=== PATIENT | female | born 1985 | race Caucasian/White ===

== ENCOUNTER 2017-02-27 15:34 | Emergency (ER) | payer BC, SELFPAY | END 2017-02-27 16:30 | disposition left against medical advice (07) | PROVIDERS: Emergency Provider Nurse Practitioner; Family Provider Family Medicine | DX: Z53.29 Procedure and treatment not carried out because of patient's decision for other reasons (principal) | CPT/HCPCS: 99211 ==

== ENCOUNTER 2017-03-16 10:40 | Emergency (ER) | payer BC, SELFPAY ==
[2017-03-16 10:51] VITALS: BP 137/87; PULSE 101; RESP 20; TEMP 36.6; O2SAT 98; BMI 33.0
--- NOTE | 2017-03-16 11:06 | HMH.EDUTC ---
[facility] [place] Clinical Impression: Sinusitis Qualifiers: Sinusitis location: maxillary Chronicity: acute Recurrence: non-recurrent Qualified Code(s): J01.00 - Acute maxillary sinusitis, unspecified Disposition: Home, Self-Care Condition on Discharge: Good Instructions: DI for Sinusitis Additional Instructions: Rest, fluids. Time of Disposition: 11:21 Medical Decision Making - Medical Records Medical records reviewed: Yes: I reviewed the patient's medical records. Vital Signs: 03/16/17 10:51 Temperature 97.9 F Temperature Source Temporal Artery Scan Pulse Rate [Brachial] 101 H Respiratory Rate 20 Blood Pressure [Right Arm] 137/87 Blood Pressure Mean [Right Arm] 103 Blood Pressure Source [Right Arm] Automatic Cuff Blood Pressure Position [Right Arm] Sitting 02 Sat by Pulse Oximetry 98 Oxygen Delivery Method Room Air - Dmitriy Inquiry Pt receiving controlled substance: No [facility] [place] - General Stated complaint: sinus pressure fever congestion Time Seen by Provider: 03/16/17 11:02 Mode of Arrival: Ambulatory Source of Information: Patient Limitations: No Limitations Description of Symptoms (Recalled from Triage Doc. by RN): SINUS PRESSURE, LOW GRADE FEVER (36 WEEKS ). HEENT Symptoms (Recalled from RN notes): Yes Resp Symptoms (Recalled from RN notes): No Skin Symptoms (Recalled from RN notes): No MS Symptoms (Recalled from RN notes): No Functional Status (Recalled from RN notes): NA - History of Present Illness Provider Complaint: Sinus pressure, low grade fever, ear pain and dizziness for a few days. She is 36 weeks . Denies cough, body aches,chills. Denies sore throat. Normal . Still having plenty of movement. Onset (ago): day(s) (3) Location: head Associated symptoms: fever/chills, headaches Treatments prior to arrival: none - Related Data Home Medications Medication Instructions Recorded Confirmed Itl132/FA/Omega3/Dha/Fish Oil 1 each PO DAILY 03/16/17 03/16/17 [ Gummies] Previous Rx's Medication Instructions Recorded Amoxicillin/Potassium Clav 1 tab PO Q12H 10 Days #20 tab 03/16/17 [Augmentin 875-125 Tablet] Fluticasone Propionate [Flonase 1 spray NS BID 10 Days #1 bot 03/16/17 Allergy Relief NS] Pseudoephedrine HCl [Sudafed] 30 mg PO TID 10 Days #30 tab 03/16/17 Allergies Allergy/AdvReac Type Severity Reaction Status Date / Time erythromycin base Allergy Intermediate I-HIVES, Verified 03/13/17 14:34 STOMACH UPSET methylergonovine Allergy Unknown EDEMA Verified 03/13/17 14:34 [From Methergine] oxycodone Allergy Unknown HEART RACES Verified 03/13/17 14:34 - Worker's Comp Is this a Worker's Comp case?: No H History Other Surgeries: Yes: , Diagnostic Lap Amputation: No Fractures: No - *Social History Smoking Status: Never smoker Alcohol Intake: never Substance Use Type: denies use Occupational Status: unemployed Housing: house Household Members: spouse, children - Psychiatric History Expresses thoughts of harming self/others: None Suicide Plan Description: No Plan *Family Hx:: Hypertension, Cancer 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 ROS Obtained: Yes All systems reviewed & no additional complaints - ENT Ears, Nose, Mouth, and Throat: Reports otalgia, Reports headache(s), Reports nasal congestion Physical Exam - General General appearance: alert, in no apparent distress - Head Head exam: atraumatic, normocephalic, normal inspection - Eye Eye exam: Present: normal appearance, PERRL, EOMI - ENT ENT exam: Present: normal exam, normal oropharynx, mucous membranes moist, normal external ear exam - Expanded ENT Exam TM/Canal exam: Bilateral TM: effusion Nose exam: Present: sinus tenderness - Neck Neck exam: Present: normal inspection, full ROM, trachea midline. Absent: meningismus, lymphadenopathy - Chest Chest inspection: Present: normal inspection, symme
--- NOTE | 2017-03-16 11:16 | ED_ITS ---
[facility] [place] Disposition Clinical Impression: Sinusitis Qualifiers: Sinusitis location: maxillary Chronicity: acute Recurrence: non-recurrent Qualified Code(s): J01.00 - Acute maxillary sinusitis, unspecified Disposition: Home, Self-Care Condition on Discharge: Good Instructions: DI for Sinusitis Additional Instructions: Rest, fluids. Time of Disposition: 11:21 Medical Decision Making - Medical Records Medical records reviewed: Yes: I reviewed the patient's medical records. Vital Signs: 03/16/17 10:51 Temperature 97.9 F Temperature Source Temporal Artery Scan Pulse Rate [Brachial] 101 H Respiratory Rate 20 Blood Pressure [Right Arm] 137/87 Blood Pressure Mean [Right Arm] 103 Blood Pressure Source [Right Arm] Automatic Cuff Blood Pressure Position [Right Arm] Sitting 02 Sat by Pulse Oximetry 98 Oxygen Delivery Method Room Air - Dmitriy Inquiry Pt receiving controlled substance: No [facility] [place] HPI - General Stated complaint: sinus pressure fever congestion Time Seen by Provider: 03/16/17 11:02 Mode of Arrival: Ambulatory Source of Information: Patient Limitations: No Limitations Description of Symptoms (Recalled from Triage Doc. by RN): SINUS PRESSURE, LOW GRADE FEVER (36 WEEKS ). HEENT Symptoms (Recalled from RN notes): Yes Resp Symptoms (Recalled from RN notes): No Skin Symptoms (Recalled from RN notes): No MS Symptoms (Recalled from RN notes): No Functional Status (Recalled from RN notes): NA - History of Present Illness Provider Complaint: Sinus pressure, low grade fever, ear pain and dizziness for a few days. She is 36 weeks . Denies cough, body aches,chills. Denies sore throat. Normal . Still having plenty of movement. Onset (ago): day(s) (3) Location: head Associated symptoms: fever/chills, headaches Treatments prior to arrival: none - Related Data Home Medications Medication Instructions Recorded Confirmed Oxq980/FA/Omega3/Dha/Fish Oil 1 each PO DAILY 03/16/17 03/16/17 [ Gummies] Previous Rx's Medication Instructions Recorded Amoxicillin/Potassium Clav 1 tab PO Q12H 10 Days #20 tab 03/16/17 [Augmentin 875-125 Tablet] Fluticasone Propionate [Flonase 1 spray NS BID 10 Days #1 bot 03/16/17 Allergy Relief NS] Pseudoephedrine HCl [Sudafed] 30 mg PO TID 10 Days #30 tab 03/16/17 Allergies Allergy/AdvReac Type Severity Reaction Status Date / Time erythromycin base Allergy Intermediate I-HIVES, Verified 03/13/17 14:34 STOMACH UPSET methylergonovine Allergy Unknown EDEMA Verified 03/13/17 14:34 [From Methergine] oxycodone Allergy Unknown HEART RACES Verified 03/13/17 14:34 - Worker's Comp Is this a Worker's Comp case?: No [facility] History Other Surgeries: Yes: , Diagnostic Lap Amputation: No Fractures: No - *Social History Smoking Status: Never smoker Alcohol Intake: never Substance Use Type: denies use Occupational Status: unemployed Housing: house Household Members: spouse, children - Psychiatric History Expresses thoughts of harming self/others: None Suicide Plan Description: No Plan *Family Hx:: Hypertension, Cancer 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
== END 2017-03-16 12:07 | disposition home or self-care (01) ==
PROVIDERS: Emergency Provider Physician Assistant; Family Provider Family Medicine
DX: J01.00 Acute maxillary sinusitis, unspecified (principal); Z3A.36 36 weeks gestation of pregnancy
CPT/HCPCS: 99202

== ENCOUNTER → 2017-04-03 14:24 | Outpatient (CLI) | payer BC, SELFPAY ==
[2017-04-03 14:29] LABS: Microscopic, Urine URINE MICROSCOPIC (MICROSCOPIC)
[2017-04-03 14:50] LABS: Appearance,Urine CLEAR (Clear); Bilirubin,Urine Negative (Negative); Blood, Urine Negative (Negative); Color,Urine YELLOW (Yellow); Glucose,Urine (UA) Negative (Negative); Ketones,Urine Negative (Negative); Leukocyte Esterase,Urine Negative (Negative); Nitrate,Urine Negative (Negative); Protein,Urine Negative (Negative); Urobilinogen,Urine 0.2 EU/dl (0.2)
[2017-04-03 14:51] LABS: Basophils % 0.1 % (0.1-2.0); Eosinophils # 0.1 K/mm3 (0.0-0.4); Eosinophils % 1.2 % (0.1-12.0); Hematocrit 36.4 % (37.0-47.0); Hemoglobin 12.1 g/dL (12.2-16.2); Lymphocytes # 1.6 K/mm3 (0.7-4.5); Mean Corpuscular HGB Conc 33.4 g/dL (31.8-35.4); Mean Corpuscular Hemoglobin 29.3 pg (27.0-31.2); Mean Corpuscular Volume 87.8 fl (81-99); Mean Platelet Volume 8.2 fl (7.4-10.4); Monocytes # 0.6 K/mm3 (0.1-1.0); Neutrophils # 8.4 K/mm3 (1.8-7.8); Neutrophils % 77.7 % (37.0-80.0); Platelet Count 192 K/mm3 (142-424); Red Blood Count 4.15 M/mm3 (4.20-5.40); Red Cell Distribution Width 14.4 % (11.5-17.5); White Blood Count 10.8 K/mm3 (4.8-10.8)
[2017-04-03 15:49] LABS: Alanine Aminotransferase 21 U/L (12-78); Albumin Level 2.7 gm/dL (3.4-5.0); Albumin/Globulin Ratio 0.8 (1.1-1.8); Alkaline Phosphatase 144 U/L (46-116); Anion Gap 13.9 mEq/L (5-15); Aspartate Amino Transferase 15 U/L (15-37); Bilirubin,Total 0.3 mg/dL (0.2-1.0); Blood Urea Nitrogen 6 mg/dL (7-18); Carbon Dioxide 24 mmol/L (21.0-32.0); Chloride 105 mmol/L (98-107); Creatinine,Serum 0.53 mg/dL (0.55-1.02); Estimated Glomerular Filt Rate 136 ml/min (>60); GFR (African American) 165 ML/MIN (>60); Globulin 3.4 gm/dl (1.3-3.2); Glucose 95 mg/dL (74-106); Potassium 3.9 mmoL/L (3.5-5.1); Sodium 139 mmol/L (136-145); Total Protein,Serum 6.1 gm/dL (6.4-8.2)
[2017-04-03 16:47] LABS: Bacteria,Urine 2+ /lpf; Transitional Epi Cells,Urine OCC #/lpf (0-3); WBC,Urine Occasional #/hpf (0-3)
== END ==
PROVIDERS: PCP Family Medicine; Visit Provider Obstetrics & Gynecology
DX: Z01.812 Encounter for preprocedural laboratory examination (principal)
CPT/HCPCS: 36415; 80053; 81001; 85025; 87086

== ENCOUNTER 2017-04-06 05:01 | Inpatient (IN) | payer BC, SELFPAY ==
[2017-04-06 05:16] VITALS: BMI 32.7
[2017-04-06 05:57] VITALS: BP 119/72; PULSE 76; RESP 18; TEMP 37.4; O2SAT 98; BMI 32.7
--- NOTE | 2017-04-06 07:17 | HMH.ANESCL ---
[facility] Anesthesia Checklist - Patient Identification Patient Identification: Arm Band - Structural Data Admitted From: Home Planned Operative Procedure/s: repeat c/s Consent for Planned Operative Procedure(s) Verified: Yes Verified Documents: Surgical Consent, History and Physical - NPO Status Verified Time NPO: 00:00 - Airway Assessment C-Spine Mobility Assessed: Yes TMJ Mobility Assessed: Yes Dentition: Good Dentition - Neurological Assessment Level of Consciousness: Awake, Alert - Anesthesia Plan Anesthesia Risk discussed: Yes Anesthesia Plan: Verified ASA Class: II Anesthesia Type: Spinal [facility] Anesthesia HX I have reviewed the patient's past medical history: Yes Other Medical History: Reports: Other Other Surgeries: Yes: , Diagnostic Lap, Other Amputation: No Fractures: No *Family Hx:: Hypertension, Cancer
[2017-04-06 08:44] LABS: Cord Blood PH 7.41 (7.35-7.45)
--- NOTE | 2017-04-06 09:02 | HMH.OBCSECT ---
Pre-Op/Post-Op Diagnoses Operation Date: 04/06/17 08:45 <No data on this case meets the specified criteria> Preop diagnoses 1. Term intrauterine . 2. Previous sections ?2. Procedure: Procedures Operation Date: 04/06/17 08:45 <No data on this case meets the specified criteria> Repeat low transverse cervical section.
[2017-04-06 09:05] VITALS: BP 133/78; PULSE 105; RESP 16; TEMP 36.1; O2SAT 97
--- NOTE | 2017-04-06 09:05 | HMH.OPNOTE ---
Date of procedure: 04/06/17 Pre-op Diagnosis:: 1. Term intrauterine . 2. Previous sections ?2. Post-op diagnosis:: same ( 10/10, 7 lbs. 3 oz., 19.25 inch female , born at 0832.) Procedure performed:: Repeat low transverse cervical section Surgeon:: Toro Nath MD Revenue Settlements Administrator(s):: PORTER Tejeda DIRECTOR DATA MANAGEMENT:: Sergio Eduardo Anesthesia: spinal Estimated blood loss (mL): 400 Operative findings:: Term intrauterine , with previous sections ?2. Evidence of repair of umbilical hernia. Operative note:: After the patient was prepped and draped in usual fashion and spinal anesthesia was administered, a low Pfannenstiel incision was made through the previous incision, and the fat and fascia was in usual fashion, bleeders being clamped and coagulated along the way. The peritoneum was entered with Metzenbaum scissors, and extended above and below. The bladder peritoneum was sharply and bluntly dissected from the area of incision, and the bladder was protected with a bladder blade. The uterus was entered in a low transverse fashion with a knife, and the incision was extended bluntly, bilaterally. The amniotic sac was ruptured for clear fluid. The baby was found to be in the OA position of the vertex and, with appropriate fundal pressure, the head was easily delivered. There was no nuchal cord, nor was there any meconium. The baby's nasal and oropharynx were bulb suctioned, and the baby cried spontaneously on the abdomen, as it was delivered. The cord was clamped and cut, 3 vessels were noted to be within the cord, and cord blood was obtained. The cord pH was 7.41. The baby was handed into the arms of the attending textile knitter, Dr. Chan, who assigned Apgars of 10 at 1 minute and 10 at 5 minutes to this 7 lbs. 3 oz., 19.25 inch female , born at 0832. The baby was taken to the nursery in excellent condition, along with the father, who is present in the operating room. The placenta was delivered manually, intact. A ring forceps was used to assure adequate drainage to the cervix; this was then passed off the field, as a nonsterile instrument. The uterus was closed in 2 layers, the first a running locked suture of #1 Vicryl as an endometrial layer, followed by a running unlocked suture of #1 Vicryl as a myometrial layer, imbricating over the first. The bladder peritoneum was closed with a running unlocked suture of 2-0 Vicryl. Blood and clots were then swept from the gutters and the tubes and ovaries were inspected and found to be normal. The patient had previously decided not to undergo tubal sterilization. The upper abdomen was explored and the umbilical hernia repair/mesh were felt to be intact. The peritoneum was grasped with 3 Ximena clamps, and closed with a running semi-locked suture of 0 Vicryl. The muscle was approximated with a running unlocked suture of 0 Vicryl. The fascia was closed with a running locked suture of #1 Vicryl. The subcutaneous fat and Sherwin's fascia were closed with a running unlocked suture of 2-0 Vicryl. The skin was closed with a subcuticular suture of 3-0 Vicryl, and appropriately dressed. The sponge and needle counts correct. The estimated blood loss was 400 cc. The urine is clear in the Mariscal catheter. A pelvic examination at the close of the procedure expressed blood and clots from the involuting uterus, with IV Pitocin running. The patient tolerated the procedure well, and was taken to PACU in excellent condition. Her blood type is A+. Her rubella titer is immune. She plans to breast-feed. It should be noted that she is group B strep positive, and was given antibiotics prior to surgery. Pathology: none sent Condition: stable Disposition: PACU Specimens:: None Complications:: None
--- NOTE | 2017-04-06 09:06 | HMH.ANESI ---
[facility] Anesthesia Record Part I Intake, IV Amount: 2,000 Estimated blood loss (mL): 400 Urine output (mL): 100 Blood Pressure: 133/78 SaO2: 97 Pulse Rate: 105 Respiratory Rate: 16 Temperature: 97 F Patient is:: Awake, Stable Stable to PACU at:: 09:05
[2017-04-06 09:07] VITALS: BP 133/78; PULSE 105; RESP 16; TEMP 36.1; O2SAT 97
--- NOTE | 2017-04-06 09:08 | HMH.ANESII ---
[facility] Anesthesia Record Part II Discharge Time: 09:35 Destination: Obstetric PACU nurse assessment reviewed?: Yes Patient Condition:: Good Anesthesia Complications:: None
--- NOTE | 2017-04-06 09:12 | P.OP_ITS ---
Date of procedure: 04/06/17 Pre-op Diagnosis:: 1. Term intrauterine . 2. Previous sections ?2. Post-op diagnosis:: same ( 10/10, 7 lbs. 3 oz., 19.25 inch female , born at 0832.) Procedure performed:: Repeat low transverse cervical section Surgeon:: Toro Nath MD Accounting System Expert(s):: PORTER Tejeda PRECISION INSPECTOR:: Sergio Eduardo Anesthesia: spinal Estimated blood loss (mL): 400 Operative findings:: Term intrauterine , with previous sections ?2. Evidence of repair of umbilical hernia. Operative note:: After the patient was prepped and draped in usual fashion and spinal anesthesia was administered, a low Pfannenstiel incision was made through the previous incision, and the fat and fascia was in usual fashion, bleeders being clamped and coagulated along the way. The peritoneum was entered with Metzenbaum scissors, and extended above and below. The bladder peritoneum was sharply and bluntly dissected from the area of incision, and the bladder was protected with a bladder blade. The uterus was entered in a low transverse fashion with a knife, and the incision was extended bluntly, bilaterally. The amniotic sac was ruptured for clear fluid. The baby was found to be in the OA position of the vertex and, with appropriate fundal pressure, the head was easily delivered. There was no nuchal cord, nor was there any meconium. The baby's nasal and oropharynx were bulb suctioned, and the baby cried spontaneously on the abdomen, as it was delivered. The cord was clamped and cut , 3 vessels were noted to be within the cord, and cord blood was obtained. The cord pH was 7.41. The baby was handed into the arms of the attending manager business operations, Dr. Chan, who assigned Apgars of 10 at 1 minute and 10 at 5 minutes to this 7 lbs. 3 oz., 19.25 inch female , born at 0832. The baby was taken to the nursery in excellent condition, along with the father, who is present in the operating room. The placenta was delivered manually, intact. A ring forceps was used to assure adequate drainage to the cervix; this was then passed off the field, as a nonsterile instrument. The uterus was closed in 2 layers, the first a running locked suture of #1 Vicryl as an endometrial layer, followed by a running unlocked suture of #1 Vicryl as a myometrial layer, imbricating over the first. The bladder peritoneum was closed with a running unlocked suture of 2-0 Vicryl. Blood and clots were then swept from the gutters and the tubes and ovaries were inspected and found to be normal. The patient had previously decided not to undergo tubal sterilization. The upper abdomen was explored and the umbilical hernia repair/mesh were felt to be intact. The peritoneum was grasped with 3 Ximena clamps, and closed with a running semi-locked suture of 0 Vicryl. The muscle was approximated with a running unlocked suture of 0 Vicryl. The fascia was closed with a running locked suture of #1 Vicryl. The subcutaneous fat and Sherwin's fascia were closed with a running unlocked suture of 2-0 Vicryl. The skin was closed with a subcuticular suture of 3-0 Vicryl, and appropriately dressed. The sponge and needle counts correct. The estimated blood loss was 400 cc. The urine is clear in the Mariscal catheter. A pelvic examination at the close of the procedure expressed blood and clots from the involuting uterus, with IV Pitocin running. The patient tolerated the procedure well, and was taken to PACU in excellent condition. Her blood type is A+. Her rubella titer is immune. She plans to breast-feed. It should be noted that she is group B strep positive, and was given antibiotics prior to surgery. Pathology: none sent
[2017-04-06 09:15] VITALS: BP 136/79; PULSE 91; RESP 16; O2SAT 98
[2017-04-06 09:25] VITALS: BP 122/79; PULSE 79; RESP 16; O2SAT 99
[2017-04-06 09:35] VITALS: BP 128/67; PULSE 84; RESP 16; TEMP 36.2; O2SAT 99
--- NOTE | 2017-04-06 10:48 | PC.NURSE ---
0905-Report received from ABHISHEK Smith and RICHARD Palafox.
--- NOTE | 2017-04-06 12:43 | HMH.ACPN2 ---
Internal Medicine - PN: Subj *Date: 04/06/17 *Time: 12:43 (This is day of surgery. Surgeries been explained to the patient. She is doing well. She is afebrile. Vital signs stable. Wound clean. Abdomen soft. Uterine fundus involuting well. Impression: Stable. Dr. Sobeida Painter will be covering from tonight through the weekend and the patient has been made aware of that.) Exam Vital signs and Labs for Last 24 Hours: Temp Pulse Resp BP Pulse Ox 97 F L 105 H 16 133/78 97 04/06/17 09:07 04/06/17 09:07 04/06/17 09:07 04/06/17 09:07 04/06/17 09:05 Laboratory Results - last 24 hr 04/06/17 05:45: Blood Type A Positive, Antibody Screen Negative 04/06/17 08:41: Cord ABG pH 7.41 I & O for Last 24 hours: Intake & Output 04/04/17 04/05/17 04/06/17 04/07/17 11:59 11:59 11:59 11:59 Intake Total 2300 / 2300 Balance 2300 / 2300 Weight 179 lb
[2017-04-06 13:19] LABS: Microscopic, Urine URINE MICROSCOPIC (MICROSCOPIC)
[2017-04-06 13:21] LABS: Appearance,Urine CLEAR (Clear); Bilirubin,Urine Negative (Negative); Blood, Urine TRACE-I (Negative); Color,Urine YELLOW (Yellow); Glucose,Urine (UA) Negative (Negative); Ketones,Urine Negative (Negative); Leukocyte Esterase,Urine Negative (Negative); Nitrate,Urine Negative (Negative); PH,Urine 7.5 (5.0-8.5); Protein,Urine 2+ (Negative); Specific Gravity, Urine 1.015 (1.005-1.030); Urobilinogen,Urine 0.2 EU/dl (0.2)
--- NOTE | 2017-04-06 13:29 | PC.NURSE ---
0915-pt eating ice chips w/out difficulty
[2017-04-06 13:33] LABS: Bacteria,Urine 1+ /lpf; Squamous Epithelial Cell,Urine Occasional #/hpf (0-5); WBC,Urine Occasional #/hpf (0-3)
--- NOTE | 2017-04-06 13:41 | PC.NURSE ---
0933-Detailed report called to ABHISHEK Andre. Pt continues to eat ice chips w/out difficulty. Pt stable. 0935-Pt transported to OB dept room 277 via hospital bed w/rails up and left in care of ABHISHEK Andre and ABHISHEK Nunez with bed locked in lowest position. Family at bedside. VSS. Pt stable.
--- NOTE | 2017-04-06 13:55 | P.CONPHA_ITS ---
[facility] Pharmacy VTE Monitoring - Patient Demographics Admission date: 04/06/17 Report Date: 04/06/17 Time: 13:55 Allergies/Adverse Reactions: Patient Allergies erythromycin base Allergy (Intermediate, Verified 04/03/17 13:43) I-HIVES, STOMACH UPSET methylergonovine [From Methergine] Allergy (Unknown, Verified 04/03/17 13:43) EDEMA oxycodone Adverse Reaction (Unknown, Verified 04/06/17 11:42) HEART RACES Height: 1.57 m Weight: 81.193 kg - Prophylaxis VTE Prophylaxis Ordered?: Yes Types of VTE Prophylaxis: IPCS Knee High Location of Applied Device: Bilateral Lower Extremeties - VTE Diagnosis Confirmed Treatment or plan recommended: Continue Current Treatment
--- NOTE | 2017-04-06 23:25 | PC.NURSE ---
Report received from ABHISHEK Daniel.
[2017-04-07 06:26] LABS: Hematocrit 32.9 % (37.0-47.0); Hemoglobin 11.1 g/dL (12.2-16.2)
--- NOTE | 2017-04-07 07:08 | PC.NURSE ---
Report given to MayraRN
--- NOTE | 2017-04-07 11:24 | HMH.ACPN ---
Internal Medicine - PN: Subj *Date: 04/07/17 *Time: 13:24 Interval history: POD 1 repeat CS No complaints Ambulating, voiding and tolerating regular diet Lochia less than menses Pain control sufficient Exam Vital signs and Labs for Last 24 Hours: Temp Pulse Resp BP Pulse Ox 97.2 F L 84 16 128/67 99 04/06/17 09:35 04/06/17 09:35 04/06/17 09:35 04/06/17 09:35 04/06/17 09:35 Laboratory Results - last 24 hr 04/06/17 08:20: Urine Color Yellow, Urine Appearance Clear, Urine pH 7.5, Ur Specific [place] 1.015, Urine Protein 2+, Urine Glucose (UA) Negative, Urine Ketones Negative, Urine Blood Trace-i, Urine Nitrate Negative, Urine Bilirubin Negative, Urine Urobilinogen 0.2, Ur Leukocyte Esterase Negative, Urine RBC 3-5, Urine WBC Occasional, Ur Squamous Epith Cells Occasional, Urine Bacteria 1+ 04/07/17 05:50: Hgb 11.1 L, Hct 32.9 L I & O for Last 24 hours: Intake & Output 04/05/17 04/06/17 04/07/17 04/08/17 11:59 11:59 11:59 11:59 Intake Total 2325 / 2325 Output Total 75 / 75 Balance 2250 / 2250 Weight 179 lb 179 lb - *Routine Respiratory Exam Comments: breathing unlabored - *Routine Abdominal Exam Present: soft, normoactive bowel sounds Comments: appropriate po tenderness dressing D/I - *Routine Extremities Exam Present: edema Comments: 1+ LE - *Routine Skin Exam Present: dry, warm Assessment and Plan (1) Delivered by section Current visit: Yes Status: Acute Category: Medical Code(s): O82 - Encounter for delivery without indication Routine care Advance care as tolerated Anticipate discharge POD 2 or 3 (2) Postoperative anemia Current visit: Yes Status: Acute Category: Medical Code(s): D64.9 - Anemia, unspecified Continue supplementation with PNV/ferrous sulfate
--- NOTE | 2017-04-07 13:28 | P.PN_ITS ---
Internal Medicine - PN: Subj *Date: 04/07/17 *Time: 13:24 Interval history: POD 1 repeat CS No complaints Ambulating, voiding and tolerating regular diet Lochia less than menses Pain control sufficient Exam Vital signs and Labs for Last 24 Hours: Temp Pulse Resp BP Pulse Ox 97.2 F L 84 16 128/67 99 04/06/17 09:35 04/06/17 09:35 04/06/17 09:35 04/06/17 09:35 04/06/17 09:35 Laboratory Results - last 24 hr 04/06/17 08:20: Urine Color Yellow, Urine Appearance Clear, Urine pH 7.5, Ur Specific [place] 1.015, Urine Protein 2+, Urine Glucose (UA) Negative, Urine Ketones Negative, Urine Blood Trace-i, Urine Nitrate Negative, Urine Bilirubin Negative, Urine Urobilinogen 0.2, Ur Leukocyte Esterase Negative, Urine RBC 3-5 , Urine WBC Occasional, Ur Squamous Epith Cells Occasional, Urine Bacteria 1+ 04/07/17 05:50: Hgb 11.1 L, Hct 32.9 L I & O for Last 24 hours: Intake & Output 04/05/17 04/06/17 04/07/17 04/08/17 11:59 11:59 11:59 11:59 Intake Total 2325 / 2325 Output Total 75 / 75 Balance 2250 / 2250 Weight 179 lb 179 lb - *Routine Respiratory Exam Comments: breathing unlabored - *Routine Abdominal Exam Present: soft, normoactive bowel sounds Comments: appropriate po tenderness dressing D/I - *Routine Extremities Exam Present: edema Comments: 1+ LE - *Routine Skin Exam Present: dry, warm Assessment and Plan (1) Delivered by section Current visit: Yes Status: Acute Category: Medical Code(s): O82 - Encounter for delivery without indication Routine care Advance care as tolerated Anticipate discharge POD 2 or 3 (2) Postoperative anemia Current visit: Yes Status: Acute Category: Medical Code(s): D64.9 - Anemia , unspecified Continue supplementation with PNV/ferrous sulfate
--- NOTE | 2017-04-08 07:11 | PC.NURSE ---
Report to ABHISHEK Boudreaux
[2017-04-08 07:41] VITALS: RESP 18
--- NOTE | 2017-04-08 12:26 | HMH.ACPN ---
Internal Medicine - PN: Subj *Date: 04/08/17 *Time: 12:26 Interval history: POD #2 no new complaints. ambulating/voiding/tolerating reg diet without problems. lochia small. desires discharge tomorrow. Exam Vital signs and Labs for Last 24 Hours: Temp Pulse Resp BP Pulse Ox 97.2 F L 84 18 128/67 99 04/06/17 09:35 04/06/17 09:35 04/08/17 07:41 04/06/17 09:35 04/06/17 09:35 I & O for Last 24 hours: Intake & Output 04/06/17 04/07/17 04/08/17 04/09/17 11:59 11:59 11:59 11:59 Intake Total 2325 / 2325 Output Total 75 / 75 Balance 2250 / 2250 Weight 179 lb 179 lb - Constitutional no acute distress - *Routine Respiratory Exam Present: CTA bilaterally - *Routine Abdominal Exam Present: soft Comments: NT/ND - Routine Psychiatric Exam Present: normal affect Assessment and Plan (1) Delivered by section Current visit: Yes Status: Acute Category: Medical Code(s): O82 - Encounter for delivery without indication (2) Postoperative anemia Current visit: Yes Status: Acute Category: Medical Code(s): D64.9 - Anemia, unspecified - Assessment and plan all Dx Assessment and Plan for all problems:: Continue routine care. Anticipate discharge home tomorrow. Continue PNV with ferrous sulfate.
--- NOTE | 2017-04-08 15:29 | P.PN_ITS ---
Internal Medicine - PN: Subj *Date: 04/08/17 *Time: 12:26 Interval history: POD #2 no new complaints. ambulating/voiding/tolerating reg diet without problems. lochia small. desires discharge tomorrow. Exam Vital signs and Labs for Last 24 Hours: Temp Pulse Resp BP Pulse Ox 97.2 F L 84 18 128/67 99 04/06/17 09:35 04/06/17 09:35 04/08/17 07:41 04/06/17 09:35 04/06/17 09:35 I & O for Last 24 hours: Intake & Output 04/06/17 04/07/17 04/08/17 04/09/17 11:59 11:59 11:59 11:59 Intake Total 2325 / 2325 Output Total 75 / 75 Balance 2250 / 2250 Weight 179 lb 179 lb - Constitutional no acute distress - *Routine Respiratory Exam Present: CTA bilaterally - *Routine Abdominal Exam Present: soft Comments: NT/ND - Routine Psychiatric Exam Present: normal affect Assessment and Plan (1) Delivered by section Current visit: Yes Status: Acute Category: Medical Code(s): O82 - Encounter for delivery without indication (2) Postoperative anemia Current visit: Yes Status: Acute Category: Medical Code(s): D64.9 - Anemia , unspecified - Assessment and plan all Dx Assessment and Plan for all problems:: Continue routine care. Anticipate discharge home tomorrow. Continue PNV with ferrous sulfate.
--- NOTE | 2017-04-09 06:01 | P.PN_ITS ---
Internal Medicine - PN: Subj *Date: 04/09/17 *Time: 06:00 Interval history: This is /postop day #3. The patient is afebrile. Vital signs stable. Wound clean. Abdomen soft. Lochia normal. Uterine fundus involuting well. Hemoglobin 11.1 g, but clinically stable. Home today. Exam Vital signs and Labs for Last 24 Hours: Temp Pulse Resp BP Pulse Ox 97.2 F L 84 18 128/67 99 04/06/17 09:35 04/06/17 09:35 04/08/17 07:41 04/06/17 09:35 04/06/17 09:35 I & O for Last 24 hours: Intake & Output 04/06/17 04/07/17 04/08/17 04/09/17 11:59 11:59 11:59 11:59 Intake Total 2325 / 2325 Output Total 75 / 75 Balance 2250 / 2250 Weight 179 lb 179 lb Assessment and Plan (1) Delivered by section Current visit: Yes Status: Acute Category: Medical Code(s): O82 - Encounter for delivery without indication (2) Postoperative anemia Current visit: Yes Status: Acute Category: Medical Code(s): D64.9 - Anemia , unspecified
--- NOTE | 2017-04-09 06:02 | HMH.DCSUM ---
General - General Admission date: 04/06/17 Discharge date: 04/09/17 (This 31-year-old 4, now para 3, Ab1 white female was admitted at 39-1/7 weeks for repeat section. On the date of admission, she was taken to the operating room, where she underwent that procedure without complications, under spinal anesthesia. Baby was an 10/10, 7 lbs. 3 oz., 19.5 inch female , born at 0832 on [birth year]. The baby is breast-feeding and doing well. and postoperatively, the patient is done well. She is in ambulating, and has had a bowel movement. Her wound is clean. Her abdomen is soft. Her uterine fundus is involuting well. Her lochia is normal. Her hemoglobin is 11.1 g, but she is clinically stable. She is not a smoker. It should be noted that she was group B strep positive, and was given antibiotics perioperatively. She is discharged home on the third /postoperative day on iron and vitamins, and on Percocet 5/325 (number 20), 1 p.o. every 6 hours as needed pain. She is given appropriate instructions as to diet, exercise, and wound care, and she is to return the office in 2 weeks. Her blood type is A+. Her rubella titer is immune.) Objective Vital signs: Temp Pulse Resp BP Pulse Ox 97.2 F L 84 18 128/67 99 04/06/17 09:35 04/06/17 09:35 04/08/17 07:41 04/06/17 09:35 04/06/17 09:35 DS: Diagnosis - Discharge Diagnosis (1) Delivered by section Status: Acute (2) Postoperative anemia Status: Acute Meds Home Medications Medication Instructions Recorded Confirmed Type Luc737/FA/Omega3/Dha/Fish Oil 1 each PO DAILY 03/16/17 04/06/17 History [ Gummies] Allergies Allergy/AdvReac Type Severity Reaction Status Date / Time erythromycin base Allergy Intermediate I-HIVES, Verified 04/03/17 13:43 STOMACH UPSET methylergonovine Allergy Unknown EDEMA Verified 04/03/17 13:43 [From Methergine] oxycodone AdvReac Unknown HEART RACES Verified 04/06/17 11:42 Discharge Plan - Patient Discharge Instructions - Follow up Plan Home Medications: Home Medications Medication Instructions Recorded Confirmed Type Ell374/FA/Omega3/Dha/Fish Oil 1 each PO DAILY 03/16/17 04/06/17 History [ Gummies] Prescriptions/Medication Reconciliation: No Action [id number]/FA/Omega3/Dha/Fish Oil [ Gummies] 1 each PO DAILY
--- NOTE | 2017-04-09 06:05 | P.DS_ITS ---
General - General Admission date: 04/06/17 Discharge date: 04/09/17 (This 31-year-old 4, now para 3, Ab1 white female was admitted at 39-1/7 weeks for repeat section. On the date of admission, she was taken to the operating room, where she underwent that procedure without complications, under spinal anesthesia. Baby was an 10/ 10, 7 lbs. 3 oz., 19.5 inch female , born at 0832 on [birth year]. The baby is breast-feeding and doing well. and postoperatively, the patient is done well. She is in ambulating, and has had a bowel movement. Her wound is clean. Her abdomen is soft. Her uterine fundus is involuting well. Her lochia is normal. Her hemoglobin is 11.1 g, but she is clinically stable. She is not a smoker. It should be noted that she was group B strep positive, and was given antibiotics perioperatively. She is discharged home on the third /postoperative day on iron and vitamins, and on Percocet 5/325 ( number 20), 1 p.o. every 6 hours as needed pain. She is given appropriate instructions as to diet, exercise, and wound care, and she is to return the office in 2 weeks. Her blood type is A+. Her rubella titer is immune.) Objective Vital signs: Temp Pulse Resp BP Pulse Ox 97.2 F L 84 18 128/67 99 04/06/17 09:35 04/06/17 09:35 04/08/17 07:41 04/06/17 09:35 04/06/17 09:35 DS: Diagnosis - Discharge Diagnosis (1) Delivered by section Status: Acute (2) Postoperative anemia Status: Acute Meds Home Medications Medication Instructions Recorded Confirmed Type Gpx425/FA/Omega3/Dha/Fish Oil 1 each PO DAILY 03/16/17 04/06/17 History [ Gummies] Allergies Allergy/AdvReac Type Severity Reaction Status Date / Time erythromycin base Allergy Intermediate I-HIVES, Verified 04/03/17 13:43 STOMACH UPSET methylergonovine Allergy Unknown EDEMA Verified 04/03/17 13:43 [From Methergine] oxycodone AdvReac Unknown HEART RACES Verified 04/06/17 11:42 Discharge Plan - Patient Discharge Instructions - Follow up Plan Home Medications: Home Medications Medication Instructions Recorded Confirmed Type [id number]/FA/Omega3/Dha/Fish Oil 1 each PO DAILY 03/16/17 04/06/17 History [ Gummies] Prescriptions/Medication Reconciliation: No Action [id number]/FA/Omega3/Dha/Fish Oil [ Gummies] 1 each PO DAILY
== END 2017-04-09 10:40 | disposition home or self-care (01) | DRG 766 ==
PROVIDERS: Admitting Provider Obstetrics & Gynecology; Family Provider Family Medicine; PCP Family Medicine; Visit Provider Obstetrics & Gynecology
PROC: (CPT 59514; principal; 2017-04-06 08:45)
DX: O34.211 Maternal care for low transverse scar from previous cesarean delivery (principal); N85.8 Other specified noninflammatory disorders of uterus; Z3A.39 39 weeks gestation of pregnancy; Z37.0 Single live birth
CPT/HCPCS: 59514; 36415; 59025; 81001; 82800; 85014; 85018; 86850; J2405

== ENCOUNTER → 2017-07-16 13:09 | Outpatient (CLI) | payer BC, SELFPAY ==
--- NOTE | 2017-07-16 13:12 | CT_ITS ---
CT abdomen wo con CLINICAL INDICATION: ITS.REASON: ADRENAL MASS LT ORDERING PHYSICIAN: Zack Hudson MD PATIENT AGE: 31 years COMPARISON: 12/12/2014 and 07/15/2009 TECHNIQUE: Axial images obtained with sagittal and coronal reformats. All CT scans at the facility use one or more dose reduction, viz: automated exposure control; ma/kV adjustment per patient size (including targeted exams where dose is matched to indication; i.e. head); or iterative reconstruction technique. PROCEDURE: Oral Contrast: None IV Contrast: None . FINDINGS: The lung bases are clear. The liver, spleen, gallbladder, and pancreas have an unremarkable unenhanced CT appearance. Isodensity once again noted posterior to the fundus of the stomach measuring 2.3 cm and is probably related to gastric diverticulum. This however is contiguous with the left adrenal gland. Previous CT scan of 07/15/2009 show this to contain a small amount of contrast from the stomach. The right adrenal gland is unremarkable. No hydronephrosis, renal mass, or obstructing renal or ureteral calculus. The bowel gas pattern is unremarkable. No evidence of appendicitis or diverticulitis, no intestinal obstruction or free air. Soft tissue density is once again noted deep to the umbilicus as previously described measuring approximately 2 cm and may represent postsurgical change. There is a small amount fluid in the cul-de-sac nonspecific. No pelvic mass, focal inflammatory change, or other significant anomalies evident. Previously noted dilated loop of small bowel no longer apparent. No acute bony anomalies. IMPRESSION: 1. Overall stable CT appearance of the abdomen and pelvis. 2. 2 cm fluid density left supra renal area is felt to represent a gastric diverticulum. 3. No definite renal or adrenal mass evident
== END ==
PROVIDERS: Family Provider Family Medicine; PCP Family Medicine; Visit Provider Urology
DX: D44.10 Neoplasm of uncertain behavior of unspecified adrenal gland (principal)
CPT/HCPCS: 74150

== ENCOUNTER → 2018-02-22 10:59 | Outpatient (CLI) | payer BC, SELFPAY ==
--- NOTE | 2018-02-22 11:01 | US_ITS ---
US transvaginal Ordering Physician: Toro Nath MD Patient Age: 32 years: Female HISTORY: ITS.REASON: OVARIAN CYSTpelvic pain TECHNIQUE: Transvaginal pelvic ultrasound. Recent CT showed ovarian cyst COMPARISON :02/08/2018. CT & prior pelvic ultrasound FINDINGS Uterus within normal limits. It measures 6.7 seem in length x 5 cm AP x 5.4 cm wide.. Uterus is retroverted but within normal limits. Generous endometrial stripe measures up to 1.1 cm AP . Ovaries. Left ovary is enlarged with cyst. Left ovary overall size 4.5 x 1.9 x 1.9 cm. Dominant Left ovarian cyst measuring up to 2.3 cm x 2.6 cm.. This actually appears somewhat smaller than the over 4 cm cyst seen on recent CT abdomen pelvis. . Right ovary normal size with with numerous follicles about its periphery. Largest follicles measuring up to 7 mm Right ovary 3.5 x 1.6 x 2.8 cm. Normal color Doppler flow to the right ovary. . Minimal amount of fluid cul-de-sac as. IMPRESSION: 1. Uterus normal size. Retroverted. With 1.1 cm endometrial stripe 2. Left ovary enlarged; & contains to 2.6 x 2.3 cm cyst 3. Right ovary normal size with numerous follicles or cysts 4. Minimal fluid the cul-de-sac
== END ==
PROVIDERS: PCP Family Medicine; Visit Provider Obstetrics & Gynecology
DX: R10.2 Pelvic and perineal pain (principal)
CPT/HCPCS: 76830

== ENCOUNTER → 2018-03-18 13:30 | Outpatient (CLI) | payer BC, SELFPAY ==
--- NOTE | 2018-03-18 13:33 | US_ITS ---
US transvaginal Ordering Physician: Toro Nath MD Patient Age: 32 years: Female HISTORY: ITS.REASON: pelvic pain TECHNIQUE: Transvaginal pelvic ultrasound. COMPARISON :02/22/2018.. Pelvic ultrasound. FINDINGS Uterus. Anteverted anteflexed. scar noted. Normal size measures 8.8 cm length x 4.2 cm x 6.2 cm. Generous Endometrial stripe slightly thickened measuring up to 1.65 cm AP. Good flow to both ovaries. Right ovary upper normal in size. Right ovary: measures to nearly 4 cm x 2.9 x 3.6 cm. Right ovary with 1.9 x 1.7 cyst dominant follicle. A few other very tiny tiny follicles noted Left ovary: 3.5 x 2 cm x 2 cm. Follicular cyst. The largest measuring up to 1.55 cm. Other tiny follicular cyst at left ovary. . Free fluid in cul-de-sac. Focal cul-de-sac Fluid collection measures up to 3 cm x length 2.4 cm AP X 5 cm transverse. IMPRESSION: Retroverted retroflexed uterus.. scar. Prominent endometrial stripe measuring up to 1.65 cm AP. Right ovary: is upper normal in size measuring just less than 4 cm. & contains a 1.9 cm follicular cyst. Left ovary.: Smaller follicle measures 1.5 cm. Moderate free fluid in cul-de-sac
== END ==
PROVIDERS: PCP Family Medicine; Visit Provider Obstetrics & Gynecology
DX: R10.2 Pelvic and perineal pain (principal)
CPT/HCPCS: 76830

== ENCOUNTER → 2018-04-08 10:21 | Outpatient (CLI) | payer BC, SELFPAY ==
[2018-04-08 10:24] LABS: Microscopic, Urine URINE MICROSCOPIC (MICROSCOPIC)
[2018-04-08 10:46] LABS: Appearance,Urine CLEAR (Clear); Bilirubin,Urine Negative (Negative); Blood, Urine Negative (Negative); Color,Urine YELLOW (Yellow); Glucose,Urine (UA) Negative (Negative); Ketones,Urine Negative (Negative); Leukocyte Esterase,Urine Negative (Negative); Nitrate,Urine Negative (Negative); Protein,Urine Negative (Negative); Specific Gravity, Urine <= 1.005 (1.005-1.030); Urobilinogen,Urine 0.2 EU/dl (0.2)
[2018-04-08 10:47] LABS: Urine Pregnancy, HCG Qual. Negative (Negative)
[2018-04-08 10:50] LABS: Basophils % 0.4 % (0.1-2.0); Eosinophils # 0.2 K/mm3 (0.0-0.4); Hematocrit 42.4 % (37.0-47.0); Hemoglobin 14.1 g/dL (12.2-16.2); Lymphocytes # 2.1 K/mm3 (0.7-4.5); Lymphocytes % 28.1 % (10-50); Mean Corpuscular HGB Conc 33.4 g/dL (31.8-35.4); Mean Corpuscular Hemoglobin 29.7 pg (27.0-31.2); Mean Corpuscular Volume 88.8 fl (81-99); Monocytes # 0.4 K/mm3 (0.1-1.0); Monocytes % 4.9 % (1.7-9.3); Neutrophils # 4.8 K/mm3 (1.8-7.8); Neutrophils % 64.6 % (37.0-80.0); Platelet Count 250 K/mm3 (142-424); Red Blood Count 4.77 M/mm3 (4.20-5.40); Red Cell Distribution Width 12.6 % (11.5-17.5); White Blood Count 7.4 K/mm3 (4.8-10.8)
[2018-04-08 11:04] LABS: Bacteria,Urine Trace /lpf; Squamous Epithelial Cell,Urine Occasional #/hpf (0-5); WBC,Urine Occasional #/hpf (0-3)
[2018-04-08 11:39] LABS: Alanine Aminotransferase 25 U/L (12-78); Albumin Level 3.8 gm/dL (3.4-5.0); Albumin/Globulin Ratio 1.2 (1.1-1.8); Alkaline Phosphatase 79 U/L (46-116); Anion Gap 14.9 mEq/L (5-15); Aspartate Amino Transferase 7 U/L (15-37); Bilirubin,Total 0.4 mg/dL (0.2-1.0); Blood Urea Nitrogen 7 mg/dL (7-18); Calcium 9.4 mg/dL (8.5-10.1); Carbon Dioxide 26 mmol/L (21.0-32.0); Chloride 104 mmol/L (98-107); Creatinine,Serum 0.63 mg/dL (0.55-1.02); Estimated Glomerular Filt Rate 111 ml/min (>60); GFR (African American) 134 ML/MIN (>60); Globulin 3.3 gm/dl (1.3-3.2); Glucose 100 mg/dL (74-106); Potassium 3.9 mmoL/L (3.5-5.1); Sodium 141 mmol/L (136-145); Total Protein,Serum 7.1 gm/dL (6.4-8.2)
== END ==
PROVIDERS: Visit Provider Obstetrics & Gynecology
DX: Z01.818 Encounter for other preprocedural examination (principal); Z30.2 Encounter for sterilization
CPT/HCPCS: 36415; 80053; 81001; 81025; 85025

== ENCOUNTER → 2019-08-07 10:19 | Outpatient (CLI) | payer BC, SELFPAY ==
--- NOTE | 2019-08-07 10:43 | XR_ITS ---
PROCEDURE: XR CHEST PORTABLE CLINICAL HISTORY: COVID TESTING, chest pain, cough COMPARISON: CXR CHEST(2 VIEWS-NOT PORTABLE) from 12/16/2013 FINDINGS: The cardiomediastinal silhouette and pulmonary vascularity are within normal limits. The lungs are clear without infiltrates, suspicious nodules, or pleural effusions. No acute bony abnormalities. IMPRESSION: No acute findings. Dictated by: Que Palomino MD 08/07/2019 13:39 Electronically signed by Que Palomino MD in [facility] 08/07/2019 13:39
[2019-08-07 11:31] LABS: Basophils # 0.1 K/mm3 (0-0.2); Basophils % 1.4 % (0.1-2.0); Eosinophils # 0.2 K/mm3 (0.0-0.4); Eosinophils % 2.9 % (0.1-12.0); Hematocrit 45.8 % (37.0-47.0); Hemoglobin 15.7 g/dL (12.2-16.2); Lymphocytes # 2.6 K/mm3 (0.7-4.5); Lymphocytes % 32.7 % (10-50); Mean Corpuscular HGB Conc 34.2 g/dL (31.8-35.4); Mean Corpuscular Hemoglobin 30.5 pg (27.0-31.2); Mean Corpuscular Volume 89.4 fl (81-99); Mean Platelet Volume 7.4 fl (7.4-10.4); Monocytes # 0.4 K/mm3 (0.1-1.0); Monocytes % 4.6 % (1.7-9.3); Neutrophils # 4.6 K/mm3 (1.8-7.8); Neutrophils % 58.4 % (37.0-80.0); Platelet Count 239 K/mm3 (142-424); Red Blood Count 5.13 M/mm3 (4.20-5.40); Red Cell Distribution Width 12.3 % (11.5-17.5); White Blood Count 7.9 K/mm3 (4.8-10.8)
[2019-08-09 06:09] LABS: Covid-19 Nasal PCR Sendout Lex Not Detected
== END ==
PROVIDERS: Physician Assistant; PCP Family Medicine; Visit Provider Family Medicine
DX: Z03.818 Encounter for observation for suspected exposure to other biological agents ruled out (principal)
CPT/HCPCS: 71045; 85025; U0004

== ENCOUNTER 2019-08-07 10:48 | Emergency (ER) | payer BC, SELFPAY ==
[2019-08-07 10:48] VITALS: BP 140/90; PULSE 72; RESP 15; TEMP 36.8; O2SAT 100; BMI 28.5
--- NOTE | 2019-08-07 10:58 | PC.NURSE ---
After obtaining labs pt states that she is here only for an outpatient COVID test and that she does not wish to be seen as an ER patient, pt educated on risk of LWBS and pt continues to refuse.
[2019-08-07 11:01] VITALS: BP 133/87; PULSE 85; RESP 20; TEMP 36.8; O2SAT 98
== END 2019-08-07 11:02 | disposition left against medical advice (07) ==
LOC: ER 10:50
PROVIDERS: Emergency Provider Emergency Medicine
DX: Z53.21 Procedure and treatment not carried out due to patient leaving prior to being seen by health care provider (principal)
CPT/HCPCS: 99211

== ENCOUNTER → 2019-08-19 10:55 | Outpatient (CLI) | payer BC, SELFPAY ==
[2019-08-19 11:24] LABS: Basophils % 0.4 % (0.1-2.0); Eosinophils # 0.2 K/mm3 (0.0-0.4); Eosinophils % 3.3 % (0.1-12.0); Hematocrit 42.3 % (37.0-47.0); Hemoglobin 14.4 g/dL (12.2-16.2); Lymphocytes % 32.2 % (10-50); Mean Corpuscular HGB Conc 34.1 g/dL (31.8-35.4); Mean Corpuscular Hemoglobin 30.7 pg (27.0-31.2); Mean Platelet Volume 7.3 fl (7.4-10.4); Monocytes # 0.3 K/mm3 (0.1-1.0); Monocytes % 4.5 % (1.7-9.3); Neutrophils # 3.7 K/mm3 (1.8-7.8); Neutrophils % 59.6 % (37.0-80.0); Platelet Count 261 K/mm3 (142-424); Red Cell Distribution Width 12.6 % (11.5-17.5); White Blood Count 6.3 K/mm3 (4.8-10.8)
[2019-08-19 11:50] LABS: HCG Qualitative, Serum Negative (Negative)
[2019-08-19 11:51] LABS: Alanine Aminotransferase 18 U/L (12-78); Albumin Level 4.3 g/dl (3.5-5.0); Albumin/Globulin Ratio 1.5 (1.1-1.8); Alkaline Phosphatase 66 U/L (38-126); Anion Gap 7.1 mEq/L (5-15); Aspartate Amino Transferase 19 U/L (14-36); Bilirubin,Total 0.5 mg/dl (0.2-1.3); Blood Urea Nitrogen 12 mg/dl (7-17); Calcium 9.7 mg/dl (8.4-10.2); Carbon Dioxide 26 mmol/L (22.0-30.0); Chloride 108 mmol/L (98-107); Estimated Glomerular Filt Rate 98 ml/min (>60); GFR (African American) 118 ML/MIN (>60); Globulin 2.8 g/dL (1.3-3.2); Glucose 95 mg/dl (74-100); Potassium 4.1 mmoL/L (3.5-5.1); Sodium 137 mmol/L (136-145); Total Protein,Serum 7.1 g/dl (6.3-8.2)
[2019-08-19 13:00] LABS: Coronavirus 19 IgG Antibody Negative (Negative); Coronavirus 19 IgM Antibody Negative (Negative)
[2019-08-20 11:00] LABS: Estradiol 54.8 pg/mL (.); FSH 4.7 mIU/mL (.); LH 7.1 mIU/mL (.); Progesterone 0.2 ng/mL (.)
== END ==
PROVIDERS: Visit Provider Obstetrics & Gynecology
DX: Z01.812 Encounter for preprocedural laboratory examination (principal); Z01.84 Encounter for antibody response examination; N93.8 Other specified abnormal uterine and vaginal bleeding
CPT/HCPCS: 36415; 80053; 82670; 83001; 83002; 84144; 84703; 85025; 86328

== ENCOUNTER 2019-08-22 07:59 | Day surgery (SDC) | payer BC, SELFPAY ==
[2019-08-20 11:13] VITALS: BMI 28.5
[2019-08-22] VITALS (15 sets, daily range): BP systolic 96–124; BP diastolic 58–86; PULSE 66–96; RESP 14–21; TEMP 36.4–43; O2SAT 97–100
--- NOTE | 2019-08-22 09:36 | P.PN_ITS ---
[facility] Anesthesia Checklist - Patient Identification Patient Identification: Arm Band, Verbal (Name & ) - Structural Data Admitted From: Home Planned Operative Procedure/s: Hysteroscopy, D&C, Novasure, Myosure ablation Consent for Planned Operative Procedure(s) Verified: Yes Verified Documents: Surgical Consent, History and Physical - NPO Status Verified Time NPO: 23:55 - Chart Verification Results Verified: CBC, BMP - Additional verifications Patient : No Anesthesia Reactions: No Hx Blood Transfusions: No Blood Transfusion Reaction: No - Airway Assessment C-Spine Mobility Assessed: Yes (MP II, TMD 3) TMJ Mobility Assessed: Yes Dentition: Good Dentition - Neurological Assessment Level of Consciousness: Awake, Alert, Appropriate, Follows Commands Hx Seizures: No Numbness or tingling in extremities: No - Anesthesia Plan Anesthesia Risk discussed: Yes Anesthesia Plan: Verified ASA Class: II Anesthesia Type: General [facility] History I have reviewed the patient's past medical history: Yes Medical History: Reports:: Anxiety, Asthma (allergy induced) Denies:: Cancer, Diabetes Mellitus Type 1, Diabetes Mellitus Type 2, Internal Pacemaker, MRSA, Seizures *Have you ever received a pneumonia vaccine?: No *Have you received a flu vaccine this season?: No Other Medical History: Reports: Other. Denies: Blood Transfusion Reaction Comment:: HX shingles, MRSA Anesthesia experience/problems:: No prior complications Other Surgeries: Yes: , Dilation and Curettage, Diagnostic Lap, Tubal Ligation, Other. 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
--- NOTE | 2019-08-22 11:28 | P.PN_ITS ---
[facility] Anesthesia Record Part I Intake, IV Amount: 300 Estimated blood loss (mL): 5 Urine output (mL): 200 Blood Products used (#): none Blood Pressure: 96/58 SaO2: 97 Pulse Rate: 70 Respiratory Rate: 18 Temperature: 97.6 F Patient is:: Drowsy, Stable Stable to PACU at:: 11:25
--- NOTE | 2019-08-22 13:09 | P.OP_ITS ---
Date of procedure: 08/22/19 Pre-op Diagnosis:: 1. Heavy menstrual bleeding 2. Dysfunctional uterine bleeding 3. Severe dysmenorrhea Post-op Diagnosis:: 1. Heavy menstrual bleeding 2. Dysfunctional uterine bleeding 3. Severe dysmenorrhea Procedure performed:: D&C Hysteroscopy Novasure endometrial ablation Surgeon:: Sobeida Painter MD ACUTE DIALYSIS REGISTERED NURSE:: Dale Lisa Anesthesia: GETA Estimated blood loss (mL): 5 Operative findings:: grossly normal uterine cavity Operative note:: The patient was taken to the OR and general anesthesia administered without difficulty. She was prepped/draped in lithotomy position. The cervix was dilated and hysteroscopic evaluation performed. Diffuse, shaggy endometrium was prominent throughout the cavity, with no fibroids or polyps visualized. Sharp curettage was performed and the endometrial specimen sent for pathology. Once this was completed, the Novasure device was introduced into the uterus and measurements were obtained. A cavity length of 5.5cm and width of 4.5 cm were noted. Cavity assessment was successful, and the ablation was performed successfully, in 82 seconds, without complication. The Novasure was removed from the uterus and hysteroscope introduced. A diffuse ablation was noted throughout the cavity, with no areas of endometrium missed, but without ablating any endocervical tissue. All instruments were removed from her uterus and vagina. She was taken out of lithotomy position, awakened from anesthesia and taken to the PACU in stable condition. All counts correct. EBL 5cc. Condition: stable Disposition: PACU Specimens:: endometrial Complications:: none
--- NOTE | 2019-08-22 13:43 | HMH.ANESII ---
[facility] Anesthesia Record Part II Discharge Time: 11:55 Destination: Surgical Day Care (OP Surgery) PACU nurse assessment reviewed?: Yes Patient Condition:: Good Anesthesia Complications:: None Swallowing reflex intact?: Yes Cyanosis?: No Blood Pressure: 106/60 Pulse Rate: 77 Temperature: 97.6 F Mental Status: Alert & Oriented Pain level:: 2 Nausea and/or vomitting:: None Intake, IV Amount: 30
== END 2019-08-22 13:29 | disposition home or self-care (01) ==
PROVIDERS: PCP Family Medicine; Visit Provider Obstetrics & Gynecology
PROC: 0U5B8ZZ Destruction of Endometrium, Via Natural or Artificial Opening Endoscopic (ICD-10-PCS; CPT 58563; principal; 2019-08-22 10:00)
DX: N92.0 Excessive and frequent menstruation with regular cycle (principal); Z98.51 Tubal ligation status; N93.8 Other specified abnormal uterine and vaginal bleeding; R93.89 Abnormal findings on diagnostic imaging of other specified body structures; Z88.1 Allergy status to other antibiotic agents; Z88.8 Allergy status to other drugs, medicaments and biological substances; F41.9 Anxiety disorder, unspecified; Z86.14 Personal history of Methicillin resistant Staphylococcus aureus infection
CPT/HCPCS: 58563; 96374

== ENCOUNTER 2020-01-08 11:32 | Emergency (ER) | payer BC, SELFPAY ==
[2020-01-08 12:00] VITALS: BP 122/84; PULSE 77; RESP 20; TEMP 36.9; O2SAT 99; BMI 28.1
--- NOTE | 2020-01-08 12:27 | HMH.EDUTC ---
[facility] Clinical Impression: Bronchitis Disposition: Home, Self-Care Condition on Discharge: Good Instructions: Acute Bronchitis, DI for Acute Bronchitis, Preventing the Spread of Coronavirus Discharge Instructions Additional Instructions: Drink plenty of fluids. Take tylenol for pain or fever. Take the medications as directed. Follow up with your regular doctor. GO TO THE ER FOR ANY WORSENING SYMPTOMS Prescriptions: Brompheniramine/Pseudoephed/Dm [Bromfed Dm Cough Syrup] 5 ml PO Q6HP PRN #240 syrup PRN Reason: Cough Transmission Status: Received by [facility] # Cefdinir [Omnicef 300mg Capsule] 300 mg PO BID #20 cap Transmission Status: Received by [facility] # Referrals: Des Chan MD [Primary Care Provider] - Forms: Work/School Release Time of Disposition: 12:44 Medical Decision Making - Medical Records Medical records reviewed: No: I reviewed the patient's medical records. - Dmitriy Inquiry Pt receiving controlled substance: No Vital Signs: 01/08/20 12:00 01/08/20 12:52 Temperature 98.4 F 98.4 F Temperature Source Oral Pulse Rate 77 Pulse Rate [Left Brachial] 77 Respiratory Rate 20 20 Blood Pressure 122/84 Blood Pressure [Left Arm] 122/84 Blood Pressure Mean [Left Arm] 96 Blood Pressure Source [Left Arm] Automatic Cuff Blood Pressure Position [Left Arm] Sitting 02 Sat by Pulse Oximetry 99 Oxygen Delivery Method Room Air - Lab Data Lab Results 01/08/20 12:31: Influenza Type A Ag Negative, Influenza Type B Ag Negative Orders (Tests/Meds): ORDERS Category Date Time Status Covid-19 Nasal PCR Sendout S[facility] Stat Lab 01/08/20 12:10 Received [facility] [place] HPI - General Stated complaint: Cough Time Seen by Provider: 01/08/20 12:27 Mode of Arrival: Ambulatory Source of Information: Patient Limitations: No Limitations Description of Symptoms (Recalled from Triage Doc. by RN): PATIENT C/O VERTIGO X 1 WEEK AND STATES HER HEAD AND EARS FEEL FULL . ALSO C/O DRY COUGH WITH CHEST DISCOMFORT. HEENT Symptoms (Recalled from RN notes): No Resp Symptoms (Recalled from RN notes): No Skin Symptoms (Recalled from RN notes): No MS Symptoms (Recalled from RN notes): No Functional Status (Recalled from RN notes): WNL - History of Present Illness Provider Complaint: She c/o feeling bad for the past 2 weeks. She has had sinus congestion and a cough, she states that over the past couple of days her cough has worsened and she is having pleuritic type right sided chest pain at times. She denies any shortness of breath. - Related Data Home Medications Medication Instructions Recorded Confirmed cyanocobalamin (vitamin B-12) 1,000 mcg PO DAILY 07/22/19 08/22/19 1,000 mcg capsule levocetirizine 5 mg tablet 5 mg PO DAILY tab 07/22/19 08/22/19 potassium chloride 10 mEq 10 meq PO DAILY cap 07/22/19 08/22/19 capsule,extended release Fluticasone Propionate [Flovent 2 puff IH BID 08/20/19 08/22/19 Hfa 110mcg Inhaler] Loratadine [Claritin] 10 mg PO DAILY 08/20/19 08/22/19 Previous Rx's Medication Instructions Recorded Brompheniramine/Pseudoephed/Dm 5 ml PO Q6HP PRN #240 syrup 01/08/20 [Bromfed Dm Cough Syrup] Cefdinir [Omnicef 300mg Capsule] 300 mg PO BID #20 cap 01/08/20 Allergies Allergy/AdvReac Type Severity Reaction Status Date / Time erythromycin base Allergy Intermediate I-HIVES, Verified 08/20/19 11:10 STOMACH UPSET methylergonovine Allergy Unknown EDEMA Verified 07/22/19 11:19 [From Methergine] oxycodone AdvReac Unknown HEART RACES Verified 07/22/19 11:19 - Worker's Comp Is this a Worker's Comp case?: No [facility] History - Hepatitis A Screen Drug use history?: No High risk sexual behaviors?: No History of sexually transmitted infection?: No Currently employed?: No Childcare worker?: No Do you have indoor plumbing?: Yes Do you have electricity?: Yes [facility]
[2020-01-08 12:52] VITALS: BP 122/84; PULSE 77; RESP 20; TEMP 36.9; O2SAT 99
[2020-01-08 19:11] LABS: UTC Influenza A Antigen Negative (Negative); UTC Influenza B Antigen Negative (Negative)
[2020-01-09 15:48] LABS: Covid-19 Nasal PCR Sendout Lex Not Detected
== END 2020-01-08 13:08 | disposition home or self-care (01) ==
PROVIDERS: Emergency Provider Nurse Practitioner Family; PCP Family Medicine
DX: Z20.828 Contact with and (suspected) exposure to other viral communicable diseases (principal); J20.9 Acute bronchitis, unspecified; J45.909 Unspecified asthma, uncomplicated; F41.9 Anxiety disorder, unspecified; Z79.899 Other long term (current) drug therapy; Z88.1 Allergy status to other antibiotic agents; Z88.5 Allergy status to narcotic agent
CPT/HCPCS: 87804; 99201; U0004

== ENCOUNTER 2020-03-02 15:43 | Emergency (ER) | payer BC, SELFPAY ==
--- NOTE | 2020-03-02 15:50 | XR_ITS ---
PROCEDURE: XR FOOT LT MIN 3V CLINICAL INDICATION: INJURED FOOT WHILE JUMPING Posttraumatic pain COMPARISON: No exams were available for comparison FINDINGS: There is a nondisplaced transverse fracture involving the proximal shaft of the 5th metatarsal. No other significant anomalies are evident. IMPRESSION: Nondisplaced fracture proximal shaft 5th metatarsal Dictated by: Que Palomino MD 03/02/2020 16:52 Que Palomino MD in [facility] 03/02/2020 16:52
[2020-03-02 16:46] VITALS: BP 123/72; PULSE 64; RESP 18; TEMP 36.6; O2SAT 98; BMI 28.1
--- NOTE | 2020-03-02 16:51 | HMH.EDUTC ---
[facility] [place] Disposition Clinical Impression: Fractured metatarsal bone Qualifiers: Encounter type: initial encounter Metatarsal bone: fifth Fracture type: closed Fracture alignment: nondisplaced Laterality: left Qualified Code(s): S92.355A - Nondisplaced fracture of fifth metatarsal bone, left foot, initial encounter for closed fracture Disposition: Home, Self-Care Condition on Discharge: Good Instructions: How to Use Crutches, Foot Fracture, How To Perform RICE (Rest, Ice, Compress, Elevate), How to Use a Walking Boot Additional Instructions: *non-weight bearing *RICE, Rest the extremity, Ice 15-20 minutes 3-4 times daily, Compress- wear the jaleel wrap as discussed as much as possible to help reduce swelling and pain, Elevate the extremity when at rest *Jaleel wrap is for support and help control swelling, use it except in the shower. Be sure that is not to tight but not to loose either *Elevate when resting *Ibuprofen every 6-8 hours as needed for pain an inflammation. If need something more can take Tylenol in between doses of Ibuprofen to help Immediately follow up with your family doctor for new or worsening of symptoms, or no noticeable improvement over the next 3-5 days Referrals: Des Chan MD [Primary Care Provider] - As needed Savannah Vargas DPM [Staff Physician] - As needed (Call office for appointment) Time of Disposition: 17:41 Medical Decision Making - Dmitriy Inquiry Pt receiving controlled substance: No Dmitriy was queried for this patient: No Vital Signs: 03/02/20 16:46 Temperature 97.8 F Temperature Source Oral Pulse Rate [Right Brachial] 64 Respiratory Rate 18 Blood Pressure [Right Arm] 123/72 Blood Pressure Mean [Right Arm] 89 Blood Pressure Source [Right Arm] Automatic Cuff Blood Pressure Position [Right Arm] Sitting 02 Sat by Pulse Oximetry 98 Oxygen Delivery Method Room Air - Radiology Data #1 Image(s): Foot/Toes Image Reviewed: Yes I reviewed the patient's radiology image non displaced Fracture of 5th metatarsal - Physician Consults Physician Consulted: Sohail Time: 16:56 Reason -: Orthopedic Eval/Care Comment/Response: Dr Sauceda paged awaiting call back. Dr Sauceda called back RICE, crutches, walking boot and follow up with Podiatry [facility] [place] HPI - General Stated complaint: AO 03/02@1400 left amanda injury Time Seen by Provider: 03/02/20 16:51 Mode of Arrival: Ambulatory Source of Information: Patient Limitations: No Limitations Description of Symptoms (Recalled from Triage Doc. by RN): PATIENT STATES SHE WAS JUMPING ON A TRAMPOLINE WHEN SHE FELT HER LEFT FOOT POP HEENT Symptoms (Recalled from RN notes): No Resp Symptoms (Recalled from RN notes): No Skin Symptoms (Recalled from RN notes): No MS Symptoms (Recalled from RN notes): Yes Functional Status (Recalled from RN notes): WNL - History of Present Illness Provider Complaint: Patient states that she was jumping on a trampoline earlier when she felt a pop in her foot State that ever since she is having pain on the side of her foot. State that it hurt when she would try to walk or put weight on it so she come in to get it checked - Related Data Home Medications Medication Instructions Recorded Confirmed cyanocobalamin (vitamin B-12) 1,000 mcg PO DAILY 07/22/19 08/22/19 1,000 mcg capsule levocetirizine 5 mg tablet 5 mg PO DAILY tab 07/22/19 08/22/19 potassium chloride 10 mEq 10 meq PO DAILY cap 07/22/19 08/22/19 capsule,extended release Fluticasone Propionate [Flovent 2 puff IH BID 08/20/19 08/22/19 Hfa 110mcg Inhaler] Loratadine [Claritin] 10 mg PO DAILY 08/20/19 08/22/19 Previous Rx's Medication Instructions Recorded Brompheniramine/Pseudoephed/Dm 5 ml PO Q6HP PRN #240 syrup 01/08/20 [Bromfed Dm Cough Syrup] Cefdinir [Omnicef 300mg Capsule] 300 mg PO BID #20 cap 01/08/20 Allergies Allergy/AdvReac Type Severity Reaction Status Date / Time erythromycin base Allergy Intermediate I-Mekhi CORTEZ
[2020-03-02 17:59] VITALS: BP 123/72; PULSE 64; RESP 18; TEMP 36.6; O2SAT 98
== END 2020-03-02 18:00 | disposition home or self-care (01) ==
PROVIDERS: Emergency Provider Nurse Practitioner; PCP Family Medicine
DX: S92.355A Nondisplaced fracture of fifth metatarsal bone, left foot, initial encounter for closed fracture (principal); W17.89XA Other fall from one level to another, initial encounter; Y93.44 Activity, trampolining; Y92.017 Garden or yard in single-family (private) house as the place of occurrence of the external cause
CPT/HCPCS: 29515; 73630; 99202; G0463

== ENCOUNTER → 2020-03-04 11:20 | Outpatient (CLI) | payer BC, SELFPAY ==
--- NOTE | 2020-03-04 11:41 | ECG_ITS ---
APPROVED REPORT Exam: Resting ECG HR:66 bpm ECG Measurements Heart Rate 66 AXES NH 142 P 65 QRSd 84 QRS 83 QT 396 T 65 QTc 415 Conclusion Normal sinus rhythm Nonspecific T wave abnormality Abnormal ECG Electronically signed by : Dale Segura, 03/04/2020 19:41:42
[2020-03-04 12:01] LABS: Basophils % 0.7 % (0.1-2.0); Eosinophils # 0.2 K/mm3 (0.0-0.4); Eosinophils % 3.1 % (0.1-12.0); Hematocrit 44.9 % (37.0-47.0); Hemoglobin 14.2 g/dL (12.2-16.2); Lymphocytes # 1.5 K/mm3 (0.7-4.5); Mean Corpuscular HGB Conc 31.6 g/dL (31.8-35.4); Mean Corpuscular Hemoglobin 29.3 pg (27.0-31.2); Mean Corpuscular Volume 92.7 fl (81-99); Mean Platelet Volume 7.3 fl (7.4-10.4); Monocytes # 0.3 K/mm3 (0.1-1.0); Monocytes % 4.5 % (1.7-9.3); Neutrophils # 3.9 K/mm3 (1.8-7.8); Neutrophils % 65.7 % (37.0-80.0); Platelet Count 265 K/mm3 (142-424); Red Blood Count 4.85 M/mm3 (4.20-5.40); Red Cell Distribution Width 12.5 % (11.5-17.5); White Blood Count 5.9 K/mm3 (4.8-10.8)
[2020-03-04 12:31] LABS: Alanine Aminotransferase 15 U/L (12-78); Albumin Level 4.5 g/dl (3.5-5.0); Albumin/Globulin Ratio 1.6 (1.1-1.8); Alkaline Phosphatase 57 U/L (38-126); Anion Gap 15.3 mEq/L (5-15); Aspartate Amino Transferase 20 U/L (14-36); Bilirubin,Total 0.7 mg/dl (0.2-1.3); Blood Urea Nitrogen 10 mg/dl (7-17); Calcium 9.8 mg/dl (8.4-10.2); Carbon Dioxide 24 mmol/L (22.0-30.0); Chloride 106 mmol/L (98-107); Estimated Glomerular Filt Rate 97 ml/min (>60); GFR (African American) 117 ML/MIN (>60); Globulin 2.9 g/dL (1.3-3.2); Glucose 99 mg/dl (74-100); Potassium 4.3 mmoL/L (3.5-5.1); Sodium 141 mmol/L (136-145); Total Protein,Serum 7.4 g/dl (6.3-8.2)
[2020-03-04 12:35] LABS: Coronavirus 19 IgG Antibody Negative (Negative); Coronavirus 19 IgM Antibody Negative (Negative)
[2020-03-05 14:15] LABS: HCG Qualitative, Serum Negative (Negative)
== END ==
PROVIDERS: PCP Family Medicine; Visit Provider Podiatrist
DX: Z01.818 Encounter for other preprocedural examination (principal); Z03.818 Encounter for observation for suspected exposure to other biological agents ruled out; S99.192A Other physeal fracture of left metatarsal, initial encounter for closed fracture; M79.672 Pain in left foot
CPT/HCPCS: 36415; 80053; 84702; 84703; 85025; 86328; 93005

== ENCOUNTER 2020-03-05 06:25 | Day surgery (SDC) | payer BC, SELFPAY ==
[2020-03-04 16:42] VITALS: BMI 28.1
[2020-03-05 06:56] VITALS: BP 128/77; PULSE 71; RESP 18; TEMP 36.3; O2SAT 98
--- NOTE | 2020-03-05 08:10 | P.PN_ITS ---
[facility] Anesthesia Checklist - Patient Identification Patient Identification: Arm Band - Structural Data Admitted From: Home Planned Operative Procedure/s: ORIF Left 5th Metatarsal Consent for Planned Operative Procedure(s) Verified: Yes Verified Documents: Surgical Consent, History and Physical - NPO Status Verified Time NPO: 00:00 - Additional verifications Anesthesia Reactions: No Hx Blood Transfusions: No Blood Transfusion Reaction: No - Airway Assessment C-Spine Mobility Assessed: Yes (mp2) TMJ Mobility Assessed: Yes Dentition: Good Dentition - Neurological Assessment Level of Consciousness: Awake, Alert - Anesthesia Plan Anesthesia Risk discussed: Yes Anesthesia Plan: Verified ASA Class: II Anesthesia Type: MAC w/Block (risks/benefits of popliteal/saphenous block discussed. Pt verbalizes understanding) [facility] History I have reviewed the patient's past medical history: Yes Medical History: Reports:: Anxiety, Asthma Denies:: Cancer, Diabetes Mellitus Type 1, Diabetes Mellitus Type 2, Internal Pacemaker, MRSA, Seizures *Have you ever received a pneumonia vaccine?: No *Have you received a flu vaccine this season?: No Other Medical History: Reports: Other. Denies: Blood Transfusion Reaction Anesthesia experience/problems:: nac Other Surgeries: Yes: , Dilation and Curettage, Diagnostic Lap, Hernia Repair, Tubal Ligation, Other. No: Pacemaker Amputation: No Fractures: No - *Social History Last grade of school completed: High school graduate Smoking Status: Never smoker Tobacco Type: cigarettes # Packs/Day (cigarettes): 0 #Yrs smoked (if former smoker): 0 Alcohol Intake: current Alcohol Intake Frequency:: a few times a month Substance Use Type: denies use *Occupational Status:: unemployed Housing: house Household Members: spouse *Travel in the last 8 weeks: None - Psychiatric History Pschychiatric History:: Reports:: Anxiety Family Hx:: Cancer, Hyperlipidemia, Hypertension, Thyroid Disorder, Diabetes [employer] history: Polycystic Ovary Syndrome
[2020-03-05 08:24] VITALS: TEMP 43
--- NOTE | 2020-03-05 08:30 | XR_ITS ---
PROCEDURE: XR FOOT LT MIN 3V CLINICAL INDICATION: Left ORIF Follow-up COMPARISON: CR XR FOOT LT MIN 3V from 03/02/2020 CR XR FOOT LT 2V from 03/05/2020 FINDINGS: Longitudinal screw is present through the proximal aspect of the 5th metatarsal with good alignment of the fracture fragments. Posterior splint is in place. Other findings:None. IMPRESSION: Good alignment status post ORIF 5th metatarsal fracture Dictated by: Que Palomino MD 03/05/2020 17:08 Que Palomino MD in [place] 03/05/2020 17:08
--- NOTE | 2020-03-05 08:33 | XR_ITS ---
PROCEDURE: XR FOOT LT 2V CLINICAL INDICATION: ORIF 5TH MT COMPARISON: CR XR FOOT LT MIN 3V from 03/02/2020 FINDINGS: Fluoroscopy time: 1 minutes and 24 seconds A single image demonstrates a longitudinal screw in place at the base of the 5th metatarsal with good alignment. IMPRESSION: Good alignment status post ORIF Dictated by: Que Palomino MD 03/05/2020 17:09 Que Palomino MD in [place] 03/05/2020 17:09
--- NOTE | 2020-03-05 08:37 | HMH.OPNOTE ---
Date of procedure: 03/05/20 Pre-op Diagnosis:: Left 5th metatarsal Sandhu fracture Post-op Diagnosis:: Same Procedure performed:: Left 5th metatarsal Sandhu ORIF Surgeon:: Savannah Vargas DPM SUPERVISOR PIGMENT MAKING:: Sergio Eduardo Anesthesia: MAC, regional (left popliteal block) Estimated blood loss (mL): 5 Clinical Note:: Patient is a healthy 34-year-old female who injured the left foot while trampolining. She is active and would like the quickest return of activity. Left fifth metatarsal Sandhu fracture: DOI: 03/02/20 X-rays 3 views left foot taken 03/02/2020 evaluated by myself. Report noted. FINDINGS: There is a nondisplaced transverse fracture involving the proximal shaft of the 5th metatarsal. No other significant anomalies are evident. IMPRESSION: Nondisplaced fracture proximal shaft 5th metatarsal. X-rays reviewed and discussed with the patient. Conservative treatment discussed but not recommended. We discussed surgery. All risks and benefits were discussed including but not limited to: damage to blood vessels and nerves, bleeding, infection, wound complications, delayed, mal or non-union of bone, post-traumatic arthritis, re-fracture, tendon injury, need for further surgery, need for removal of implant, prolonged swelling of the extremity, prolonged pain, CRPS/RSD, DVT, and anesthetic complications. No guarantees were given. All questions fully answered. The patient verbalized understanding and agreed to proceed with surgery. Consent was obtained. Necessary labs and pre-op testing ordered: hcg, CBC, BMP, EKG, covid. Patient does not smoke, low risk for DVT/PE. Pt was given a e-Rx for Tylenol 3 with codeine #30, Zofran, Motrin. Patient has a fracture boot. Patient has crutches, recommended rolling knee scooter. Operative findings:: Fracture to the fifth metatarsal diaphyseal junction, Sandhu fracture. No other obvious fractures or injuries noted. Operative note:: On this date and time patient was deemed an appropriate surgical candidate. With informed consent signed, the patient was taken to the operating theater after a regional popliteal nerve block. The patient was positioned supine. MAC anesthesia was induced. Tourniquet was applied to the left mid-calf @225mmHg. The left lower extremity was prepped and draped in normal sterile fashion. Left 5th Metatarsal/Sandhu Fracture ORIF: Attention was directed to the lateral foot, where intra-op fluoroscopy was used to map out the 5th metatarsal base on both the AP, MO and lateral views. Next, a 15' blade was used to make a small incision proximal to the 5th met base. Blunt dissection was utilitzed to dissect thru skin and subcutaneous tissue with care taken to maintain surgical hemostasis and safely retract neurovascular structures. Dissection was then carried bluntly with a hemostat to the bone. A guide wire for a 4.5mm [employer] screw was inserted under fluoro. Position was checked in all 3 planes. The K-wire was in good position, extending down the medullary canal. At this point, a cannulated drill and tap were used. The guide wire was then removed and a 35mm solid core 4.5mm [employer] screw was inserted in standard technique, while compressing the fracture. Good screw purchase and compression was noted. The wound was flushed with copious amounts of saline. At the point final position was checked under intra-op fluoro and deemed to be appropriate with stable fixation. The wounds were cleansed. The tourniquet was deflated after 29 minutes and immediate hyperemic response was noted to the digits. Xeroform, dry sterile dressing was then applied followed by a below knee posterior splint. The patient was awoken from anesthesia and transferred to recovery with vital signs stable and neurovascular status intact. Materials: [employer] 4.5mm solid core partially threaded screw, 35mm x1 Discharge/Plan: Patient is to maintain posterior splint clean dry and intact. Ice behind the knee and elevate on two pillows. Non weigh
[2020-03-05 08:38] VITALS: BP 122/68; PULSE 97; RESP 16; TEMP 36.6; O2SAT 98
[2020-03-05 08:53] VITALS: BP 108/64; PULSE 72; RESP 16; O2SAT 100
[2020-03-05 09:08] VITALS: BP 108/61; PULSE 82; RESP 16; O2SAT 100
[2020-03-05 09:36] VITALS: BP 113/64; PULSE 73; RESP 18; O2SAT 100
== END 2020-03-05 09:36 | disposition home or self-care (01) ==
PROVIDERS: PCP Family Medicine; Visit Provider Podiatrist
PROC: (CPT 28485; principal; 2020-03-05 07:30)
DX: S99.192A Other physeal fracture of left metatarsal, initial encounter for closed fracture (principal); J45.909 Unspecified asthma, uncomplicated; X50.3XXA Overexertion from repetitive movements, initial encounter; Y99.8 Other external cause status; Y93.44 Activity, trampolining; Z82.49 Family history of ischemic heart disease and other diseases of the circulatory system; Z83.438 Family history of other disorder of lipoprotein metabolism and other lipidemia; Z83.49 Family history of other endocrine, nutritional and metabolic diseases; Z83.3 Family history of diabetes mellitus; Z88.1 Allergy status to other antibiotic agents; Z88.5 Allergy status to narcotic agent; Z88.8 Allergy status to other drugs, medicaments and biological substances; Z79.899 Other long term (current) drug therapy
CPT/HCPCS: 28485; 73620; 73630; 76000; 96374; C1713

== ENCOUNTER → 2020-03-12 13:38 | Outpatient (CLI) | payer BC, SELFPAY ==
--- NOTE | 2020-03-12 13:48 | XR_ITS ---
PROCEDURE: XR FOOT WT BEARING LT 3V CLINICAL INDICATION: post-op pain, r/t to fall Follow-up surgery COMPARISON: CR XR FOOT LT MIN 3V from 03/02/2020 CR XR FOOT LT 2V from 03/05/2020 CR XR FOOT LT MIN 3V from 03/05/2020 FINDINGS: There is a overlying splint place. Longitudinal screw remains in place stabilizing the fracture at the base of the metatarsal. Fracture line is still visible. No new abnormalities. The joint spaces are well-preserved. No significant degenerative/arthritic changes. No erosive changes evident. Other findings:None. IMPRESSION: Good alignment status post ORIF 5th metatarsal fracture Dictated by: Que Palomino MD 03/12/2020 14:20 Que Palomino MD in [place] 03/12/2020 14:20
== END ==
PROVIDERS: PCP Family Medicine; Visit Provider Podiatrist
DX: S99.192D Other physeal fracture of left metatarsal, subsequent encounter for fracture with routine healing (principal); Z98.890 Other specified postprocedural states
CPT/HCPCS: 73630

== ENCOUNTER → 2020-04-15 10:21 | Outpatient (CLI) | payer BC, SELFPAY ==
--- NOTE | 2020-04-15 10:24 | XR_ITS ---
PROCEDURE: XR FOOT WT BEARING LT 3V CLINICAL INDICATION: post-op Seven week postop from ORIF of left 5th metatarsal. COMPARISON: CR XR FOOT LT MIN 3V from 03/02/2020 CR XR FOOT LT 2V from 03/05/2020 CR XR FOOT LT MIN 3V from 03/05/2020 CR XR FOOT WT BEARING LT 3V from 03/12/2020 FINDINGS: Prior right fixation screw across the base of the 5th metatarsal is unchanged in position compared with the immediate postsurgical image. There is only faint residual fracture line visible consistent with good progression of healing. No hardware complication. The joint spaces are well-preserved. No significant degenerative/arthritic changes. No erosive changes evident. Other findings:None. IMPRESSION: No acute findings. Good progression of healing status post ORIF. Dictated by: Dana Walker MD 04/15/2020 10:58 Dana Walker MD in [facility] 04/15/2020 10:58
== END ==
PROVIDERS: PCP Family Medicine; Visit Provider Podiatrist
DX: S99.192D Other physeal fracture of left metatarsal, subsequent encounter for fracture with routine healing (principal); Z98.890 Other specified postprocedural states
CPT/HCPCS: 73630

== ENCOUNTER → 2020-05-27 10:08 | Outpatient (CLI) | payer BC, SELFPAY ==
--- NOTE | 2020-05-27 10:13 | XR_ITS ---
PROCEDURE: XR FOOT WT BEARING LT 3V CLINICAL INDICATION: post-op COMPARISON: CR XR FOOT LT 2V from 03/05/2020 CR XR FOOT LT MIN 3V from 03/05/2020 CR XR FOOT WT BEARING LT 3V from 03/12/2020 CR XR FOOT WT BEARING LT 3V from 04/15/2020 FINDINGS: Internal fixation of the base of the 5th metatarsal is noted. No acute fractures or dislocations. Bone density is normal. The rest of the tarsals, metatarsals and phalanges are within normal limits. No significant soft tissue abnormality. IMPRESSION: Postsurgical changes of the 5th metatarsal. No acute abnormality. Dictated by: Melissa Sauceda 05/27/2020 16:53 Melissa Sauceda in [place] 05/27/2020 16:53
== END ==
PROVIDERS: PCP Family Medicine; Visit Provider Podiatrist
DX: Z98.890 Other specified postprocedural states (principal)
CPT/HCPCS: 73630

== ENCOUNTER 2020-06-29 15:00 | Outpatient (RCR) | payer BC, SELFPAY ==
--- NOTE | 2020-04-20 11:56 | HMH.PTOPEV ---
PT Outpatient Evaluation Rehab PT Outpatient Evaluation Start: 04/20/20 11:11 Freq: Status: Active Protocol: Document 04/20/20 11:11 CHRISTINA (Rec: 04/20/20 11:55 CHRISTINA [id number]) Electronically Signed By Pascual Rojas, PT 04/20/20 11:11 Outpatient Therapy Subjective History Subjective History Pt presents s/p L 5th metatarsal fx on 03/02/20, caused by fall at [employer]. Pt underwent ORIF on 03/05, splinted until ~ 2weeks ago, transitioned to cam walker on LLE. Pt reports some lingering L ankle/foot swelling, soreness, weakness, and '25%' PWB'ing. Chief Complaint Pain,Stiff,Swelling,Weakness Symptom Type Ache,Dull Symptoms Relieved By Rest/Positioning,Heat,Ice Symptoms Aggravated By Standing,Walking Prior Functional Limitations None Current Functional Limitations Housework,Standing,Walking, Stairs Symptom Description Constant but Variable Level of pain today (0-10) 1 Pain scale - at its best (0-10) 1 Pain scale - at its worst (0-10) 3 Ankle/Foot Eval Gait Observation General Gait Pattern Observation Antalgic Gait,Decrease Weight Bear (L) Assistive Device Ambulation Assistive Device Axillary Crutches Palpation Tenderness left Ankle/Foot Palpation Findings Tenderness Ankle/Foot Palpation Overall Comment 2-3/4-5th MT ROM Ankle/Foot Dorsiflexion w/Knee Extended 0-5 Active Range Motion (degrees) Ankle/Foot Plantar Flexion Active Range 0-55 of Motion (degrees) Ankle/Foot Eversion Active Range of 0-10 Motion (degrees) Ankle/Foot Inversion Active Range of 0-55 Motion (degrees) MMT Ankle Dorsiflexion Strength Grade 4- Good- Ankle Plantarflexion Strength Grade 3+ Fair+ Foot Eversion Strength Grade 4- Good- Foot Inversion Strength Grade 4- Good- Outpatient Therapy Assessment Impairments Problems/Impairmments Palpation Tenderness,Impaired Range of Motion,Impaired Strength,Impaired Gait Pattern ,Impaired Walking,Impaired Standing,Impaired Household Care,Impaired Stair Climbing, Subjective C/O Pain,Impaired Self Care/Self Management Prognosis Rehab Potential Good Clinical Impression Consistent with Diagnosis Yes Short Term Goals Number of Weeks 4 Decreased Palpa
--- NOTE | 2020-05-25 14:20 | HMH.RHREAS ---
Rehab Reassessment Rehab OP Re-assessment Start: 05/25/20 13:50 Freq: Status: Active Protocol: Document 05/25/20 13:51 CHRISTINA (Rec: 05/25/20 14:20 CHRISTINA [id number]) Electronically Signed By Pascual Rojas, PT 05/25/20 13:51 Rehab Re-assessment Subjective Subjective Pt reports intermittent episodes of 'shooting pain, and zinging pain sensations on top of my left foot when I walk barefoot'. Pt also reports feeling 80-90% better overall related to function. Objective Objective Notes AROM:L DF 0-10, PF 0-50, INV 0 -50, EVR 0-15 MMT: L DF 5/5, PF 4-4+/5, INV 4-4+/5, EVR 4--4/5 TTP: DORSUM SURFACE 1ST METATARSAL N&T W/PERCUSSION, 0 -1/4 ON 5TH METATARSAL FX/SX SITE GAIT: WFL ON LEVEL TERRAIN NO A/D Assessment Progress Assessment Progressing as Expected Assessment Notes PT W/IMPROVED AROM, STRENGTH, AND GAIT Patient goals met STG'S 09/03 LTG'S 07/06 Goals Not Met STG'S 04/06, LTG'S 08/06 Plan Plan PT TO CONT. W/SKILLED P.T. TO MAKE FURTHER IMPROVEMENTS IN TTP, AROM, AND STRENGTH TO ALLOW FOR OPTIMAL FUNCTION AND GAIT Frequency of Therapy 2-3X/WK Duration of therapy 3-4WKS Time and Billing Re-Eval Time 15 Re-Eval Billing Units 1 PHYSICIAN CERTIFICATION: I certify the specified therapy services for Olive Lugo are required, authorized, and reviewed every 30 days.
--- NOTE | 2020-06-29 15:39 | HMH.RHREAS ---
Rehab Reassessment Rehab OP Re-assessment Start: 05/25/20 13:50 Freq: Status: Active Protocol: Document 06/29/20 15:22 CHRISTINA (Rec: 06/29/20 15:39 CHRISTINA [id number]) Electronically Signed By Pascual Rojas, PT 06/29/20 15:22 Rehab Re-assessment Subjective Subjective PT REPORTS NO FUNCTIONAL LIMITATIONS W/ACTIVITIES AT HOME OR IN COMMUNITY, 'I THINK WE'VE GOT IT FIXED!' Objective Objective Notes AROM:L DF 0-12, PF 0-50, INV 0 -50, EVR 0-18 MMT: L DF 5/5, PF 4+-5/5, INV 4+/5, EVR 4+-5/5 TTP: NONE NOTED IN L FOOT/ ANKLE GAIT: WFL ON LEVEL AND UNLEVEL TERRAIN NO A/D Assessment Progress Assessment Progressing as Expected Assessment Notes WFL ON ROM, STRENGTH, TTP AND GAIT Patient goals met STG'S 11/04 LTG'S 01/06 Plan Plan PT TO D/C W/CONT. OF HEP TO MAINTAIN FUNCTIONAL IMPROVEMENTS Frequency of Therapy NA Duration of therapy NA Time and Billing Re-Eval Time 15 Re-Eval Billing Units 1 PHYSICIAN CERTIFICATION: I certify the specified therapy services for Olive Lugo are required, authorized, and reviewed every 30 days.
== END 2020-06-29 15:05 | disposition home or self-care (01) ==
LOC: PT 15:00
PROVIDERS: PCP Family Medicine; Visit Provider Podiatrist
DX: S99.192A Other physeal fracture of left metatarsal, initial encounter for closed fracture (principal); Z98.890 Other specified postprocedural states
CPT/HCPCS: 97010; 97014; 97016; 97110; 97112; 97140; 97163; 97164; 97760; G0283

== ENCOUNTER 2020-08-09 18:09 | Emergency (ER) | payer BC, SELFPAY ==
[2020-08-09 18:16] VITALS: BP 121/87; PULSE 76; RESP 17; TEMP 36.7; O2SAT 99; BMI 28.5
[2020-08-09 18:35] VITALS: BP 121/87; PULSE 76; RESP 17; TEMP 36.7; O2SAT 99
--- NOTE | 2020-08-09 18:43 | HMH.EDUTC ---
[facility] [place] Disposition Clinical Impression: Left otitis media Qualifiers: Otitis media type: suppurative Chronicity: acute Recurrence: non-recurrent Spontaneous tympanic membrane rupture: without spontaneous rupture Qualified Code(s): H66.002 - Acute suppurative otitis media without spontaneous rupture of ear drum, left ear Disposition: Home, Self-Care Condition on Discharge: Good Instructions: Middle Ear Infection Additional Instructions: Drink plenty of fluids. Take tylenol or ibuprofen for pain or fever. Take the medications as directed. Follow up with your regular doctor. GO TO THE ER FOR ANY WORSENING SYMPTOMS Prescriptions: Brompheniramine/Pseudoephed/Dm [Bromfed Dm Cough Syrup] 5 ml PO Q6HP PRN #240 syrup PRN Reason: Cough Transmission Status: Received by [facility] #[id number] Amoxicillin [Amoxicillin 500mg Tab] 500 mg PO TID 10 Days #30 tab Transmission Status: Received by [facility] #[id number] predniSONE [Prednisone 20mg Tab] 20 mg PO BID 4 Days #8 tab Transmission Status: Received by [facility] #[id number] Referrals: Des Chan MD [Primary Care Provider] - Time of Disposition: 18:44 Medical Decision Making - Medical Records Medical records reviewed: No: I reviewed the patient's medical records. - Dmitriy Inquiry Pt receiving controlled substance: No Vital Signs: 08/09/20 18:16 08/09/20 18:35 Temperature 98.1 F 98.1 F Temperature Source Oral Pulse Rate 76 Pulse Rate [Left] 76 Respiratory Rate 17 17 Blood Pressure 121/87 Blood Pressure [Right Arm] 121/87 Blood Pressure Mean [Right Arm] 98 02 Sat by Pulse Oximetry 99 [facility] [place] HPI - General Stated complaint: possible L ear infection Time Seen by Provider: 08/09/20 18:43 Mode of Arrival: Ambulatory Source of Information: Patient Limitations: No Limitations Description of Symptoms (Recalled from Triage Doc. by RN): Pt states that she has had sinus pressure that is causing her left ear pain. Hx of asthma, sinuses and allergies. HEENT Symptoms (Recalled from RN notes): No Resp Symptoms (Recalled from RN notes): Yes Skin Symptoms (Recalled from RN notes): No MS Symptoms (Recalled from RN notes): No Functional Status (Recalled from RN notes): wnl - History of Present Illness Provider Complaint: She c/o left ear pain for the past 2 days. - Related Data Home Medications Medication Instructions Recorded Confirmed levocetirizine 5 mg tablet 5 mg PO DAILY tab 07/22/19 05/27/20 potassium chloride 10 mEq 10 meq PO DAILY cap 07/22/19 05/27/20 capsule,extended release Fluticasone Propionate [Flovent 2 puff IH BID 08/20/19 05/27/20 Hfa 110mcg Inhaler] albuterol sulfate 90 mcg/actuation 2 puff INHALATION Q6H PRN 03/04/20 05/27/20 aerosol inhaler montelukast 10 mg tablet 10 mg PO DAILY tab 03/04/20 05/27/20 vits 75-iron 28 mg-folic pkg PO 06/08/20 acid 800 mcg-omega-3 oral combo pack Previous Rx's Medication Instructions Recorded hydrocortisone 1 % topical cream 1 applic TOPICAL TID PRN #28.4 g 06/08/20 metronidazole 500 mg tablet 500 mg PO BID 5 Days #10 tab 06/08/20 Amoxicillin [Amoxicillin 500mg Tab] 500 mg PO TID 10 Days #30 tab 08/09/20 Brompheniramine/Pseudoephed/Dm 5 ml PO Q6HP PRN #240 syrup 08/09/20 [Bromfed Dm Cough Syrup] predniSONE [Prednisone 20mg 20 mg PO BID 4 Days #8 tab 08/09/20 Tab] Allergies Allergy/AdvReac Type Severity Reaction Status Date / Time erythromycin base Allergy Intermediate I-HIVES, Verified 08/09/20 18:26 STOMACH UPSET methylergonovine Allergy Unknown EDEMA Verified 08/09/20 18:26 [From Methergine] oxycodone AdvReac Unknown HEART RACES Verified 08/09/20 18:26 - Worker's Comp Is this a Worker's Comp case?: No [facility] History - Hepatitis A Screen Drug use history?: No High risk sexual behaviors?: No History of sexually transmitted infection?: No Currently employed?: No Childcare worker?: N
== END 2020-08-09 18:49 | disposition home or self-care (01) ==
PROVIDERS: Emergency Provider Nurse Practitioner Family; PCP Family Medicine
DX: H66.92 Otitis media, unspecified, left ear (principal)
CPT/HCPCS: 99202; G0463

== ENCOUNTER → 2020-09-09 14:53 | Outpatient (CLI) | payer BC, SELFPAY ==
--- NOTE | 2020-09-09 14:53 | US_ITS ---
PROCEDURE: US TRANSVAGINAL CLINICAL INDICATION: Pelvic pain Prior uterine ablation COMPARISON: US TRANVAG US transvaginal from 03/18/2018 FINDINGS: UTERUS: 7cm x 6cmx 4cm with a combined endometrial thickness of 3.4mm LEFT OVARY: [id number] with a volume of 14.4ml. RIGHT OVARY: [id number] with a volume of 12ml. There is some heterogeneous slight increased echogenicity of the endometrial region with a small amount of fluid in the endometrium the in suggestion of some minimal calcification. These findings may be seen with post ablation. Previously the patient has thickened endometrium which is no longer the case. There are multiple bilateral ovarian follicles the largest on the left at 2 cm. No cul-de-sac fluid. IMPRESSION: Heterogeneous echogenicity with small amount of fluid and some minimal calcification in the endometrial region which could be due to prior ablation. Previously noted endometrial thickening no longer apparent. Multiple small bilateral ovarian follicles measuring up to 2 cm on the left Dictated by: Que Palomino MD 09/09/2020 16:22 Que Palomino MD in [facility] 09/09/2020 16:22
== END ==
PROVIDERS: PCP Family Medicine; Visit Provider Obstetrics & Gynecology
DX: R10.2 Pelvic and perineal pain (principal)
CPT/HCPCS: 76830

== ENCOUNTER 2020-10-03 13:25 | Emergency (ER) | payer BC, SELFPAY ==
[2020-10-03 14:00] VITALS: BP 111/81; PULSE 83; RESP 19; TEMP 37.3; O2SAT 100; BMI 28.5
--- NOTE | 2020-10-03 14:44 | HMH.EDUTC ---
[facility] Clinical Impression: COVID-19 virus test result unknown Acute bronchitis Qualifiers: Bronchitis organism: unspecified organism Qualified Code(s): J20.9 - Acute bronchitis, unspecified Disposition: Home, Self-Care Condition on Discharge: Good Instructions: COVID-19: Protecting Yourself When You're at High Risk, Preventing the Spread of Coronavirus Discharge Instructions, DI for Acute Bronchitis Additional Instructions: Tylenol and ibuprofen as needed for pain or fever Humidifier/vaporizer/hot steamy shower Follow-up with primary care tomorrow. Follow-up immediately in the ER of the [facility] for new or worsening symptoms or no noticeable improvement over the next 48-72 hours. Stop smoking Channing Glover will not cause drowsiness to use at bedtime to help stop cough so that she can get some sleep Start steroids today. Helps with inflammation therefore coughing and wheezing. Follow directions on package. covid swab was sent to lab, call later today for results. self isolate until test results are known to be negative Prescriptions: predniSONE [Prednisone 20mg Tab] 20 mg PO BID #10 tab Transmission Status: Pending to [facility] #[id number] Referrals: Des Chan MD [Primary Care Provider] - Time of Disposition: 14:58 Medical Decision Making - Dmitriy Inquiry Pt receiving controlled substance: No Vital Signs: 10/03/20 14:00 Temperature 99.2 F Temperature Source Oral Pulse Rate [Right Brachial] 83 Respiratory Rate 19 Blood Pressure [Right Arm] 111/81 Blood Pressure Mean [Right Arm] 91 Blood Pressure Source [Right Arm] Automatic Cuff Blood Pressure Position [Right Arm] Sitting 02 Sat by Pulse Oximetry 100 Oxygen Delivery Method Room Air - Lab Data Lab Results 10/03/20 14:21: Influenza Type A Ag Negative, Influenza Type B Ag Negative Orders (Tests/Meds): ORDERS Category Date Time Status Covid-19 Nasal PCR ([facility]) Routine Lab 10/03/20 14:14 Received [facility] [place]PI - General Chief complaint: [facility] Stated complaint: sore throat, cough, nausea Time Seen by Provider: 10/03/20 14:45 Mode of Arrival: Ambulatory Source of Information: Patient Limitations: No Limitations Description of Symptoms (Recalled from Triage Doc. by RN): PATIENT C/O FEVER, CONGESTION, DRY COUGH, AND BODY ACHES SINCE SUNDAY HEENT Symptoms (Recalled from RN notes): No Resp Symptoms (Recalled from RN notes): Yes Skin Symptoms (Recalled from RN notes): No MS Symptoms (Recalled from RN notes): No Functional Status (Recalled from RN notes): WNL - History of Present Illness Provider Complaint: 35 yr old female presents for body aches,dry cough,wheezing,low grade fever and sore throat. other family members have the same symptoms - Related Data Home Medications Medication Instructions Recorded Confirmed levocetirizine 5 mg tablet 5 mg PO DAILY tab 07/22/19 05/27/20 potassium chloride 10 mEq 10 meq PO DAILY cap 07/22/19 05/27/20 capsule,extended release Fluticasone Propionate [Flovent 2 puff IH BID 08/20/19 05/27/20 Hfa 110mcg Inhaler] albuterol sulfate 90 mcg/actuation 2 puff INHALATION Q6H PRN 03/04/20 05/27/20 aerosol inhaler montelukast 10 mg tablet 10 mg PO DAILY tab 03/04/20 05/27/20 Previous Rx's Medication Instructions Recorded hydrocortisone 1 % topical cream 1 applic TOPICAL TID PRN #28.4 g 06/08/20 nystatin 100,000 unit/gram topical 1 applic TOPICAL DAILY #30 g 09/02/20 cream predniSONE [Prednisone 20mg 20 mg PO BID #10 tab 10/03/20 Tab] Allergies Allergy/AdvReac Type Severity Reaction Status Date / Time erythromycin base Allergy Intermediate I-HIVES, Verified 09/02/20 10:03 STOMACH UPSET methylergonovine Allergy Unknown EDEMA Verified 09/02/20 10:03 [From Methergine] oxycodone AdvReac Unknown HEART RACES Verified 09/02/20 10:03 - Worker's Comp Is this a Worker's Comp case?: No [facility] History - Hepatitis A
[2020-10-03 14:47] LABS: UTC Influenza A Antigen Negative (Negative); UTC Influenza B Antigen Negative (Negative)
[2020-10-03 14:59] VITALS: BP 111/81; PULSE 83; RESP 19; TEMP 37.3; O2SAT 100
--- NOTE | 2020-10-03 21:31 | PC.NURSE ---
ATTEMPTED TO CALL PT ABOUT COVID TEST RESULT, NO ANSWER. LEFT VOICEMAIL WITH CALL BACK NUMBER
--- NOTE | 2020-10-04 09:31 | PC.NURSE ---
spoke with pt relaying positive covid results.
== END 2020-10-03 15:10 | disposition home or self-care (01) ==
PROVIDERS: Emergency Provider Nurse Practitioner Family; PCP Family Medicine
DX: U07.1 COVID-19 (principal); J20.9 Acute bronchitis, unspecified; J45.909 Unspecified asthma, uncomplicated; F41.9 Anxiety disorder, unspecified
CPT/HCPCS: 87804; 99202; G0463; U0003

== ENCOUNTER → 2020-10-07 13:43 | Outpatient (CLI) | payer BC, SELFPAY ==
--- NOTE | 2020-10-07 13:49 | XR_ITS ---
PROCEDURE: XR CHEST PORTABLE CLINICAL HISTORY: COVID SCREENING COMPARISON: CR CXR CHEST(2 VIEWS-NOT PORTABLE) from 12/16/2013 CR XR CHEST PORTABLE from 08/07/2019 FINDINGS: The cardiomediastinal silhouette and pulmonary vascularity are within normal limits. The lungs are clear without infiltrates, suspicious nodules, or pleural effusions. No acute bony abnormalities. IMPRESSION: No acute findings. Dictated by: Que Palomino MD 10/07/2020 15:10 Que Palomino MD in [facility] 10/07/2020 15:10
== END ==
PROVIDERS: PCP Family Medicine; Visit Provider Physician Assistant
DX: Z20.822 Contact with and (suspected) exposure to COVID-19 (principal)
CPT/HCPCS: 71045

== ENCOUNTER 2020-10-10 13:58 | Emergency (ER) | payer BC, SELFPAY ==
[2020-10-10 14:00] VITALS: BP 102/78; PULSE 92; RESP 19; TEMP 37.7; O2SAT 98; BMI 27.8
--- NOTE | 2020-10-10 14:23 | XR_ITS ---
PROCEDURE INFORMATION: Exam: XR Chest Exam date and time: 10/10/2020 2:23 PM Age: 35 years old Clinical indication: Sternal or substernal pain; Patient HX: Chest pain, possibly covid positive. TECHNIQUE: Imaging protocol: XR of the chest. Views: 1 view. COMPARISON: CR XR CHEST PORTABLE 10/07/2020 1:57 PM FINDINGS: Lungs: Patchy bibasilar opacities may represent multifocal pneumonia including COVID-19. Pleural spaces: Unremarkable. No pleural effusion. No pneumothorax. Heart/Mediastinum: Unremarkable. No cardiomegaly. Bones/joints: Unremarkable. IMPRESSION: Patchy bibasilar opacities may represent multifocal pneumonia including COVID-19.
[2020-10-10 14:28] LABS: Eosinophils % 0.7 % (0.1-12.0); Hematocrit 40.4 % (37.0-47.0); Hemoglobin 14.2 g/dL (12.2-16.2); Lymphocytes # 0.7 K/mm3 (0.7-4.5); Lymphocytes % 20.9 % (10-50); Mean Corpuscular HGB Conc 35.3 g/dL (31.8-35.4); Mean Corpuscular Hemoglobin 30.2 pg (27.0-31.2); Mean Corpuscular Volume 85.5 fl (81-99); Monocytes # 0.1 K/mm3 (0.1-1.0); Monocytes % 2.9 % (1.7-9.3); Neutrophils # 2.4 K/mm3 (1.8-7.8); Neutrophils % 74.5 % (37.0-80.0); Platelet Count 156 K/mm3 (142-424); Red Blood Count 4.72 M/mm3 (4.20-5.40); Red Cell Distribution Width 12.7 % (11.5-17.5); White Blood Count 3.2 K/mm3 (4.8-10.8)
[2020-10-10 14:36] LABS: Lactic Acid 0.8 mmol/L (0.7-2.1)
[2020-10-10 14:41] LABS: Chloride 105 mmol/L (98-107); Sodium 137 mmol/L (136-145)
[2020-10-10 14:44] LABS: Alanine Aminotransferase 41 U/L (12-78); Albumin Level 4.2 g/dl (3.5-5.0); Albumin/Globulin Ratio 1.4 (1.1-1.8); Alkaline Phosphatase 63 U/L (38-126); Aspartate Amino Transferase 64 U/L (14-36); Bilirubin,Total 0.6 mg/dl (0.2-1.3); Blood Urea Nitrogen 6 mg/dl (7-17); Carbon Dioxide 20 mmol/L (22.0-30.0); Creatinine Clearance Estimated 124 mL/min (50-200); Estimated Glomerular Filt Rate 96 ml/min (>60); GFR (African American) 117 ML/MIN (>60); Total Protein,Serum 7.2 g/dl (6.3-8.2)
[2020-10-10 14:45] LABS: Calcium 8.7 mg/dl (8.4-10.2); Glucose 98 mg/dl (74-100)
--- NOTE | 2020-10-10 15:43 | HMH.EDSOB ---
ED Disposition Clinical Impression: Pneumonia due to COVID-19 virus Disposition: Home, Self-Care Condition on Discharge: Good Instructions: Pneumonia-Adult Referrals: Des Chan MD [Primary Care Provider] - - Critical Care Critical Care Time: No Attestation: On 10/10/20, the high probability of a clinically significant, sudden or life threatening deterioration of the following system(s) required my full and direct attention, intervention and personal management. The time I documented below is in addition to time spent performing reported procedures but includes the following listed in this critical care notation. Medical Decision Making - Medical Records Medical records reviewed: Yes: I reviewed the patient's medical records. - Dmitriy Inquiry Pt receiving controlled substance: No Vital Signs: 10/10/20 14:00 Temperature 99.9 F H Temperature Source Oral Pulse Rate [Left] 92 H Respiratory Rate 19 Blood Pressure [Right Arm] 102/78 L Blood Pressure Mean [Right Arm] 86 02 Sat by Pulse Oximetry 98 Oxygen Delivery Method Room Air - Lab Data Lab Results 10/10/20 14:15: WBC 3.2 L, RBC 4.72, Hgb 14.2, Hct 40.4, MCV 85.5, MCH 30.2, MCHC 35.3, RDW 12.7, Plt Count 156, MPV 8.0, Neut % (Auto) 74.5, Lymph % (Auto) 20.9, [place] % (Auto) 2.9, Eos % (Auto) 0.7, Baso % (Auto) 1.0, Neut # (Auto) 2.4, Lymph # (Auto) 0.7, [place]ell # (Auto) 0.1, Eos # (Auto) 0.0, Baso # (Auto) 0.0 10/10/20 14:15: Sodium 137, Potassium 3.0 L, Chloride 105, Carbon Dioxide 20 L, Anion Gap 15.0, BUN 6 L, Creatinine 0.70, Estimated Creat Clear 124, Estimated GFR 96, Est GFR ( Amer) 117, Glucose 98, Calcium 8.7, Total Bilirubin 0.6, AST 64 H, ALT 41, Alkaline Phosphatase 63, Total Protein 7.2, Albumin 4.2, Globulin 3.0, Albumin/Globulin Ratio 1.4 10/10/20 14:15: Lactate 0.8 Result diagrams: 10/10/20 14:15 10/10/20 14:15 Orders (Tests/Meds): ED MEDICATIONS Discontinued Medications Generic Name Dose Route Start Last Admin Trade Name Rob PRN Reason Stop Dose Admin Dexamethasone Sodium Phosphate 10 mg 10/10/20 14:37 10/10/20 14:56 Dexamethasone 4mg/Ml 5ml Mdv IV 10/10/20 14:38 10 mg ONCE ONE Administration Potassium Chloride 40 meq 10/10/20 15:25 10/10/20 15:39 Potassium Chloride 20meq Tab PO 10/10/20 15:26 40 meq ONCE ONE Administration - Radiology Data #1 Image(s): Chest Image Reviewed: Yes I reviewed the patient's radiology results, Yes I reviewed the patient's radiology image, Yes I have reviewed radiologist's interpretation IMPRESSION: Patchy bibasilar opacities may represent multifocal pneumonia including COVID-19. - Reevaluation(s) Time: 15:47 Reevaluation #1: On reevaluation, the patient continues to maintain her oxygen saturations on room air. We did ambulate the patient and there was no evidence of respiratory distress or desaturation. Symptoms consistent with coronavirus pneumonia. Patient already has bronchodilators and cough syrup at home. At this time she does not currently qualify for monoclonal antibody treatment. PERC negative. Patient does need follow-up with her PCP in 48 hours. Given strict return precautions. Verbalized understanding. Medical Decision Narrative: 35-year-old female presented to the emergency department with some difficulty breathing. Patient recently diagnosed with coronavirus. I do believe her symptoms are consistent with Covid pneumonia. At this time, however the patient has absolutely no respiratory distress. She is saturating well on room oxygen. Patient will be provided steroid therapy. Work-up initiated. Resp/SOB HPI - General Chief Complaint: Shortness of Breath/Dyspnea Stated Complaint: Covid posive,SOB Time Seen by Provider: 10/10/20 14:10 Mode of Arrival: Ambulatory Limitations: No Limitations Description of Symptoms (Recalled from ER Triage Doc. by RN): patient tested postitive for COVID 09/28/2020. patient st
[2020-10-10 16:09] VITALS: BP 113/75; PULSE 105; RESP 18; TEMP 37.6; O2SAT 96
== END 2020-10-10 16:12 | disposition home or self-care (01) ==
PROVIDERS: Emergency Provider Emergency Medicine; PCP Family Medicine
DX: J12.82 Pneumonia due to coronavirus disease 2019 (principal); F41.9 Anxiety disorder, unspecified; J45.909 Unspecified asthma, uncomplicated
CPT/HCPCS: 71045; 80053; 83605; 85025; 96374; 99282

== ENCOUNTER → 2020-10-29 08:16 | Outpatient (CLI) | payer BC, SELFPAY ==
--- NOTE | 2020-10-29 08:16 | CT_ITS ---
PROCEDURE: CT HEAD/BRAIN WO CON CLINICAL INDICATION: syncope Covid19 positive COMPARISON: No exams were available for comparison TECHNIQUE: Axial images obtained. All CT scans at the facility use one or more dose reduction, viz: automated exposure control, ma/kV adjustment per patient size (including targeted exams where dose is matched to indication, i.e. head), or iterative reconstruction technique. FINDINGS: No midline shift, mass effect, intracranial hemorrhage, hydrocephalus, or extra-axial fluid collection is evident. The calvarium has an unremarkable appearance. No mastoid effusion. No sinus air-fluid level. IMPRESSION: No acute intracranial finding Dictated by: Dr. Deuce Mehta MD 10/29/2020 08:31 Dr. Deuce Mehta MD in [facility] 10/29/2020 08:31
== END ==
PROVIDERS: PCP Nurse Practitioner Family; Visit Provider Nurse Practitioner Family
DX: R55 Syncope and collapse (principal); R41.82 Altered mental status, unspecified
CPT/HCPCS: 70450

== ENCOUNTER → 2020-12-24 19:29 | Outpatient (CLI) | payer BC, SELFPAY ==
[2020-12-24 19:42] LABS: Chloride 106 mmol/L (98-107); Sodium 140 mmol/L (136-145)
[2020-12-24 19:45] LABS: Alanine Aminotransferase 21 U/L (12-78); Alkaline Phosphatase 61 U/L (38-126); Aspartate Amino Transferase 24 U/L (14-36); Bilirubin,Total 0.3 mg/dl (0.2-1.3); Blood Urea Nitrogen 10 mg/dl (7-17); Carbon Dioxide 23 mmol/L (22.0-30.0); Estimated Glomerular Filt Rate 115 ml/min (>60); GFR (African American) 139 ML/MIN (>60)
[2020-12-24 19:46] LABS: Albumin Level 4.2 g/dl (3.5-5.0); Albumin/Globulin Ratio 1.7 (1.1-1.8); Calcium 9.4 mg/dl (8.4-10.2); Globulin 2.5 g/dL (1.3-3.2); Glucose 96 mg/dl (74-100); Iron 100 ug/dL (37-170); Total Protein,Serum 6.7 g/dl (6.3-8.2)
[2020-12-24 20:04] LABS: T4 (Thyroxine) 7.7 ug/dl (5.53-11.0)
[2020-12-24 20:22] LABS: Ferritin 54.8 ng/ml (6.24-137)
[2020-12-24 20:56] LABS: Total Iron Binding Capacity 338 ug/dL (265-497)
[2020-12-24 21:24] LABS: 25-OH Vitamin D, Total 37.6 ng/mL (30-100)
== END ==
PROVIDERS: Visit Provider Nurse Practitioner Family
DX: L67.9 Hair color and hair shaft abnormality, unspecified (principal); U09.9 Post COVID-19 condition, unspecified; E04.9 Nontoxic goiter, unspecified
CPT/HCPCS: 80053; 82306; 82728; 83540; 83550; 84436; 84443

== ENCOUNTER → 2021-01-07 13:31 | Outpatient (CLI) | payer BC, SELFPAY ==
--- NOTE | 2021-01-07 13:32 | US_ITS ---
PROCEDURE: US THYROID CLINICAL INDICATION: enlarged thyroid COMPARISON: No exams were available for comparison FINDINGS: The right lobe is a 4.3 x 1.2 x 1.3 cm. 3 mm hypoechoic nodule lower pole well-circumscribed. The left lobe is 4 x 1.3 x 1.7 cm. Mostly cystic nodule in the mid polar region at 1 x 0.6 cm. Hypoechoic nodule mid to lower pole at 3 x 4 mm. The isthmus is unremarkable. IMPRESSION: Bilateral benign-appearing nodules. Suggest annual follow-up to confirm stability. Dictated by: Que Palomino MD 01/08/2021 08:02 Que Palomino MD in [facility] 01/08/2021 08:02
== END ==
PROVIDERS: PCP Nurse Practitioner Family; Visit Provider Nurse Practitioner Family
DX: E04.9 Nontoxic goiter, unspecified (principal)
CPT/HCPCS: 76536

== ENCOUNTER → 2021-01-25 08:38 | Outpatient (CLI) | payer BC, SELFPAY ==
--- NOTE | 2021-01-25 08:39 | FL_ITS ---
PROCEDURE: FL BARIUM SWALLOW CLINICAL INDICATION: diff swallowing COMPARISON: US US THYROID from 01/07/2021 TECHNIQUE: In the upright position the patient was observed to swallow barium in both the AP and lateral view. The cervical esophagus was examined under fluoroscopy with images obtained. The patient was then placed prone in the right anterior oblique position and was observed to swallow barium with Valsalva technique . FLUOROSCOPY TIME: 42 seconds FINDINGS: There was no evidence of aspiration. There was normal peristalsis. No filling defects or mucosal abnormalities. No masses or strictures. No evidence of hiatal hernia or reflux. The esophagus does not appear deviated IMPRESSION: Negative barium swallow. Dictated by: Que Palomino MD 01/25/2021 10:40 Que Palomino MD in [facility] 01/25/2021 10:40
== END ==
PROVIDERS: PCP Nurse Practitioner Family; Visit Provider Otolaryngology
DX: R13.10 Dysphagia, unspecified (principal)
CPT/HCPCS: 74220

== ENCOUNTER → 2021-04-22 15:27 | Outpatient (CLI) | payer BC, SELFPAY ==
--- NOTE | 2021-04-22 15:27 | US_ITS ---
FINAL REPORT CLINICAL HISTORY: pelvic pain FINDINGS: Transvaginal sonographic images of the pelvis were obtained. The uterus measures 7.4 x 3.8 x 4.5 cm. The endometrium measures 8 mm, which is within normal limits. No uterine mass is identified. The right ovary measures 3.8 cm cm in length and left ovary measures 3.5 cm cm in length. Normal blood flow seen to the ovaries. Small cysts or follicles are present in both ovaries with the largest on the right measuring 1.8 cm. There is a small amount of fluid in the endometrial cavity. IMPRESSION: Small amount of fluid in the endometrial cavity. Small cysts or follicles in both ovaries. Reviewed, Interpreted and Dictated by Jorge Mcknight MD Transcribed by Yaritza Sandhu Authenticated by Jorge Mcknight MD on 04/22/2021 04:36:37 PM [facility]
== END ==
LOC: RAD 15:27
PROVIDERS: PCP Family Medicine; Visit Provider Obstetrics & Gynecology
DX: R10.2 Pelvic and perineal pain (principal)
CPT/HCPCS: 76830

== ENCOUNTER 2021-08-02 14:57 | Emergency (ER) | payer BC, SELFPAY ==
[2021-08-02 15:15] VITALS: BP 139/85; PULSE 74; RESP 21; TEMP 37; O2SAT 98; BMI 27.3
[2021-08-02 15:59] VITALS: BP 139/85; PULSE 74; RESP 21; TEMP 37; O2SAT 98
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
[2021-08-02 17:01] LABS: Strep Scrn Group A (Rapid) Negative (Negative)
== END 2021-08-02 17:30 | disposition home or self-care (01) ==
PROVIDERS: Emergency Provider Nurse Practitioner; PCP Physician Assistant
DX: J40 Bronchitis, not specified as acute or chronic (principal); J32.9 Chronic sinusitis, unspecified; Z88.1 Allergy status to other antibiotic agents; Z88.6 Allergy status to analgesic agent; Z88.8 Allergy status to other drugs, medicaments and biological substances
CPT/HCPCS: 87430; 99212; G0463

== ENCOUNTER → 2021-10-20 09:23 | Outpatient (CLI) | payer BC, SELFPAY ==
--- NOTE | 2021-10-20 09:43 | US_ITS ---
PROCEDURE INFORMATION: Exam: US Left Breast, Complete Exam date and time: 10/20/2021 9:44 AM Age: 36 years old Clinical indication: Concern for left breast lump at 6 o'clock. TECHNIQUE: Imaging protocol: Complete ultrasound of all four quadrants of the Left breast and the retroareolar regions, including ultrasound of the axilla when performed. COMPARISON: No relevant prior studies available. FINDINGS: Breast: Left sonography, all 4 quadrants, retroareolar and axilla. At the palpable area of concern at 6 o'clock 3 cm from the nipple, oval hypoechoic area measuring approximately 1.1 x 0.5 cm, may be a mass or island of breast tissue. No other findings demonstrated. Sonographically unremarkable left axilla. IMPRESSION: Patient will be recalled for left diagnostic mammogram with triangular skin marker placed over the palpable abnormality and spot compression views in the CC and MLO projections as well as additional targeted sonography at 6 o'clock, for further evaluation of palpable lump. ASSESSMENT: BI-RADS Category 0: Incomplete- Need Additional Imaging Evaluation and/or Prior Mammograms for Comparison
== END ==
PROVIDERS: PCP Physician Assistant; Visit Provider Obstetrics & Gynecology
DX: N63.25 Unspecified lump in the left breast, overlapping quadrants (principal)
CPT/HCPCS: 76641

== ENCOUNTER → 2021-11-04 14:26 | Outpatient (CLI) | payer BC, SELFPAY ==
--- NOTE | 2021-11-04 14:26 | MM_ITS ---
PROCEDURE INFORMATION: Exam: MG Bilateral Diagnostic Breast Tomosynthesis Exam date and time: 11/04/2021 2:29 PM Age: 36 years old Clinical indication: Left breast palpable lump TECHNIQUE: Imaging protocol: Bilateral Diagnostic tomosynthesis and 2D mammography including computer-aided detection (CAD) when performed. Unilateral or bilateral exam. COMPARISON: 1. MG DMSB DIG MAMM-SCREEN CULLEN 08/31/2014 3:19 PM 2. US BREAST LT COMPLETE 10/20/2021 9:44 AM FINDINGS: MAMMOGRAPHY: The breasts are heterogeneously dense, which may obscure small masses. There is no stellate mass, architectural distortion or suspicious microcalcifications in either breast to suggest malignancy. No skin thickening or axillary adenopathy. Review of the most recent sonogram demonstrates what appears to be an island normal fibrofatty tissue structures in the 6 o'clock axis. IMPRESSION: No mammographic evidence of malignancy. Further evaluation of a palpable abnormality should be based on clinical grounds regardless of radiographic findings or lack thereof. A six-month follow-up targeted left 6 o'clock axis ultrasound is recommended to ensure stability of the pattern identified unless otherwise clinically indicated. ASSESSMENT: BI-RADS Category 3: Probably benign
== END ==
PROVIDERS: PCP Physician Assistant; Visit Provider Obstetrics & Gynecology
DX: R92.8 Other abnormal and inconclusive findings on diagnostic imaging of breast (principal)
CPT/HCPCS: 77062; 77066; G0279

== ENCOUNTER → 2022-01-11 12:58 | Outpatient (CLI) | payer BC, SELFPAY ==
--- NOTE | 2022-01-11 13:05 | US_ITS ---
FINAL REPORT CLINICAL HISTORY: hx nodule FINDINGS: Limited sonographic images of the thyroid were obtained. The right lobe of the thyroid measures 4.5 x 0.89 x 1.7 cm. The left lobe of the thyroid measures 4.3 x 1.1 x 1.6 cm. The isthmus measures 0.14 cm. There are multiple bilateral hypoechoic subcentimeter nodules. Dominant nodule in the lower pole of the left lobe of the thyroid measures 1.1 cm consistent with TI-RADS category 4. IMPRESSION: Dominant left thyroid lobe nodule as above. Recommend follow-up in 1 year. Reviewed, Interpreted and Dictated by Jorge Mcknight MD Transcribed by Caterina Draper Authenticated and [facility]
== END ==
PROVIDERS: PCP Physician Assistant; Visit Provider Otolaryngology
DX: E04.1 Nontoxic single thyroid nodule (principal)
CPT/HCPCS: 76536

== ENCOUNTER 2022-01-20 12:01 | Emergency (ER) | payer BC, SELFPAY ==
--- NOTE | 2022-01-20 12:45 | US_ITS ---
FINAL REPORT CLINICAL HISTORY: pain FINDINGS: Transvaginal sonographic images of the pelvis were obtained. The uterus measures 7.6 x 3.4 x 5.1. The endometrium measures 4 mm, which is within normal limits. There is a 1.6 cm fibroid in the uterus. The right ovary measures 4.6 cm in length and left ovary measures 4.0 cm in length. Normal blood flow seen to the ovaries. There is a 1.9 cm cyst in the right ovary. There are multiple small follicles in the left ovary consistent with PCOS. There is a small amount of free fluid. IMPRESSION: Fibroid uterus. Right ovarian cyst. Multiple small follicles in the left ovary consistent with PCOS. Small amount of free fluid. Reviewed, Interpreted and Dictated by Mauricio Estrella III, MD Transcribed by Sharon Del Angel Authenticated and [facility]
--- NOTE | 2022-01-20 12:46 | HMH.EDGENADL ---
Discharge Plan Prescriptions Prescriptions: No Action levofloxacin 250 mg tablet 250 mg PO DAILY Qty: 5 0RF levocetirizine 5 mg tablet 5 mg PO DAILY Label Comments: TAKE 1 TABLET BY MOUTH EVERY EVENING paroxetine HCl 20 mg tablet 20 mg PO DAILY Qty: 30 6RF Referrals Follow up/Referrals: Daily Eubanks PA [Primary Care Provider] - See instructions Discharge ED Provider: Marquez Del Real General Adult HPI General Stated complaint: low pelvic pain to lower back pain Time Seen by Provider: 01/20/22 12:40 History of Present Illness HPI narrative: Patient presents complaining of left lower quadrant abdominal and pelvic pain that began earlier today while carrying a vacuum service cleaner down some stairs. She describes the pain initially as severe and worse with movement she says the pain now is moderate. She denies . She denies vaginal discharge or bleeding. She does have a prior history of ovarian cysts and voices concern that she may have torsed ovary Related Data Home Medications Medication Instructions Recorded Confirmed levocetirizine 5 mg tablet 5 mg PO DAILY allergies 07/22/19 01/09/22 Previous Rx's Medication Instructions Recorded paroxetine HCl 20 mg tablet 20 mg PO DAILY #30 tabs 09/26/21 levofloxacin 250 mg tablet 250 mg PO DAILY #5 tabs 01/17/22 Allergies Allergy/AdvReac Type Severity Reaction Status Date / Time erythromycin base Allergy Intermediate I-HIVES, Verified 01/09/22 13:06 STOMACH UPSET methylergonovine Allergy Unknown EDEMA Verified 01/09/22 13:06 [From Methergine] acetaminophen AdvReac Severe Verified 01/09/22 13:06 [From [employer] with Codeine] codeine AdvReac Severe Verified 01/09/22 13:06 [From [employer] with Codeine] oxycodone AdvReac Unknown HEART RACES Verified 01/09/22 13:06 [facility] Medical History Fractured metatarsal bone Thyroid Nodule Surgical History History of endometrial ablation History of tubal ligation Social History Smoking Status: Never smoker second hand exposure: No alcohol intake: never substance use type: denies use current occupational status: other Travel in the last 8 weeks: None household members: spouse and family housing: house 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 current occupational exposures/hazards: No caffeine: Yes ROS Obtained: Yes All systems reviewed & no additional complaints except as documented Physical Exam General General appearance: alert and in no apparent distress Head Head exam: atraumatic, normocephalic and normal inspection Eye Eye exam: Present normal appearance, PERRL and EOMI ENT ENT exam: Present normal exam, normal oropharynx, mucous membranes moist, TM's normal bilaterally and normal external ear exam Neck Neck exam: Present normal inspection, full ROM and trachea midline; Absent meningismus or lymphadenopathy Chest Chest inspection: Present normal inspection and symmetric chest wall rise; Absent tenderness Respiratory Respiratory exam: Present normal lung sounds bilaterally; Absent respiratory distress Cardiovascular Cardiovascular exam: Present regular rate and normal rhythm; Absent JVD Abdominal Exam Abdominal exam: Present tenderness (There is mild to moderate left lower quadrant tenderness. There is no rebound or guarding.) Extremities Exam Extremities exam: Present normal inspection, full ROM and normal capillary refill; Absent calf tenderness Back Exam Back exam: Present normal inspection; Absent tenderness Neurological Exam Neurological exam: Present alert and oriented X3 Psychiatric Psychiatric exam: Present normal affect and normal mood Skin Skin exam: Present warm, dry, intact and normal color Lymphatic Lymphatic Findings: no adenopathy Medical Decision Making Medical Records Med
[2022-01-20 12:53] LABS: Microscopic, Urine URINE MICROSCOPIC (MICROSCOPIC)
[2022-01-20 12:57] LABS: Appearance,Urine CLEAR (Clear); Bilirubin,Urine Negative (Negative); Blood, Urine Negative (Negative); Color,Urine YELLOW (Yellow); Glucose,Urine (UA) Negative (Negative); Ketones,Urine Negative (Negative); Leukocyte Esterase,Urine 2+ (Negative); Nitrate,Urine Negative (Negative); PH,Urine 6.5 (5.0-8.5); Protein,Urine Negative (Negative); Specific Gravity, Urine <= 1.005 (1.005-1.030); Urobilinogen,Urine 0.2 EU/dl (0.2)
[2022-01-20 13:12] LABS: Bacteria,Urine Trace /lpf; RBC,Urine Occasional #/hpf (0-3)
[2022-01-20 13:18] VITALS: BP 118/90; PULSE 83; RESP 18; TEMP 36.8; O2SAT 98; BMI 31.4
[2022-01-20 13:54] LABS: Basophils # 0.1 K/mm3 (0-0.2); Basophils % 0.8 % (0.1-2.0); Eosinophils # 0.2 K/mm3 (0.0-0.4); Eosinophils % 2.2 % (0.1-12.0); Hematocrit 44.7 % (37.0-47.0); Hemoglobin 14.8 g/dL (12.2-16.2); Lymphocytes # 1.9 K/mm3 (0.7-4.5); Lymphocytes % 26.7 % (10-50); Mean Corpuscular HGB Conc 33.1 g/dL (31.8-35.4); Mean Corpuscular Volume 90.4 fl (81-99); Monocytes # 0.3 K/mm3 (0.1-1.0); Monocytes % 4.7 % (1.7-9.3); Neutrophils # 4.6 K/mm3 (1.8-7.8); Neutrophils % 65.6 % (37.0-80.0); Platelet Count 254 K/mm3 (142-424); Red Blood Count 4.94 M/mm3 (4.20-5.40); Red Cell Distribution Width 12.5 % (11.5-17.5)
[2022-01-20 13:58] LABS: Chloride 106 mmol/L (98-107); Potassium 4.4 mmoL/L (3.5-5.1); Sodium 139 mmol/L (136-145)
[2022-01-20 14:00] LABS: Alanine Aminotransferase 27 U/L (12-78); Aspartate Amino Transferase 42 U/L (14-36); Blood Urea Nitrogen 9 mg/dl (7-17); Creatinine Clearance Estimated 139 mL/min (50-200); Estimated Glomerular Filt Rate 96 ml/min (>60); GFR (African American) 116 ML/MIN (>60)
[2022-01-20 14:01] LABS: Albumin Level 4.7 g/dl (3.5-5.0); Albumin/Globulin Ratio 1.3 (1.1-1.8); Alkaline Phosphatase 75 U/L (38-126); Anion Gap 13.4 mEq/L (5-15); Bilirubin,Total 0.8 mg/dl (0.2-1.3); Calcium 9.9 mg/dl (8.4-10.2); Carbon Dioxide 24 mmol/L (22.0-30.0); Globulin 3.6 g/dL (1.3-3.2); Glucose 87 mg/dl (74-100); Total Protein,Serum 8.3 g/dl (6.3-8.2)
--- NOTE | 2022-01-20 14:15 | PC.NURSE ---
Rounded on pt at this and updated on POC. Pt provided with drink. No other needs at this time
[2022-01-20 14:19] LABS: HCG Qualitative, Serum Negative (Negative)
[2022-01-20 14:35] VITALS: BP 132/97; PULSE 78; RESP 16; TEMP 36.8; O2SAT 97
== END 2022-01-20 14:40 | disposition home or self-care (01) ==
PROVIDERS: Emergency Provider Emergency Medicine; PCP Physician Assistant
DX: N83.201 Unspecified ovarian cyst, right side (principal); Z79.899 Other long term (current) drug therapy; Z88.1 Allergy status to other antibiotic agents; Z88.6 Allergy status to analgesic agent; Z88.8 Allergy status to other drugs, medicaments and biological substances
CPT/HCPCS: 76830; 80053; 81001; 84703; 85025; 87086; 99284

== ENCOUNTER → 2022-01-25 07:42 | Outpatient (CLI) | payer BC, SELFPAY ==
--- NOTE | 2022-01-25 07:43 | US_ITS ---
FINAL REPORT CLINICAL HISTORY: thyroid nodule FINDINGS: Ultrasound-guided needle sampling of the thyroid was attempted. Single 25-gauge needle made contact with the adjacent carotid artery. A small perivascular hematoma was noted. Hematoma measure less than 1 cm in size. Procedure was terminated. Patient was observed. Repeat ultrasound exams demonstrated hematoma to be stable. IMPRESSION: 1. Small perivascular hematoma post attempted thyroid biopsy. Small hematoma remained stable. Patient was discharged in good condition. Authenticated and ERN
== END ==
LOC: RAD 07:43
PROVIDERS: PCP Physician Assistant; Visit Provider Otolaryngology
DX: E04.1 Nontoxic single thyroid nodule (principal)
CPT/HCPCS: 76536

== ENCOUNTER → 2022-03-13 13:37 | Outpatient (CLI) | payer BC, SELFPAY ==
[2022-03-13 14:53] LABS: Basophils # 0.1 K/mm3 (0-0.2); Basophils % 0.8 % (0.1-2.0); Eosinophils # 0.1 K/mm3 (0.0-0.4); Eosinophils % 2.1 % (0.1-12.0); Hematocrit 42.3 % (37.0-47.0); Hemoglobin 14.1 g/dL (12.2-16.2); Lymphocytes # 1.9 K/mm3 (0.7-4.5); Lymphocytes % 28.7 % (10-50); Mean Corpuscular HGB Conc 33.3 g/dL (31.8-35.4); Mean Corpuscular Hemoglobin 29.6 pg (27.0-31.2); Mean Corpuscular Volume 88.8 fl (81-99); Mean Platelet Volume 7.5 fl (7.4-10.4); Monocytes # 0.4 K/mm3 (0.1-1.0); Monocytes % 5.7 % (1.7-9.3); Neutrophils # 4.2 K/mm3 (1.8-7.8); Neutrophils % 62.6 % (37.0-80.0); Platelet Count 310 K/mm3 (142-424); Red Blood Count 4.76 M/mm3 (4.20-5.40); Red Cell Distribution Width 12.6 % (11.5-17.5); White Blood Count 6.7 K/mm3 (4.8-10.8)
[2022-03-13 15:23] LABS: Alanine Aminotransferase 19 U/L (12-78); Albumin Level 4.6 g/dl (3.5-5.0); Albumin/Globulin Ratio 1.6 (1.1-1.8); Alkaline Phosphatase 66 U/L (38-126); Anion Gap 11.2 mEq/L (5-15); Aspartate Amino Transferase 23 U/L (14-36); Bilirubin,Total 0.4 mg/dl (0.2-1.3); Blood Urea Nitrogen 8 mg/dl (7-17); Calcium 9.4 mg/dl (8.4-10.2); Carbon Dioxide 27 mmol/L (22.0-30.0); Chloride 106 mmol/L (98-107); Estimated Glomerular Filt Rate 96 ml/min (>60); GFR (African American) 116 ML/MIN (>60); Globulin 2.8 g/dL (1.3-3.2); Glucose 75 mg/dl (74-100); Potassium 4.2 mmoL/L (3.5-5.1); Sodium 140 mmol/L (136-145); Total Protein,Serum 7.4 g/dl (6.3-8.2)
[2022-03-13 15:45] LABS: HCG,Quantitative < 2 mIU/ml (0-5.42)
== END ==
PROVIDERS: PCP Family Medicine; Visit Provider Obstetrics & Gynecology
DX: Z01.812 Encounter for preprocedural laboratory examination (principal); N94.6 Dysmenorrhea, unspecified
CPT/HCPCS: 36415; 80053; 84702; 85025

== ENCOUNTER 2022-03-16 07:03 | Day surgery (SDC) | payer BC, SELFPAY ==
[2022-03-10 12:56] VITALS: BMI 31.4
[2022-03-16] VITALS (11 sets, daily range): BP systolic 101–118; BP diastolic 56–73; PULSE 69–88; RESP 15–18; TEMP 36.4–43; O2SAT 95–99
--- NOTE | 2022-03-16 09:06 | EXP.OP.NOTE ---
Date of procedure: 03/16/22 Pre-op Diagnosis:: 1. Pelvic pain 2. Amenorrhea 3. History of endometrial ablation 4. Previous umbilical hernia repair Post-op Diagnosis:: 1. Pelvic pain 2. Amenorrhea 3. History of endometrial ablation 4. Previous umbilical hernia repair 5. Cervical stenosis 6. Collapsing umbilical hernia repair 7. 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 Diagnostic laparoscopy 2. Cervical dilation Surgeon:: Sobeida Painter MD COACH PROFESSIONAL [employer]THLETES:: Sergio Eduardo Anesthesia: GETA Estimated blood loss (mL): 5 Operative findings:: Cervical stenosis Collapsing umbilical hernia repair with sagging mesh Pelvic vasular engorgement/varicosities Right paratubal cyst (1cm) Operative note:: The patient was taken to the operating room and general anesthesia was administered. She was prepped/draped in lithotomy position. Hodgson retractors were placed in the vagina and a single tooth tenaculum placed on anterior lip of cervix. The cervix was scarred and stenotic, and the uterine manipulator would not pass through cervix. Regular size dilators would not pass through the cervix and pediatric dilators were opened in order to dilate the cervix. Once the cervix was dilated, a Humi uterine manipulator was placed. Gloves were changed and attention was turned to the abdomen. A 5mm skin incision was made in the LUQ at the location of previous incision and the verees needle was inserted through the peritoneum and into the abdominal cavity in standard fashion. The abdomen was insufflated with CO2 gas. A 5mm non-bladed trocar was inserted directly into the abdominal cavity and appropriate placement was confirmed with the laparoscope. No intra-abdominal injuries occurred during entry into the abdominal cavity, as confirmed visually with the laparoscope. The site of the previous umbilical hernia repair was anterior/medial to the laparoscope and the mesh was visualized sagging 3-4 cm below the abdominal wall. The patient was placed in trendelenburg and a 5mm skin incision was made 2cm above the pubic symphysis. A 5mm non-bladed trocar was inserted under direct visualization, without complication. The uterus was elevated out of the pelvis in order to better visualize the anatomy. She had a previous tubal ligation and the tubal remnents appeared normal. A small paratubal cyst was visualized on the distal end of the right fallopian tube (1cm). Both ovaries appeared normal and there were no ovarian cysts. There were prominent pelvic varicosities noted on the left. 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 No peristalsis or pulsation was observed within this structure but it did have the appearance and feel of a ureter. The laparoscope was removed from the LUQ trocar and placed in the suprapubic trocar in order to better visualize the collapsing umbilical hernia mesh. Photographs were taken of the hernia repair and filed in her chart. The abdomen was then evacuated of gas and the trocars were removed. The skin incisions were closed with 4-0 monocryl. The uterine manipulator was removed. All sponge/lap/needle/instrument counts correct. Total EBL: 5 cc. The patient was taken out of lithotomy position, extubated and taken to the PACU in stable condition. Condition: stable Disposition: PACU Specimens:: None Complications:: None
--- NOTE | 2022-03-16 09:07 | P.PN_ITS ---
[facility] Disclaimer: The information contained in this section may have been updated after the patient was seen, as this information can be updated by other users. Medical History Dysphagia Fractured metatarsal bone Thyroid Nodule Umbilical hernia Umbilical hernia Surgical History History of section History of endometrial ablation History of tubal ligation History of wisdom tooth extraction, class IV edentulism Hx of umbilical hernia repair Family History Other Family history of hyperlipidemia Family history of thyroid nodule Family hx-breast malignancy Social History Smoking Status: Never smoker second hand exposure: No alcohol intake: current substance use type: denies use current occupational status: other Travel in the last 8 weeks: None household members: spouse and family housing: house lives independently: Yes marital status: number of children: 3 education level: high school 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 current occupational exposures/hazards: No caffeine: Yes special john needs: No agree to transfusion: No do you feel safe at home: Yes victim of physical abuse: No victim of emotional abuse: No victim of sexual abuse: No would you like helpful sources: No [facility] Anesthesia Checklist Patient Identification Patient Identification: Arm Band Structural Data Admitted From: Home Planned Operative Procedure/s: Diagnostic Laparoscopy Consent for Planned Operative Procedure(s) Verified: Yes Verified Documents: Surgical Consent and History and Physical NPO Status Verified Time NPO: 00:00 Additional verifications Anesthesia Reactions: No Hx Blood Transfusions: No Blood Transfusion Reaction: No Airway Assessment C-Spine Mobility Assessed: Yes TMJ Mobility Assessed: Yes Dentition: Good Dentition Neurological Assessment Level of Consciousness: Awake and Alert Anesthesia Plan Anesthesia Risk discussed: Yes Anesthesia Plan: Verified ASA Class: II Anesthesia Type: General
--- NOTE | 2022-03-16 10:18 | P.PNANES_ITS ---
[facility] Anesthesia Record Part I Anesthesia Record I Intake, IV Amount: 1,400 Estimated blood loss (mL): 10 Urine output (mL): 100 Blood Pressure: 118/67 SaO2: 95 Pulse Rate: 80 Respiratory Rate: 16 Temperature: 98.4 F Patient is:: Drowsy and Stable Stable to PACU at:: 10:15
--- NOTE | 2022-03-16 11:05 | EXP.ANES.II ---
[facility] Anesthesia Record Part II Anesthesia Record Part II Discharge Time: 10:45 Destination: Surgical Day Care (OP Surgery) PACU nurse assessment reviewed?: Yes Patient Condition:: Good Anesthesia Complications:: None Swallowing reflex intact?: Yes Cyanosis?: No Blood Pressure: 112/64 Pulse Rate: 71 Temperature: 97.5 F Mental Status: Alert & Oriented Pain level:: 0 Nausea and/or vomitting:: None Intake, IV Amount: 0
== END 2022-03-16 11:16 | disposition home or self-care (01) ==
PROVIDERS: PCP Family Medicine; Visit Provider Obstetrics & Gynecology
PROC: (CPT 49320; principal; 2022-03-16 08:45)
DX: N91.2 Amenorrhea, unspecified (principal); N88.2 Stricture and stenosis of cervix uteri; R10.2 Pelvic and perineal pain; N83.8 Other noninflammatory disorders of ovary, fallopian tube and broad ligament; Z79.899 Other long term (current) drug therapy
CPT/HCPCS: 49320; 96374; J2405; J2710

== ENCOUNTER → 2022-05-29 13:00 | Outpatient (CLI) | payer BC, SELFPAY ==
--- NOTE | 2022-05-29 13:00 | US_ITS ---
PROCEDURE INFORMATION: Exam: US Left Breast, Complete Exam date and time: 05/29/2022 1:10 PM Age: 36 years old Clinical indication: Short-term sonographic follow-up of the left 6 o'clock axis for probable benign breast tissue seen on prior sonogram TECHNIQUE: Imaging protocol: Complete ultrasound of all four quadrants of the left breast and the retroareolar regions, including ultrasound of the axilla when performed. COMPARISON: US BREAST LT COMPLETE 10/20/2021 9:44 AM FINDINGS: Breast: Sonographic images of the left breast including the retroareolar region, all 4 quadrants and the axilla do not demonstrate any solid or cystic masses. Specifically, no focal findings in the 6 o'clock axis. No architectural distortion or acoustical shadowing. No skin thickening or axillary adenopathy. IMPRESSION: No mammographic evidence of malignancy. Further evaluation of a palpable abnormality should be based on clinical grounds regardless of radiographic findings or lack thereof.Annual bilateral mammographic screening is recommended to commence at the age of 40 unless otherwise clinically indicated. ASSESSMENT: BI-RADS Category 1: Negative
== END ==
PROVIDERS: PCP Family Medicine; Visit Provider Obstetrics & Gynecology
DX: R92.8 Other abnormal and inconclusive findings on diagnostic imaging of breast (principal)
CPT/HCPCS: 76641

== ENCOUNTER → 2022-07-28 15:09 | Outpatient (CLI) | payer BC, SELFPAY ==
--- NOTE | 2022-07-28 15:14 | US_ITS ---
FINAL REPORT TECHNIQUE: Ultrasound examination of the thyroid gland CLINICAL HISTORY: thyroid nodule COMPARISON: 01/11/2022 FINDINGS: Ultrasound examination of the thyroid gland is compared to a prior exam of December 2021. The right thyroid measures 5.2 x 1.2 x 1.5 cm in size, with 2 discrete nodules identified. The 1st nodule is 0.7 x 0.3 x 0.4 cm in size and is solid in appearance. The 2nd nodule is 0.3 cm in greatest diameter and is hypoechoic. The right thyroid gland is overall stable compared to the prior exam. The left thyroid gland measures 4.9 x 1.1 x 1.5 cm in size. There are 3 nodules that are discrete, identified in the left thyroid gland. The 1st nodule measures 0.6 x 0.4 x 0.5 cm and is hypoechoic. The 2nd nodule measures 1.1 x 0.7 x 0.7 cm, also hypoechoic. The 3rd nodule is a less than 2 mm in greatest diameter nodule, also hypoechoic. The appearance of the left thyroid gland is stable as well compared to the prior exam. The isthmus measures 0.2 cm in thickness. IMPRESSION: Ultrasound examination of the thyroid gland reveals multiple nodules as described above. These nodules are stable when compared to the prior exam of December 2021. The nodules remain in the TI-RADS 4 category, and follow-up in a year is once again recommended. Reviewed, Interpreted and Dictated by Jorge Mcknight MD Transcribed by Leyla Nash Authenticated and [facility]
[2022-07-28 18:44] LABS: Free T4 (Free Thyroxine) 0.94 ng/dl (0.78-2.19)
[2022-07-28 18:58] LABS: Thyroid Stimulating Hormone 1.01 uIU/mL (0.465-4.68)
== END ==
PROVIDERS: Nurse Practitioner; PCP Family Medicine; Visit Provider Otolaryngology
DX: E04.1 Nontoxic single thyroid nodule (principal)
CPT/HCPCS: 36415; 76536; 84439; 84443

== ENCOUNTER 2022-11-06 13:34 | Emergency (ER) | payer BC, SELFPAY ==
[2022-11-06 13:47] VITALS: BP 139/84; PULSE 67; RESP 16; TEMP 36.7; O2SAT 98; BMI 31.8
--- NOTE | 2022-11-06 13:50 | ECG_ITS ---
APPROVED REPORT Exam: Resting ECG HR:68 bpm ECG Measurements Heart Rate 68 AXES CA 165 P 53 QRSd 91 QRS 59 QT 409 T 47 QTc 427 Conclusion SINUS RHYTHM NONSPECIFIC T-WAVE ABNORMALITY BORDERLINE ECG UNCONFIRMED REPORT Electronically signed by : Dale Segura MD 11/07/2022 17:15:03
[2022-11-06 14:31] VITALS: BP 108/73; PULSE 76; O2SAT 99
--- NOTE | 2022-11-06 14:40 | HMH.EDGENADL ---
Discharge Plan Disposition Patient Disposition: Home, Self-Care Chief Complaint: Headache Prescriptions Prescriptions: No Action hydroxyzine pamoate [Vistaril] 25 mg capsule 25 mg PO HS PRN (Reason: itching) Qty: 30 5RF montelukast 10 mg tablet 10 mg PO DAILY fluticasone propionate 50 mcg/actuation spray,suspension 1 spray intranasal DAILY fluticasone propionate [Flovent HFA] 110 mcg/actuation HFA aerosol inhaler 1 inh inhalation ONCE albuterol sulfate 1.25 mg/3 mL solution for nebulization 1.25 mg inhalation PRN hydrocortisone 2.5 % cream 1 applic topical TID PRN (Reason: itching) Qty: 30 2RF amoxicillin-pot clavulanate 500-125 mg tablet 1 tab PO BID 7 Days Qty: 14 0RF fluconazole 150 mg tablet 150 mg PO Q3D Qty: 2 0RF Rx Instructions: may repeat second dose 72 hrs after first dose if symptoms persist levocetirizine 5 mg tablet 5 mg PO DAILY Patient Comments: TAKE 1 TABLET BY MOUTH EVERY EVENING Referrals Follow up/Referrals: Des Chan MD [Primary Care Provider] - See instructions Activity Restrictions/Add. Instructions Additional Instructions/Restrictions: At this time it was felt you are safe to be discharged home. If new or worsening symptoms please do not hesitate to return the emergency department. Please follow-up with your family doctor within 1 week for possible headache control medication or abortive medication. Clinical Impressions Clinical Impression: Headache, Migraine Discharge ED Provider: Marquez Davey General Adult HPI <iMl Benítez MD - Last Filed: 11/06/22 16:14> General Chief complaint: Headache Stated complaint: MONET, nausea Time Seen by Provider: 11/06/22 13:50 Mode of Arrival: Ambulatory Source of Information: Patient Limitations: No Limitations Description of Symptoms (Recalled from ER Triage Doc. by RN): 37 yo F presents to ED with c/o headache, nausea. pt states that last night she was cooking dinner and felt a pop in her neck. with respective pain in the right side of head and neck. pt reports that she has had headache and nausea today. pt also reports SOA. History of Present Illness HPI narrative: Patient is a 37-year-old female with past medical history of headaches who presents emergency department for evaluation of headache. Patient states that last night she was in bed when she had spontaneous pain shooting up to right side of her head that was transient in nature. She also since has developed right-sided facial paresthesias and tongue paresthesias. Severe right Qamar calvarial pain that radiates back to her occiput. Overnight she had a transient episode of shortness of breath associated with this painful episode. She has had migraine headaches of similar quality before that landon with sleep. Due to persistent symptoms she presents here for continued evaluation. Related Data Home Medications Medication Instructions Recorded Confirmed levocetirizine 5 mg tablet 5 mg PO DAILY allergies 07/22/19 08/17/22 albuterol sulfate 1.25 mg/3 mL 1.25 mg inhalation PRN 08/09/22 08/17/22 solution for nebulization fluticasone propionate 110 1 inh inhalation ONCE 08/09/22 08/17/22 mcg/actuation HFA aerosol inhaler (Flovent HFA) fluticasone propionate 50 1 spray intranasal DAILY 08/09/22 08/17/22 mcg/actuation nasal spray,suspension montelukast 10 mg tablet 10 mg PO DAILY 08/09/22 08/17/22 Previous Rx's Medication Instructions Recorded hydroxyzine pamoate 25 mg capsule 25 mg PO HS PRN itching #30 caps 02/02/22 (Vistaril) hydrocortisone 2.5 % topical cream 1 applic topical TID PRN itching 08/17/22 #30 grams amoxicillin 500 mg-potassium 1 tab PO BID 7 days #14 tabs 08/21/22 clavulanate 125 mg tablet fluconazole 150 mg tablet 150 mg PO Q3D 2 doses #2 tabs 08/21/22 Allergies Allergy/AdvReac Type Severity Reaction Status Date / Time erythromycin base Allergy Intermediate I-HIVES, Ve
--- NOTE | 2022-11-06 14:57 | CT_ITS ---
FINAL REPORT CLINICAL HISTORY: rt sided headache and facial tingle ct venogram head FINDINGS: Thin section axial CT images of the head were obtained with IV contrast. Sagittal and coronal reformatted images were also obtained. There is no evidence of intracranial mass or abnormal contrast-enhancement. The major dural venous sinuses are patent. There is no evidence of dural venous thrombosis. IMPRESSION: Unremarkable CT venogram of the head without evidence of dural venous sinus thrombosis. Authenticated and ERN
--- NOTE | 2022-11-06 15:00 | CT_ITS ---
FINAL REPORT CLINICAL HISTORY: R apical headache and facial tingle FINDINGS: Axial images of the head were obtained without contrast. Coronal reformatted images were also obtained. This study was performed with techniques to keep radiation doses as low as reasonably achievable (ALARA). Individualized dose reduction techniques using automated exposure control or adjustment of mA and/or kV according to the patient''s size were employed. There is generalized age appropriate atrophy. There is no evidence of intracranial hemorrhage or mass. The ventricular size is within normal limits. There is no evidence of shift of the midline structures. No skull abnormality is seen on the bone window images. IMPRESSION: No acute intracranial abnormality. Authenticated and ERN
[2022-11-06 15:15] VITALS: BP 108/73; PULSE 62; O2SAT 100
[2022-11-06 15:20] LABS: Chloride 106 mmol/L (98-107); Potassium 3.7 mmoL/L (3.5-5.1); Sodium 140 mmol/L (136-145)
[2022-11-06 15:22] LABS: Blood Urea Nitrogen 8 mg/dl (7-17); Creatinine Clearance Estimated 122 mL/min (50-200); Estimated Glomerular Filt Rate 82 ml/min (>60); GFR (African American) 99 ML/MIN (>60)
[2022-11-06 15:23] LABS: Anion Gap 13.7 mEq/L (5-15); Calcium 9.7 mg/dl (8.4-10.2); Carbon Dioxide 24 mmol/L (22.0-30.0); Glucose 92 mg/dl (74-100)
[2022-11-06 15:27] LABS: HCG Qualitative, Serum Negative (Negative)
--- NOTE | 2022-11-06 15:30 | PC.NURSE ---
Rounded on pt. Advised she has to use restroom. Pt ambulatory to restroom and back to bed. No other needs voiced.
[2022-11-06 15:34] LABS: Basophils % 0.6 % (0.1-2.0); Eosinophils # 0.1 K/mm3 (0.0-0.4); Eosinophils % 1.4 % (0.1-12.0); Hematocrit 43.1 % (37.0-47.0); Hemoglobin 14.2 g/dL (12.2-16.2); Lymphocytes # 1.4 K/mm3 (0.7-4.5); Lymphocytes % 18.5 % (10-50); Mean Corpuscular Hemoglobin 29.3 pg (27.0-31.2); Mean Corpuscular Volume 88.8 fl (81-99); Mean Platelet Volume 8.5 fl (7.4-10.4); Monocytes # 0.4 K/mm3 (0.1-1.0); Monocytes % 4.6 % (1.7-9.3); Neutrophils # 5.7 K/mm3 (1.8-7.8); Neutrophils % 74.9 % (37.0-80.0); Platelet Count 244 K/mm3 (142-424); Red Blood Count 4.85 M/mm3 (4.20-5.40); Red Cell Distribution Width 12.8 % (11.5-17.5); White Blood Count 7.6 K/mm3 (4.8-10.8)
[2022-11-06 15:37] LABS: Troponin I < 0.01 ng/ml (0.00-0.034)
--- NOTE | 2022-11-06 15:49 | PC.NURSE ---
pt in radiology
[2022-11-06 17:19] VITALS: BP 114/62; PULSE 58; RESP 16; TEMP 36.6
== END 2022-11-06 17:19 | disposition home or self-care (01) ==
PROVIDERS: Emergency Medicine; Emergency Provider Emergency Medicine; PCP Family Medicine
DX: G43.909 Migraine, unspecified, not intractable, without status migrainosus (principal); R06.02 Shortness of breath; R20.2 Paresthesia of skin; E04.1 Nontoxic single thyroid nodule
CPT/HCPCS: 70450; 70496; 80048; 84484; 84703; 85025; 93005; 96361; 96374; 96375; 99285; Q9967

== ENCOUNTER → 2023-01-08 12:56 | Outpatient (CLI) | payer BC, SELFPAY ==
--- NOTE | 2023-01-08 12:56 | US_ITS ---
PROCEDURE: US TRANSVAGINAL CLINICAL INDICATION: pelvic pain COMPARISON: No exams were available for comparison FINDINGS: Transvaginal sonographic images of the pelvis were obtained. UTERUS: 7.7 cm x 4.9 cmx 4.0 cm. scar is seen. Fluid collection below the scar measuring 1.3 cm. Post ablation changes. Small fluid collection within the endometrium. Nabothian cyst measuring 6 mm. LEFT OVARY: 2.5 cmx1.9 cmx2.2cm with a volume of 5.7ml. Several small follicles present. RIGHT OVARY: 4.0 cmx 2.6 cmx3.2 cm with a volume of 17.4ml. Corpus luteum present. Both ovaries are seen and appear normal. Doppler flow to both ovaries are seen. There is no fluid in the cul-de-sac. IMPRESSION: 1. Anteverted uterus normal in shape and size. Post ablation changes are seen. 2. There is a small collection of fluid underneath the scar that may connect with a fluid collection within the endometrial cavity. 3. Both ovaries are seen and appear normal. There are number of follicles in each ovary. 4. No fluid in the cul-de-sac. Dictated by: Miguel A Nuno MD 01/08/2023 16:56 Miguel A Nuno MD in OV 01/08/2023 16:56
== END ==
PROVIDERS: PCP Family Medicine; Visit Provider Obstetrics & Gynecology
DX: R10.2 Pelvic and perineal pain (principal)
CPT/HCPCS: 76830

== ENCOUNTER 2023-03-15 14:25 | Outpatient (CLI) | payer BC, SELFPAY ==
[2023-03-15 14:49] LABS: Basophils # 0.1 K/mm3 (0-0.2); Basophils % 0.6 % (0.1-2.0); Eosinophils # 0.2 K/mm3 (0.0-0.4); Eosinophils % 2.6 % (0.1-12.0); Hematocrit 41.3 % (37.0-47.0); Hemoglobin 14.4 g/dL (12.2-16.2); Lymphocytes # 1.9 K/mm3 (0.7-4.5); Lymphocytes % 26.7 % (10-50); Mean Corpuscular HGB Conc 34.9 g/dL (31.8-35.4); Mean Corpuscular Hemoglobin 31.4 pg (27.0-31.2); Mean Corpuscular Volume 89.9 fl (81-99); Mean Platelet Volume 7.9 fl (7.4-10.4); Monocytes # 0.4 K/mm3 (0.1-1.0); Monocytes % 5.3 % (1.7-9.3); Neutrophils # 4.7 K/mm3 (1.8-7.8); Neutrophils % 64.7 % (37.0-80.0); Platelet Count 226 K/mm3 (142-424); Red Blood Count 4.59 M/mm3 (4.20-5.40); Red Cell Distribution Width 12.9 % (11.5-17.5); White Blood Count 7.2 K/mm3 (4.8-10.8)
[2023-03-15 15:12] LABS: Chloride 106 mmol/L (98-107); Sodium 139 mmol/L (136-145)
[2023-03-15 15:13] LABS: Potassium 4.3 mmoL/L (3.5-5.1)
[2023-03-15 15:15] LABS: Alanine Aminotransferase 21 U/L (12-78); Albumin Level 4.2 g/dl (3.5-5.0); Albumin/Globulin Ratio 1.6 (1.1-1.8); Alkaline Phosphatase 55 U/L (38-126); Anion Gap 11.3 mEq/L (5-15); Aspartate Amino Transferase 21 U/L (14-36); Bilirubin,Total 0.4 mg/dl (0.2-1.3); Blood Urea Nitrogen 12 mg/dl (7-17); Carbon Dioxide 26 mmol/L (22.0-30.0); Estimated Glomerular Filt Rate 95 ml/min (>60); GFR (African American) 115 ML/MIN (>60); Globulin 2.7 g/dL (1.3-3.2); Total Protein,Serum 6.9 g/dl (6.3-8.2)
[2023-03-15 15:16] LABS: Calcium 9.1 mg/dl (8.4-10.2); Glucose 97 mg/dl (74-100)
[2023-03-15 15:39] LABS: HCG,Quantitative < 2 mIU/ml (0-5.42)
== END 2023-03-15 23:59 ==
LOC: LAB 14:25
PROVIDERS: PCP Family Medicine; Visit Provider Obstetrics & Gynecology
DX: R10.2 Pelvic and perineal pain (principal); N94.10 Unspecified dyspareunia
CPT/HCPCS: 36415; 80053; 84702; 85025

== ENCOUNTER 2023-03-22 10:27 | Inpatient (IN) | payer BC, SELFPAY ==
[2023-03-21 12:31] VITALS: BMI 30.2
[2023-03-22] VITALS (22 sets, daily range): BP systolic 86–118; BP diastolic 52–68; PULSE 67–105; RESP 14–22; TEMP 36.6–43; O2SAT 93–100; BMI 29.2
[2023-03-22] MEDS: LACTATED RINGERS 1000ML 1,000 ML 25 ML IV (06:56)
--- NOTE | 2023-03-22 06:57 | EXP.ANES.CKL ---
[facility] Disclaimer: The information contained in this section may have been updated after the patient was seen, as this information can be updated by other users. Medical History Chronic pelvic pain in female Dyspareunia in female Dysphagia Fractured metatarsal bone History of ovarian cyst Thyroid Nodule Umbilical hernia Surgical History H/O laparoscopy History of section History of colonoscopy History of endometrial ablation History of foot surgery History of tubal ligation History of wisdom tooth extraction, class IV edentulism Hx of umbilical hernia repair Family History Other Family history of hyperlipidemia Family history of thyroid nodule Family hx-breast malignancy Social History (Updated 03/22/23 @ 06:42 by Sneha Arce RN) Smoking Status: Never smoker second hand exposure: No alcohol intake: never substance use type: denies use current occupational status: unemployed Travel in the last 8 weeks: None household members: spouse and family housing: house lives independently: Yes marital status: number of children: 3 education level: high school 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 current occupational exposures/hazards: No caffeine: Yes special john needs: No agree to transfusion: No do you feel safe at home: Yes victim of physical abuse: No victim of emotional abuse: No victim of sexual abuse: No would you like helpful sources: No [facility] Anesthesia Checklist Patient Identification Patient Identification: Arm Band and Family Structural Data Admitted From: Home Planned Operative Procedure/s: MADALYN Consent for Planned Operative Procedure(s) Verified: Yes Verified Documents: Surgical Consent NPO Status Verified Time NPO: 00:00 Additional verifications Patient : Yes Anesthesia Reactions: Yes (pt reports hard to wake up after anesthesia) Hx Blood Transfusions: No Blood Transfusion Reaction: No Cephalosporin Allergy: No Previous Colonoscopy: No Airway Assessment Mallampati Score:: Class I C-Spine Mobility Assessed: Yes TMJ Mobility Assessed: Yes Dentition: Good Dentition Neurological Assessment Level of Consciousness: Awake, Alert, Appropriate and Follows Commands Hx Seizures: No Numbness or tingling in extremities: No Anesthesia Plan Anesthesia Risk discussed: Yes ASA Class: I Anesthesia Type: General Preoperative Comments Pre-Operative Comments: Celiac disease. Difficult to awaken.
[2023-03-22] MEDS: ACETAMINOPHEN 500MG TAB 1000 MG PO ×3 (07:02→18:57)
[2023-03-22] MEDS: GABAPENTIN 300MG CAPSULE 600 MG (07:07)
[2023-03-22] MEDS: CELECOXIB 100MG CAPSULE 400 MG PO (07:07)
--- NOTE | 2023-03-22 07:20 | EXP.HP ---
History of Present Illness *Admission Date: 03/22/23 *Reason for visit:: Chronic pelvic pain, dyspareunia *History of present illness: Olive Lugo is a 37 yo P3013 who to [facility] for scheduled surgery. She complains of pain with intercourse and intermittent pain throughout the month. She has history of tubal ligation and endometrial ablation. She also reports history of ovarian cysts and pain with ruptured cysts. She admits she has always had heavy, painful periods and pelvic pain since menarche. She reports history of PCOS and pelvic congestion syndrome. She has tried multiple different hormones in the past and they always affected her mental health. She admits she does not tolerate hormones. Pelvic ultrasound demonstrated anteverted uterus normal in shape and size. Post ablation changes are seen. There is a small collection of fluid underneath the scar that may connect with a fluid collection within the endometrial cavity. Both ovaries are seen and appear normal. There are number of follicles in each ovary. No fluid in the cul-de-sac. Surgical history significant for x 3 and previous umbilical hernia repair with mesh. [facility] Disclaimer: The information contained in this section may have been updated after the patient was seen, as this information can be updated by other users. Medical History Chronic pelvic pain in female Dyspareunia in female Dysphagia Fractured metatarsal bone History of ovarian cyst Thyroid Nodule Umbilical hernia Surgical History H/O laparoscopy History of section History of colonoscopy History of endometrial ablation History of foot surgery History of tubal ligation History of wisdom tooth extraction, class IV edentulism Hx of umbilical hernia repair Family History Other Family history of hyperlipidemia Family history of thyroid nodule Family hx-breast malignancy Social History (Updated 03/22/23 @ 06:42 by Sneha Arce RN) Smoking Status: Never smoker second hand exposure: No alcohol intake: never substance use type: denies use current occupational status: unemployed Travel in the last 8 weeks: None household members: spouse and family housing: house lives independently: Yes marital status: number of children: 3 education level: high school 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 current occupational exposures/hazards: No caffeine: Yes special john needs: No agree to transfusion: No do you feel safe at home: Yes victim of physical abuse: No victim of emotional abuse: No victim of sexual abuse: No would you like helpful sources: No Review of Systems Review of Systems Review of systems:: pertinent systems reviewed and negative unless documented below *Genitourinary Genitourinary: Reports dyspareunia and Reports pelvic pain Meds Home Medications and Allergies Home Medications Medication Instructions Recorded Confirmed Type levocetirizine 5 mg tablet 5 mg PO DAILY allergies 07/22/19 03/22/23 History albuterol sulfate 1.25 mg/3 mL 1.25 mg inhalation NEEDED PRN 08/09/22 03/22/23 History solution for nebulization soa fluticasone propionate 50 1 spray intranasal DAILY 08/09/22 03/22/23 History mcg/actuation nasal spray,suspension albuterol sulfate 90 mcg/actuation 1 inh inhalation DAILY 12/28/22 03/22/23 History aerosol inhaler zinc oxide 40 % topical ointment 1 applic topical TID PRN Rash 01/22/23 03/22/23 History (Aquaphor Baby Diaper Rash) hydroxyzine pamoate 25 mg capsule 25 mg PO QID PRN itching #20 caps 02/13/23 03/22/23 Rx (Vistaril) New Prescriptions to Start Prescriptions: Allergies Allergy/AdvReac Type Severity Reaction Status Date / Time erythromycin base Allergy Intermediate I-HIVES, Verified 03/22/23 06:28 STOMACH UPSET methylergonovine Allergy Unknown EDEMA Verified 03/22/23 06:28 [From Methergine] acetaminophen AdvReac Severe Verified 03/22/23 06:28 [From Capital with Codeine] codeine AdvReac Severe Verified 03/22/23 06:28 [From Capital with Codeine] oxycodone AdvReac Unknown HEART RACES Verified 03/22/23 06:28 Exam Data for Last 24 hours Vital signs and Labs for Last 24 Hours: Temp Pulse Resp BP Pulse Ox O2 Del Method 98.3 F 67 18 102/67 L 93 L Room Air 03/22/23 06:30 03/22/23 06:30 03/22/23 06:30 03/22/23 06:30 03/22/23 06:30 03/22/23 06:30 I & O for Last 24 hours: Intake & Output 03/19/23 03/20/23 03/21/23 03/22/23 23:59 23:59 23:59 23:59 Weight 165 lb Constitutional Constitutional: no acute distress and cooperative *Routine HEENT Exam Head: Present normocephalic and atraumatic Eye: Absent conjunctivae pink ENT: Present mucous membranes moist *Routine Neck Exam Neck: Present full ROM *Routine Respiratory Exam Respiratory: Present CTA bilaterally and normal respiratory effort *Routine Cardiovascular Exam Cardiovascular: Present RRR *Routine Abdominal Exam Abdominal: Present soft; Absent tenderness or distended *Routine Rectal Exam Rectal:: deferred *Routine Genitalia Exam Genitalia:: deferred *Routine Extremities Exam Extremities: Present full ROM; Absent edema or calf tenderness *Routine Neurological Exam Neurological: Present alert, moving all extremities and normal speech Routine Psychiatric Exam Psychiatric: Present normal affect and cooperative Assessment and Plan *Assessment and plan (1) Chronic pelvic pain in female: Status: Acute Category: Medical Code(s): R10.2 - Pelvic and perineal pain; G89.29 - Other chronic pain (2) Dyspareunia in female: Status: Acute Category: Medical Code(s): N94.10 - Unspecified dyspareunia (3) History of ovarian cyst: Status: Acute Category: Medical Code(s): Z87.42 - Personal history of other diseases of the female genital tract (4) Pelvic congestion syndrome: Status: Acute Category: Medical Code(s): N94.89 - Other specified conditions associated with female genital organs and menstrual cycle (5) Hx of umbilical hernia repair: Problem Comment: w/ mesh Status: Acute Category: Surgical Code(s): Z98.890 - Other specified postprocedural states; Z87.19 - Personal history of other diseases of the digestive system (6) History of endometrial ablation: Status: Acute Category: Surgical Code(s): Z98.890 - Other specified postprocedural states (7) History of tubal ligation: Status: Acute Category: Surgical Code(s): Z98.51 - Tubal ligation status Plan Admit to [facility] for scheduled surgery Reviewed risks, benefits, alternatives, expectations and possible complications of surgery. All questions addressed and answered. Patient voiced understanding of risks and possible complications. Patient desires to proceed with surgery. Consent form signed. Proceed with scheduled MADALYN, possible bilateral oophorectomy. Patient requests surgeon make a decision on which ovary to remove during surgery. She would like one ovary removed secondary to history of ovarian cysts.
[2023-03-22] MEDS: CEFAZOLIN SODIUM 1 GM in 0.9 % SODIUM CHLORIDE 50 ML IV ×3 (07:26→22:54)
--- NOTE | 2023-03-22 09:50 | P.PNANES_ITS ---
[facility] Anesthesia Record Part I Anesthesia Record I Intake, IV Amount: 1,100 Hydration: Adequate Estimated blood loss (mL): 150 Urine output (mL): 300 Blood Products used (#): none Blood Pressure: 107/60 SaO2: 93 Pulse Rate: 105 Airway Patency: Patent Respiratory Rate: 16 Temperature: 98.5 F Patient is:: Drowsy and Stable Stable to PACU at:: 09:38 Comments:: Tap Block at end of surgery.
[2023-03-22] MEDS: ONDANSETRON 4MG/2ML VIAL 4 MG IV ×3 (09:54→18:12)
[2023-03-22 09:58] LABS: Microscopic,Cath URINE MICROSCOPIC (MICROSCOPIC)
[2023-03-22 09:59] LABS: Appearance,Urine/Cath CLEAR (Clear); Bilirubin,Cath Negative (Negative); Blood, Urine/Cath Negative (Negative); Color,Urine/Cath YELLOW (Yellow); Glucose,Urine/Cath (UA) Negative (Negative); Ketones,Urine/Cath Negative (Negative); Leukocyte Esterase,Cath Negative (Negative); Nitrate,Cath Negative (Negative); Protein,Urine/Cath Negative (Negative); Urobilinogen,Cath 0.2 EU/dl (0.2)
[2023-03-22] MEDS: HYDROMORPHONE 2MG/ML SYRINGE 0.5 MG IV ×2 (10:01→10:12)
--- NOTE | 2023-03-22 10:05 | EXP.OP.NOTE ---
Date of procedure: 03/22/23 Pre-op Diagnosis:: 1. Chronic pelvic pain 2. Dyspareunia 3. History of ovarian cysts 4. History of tubal ligation 5. History of endometrial ablation 6. History of pelvic congestion syndrome 7. History of umbilical hernia repair with mesh Post-op Diagnosis:: 1. Chronic pelvic pain 2. Dyspareunia 3. History of ovarian cysts 4. History of tubal ligation 5. History of endometrial ablation 6. History of pelvic congestion syndrome 7. History of umbilical hernia repair with mesh Procedure performed:: Total Abdominal Hysterectomy, bilateral salpingectomy, left oophorectomy Surgeon:: Trixie Emerson DO Senior Maintenance Mechanic(s):: Miguel A Nuno MD CLASSIFIER:: Other ([place] CLASSIFIER) Anesthesia: GETA Estimated blood loss (mL): 150 Clinical Note:: Olive Lugo is a 37 yo P3013 who to [facility] for scheduled surgery. She complains of pain with intercourse and intermittent pain throughout the month. She has history of tubal ligation and endometrial ablation. She also reports history of ovarian cysts and pain with ruptured cysts. She admits she has always had heavy, painful periods and pelvic pain since menarche. She reports history of PCOS and pelvic congestion syndrome. She has tried multiple different hormones in the past and they always affected her mental health. She admits she does not tolerate hormones. Pelvic ultrasound demonstrated anteverted uterus normal in shape and size. Post ablation changes are seen. There is a small collection of fluid underneath the scar that may connect with a fluid collection within the endometrial cavity. Both ovaries are seen and appear normal. There are number of follicles in each ovary. No fluid in the cul-de-sac. Surgical history significant for x 3 and previous umbilical hernia repair with mesh. Operative findings:: 1. Grossly normal appearing uterus, bilateral fallopian tubes s/p tubal ligation and bilateral ovaries. Small follicle cyst noted on left ovary Operative note:: Discussed risks, benefits, alternatives, expectations and possible complications of surgery. All questions addressed and answered. Patient wished to proceed with surgery. Patient was wheeled back to the operating room and placed under general anesthesia without difficulty. The patient received 2 grams of Ancef preoperatively. SCDs in place. Mariscal catheter was inserted and draining clear urine prior to the start of the procedure. A bimanual exam was performed. Then she was placed in the supine position. She was prepped and draped in normal sterile fashion. Attention was then turned to the abdomen. A Pfannenstiel skin incision was made 2 cm above pubic symphysis above prior Pfannenstiel scar. This was carried through to underlying layer of fascia. Fascia was incised in midline, extended laterally with Street scissors. Superior aspect of fascial incision was grasped with two Mariama clamps, elevated up, and rectus muscle dissected off bluntly and sharply with Street scissors. The retcus muscle was then in the midline and the peritoneum was entered bluntly with a digit. Peritoneal incision was then extended superiorly and inferiorly with good visualization of the bladder. O'Ray O'lu retractor was placed in the abdominal incision. Bowel was packed cephalad with warm moist laparotomy sponges. Uterus was deviated to the left, right round ligament was placed on stretch and incised between two clamps. The distal stump of the roung ligament was suture ligated with 0 Vicryl suture. The proximal stump was held with a Mariama clamp. The leaves of the broad ligament were opened both anteriorly and posteriorly. The uterus was retracted cephalad. The anterior leaf of the broad ligament was opened down to the vesicouterine fold. Same procedure was carried out on the contralateral side. The vesicouterine peritoneal fold was elevated, and the bladder was dissected off of the lower uterine segment with sharp and blunt dissection. The uterus was retracted toward the pubic symphysis and deviated to left side. A finger was inserted through the peritoneum of the posterior leaf of the broad ligament under the suspensory ligament of the ovary and fallopian tube. The mesosalpinx and suspensory ligament were doubly clamped, incised and tied with 0 Vicryl suture removing the fallopian tube but leaving the ovary in situ. The distal stump was doubly suture ligated. The uterus was the retracted toward the pubic symphysis and deviated to the right side. A finger was inserted through the peritoneum of the posterior leaf of the broad ligament under the suspensory ligament of the ovary and fallopian tube. The IP ligament was doubly clamped, incised and tied with 0 Vicryl suture removing the fallopian tube and left ovary. The uterus was retracted cephalad and deviated to the right side. Uterine arteries were skeletonized. Two Tanesha clamps were placed at the junction of the lower uterine segment on the uterine vessels. An incision was made between the upper clamp and lower clamp. The stump was doubly suture ligated with 0 Vicryl. The same procedure was carried out on the contralateral side. The uterus was held in traction in the cephalad position and pubovescial cervical fascia was dissected inferiorly. Two straight Mariama clamps were applied to the cardinal ligament. Cardinal ligament was incised between the two clamps and the distal stump was ligated with 0 Vicryl suture. The same procedure was carried out on the contralateral side. Bilateral uterosacral ligaments were clamped between straight Mariama clamps, incised, and suture ligated with 0 Vicryl suture. The lower uterine segment and upper vagina were palpated between the thumb and first finger of the surgeon's hand to ensure that the ligaments have been completely incised. The vagina was entered under the cervix and cut circumferentially with Street scissors. The uterus and bilateral fallopian tubes and left ovary were removed and handed off of the sterile field. Specimen will be sent to pathology for review. The edges of the vagina were grasped with straight Mariama clamps. Vaginal cuff was closed in a running locking manner with 1 Vicryl suture. Pelvis was irrigated. Small amount of oozing noted along posterior edge of vaginal cuff. Surgicel powder and gel foam was applied. Hemostasis was noted. At this point all instruments and sponges were removed from the pelvis.? The peritoneum was grasped with Ximena clamps x 3. The peritoneum was reapproximated with 0 Vicryl suture in a running stitch. The corners of the fascia were grasped with Mariama clamps, and the fascia was reapproximated with two # 1 Vicryl suture overlapped to the right of midline. The subcutaneous tissue was reapproximated with 2-0 Vicryl. The skin was reapproximated with Insorb desire. Steri strips and Telfa were placed over closed Pfannenstiel skin incision. Patient awoke from anesthesia without difficulty and was transferred to the recovery room in stable condition. Condition: stable Disposition: floor Specimens:: 1. Uterus, cervix 2. Bilateral fallopian tubes 3. Left ovary Complications:: None
[2023-03-22 10:17] LABS: Bacteria,Urine/Cath TRACE /lpf; Squamous Epithelial Ur./Cath Occasional #/hpf (0-5)
[2023-03-22] MEDS: LACTATED RINGERS 1000ML 1,000 ML 125 ML IV ×2 (10:39→18:57)
--- NOTE | 2023-03-22 12:40 | EXP.ANES.CKL ---
[facility] Disclaimer: The information contained in this section may have been updated after the patient was seen, as this information can be updated by other users. Medical History Chronic pelvic pain in female Dyspareunia in female Dysphagia Fractured metatarsal bone History of ovarian cyst Thyroid Nodule Umbilical hernia Surgical History H/O laparoscopy History of section History of colonoscopy History of endometrial ablation History of foot surgery History of tubal ligation History of wisdom tooth extraction, class IV edentulism Hx of umbilical hernia repair Family History Other Family history of hyperlipidemia Family history of thyroid nodule Family hx-breast malignancy Social History Smoking Status: Never smoker second hand exposure: No alcohol intake: never substance use type: denies use current occupational status: unemployed Travel in the last 8 weeks: None household members: spouse and family housing: house lives independently: Yes marital status: number of children: 3 education level: high school 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 current occupational exposures/hazards: No caffeine: Yes special john needs: No agree to transfusion: No do you feel safe at home: Yes victim of physical abuse: No victim of emotional abuse: No victim of sexual abuse: No would you like helpful sources: No [facility] Anesthesia Checklist Patient Identification Patient Identification: Arm Band and Family Structural Data Admitted From: Inpatient Planned Operative Procedure/s: DEANNA Consent for Planned Operative Procedure(s) Verified: Yes Verified Documents: Surgical Consent and History and Physical NPO Status Verified Time NPO: 00:00 Additional verifications Patient : No Anesthesia Reactions: Yes (pt reports hard to wake up after anesthesia) Hx Blood Transfusions: No Blood Transfusion Reaction: No Cephalosporin Allergy: No Previous Colonoscopy: Yes Cardiovascular Assessment Peripheral Edema: No Airway Assessment Mallampati Score:: Class II C-Spine Mobility Assessed: Yes TMJ Mobility Assessed: Yes Dentition: Poor Dentition Neurological Assessment Level of Consciousness: Awake, Alert, Appropriate and Follows Commands Hx Seizures: No Numbness or tingling in extremities: No Anesthesia Plan Anesthesia Risk discussed: Yes ASA Class: III Anesthesia Type: Spinal Preoperative Comments Pre-Operative Comments: e3Rule Bacteremia. Atrial Fig. Pace maker. Diabetic.. EF 50. Aortic Stenosis.
[2023-03-22] MEDS: KETOROLAC 30MG/ML VIAL 30 MG IV ×2 (12:49→18:57)
--- NOTE | 2023-03-22 15:16 | HMH.PHAINT1 ---
Pharmacy Intervention Comments: MEDICATION RECONCILIATION COMPLETED ON PATIENT USING EXTERNAL FILL HISTORY FROM PHARMACY. -ARLETH SLOAN, ELKIND
[2023-03-22] MEDS: HYDROMORPHONE 2MG/ML SYRINGE 1 MG IV (15:47)
[2023-03-22] MEDS: POLYETHYLENE GLYCOL 3350 17 GM PACKET PO (20:02)
[2023-03-22] MEDS: OXYCODONE 5MG IMMEDIATE RELEASE TABLET 5 MG PO (21:55)
[2023-03-23] MEDS: ACETAMINOPHEN 500MG TAB 1000 MG PO ×3 (00:40→13:02)
[2023-03-23] MEDS: KETOROLAC 30MG/ML VIAL 30 MG IV (00:40)
--- NOTE | 2023-03-23 03:57 | PC.NURSE ---
Pt requested to be saline locked and does not want anymore fluids at this time
[2023-03-23 04:07] VITALS: BP 108/59; PULSE 78; RESP 18; TEMP 37.2; O2SAT 99
--- NOTE | 2023-03-23 04:08 | PC.NURSE ---
Pt has remained stable throughout the night, pt was educated on Incentive and has been using that. Reported earlier that she did not wish to keep fluids going as she was urinating often and intake was good, this rn saline locked her at that point. Vitals have been stable throughout the night, lungs clear throughout and bowel sounds have been normal throughout. Incision looks clean, no redness noted and no new drainage noted. drainage from incision is outlined. iv is patent. Pain has been stable and pt has only required minmial prn relief with scheduled meds. alert and orientated and ambulates without any assistance. cb remains in place.
[2023-03-23] MEDS: IBUPROFEN 400 MG TABLET 800 MG PO ×2 (06:11→14:59)
[2023-03-23 06:15] VITALS: TEMP 36.8
[2023-03-23 07:20] LABS: Basophils % 0.4 % (0.1-2.0); Eosinophils # 0.1 K/mm3 (0.0-0.4); Eosinophils % 0.7 % (0.1-12.0); Hematocrit 33.8 % (37.0-47.0); Hemoglobin 11.9 g/dL (12.2-16.2); Lymphocytes # 1.8 K/mm3 (0.7-4.5); Lymphocytes % 23.1 % (10-50); Mean Corpuscular HGB Conc 35.3 g/dL (31.8-35.4); Mean Corpuscular Volume 87.8 fl (81-99); Mean Platelet Volume 7.7 fl (7.4-10.4); Monocytes # 0.5 K/mm3 (0.1-1.0); Monocytes % 6.2 % (1.7-9.3); Neutrophils # 5.3 K/mm3 (1.8-7.8); Neutrophils % 69.5 % (37.0-80.0); Platelet Count 199 K/mm3 (142-424); Red Blood Count 3.85 M/mm3 (4.20-5.40); Red Cell Distribution Width 12.9 % (11.5-17.5); White Blood Count 7.7 K/mm3 (4.8-10.8)
[2023-03-23 07:31] LABS: Anion Gap 9.8 mEq/L (5-15); Blood Urea Nitrogen 6 mg/dl (7-17); Calcium 8.5 mg/dl (8.4-10.2); Carbon Dioxide 22 mmol/L (22.0-30.0); Chloride 110 mmol/L (98-107); Creatinine Clearance Estimated 133 mL/min (50-200); Estimated Glomerular Filt Rate 95 ml/min (>60); GFR (African American) 115 ML/MIN (>60); Glucose 105 mg/dl (74-100); Potassium 3.8 mmoL/L (3.5-5.1); Sodium 138 mmol/L (136-145)
[2023-03-23 08:30] VITALS: BP 121/55; PULSE 78; RESP 18; TEMP 36.7; O2SAT 95
[2023-03-23 08:44] VITALS: O2SAT 95
--- NOTE | 2023-03-23 08:44 | PC.NURSE ---
Dr. Emerson at bedside.
[2023-03-23] MEDS: POLYETHYLENE GLYCOL 3350 17 GM PACKET PO (08:57)
[2023-03-23] MEDS: SENNOSIDES 8.6MG/DOCUSATE 50MG TABLET 1 TAB PO (08:57)
--- NOTE | 2023-03-23 09:18 | EXP.ACUTE.PN ---
Subjective *Date: 03/23/23 *Time: 12:57 Interval history: POD # 1 s/p MADALYN, BS, left oophorectomy Resting comfortably in bed. Pain controlled. Voiding without difficulty. Not passing flatus yet. Tolerating full liquid diet. Denies fever/chills, chest pain and shortness of breath. No lower extremity swelling. Ambulating well ad luis alberto. Medical Exam Vital signs and Labs for Last 24 Hours: Vital Signs Temp Pulse Pulse Resp BP BP Pulse Ox 03/23/23 08:30 03/23/23 07:24 03/23/23 06:15 98.2 F 03/23/23 05:00 03/23/23 04:07 99 F 78 18 108/59 L 99 03/23/23 03:00 03/23/23 01:00 03/22/23 23:02 03/22/23 21:00 03/22/23 20:58 96 03/22/23 19:00 03/22/23 18:33 03/22/23 17:00 03/22/23 17:35 98.6 F 102 H 18 118/68 98 03/22/23 16:35 88 16 103/56 L 94 L 03/22/23 15:00 03/22/23 15:35 98.7 F 96 H 18 100/56 L 97 03/22/23 14:35 85 16 96/53 L 98 03/22/23 13:35 86 16 99/54 L 98 03/22/23 13:05 97.8 F 97 H 18 100/63 L 100 03/22/23 12:35 83 18 90/53 L 95 03/22/23 12:05 90 18 90/54 L 98 03/22/23 11:35 87 16 88/53 L 95 03/22/23 11:20 84 16 90/52 L 94 L 03/22/23 11:05 86 14 86/54 L 95 03/22/23 10:50 97 H 14 95/58 L 95 03/22/23 10:35 98.1 F 96 H 16 103/62 L 99 03/22/23 11:25 03/22/23 13:00 03/22/23 10:18 92 H 22 111/61 95 03/22/23 10:08 93 H 20 112/64 95 03/22/23 09:58 103 H 22 110/65 96 03/22/23 09:48 98.5 F 99 H 20 109/62 L 93 L 03/22/23 09:38 98.5 F 105 H 16 107/60 L 93 L 03/22/23 09:55 98.5 F 105 H 16 107/60 L O2 Del Method 03/23/23 08:30 Room Air 03/23/23 07:24 Room Air 03/23/23 06:15 03/23/23 05:00 Room Air 03/23/23 04:07 Room Air 03/23/23 03:00 Room Air 03/23/23 01:00 Room Air 03/22/23 23:02 Room Air 03/22/23 21:00 Room Air 03/22/23 20:58 Room Air 03/22/23 19:00 Room Air 03/22/23 18:33 Room Air 03/22/23 17:00 Room Air 03/22/23 17:35 Room Air 03/22/23 16:35 Room Air 03/22/23 15:00 Room Air 03/22/23 15:35 Room Air 03/22/23 14:35 Room Air 03/22/23 13:35 Room Air 03/22/23 13:05 Room Air 03/22/23 12:35 Room Air 03/22/23 12:05 Room Air 03/22/23 11:35 Room Air 03/22/23 11:20 Room Air 03/22/23 11:05 Room Air 03/22/23 10:50 Room Air 03/22/23 10:35 Room Air 03/22/23 11:25 Room Air 03/22/23 13:00 Room Air 03/22/23 10:18 Room Air 03/22/23 10:08 Room Air 03/22/23 09:58 Room Air 03/22/23 09:48 Room Air 03/22/23 09:38 Room Air 03/22/23 09:55 Intake and Output 03/22/23 03/23/23 03/23/23 23:59 07:59 15:59 Intake Total 1080 / 2180 Output Total 750 / 750 Balance 330 / 1430 Intake: Intake, Total IV Amount 1080 / 1080 Lactated Ringers 1000ML 1,000 1080 / 1080 ml @ 125 mls/hr IV .Q8H [facility] Rx# :[id number] Output: Output, Urine Amount 750 / 750 Other: Number of Unmeasured Voids 1 1 Laboratory Results - last 24 hr 03/22/23 07:35: Urine Color Yellow, Urine Appearance Clear, Urine pH 7.0, Ur Specific [place] 1.010, Urine Protein Negative, Urine Glucose (UA) Negative, Urine Ketones Negative, Urine Blood Negative, Urine Nitrate Negative, Urine Bilirubin Negative, Urine Urobilinogen 0.2, Ur Leukocyte Esterase Negative, Urine RBC None, Urine WBC None, Ur Squamous Epith Cells Occasional, Urine Bacteria Trace 03/23/23 06:56: WBC 7.7, RBC 3.85 L, Hgb 11.9 L, Hct 33.8 L, MCV 87.8, MCH 31.0, MCHC 35.3, RDW 12.9, Plt Count 199, MPV 7.7, Neut % (Auto) 69.5, Lymph % (Auto) 23.1, [place] % (Auto) 6.2, Eos % (Auto) 0.7, Baso % (Auto) 0.4, Neut # (Auto) 5.3, Lymph # (Auto) 1.8, [place] # (Auto) 0.5, Eos # (Auto) 0.1, Baso # (Auto) 0.0, Sodium 138, Potassium 3.8, Chloride 110 H, Carbon Dioxide 22, Anion Gap 9.8, BUN 6 L, Creatinine 0.70, Estimated Creat Clear 133, Estimated GFR 95, Est GFR ( Amer) 115, Glucose 105 H, Calcium 8.5 I & O for Labs for Last 24 Hours: Intake & Output 03/20/23 03/21/23 03/22/23 03/23/23 23:59 23:59 23:59 23:59 Intake Total 2180 / 2180 Output Total 750 / 750 Balance 1430 / 1430 Weight 165 lb 165 lb Head: Present atraumatic and normocephalic ENT: Present mucous membranes moist Neck: Present full ROM Respiratory: Present CTA bilaterally and normal respiratory effort Cardiac: Present Reg Rate and Rhythm GI: Present soft, tenderness (mild appropriate tenderness to palpation) and normal bowel sounds; Absent distention or guarding Comments:: Pfannenstiel incision clean/dry/intact with steri strips in place. Rectal (female): Present deferred (female): Present deferred Extremities: Present full ROM; Absent edema Neuro: Present alert, awake and moves all extremities Assessment and Plan *Assessment and plan (1) S/P abdominal hysterectomy and left salpingo-oophorectomy: Problem Comment: with right salpingectomy; surgery on 03/22/23 Status: Acute Category: Surgical Code(s): Z90.710 - Acquired absence of both cervix and uterus; Z90.721 - Acquired absence of ovaries, unilateral; Z90.79 - Acquired absence of other genital organ(s) (2) Chronic pelvic pain in female: Status: Acute Category: Medical Code(s): R10.2 - Pelvic and perineal pain; G89.29 - Other chronic pain (3) History of ovarian cyst: Status: Acute Category: Medical Code(s): Z87.42 - Personal history of other diseases of the female genital tract (4) Dyspareunia in female: Status: Acute Category: Medical Code(s): N94.10 - Unspecified dyspareunia Plan Continue routine postop care Encouraged increased ambulation Plan d/c home tomorrow, POD # 2
--- NOTE | 2023-03-23 11:51 | P.PNANES_ITS ---
[facility] Anesthesia Record Part II Anesthesia Record Part II Discharge Time: 10:18 Destination: Obstetric PACU nurse assessment reviewed?: Yes Patient Condition:: Good Anesthesia Complications:: None Swallowing reflex intact?: Yes Airway Patency: Patent Cyanosis?: No Blood Pressure: 111/61 SaO2: 95 Respiratory Rate: 22 Pulse Rate: 92 Temperature: 98.5 F Mental Status: Alert & Oriented Pain level:: 5 Nausea and/or vomitting:: None Intake, IV Amount: 0 Hydration: Adequate
[2023-03-23 11:52] VITALS: BP 111/61; PULSE 92; RESP 22; TEMP 36.9; O2SAT 95
[2023-03-23] MEDS: SIMETHICONE 80MG CHEWABLE TABLET 160 MG PO (12:13)
[2023-03-23 15:00] VITALS: BP 101/69; PULSE 79; RESP 18; TEMP 36.8; O2SAT 96
--- NOTE | 2023-03-23 15:00 | PC.NURSE ---
Reassessment completed with no changes from previous assessment. Lungs remain cta and bowel sounds active x4. REports gas, but no BM. Low transverse incision with steristrips. old dried blood noted. no s/s/ of infection noted. no edema noted. iv d/c she tolerated well. pt has done well ambulating today and voiding appropriately. would like to go home. will call dr bashir no other needs.
--- NOTE | 2023-03-23 15:53 | EXP.DC.SUM ---
General Admission date:: 03/22/23 HPI HPI HPI: POD # 1 s/p MADALYN, BS, left oophorectomy Resting comfortably in bed. Pain controlled. Voiding without difficulty. Passing flatus. Tolerating regular diet. Denies fever/chills, chest pain and shortness of breath. No lower extremity swelling. Ambulating well ad luis alberto. Hospital Course Hospital Course Hospital Course: Olive Lugo is a 37 [id number] [facility] for scheduled surgery. She complains of pain with intercourse and intermittent pain throughout the month. She has history of tubal ligation and endometrial ablation. She also reports history of ovarian cysts and pain with ruptured cysts. She admits she has always had heavy, painful periods and pelvic pain since menarche. She reports history of PCOS and pelvic congestion syndrome. She has tried multiple different hormones in the past and they always affected her mental health. She admits she does not tolerate hormones. Pelvic ultrasound demonstrated anteverted uterus normal in shape and size. Post ablation changes are seen. There is a small collection of fluid underneath the scar that may connect with a fluid collection within the endometrial cavity. Both ovaries are seen and appear normal. There are number of follicles in each ovary. No fluid in the cul-de-sac. She underwent total abdominal hysterectomy, bilateral salpingectomy and left oophorectomy. She received a TAP block after surgery. She did well postoperatively. Pain controlled with PO medication. Voiding without difficulty. Passing flatus Tolerating regular diet. No fever/chills, chest pain or shortness of breath. No lower extremity swelling. Ambulating well ad luis alberto. She was discharged home on POD# 1 with instructions to follow-up in the office in 2 weeks or sooner if needed. Exam Data for Last 24 hours Vital signs and Labs for Last 24 Hours: Temp Pulse Resp BP Pulse Ox O2 Del Method 98.0 F 78 22 121/55 L 95 Room Air 03/23/23 08:30 03/23/23 08:30 03/23/23 11:52 03/23/23 08:30 03/23/23 08:44 03/23/23 13:29 Laboratory Results - last 24 hr 03/23/23 06:56: WBC 7.7, RBC 3.85 L, Hgb 11.9 L, Hct 33.8 L, MCV 87.8, MCH 31.0, MCHC 35.3, RDW 12.9, Plt Count 199, MPV 7.7, Neut % (Auto) 69.5, Lymph % (Auto) 23.1, [place] % (Auto) 6.2, Eos % (Auto) 0.7, Baso % (Auto) 0.4, Neut # (Auto) 5.3, Lymph # (Auto) 1.8, [place] # (Auto) 0.5, Eos # (Auto) 0.1, Baso # (Auto) 0.0, Sodium 138, Potassium 3.8, Chloride 110 H, Carbon Dioxide 22, Anion Gap 9.8, BUN 6 L, Creatinine 0.70, Estimated Creat Clear 133, Estimated GFR 95, Est GFR ( Amer) 115, Glucose 105 H, Calcium 8.5 I & O for Last 24 hours: Intake & Output 03/20/23 03/21/23 03/22/23 03/23/23 23:59 23:59 23:59 23:59 Intake Total 2180 / 2180 0 / 0 Output Total 750 / 750 0 / 0 Balance 1430 / 1430 0 / 0 Weight 165 lb 165 lb Constitutional Constitutional: no acute distress and cooperative *Routine HEENT Exam Head: Present normocephalic and atraumatic Eye: Absent conjunctivae pink ENT: Present mucous membranes moist *Routine Neck Exam Neck: Present full ROM *Routine Respiratory Exam Respiratory: Present CTA bilaterally and normal respiratory effort *Routine Cardiovascular Exam Cardiovascular: Present RRR *Routine Abdominal Exam Abdominal: Present soft, normoactive bowel sounds and tenderness (mild appropriate tenderness postoperatively); Absent distended Comments: Incision clean/dry/intact with steri strips present *Routine Rectal Exam Patient deferred: visual exam *Routine Exam Patient deferred: external exam *Routine Extremities Exam Extremities: Present full ROM; Absent edema or calf tenderness *Routine Neurological Exam Neurological: Present alert, moving all extremities and normal speech Routine Psychiatric Exam Psychiatric: Present normal affect and cooperative Results Data Completed and Pending Labs on day of discharge: Labs from last 24 hours 03/23/23 06:56 WBC 7.7 RBC 3.85 L Hgb 11.9 L Hct 33.8 L MCV 87.8 MCH 31.0 MCHC 35.3 RDW 12.9 Plt Count 199 MPV 7.7 Neut % (Auto) 69.5 Lymph % (Auto) 23.1 [place] % (Auto) 6.2 Eos % (Auto) 0.7 Baso % (Auto) 0.4 Neut # (Auto) 5.3 Lymph # (Auto) 1.8 [place] # (Auto) 0.5 Eos # (Auto) 0.1 Baso # (Auto) 0.0 Sodium 138 Potassium 3.8 Chloride 110 H Carbon Dioxide 22 Anion Gap 9.8 BUN 6 L Creatinine 0.70 Estimated Creat Clear 133 Estimated GFR 95 Est GFR ( Amer) 115 Glucose 105 H Calcium 8.5 DS: Diagnosis Discharge Diagnosis (1) S/P abdominal hysterectomy and left salpingo-oophorectomy: Status: Acute Code(s): Z90.710 - Acquired absence of both cervix and uterus; Z90.721 - Acquired absence of ovaries, unilateral; Z90.79 - Acquired absence of other genital organ(s) Problem details: with right salpingectomy; surgery on 03/22/23 (2) Chronic pelvic pain in female: Status: Acute Code(s): R10.2 - Pelvic and perineal pain; G89.29 - Other chronic pain (3) History of ovarian cyst: Status: Acute Code(s): Z87.42 - Personal history of other diseases of the female genital tract (4) Dyspareunia in female: Status: Acute Code(s): N94.10 - Unspecified dyspareunia Meds Home Medications and Allergies Home Medications Medication Instructions Recorded Confirmed Type levocetirizine 5 mg tablet 5 mg PO HS Allergy Symptoms 07/22/19 03/22/23 History fluticasone propionate 50 1 spray intranasal DAILY Allergy 08/09/22 03/22/23 History mcg/actuation nasal Symptoms spray,suspension albuterol sulfate 90 mcg/actuation 2 puff inhalation Q4HP PRN 12/28/22 03/22/23 History aerosol inhaler Shortness Of Breath hydroxyzine pamoate 25 mg capsule 25 mg PO QIDP PRN itching 03/22/23 03/22/23 History (Vistaril) ibuprofen 800 mg tablet 800 mg PO Q8H PRN pain #20 tabs 03/23/23 Rx oxycodone 5 mg tablet 5 mg PO Q4HP PRN Moderate Pain 03/23/23 Rx (4-6) #20 tabs New Prescriptions to Start Prescriptions: Trixie Jung oxycodone Trixie Emerson Allergies Allergy/AdvReac Type Severity Reaction Status Date / Time erythromycin base Allergy Intermediate I-HIVES, Verified 03/22/23 06:28 STOMACH UPSET methylergonovine Allergy Unknown EDEMA Verified 03/22/23 06:28 [From Methergine] orange Allergy Verified 03/22/23 12:56 acetaminophen AdvReac Severe Verified 03/22/23 06:28 [From Capital with Codeine] codeine AdvReac Severe Verified 03/22/23 06:28 [From [employer] with Codeine] oxycodone AdvReac Unknown HEART RACES Verified 03/22/23 06:28 Discharge Plan Disposition Patient Disposition: Home, Self-Care Condition: Good Discharge Order Discharge Orders: Discharge Order (Routine); Ordered 03/23/23 Ordered By: Trixie Emerson Follow up Plan Follow up with: Trixie Emerson DO [Staff Physician] - 2 weeks Prescriptions/Medication Reconciliation: New oxycodone 5 mg Tablet 5 mg PO Q4HP PRN (Reason: Moderate Pain (4-6)) Qty: 20 0RF ibuprofen 800 mg tablet 800 mg PO Q8H PRN (Reason: pain) Qty: 20 0RF Continued fluticasone propionate 50 mcg/actuation spray,suspension 1 spray intranasal DAILY albuterol sulfate 90 mcg/actuation HFA aerosol inhaler 2 puff inhalation Q4HP PRN (Reason: Shortness Of Breath) levocetirizine 5 mg tablet 5 mg PO HS Patient Comments: TAKE 1 TABLET BY MOUTH EVERY EVENING hydroxyzine pamoate [Vistaril] 25 mg capsule 25 mg PO QIDP PRN (Reason: itching) Problem Reconciliation Problems Reviewed?: Yes Patient Discharge Instructions ACTIVITY: Limited activity DIET: continue same diet and regular diet Additional Instructions: Discharge instructions following hysterectomy: 1. Take 800 mg Ibuprofen every 8 hours, Tylenol 1000 mg every 6 hours and Oxy 5 mg every 4 hours for the next two days. Then take medication as needed for pain. 2. Take Miralax twice a day for the next 3 days then take as needed to keep regular bowel movements. Avoid constipation 3. Nothing in the vagina for 6 weeks - no intercourse, douching or tampons. No tub baths/hot tubs or swimming pools 4. No lifting anything heavier than 5 pounds for 6 weeks 5. Reasons to go to the ED or call On-Call doctor - fever (greater than 100.4) - chest pain or shortness of breath - lower leg/calf swelling, redness or pain. This could be a sign of a blood clot - heavy vaginal bleeding - vaginal discharge (malodorous and/or purulent) Trixie Emerson DO [facility] [phone] Providers Primary Care Provider: Des Chan Admit Provider: Trixie Emerson Attending Provider: Trixie Emerson
== END 2023-03-23 16:55 | disposition home or self-care (01) | DRG 743 ==
LOC: OB 10:28
PROVIDERS: Admitting Provider Obstetrics & Gynecology; PCP Family Medicine; Visit Provider Obstetrics & Gynecology
PROC: 0UT90ZZ Resection of Uterus, Open Approach (ICD-10-PCS; CPT 58150; principal; 2023-03-22 07:30)
DX: N94.10 Unspecified dyspareunia (principal); R10.2 Pelvic and perineal pain; G89.29 Other chronic pain
CPT/HCPCS: 58150; 36415; 80048; 81001; 85025; 96374; C9290; J2405

== ENCOUNTER 2023-08-13 10:02 | Outpatient (CLI) | payer BC, SELFPAY ==
--- NOTE | 2023-08-13 10:09 | US_ITS ---
FINAL REPORT TECHNIQUE: Ultrasound images of the thyroid were obtained. CLINICAL HISTORY: throid nodule COMPARISON: 07/28/2022 FINDINGS: The right lobe of the thyroid measures 5.6 x 1.1 x 1.5 cm. It is normal in echogenicity. The left lobe of the thyroid measures 4.9 x 1.1 x 1.5 cm. It is normal in echogenicity. There is a hypoechoic, right thyroid lobe nodule measuring up to 4 mm, previously measured 7 mm. This likely represents an improved colloid cyst. There is a mixed cystic/solid inferior left lobe nodule with a new, solid component. Nodule itself measures up to 10 mm. Solid component measures 6 mm. Previously this nodule was cystic and measures up to 11 mm. A posterior left thyroid cyst is seen measuring 7 mm, previously measured 6 mm. IMPRESSION: Dominant left thyroid lobe nodule with new debris or solid component. Recommend 12-month follow-up. Other thyroid nodules which are stable or smaller from prior exam Reviewed, Interpreted and Dictated by Rose Mae MD Transcribed by Suzi Duke Authenticated and [facility]
== END 2023-08-13 23:59 | disposition home or self-care (01) ==
LOC: RAD 10:02
PROVIDERS: PCP Family Medicine; Visit Provider Nurse Practitioner
DX: E04.1 Nontoxic single thyroid nodule (principal)
CPT/HCPCS: 76536

== ENCOUNTER 2023-08-16 10:25 | Outpatient (CLI) | payer BC, SELFPAY ==
[2023-08-16 11:37] LABS: Free T4 (Free Thyroxine) 1.09 ng/dl (0.78-2.19)
[2023-08-16 11:51] LABS: Thyroid Stimulating Hormone 1.31 uIU/mL (0.465-4.68)
== END 2023-08-16 23:59 | disposition home or self-care (01) ==
PROVIDERS: PCP Family Medicine; Visit Provider Nurse Practitioner
DX: Z13.29 Encounter for screening for other suspected endocrine disorder (principal)
CPT/HCPCS: 36415; 84439; 84443

== ENCOUNTER 2023-09-24 10:38 | Outpatient (CLI) | payer BC, SELFPAY ==
--- NOTE | 2023-09-24 10:41 | CA_ITS ---
APPROVED REPORT EXAM: Comprehensive 2D, Doppler, and color-flow Echocardiogram Pin Puller: Pam Calderón RDCS Ht: 5 ft 3 in Wt: 166lbs BSA: 1.79 BP: 134/72 mmHg Indications: CP,FAM HISTORY 2D Dimensions Left Atrium 3.09 cm F: 2.7 - 3.8 LVOT 2.09 cm (M/F) 1.5-2.5 M-Mode Dimensions RVDd 1.48 cm (0.9-2.6) LVDd 4.79 cm (3.5-5.7) Ao Diam 3.20 cm (2.0-3.7) LVDs 3.49 cm (3.5-5.7) IVSd 0.77 cm (0.6-1.1) PWd 0.80 cm (0.6-1.1) EF (Teich) 52.80% FS 27.10% EDV (Teich) 107.00 mL TAPSE 2.65 (<1.7) ESV (Teich) 50.50 mL LV Diastology E Decel Time 189 (160-240 msec) E/A Ratio 1.3 MED E' 14.3 (>= 7 cm/sec) E'/MED E' Ratio 5.52 (<= 14) LAT E' 13.2 (>= 10 cm/sec) E/LAT E' Ratio 5.98 (<= 14) Mitral Valve MV E Max Girish. 79.0 (40-130 cm/s) MV A Velocity 59.0 (40-130 cm/s) E/A Ratio 1.34 MV Decel. Time 189 (160-240 ms) Left Ventricle The left ventricle is normal size. The left ventricular systolic function is normal. The left ventricular ejection fraction is within the normal range. There is normal left ventricular wall thickness. There is normal LV segmental wall motion. The left ventricular diastolic function is normal. LVEF is 55% Right Ventricle The right ventricle is normal size. The right ventricular systolic function is normal. Atria The left atrium size is normal. The right atrium size is normal. There is no Doppler evidence of interatrial atrial shunt. Aortic Valve The aortic valve opens well. There is no aortic valvular stenosis. Trace aortic regurgitation. Mitral Valve The mitral valve is normal in structure. No evidence of mitral valve stenosis. Mild mitral regurgitation. Tricuspid Valve The tricuspid valve leaflets are thin and pliable. Trace tricuspid regurgitation. RVSP is normal. Pulmonic Valve The pulmonary valve is normal in structure. Trace pulmonic regurgitation. Great Vessels The aortic root is normal in size. The ascending aorta is not well-visualized. IVC is normal in size and collapses >50% with inspiration. Pericardium There is no pericardial effusion. Conclusion Normal biventricular systolic function. Mild MR. Electronically signed by : Rhonda Vanessa MD 09/24/2023 12:02:10
== END 2023-09-24 23:59 | disposition home or self-care (01) ==
LOC: RT 10:38
PROVIDERS: PCP Physician Assistant; Visit Provider Physician Assistant
DX: R07.89 Other chest pain (principal)
CPT/HCPCS: 93306

== ENCOUNTER 2023-10-08 13:22 | Observation (INO) | payer BC, SELFPAY ==
[2023-10-08] VITALS (8 sets, daily range): BP systolic 117–132; BP diastolic 70–101; PULSE 64–78; RESP 17–18; TEMP 36.9–37.1; O2SAT 97–99; BMI 31.1; BMI 30.2
--- NOTE | 2023-10-08 14:05 | ED_ITS ---
<Statement entered by Shannon Mendoza DO - 10/08/23 22:58> I was consulted by the SULEMA, and we discussed the complexity of the problems being addressed. I approved the treatment and management plan for this patient's care in the emergency department, thus performing a substantive portion of the medical decision making. Shannon Mendoza DO Discharge Plan Disposition Patient Disposition: Admitted Condition: Fair Clinical Impressions Clinical Impression: Ovarian cyst Qualifiers: Laterality: right Qualified Code(s): N83.201 - Unspecified ovarian cyst, right side Discharge ED Provider: Karla Short General Adult HPI General Chief complaint: PAIN Stated complaint: pelvic pain severe Time Seen by Provider: 10/08/23 14:05 Mode of Arrival: Ambulatory Source of Information: Patient Limitations: No Limitations Description of Symptoms (Recalled from ER Triage Doc. by RN): Patient states she is having pelvic pain that started on sunday after having intercourse with her . Patient describes pain as a dull, pressure pain. Rates pain 5/10. History of Present Illness HPI narrative: Patient presents for dyspareunia. Patient was having intercourse in the early hours of Sunday morning and felt pain and discomfort during intercourse. It has persisted nonstop and she states that it is like sitting on a ball . She attempted to see her [facility] but the earliest that they could get her in would be Sunday. She reports no dysuria urinary frequency vaginal discharge incontinence. She is status post hysterectomy and left oophorectomy in February of this year. She reports normal bowel and bladder function and reports no intolerance to oral intake. No fever chills chest pain shortness of breath hemoptysis hematochezia melena had 3 hematemesis Related Data Home Medications ?Medication ?Instructions ?Recorded ?Confirmed levocetirizine 5 mg tablet 5 mg PO HS Allergy Symptoms 07/22/19 09/21/23 fluticasone propionate 50 1 spray intranasal DAILY Allergy 08/09/22 09/21/23 mcg/actuation nasal Symptoms spray,suspension albuterol sulfate 90 mcg/actuation 2 puff inhalation Q4HP PRN 12/28/22 09/21/23 aerosol inhaler Shortness Of Breath Allergies Allergy/AdvReac Type Severity Reaction Status Date / Time almond Allergy Intermediate Wheezing Verified 10/08/23 16:36 [place] And Derivatives Allergy Intermediate Wheezing Verified 10/08/23 16:14 erythromycin base Allergy Intermediate I-HIVES, Verified 09/21/23 08:48 STOMACH UPSET escitalopram Allergy Intermediate Other Verified 09/21/23 08:48 orange Allergy Intermediate Wheezing Verified 10/08/23 16:10 pecan nut Allergy Intermediate Wheezing Verified 10/08/23 16:36 walnut Allergy Intermediate Wheezing Verified 10/08/23 16:36 methylergonovine Allergy Unknown EDEMA Verified 09/21/23 08:48 [From Methergine] codeine AdvReac Severe Heart Races Verified 10/08/23 16:11 [From [employer] with Codeine] [facility] Disclaimer: The information contained in this section may have been updated after the patient was seen, as this information can be updated by other users. Medical History (Updated 10/08/23 @ 17:21 by Trixie Emerson DO) Acute pelvic pain, female Anxiety Depression Snoring Night terrors, adult Vaginitis Chronic pelvic pain in female History of ovarian cyst Dyspareunia in female Umbilical hernia Dysphagia Thyroid Nodule Fractured metatarsal bone Surgical History S/P abdominal hysterectomy and left salpingo-oophorectomy History of foot surgery History of colonoscopy H/O laparoscopy Hx of umbilical hernia repair History of wisdom tooth extraction, class IV edentulism History of section History of endometrial ablation History of tubal ligation Family History (Updated 10/08/23 @ 16:05 by Jessica Pisano RN) Other Coronary artery disease FHx: mental illness Family history of hyperlipidemia Family history of myocardial infarction Family history of thyroid nodule Family hx-breast malignancy Social History (Updated 10/08/23 @ 16:06 by Jessica Pisano RN) Smoking Status: Never smoker second hand exposure: No alcohol intake: never substance use type: denies use current occupational status: unemployed Travel in the last 8 weeks: None household members: spouse and family housing: house lives independently: Yes marital status: number of children: 3 education level: high school 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 current occupational exposures/hazards: No caffeine: Yes special john needs: No agree to transfusion: No do you feel safe at home: Yes victim of physical abuse: No victim of emotional abuse: No victim of sexual abuse: No would you like helpful sources: No ROS Obtained: Yes Systems reviewed as appropriate & no additional complaints except as documented Physical Exam General General appearance: alert and in no apparent distress Respiratory Respiratory exam: Present normal lung sounds bilaterally Cardiovascular Cardiovascular exam: Present regular rate and normal rhythm Abdominal Exam Abdominal exam: Present soft, tenderness (Suprapubic area) and normal bowel sounds; Absent guarding, rebound or rigidity Neurological Exam Neurological exam: Present alert and oriented X3 Medical Decision Making Medical Records Medical records reviewed: Yes I reviewed the patient's medical records. Dmitriy Inquiry Pt receiving controlled substance: No Vital Signs: 10/08/23 13:23 10/08/23 14:00 10/08/23 14:53 Temperature 98.7 F Temperature Source Oral Pulse Rate 78 73 Pulse Rate [Right Radial] 77 Respiratory Rate 18 Blood Pressure 117/78 123/101 H Blood Pressure [Right Arm] 132/90 Blood Pressure Mean [Right Arm] 104 Blood Pressure Source Blood Pressure Source [Right Arm] Automatic Cuff Blood Pressure Position 02 Sat by Pulse Oximetry 97 97 98 Oxygen Delivery Method Room Air Room Air Room Air 10/08/23 15:41 Temperature 98.8 F Temperature Source Oral Pulse Rate 72 Pulse Rate [Right Radial] Respiratory Rate 18 Blood Pressure 125/90 Blood Pressure [Right Arm] Blood Pressure Mean [Right Arm] Blood Pressure Source Automatic Cuff Blood Pressure Source [Right Arm] Blood Pressure Position Sitting 02 Sat by Pulse Oximetry Oxygen Delivery Method Room Air Lab Data Lab results reviewed: Yes I reviewed the patient's lab results. Lab Results 10/08/23 14:16: Urine Color Yellow, Urine Appearance Clear, Urine pH 6.0, Ur Specific Melvin <= 1.005, Urine Protein Negative, Urine Glucose (UA) Negative, Urine Ketones Negative, Urine Blood Negative, Urine Nitrate Negative, Urine Bilirubin Negative, Urine Urobilinogen 0.2, Ur Leukocyte Esterase 1+ A, Urine WBC Occasional 10/08/23 14:23: WBC 7.5, RBC 4.69, Hgb 14.1, Hct 43.9, MCV 93.5, MCH 30.1, MCHC 32.2, RDW 13.5, Plt Count 258, MPV 7.6, Neut % (Auto) 70.2, Lymph % (Auto) 22.5, [place] % (Auto) 4.7, Eos % (Auto) 1.8, Baso % (Auto) 0.8, Neut # (Auto) 5.2, Lymph # (Auto) 1.7, [place] # (Auto) 0.4, Eos # (Auto) 0.1, Baso # (Auto) 0.1, Sodium 141, Potassium 3.5, Chloride 112 H, Carbon Dioxide 26, Anion Gap 6.5, BUN 11, Creatinine 0.80, Estimated Creat Clear 118, Estimated GFR 81, Est GFR ( Amer) 98, Glucose 87, Calcium 9.0, Total Bilirubin 0.5, AST 25, ALT 21, Alkaline Phosphatase 55, Total Protein 7.4, Albumin 4.4, Globulin 3.0, Albumin/Globulin Ratio 1.5 10/08/23 14:23 10/08/23 14:23 Orders (Tests/Meds): ED MEDICATIONS Generic Name Dose Route Start Last Admin Trade Name Freq PRN Reason Stop Dose Admin Acetaminophen 1,000 mg 10/08/23 18:00 Acetaminophen 500mg Tab PO 11/07/23 17:59 Q6HP PRN MODERATE-SEVERE PAIN Lactated Ringer's 1,000 mls @ 125 mls/hr 10/08/23 16:15 10/08/23 16:06 Lactated Ringer's 1000 Ml Bag IV 11/07/23 16:14 125 mls/hr .Q8H MARICARMEN Administration Ketorolac Tromethamine 30 mg 10/08/23 16:15 Ketorolac 30mg/Ml Vial IV 10/13/23 16:14 Q8HP PRN Moderate to Severe Pain (4-10) Oxycodone HCl 5 mg 10/08/23 18:00 Oxycodone 5mg Immediate Release Tablet PO 11/07/23 17:59 Q4HP PRN MODERATE-SEVERE PAIN Discontinued Medications Generic Name Dose Route Start Last Admin Trade Name Freq PRN Reason Stop Dose Admin Iopamidol 75 ml 10/08/23 15:09 10/08/23 15:10 Iopamidol-370 (76%);100ml Bottle IV 10/08/23 15:10 75 ml ONCE ONE Administration Ketorolac Tromethamine 15 mg 10/08/23 14:15 10/08/23 14:24 Ketorolac 30mg/Ml Vial IV 10/08/23 14:16 15 mg ONCE ONE Administration Sodium Chloride 10 ml 10/08/23 15:09 10/08/23 15:11 Sodium Chloride 0.9% 10ml Syr (Rad Only) IV 11/07/23 15:08 10 ml NEEDED PRN Administration Maintain IV Site ORDERS Category Date Time Status CT abdomen pelvis w con Stat Cat Scan 10/08/23 14:52 Completed US transvaginal Stat Exams 10/08/23 14:15 Completed CBC w/Auto Diff [Complete Blood Count Auto Diff] Stat Lab 10/08/23 14:23 Completed CMP [Comprehensive Metabolic Panel] Stat Lab 10/08/23 14:23 Completed UA [Urinalysis and Microscopic] Stat Lab 10/08/23 14:16 Completed Urine Culture Stat Micro 10/08/23 14:16 Received Medical Decision Narrative: In summary patient is a 8-year-old female who presents to the emergency department for evaluation of dyspareunia and abdominal pain. Patient is hemodynamically stable upon arrival, afebrile. His exam is remarkable for suprapubic tenderness without rebound or guarding or rigidity. Bowel sounds normal active.. Differential diagnosis includes ovarian torsion versus kidney stone versus UTI versus constipation etc. Initial workup will be conducted with transvaginal ultrasound CT scan abdomen pelvis hematologic labs urinalysis.. Initial interventions include Toradol. Initial workup reviewed by me shows that her hematologic labs are nonactionable however my informal interpretation of her transvaginal ultrasound shows a cystic mass arising from the right ovary and my informal interpretation of her CT scan abdomen pelvis shows a septated mass approximately 9 cm x 5 cm arising from the right ovary urinalysis is normal hematologic labs are nonactionable. Upon repeat evaluation patient did receive good pain relief with Toradol. Given this I had interactive discussion with Dr. Cruz about patient manage and who plans to take the patient to the operating room for diagnostic laparoscopy in the a.m. and subsequently she was admitted for further evaluation and care Critical Care Critical Care Time Critical Care Time: No
--- NOTE | 2023-10-08 14:15 | US_ITS ---
PROCEDURE: US TRANSVAGINAL CLINICAL INDICATION: Left lower quadrant abdominal pain, dyspareunia COMPARISON: US US TRANSVAGINAL from 01/20/2022 FINDINGS: Transvaginal sonographic images of the pelvis were obtained. UTERUS: Surgically absent LEFT OVARY: Surgically absent RIGHT OVARY: 3.8 cmx 3.3cmx2.5cm with a volume of 15.9ml. There is a small follicle within the right ovary measuring 2.2 cm x 1.2 cm x 2.0 cm. Adjacent to the right ovary is a multi-cystic septated mass measuring 7.5 cm x 3.0 cm x 6.7 cm. There is hypoechoic fluid within the mass. No excrescences. No thick breen between the cysts. It is not clear whether this is arising from the right ovary or separate from the right ovary. Right ovary is seen and appears normal. Doppler flow to right ovary is seen. There is no fluid in the cul-de-sac. IMPRESSION: 1. The uterus and left ovary have been surgically removed. The vaginal vault is intact. 2. The right ovary is seen and has multiple small follicles. 3. There is normal blood flow to the right ovary. 4. Adjacent to the right ovary is a multi cystic, septated mass measuring up to 7.5 cm in size. 5. It is hard to tell whether this mass arises from the right ovary or whether it is just adjacent to the right ovary. 6. No fluid in the cul-de-sac Dictated by: Miguel A Nuno MD 10/08/2023 15:39 Miguel A Nuno MD in OV 10/08/2023 15:39
[2023-10-08 14:19] LABS: Microscopic, Urine URINE MICROSCOPIC (MICROSCOPIC)
[2023-10-08 14:22] LABS: Appearance,Urine CLEAR (Clear); Bilirubin,Urine Negative (Negative); Blood, Urine Negative (Negative); Color,Urine YELLOW (Yellow); Glucose,Urine (UA) Negative (Negative); Ketones,Urine Negative (Negative); Leukocyte Esterase,Urine 1+ (Negative); Nitrate,Urine Negative (Negative); Protein,Urine Negative (Negative); Specific Gravity, Urine <= 1.005 (1.005-1.030); Urobilinogen,Urine 0.2 EU/dl (0.2)
[2023-10-08] MEDS: KETOROLAC 30MG/ML VIAL 15 MG IV (14:24)
[2023-10-08 14:38] LABS: Basophils # 0.1 K/mm3 (0-0.2); Basophils % 0.8 % (0.1-2.0); Eosinophils # 0.1 K/mm3 (0.0-0.4); Eosinophils % 1.8 % (0.1-12.0); Hematocrit 43.9 % (37.0-47.0); Hemoglobin 14.1 g/dL (12.2-16.2); Lymphocytes # 1.7 K/mm3 (0.7-4.5); Lymphocytes % 22.5 % (10-50); Mean Corpuscular HGB Conc 32.2 g/dL (31.8-35.4); Mean Corpuscular Hemoglobin 30.1 pg (27.0-31.2); Mean Corpuscular Volume 93.5 fl (81-99); Mean Platelet Volume 7.6 fl (7.4-10.4); Monocytes # 0.4 K/mm3 (0.1-1.0); Monocytes % 4.7 % (1.7-9.3); Neutrophils # 5.2 K/mm3 (1.8-7.8); Neutrophils % 70.2 % (37.0-80.0); Platelet Count 258 K/mm3 (142-424); Red Blood Count 4.69 M/mm3 (4.20-5.40); Red Cell Distribution Width 13.5 % (11.5-17.5); White Blood Count 7.5 K/mm3 (4.8-10.8)
[2023-10-08 14:45] LABS: Chloride 112 mmol/L (98-107)
[2023-10-08 14:46] LABS: Albumin Level 4.4 g/dl (3.5-5.0); Potassium 3.5 mmoL/L (3.5-5.1); Sodium 141 mmol/L (136-145)
[2023-10-08 14:48] LABS: Alanine Aminotransferase 21 U/L (12-78); Alkaline Phosphatase 55 U/L (38-126); Anion Gap 6.5 mEq/L (5-15); Aspartate Amino Transferase 25 U/L (14-36); Bilirubin,Total 0.5 mg/dl (0.2-1.3); Blood Urea Nitrogen 11 mg/dl (7-17); Carbon Dioxide 26 mmol/L (22.0-30.0); Creatinine Clearance Estimated 118 mL/min (50-200); Estimated Glomerular Filt Rate 81 ml/min (>60); GFR (African American) 98 ML/MIN (>60)
[2023-10-08 14:49] LABS: Albumin/Globulin Ratio 1.5 (1.1-1.8); Glucose 87 mg/dl (74-100); Total Protein,Serum 7.4 g/dl (6.3-8.2)
--- NOTE | 2023-10-08 14:52 | CT_ITS ---
FINAL REPORT TECHNIQUE: After the administration of intravenous contrast, axial images were obtained through the abdomen and pelvis by computed tomography. This study was performed with technique to keep radiation doses as low as reasonably achievable, (ALARA). Individualized dose reduction techniques using automated exposure control or adjustment of the MA and/or KV according to the patient's size were employed. CLINICAL HISTORY: Dyspareunia, cystic mass COMPARISON: 02/08/2018 FINDINGS: Abdomen: The lung bases are clear. The liver is normal in size and attenuation. Gallbladder is partially collapsed with wall thickening, a nonspecific finding. The spleen is unremarkable. The adrenals are normal. The pancreas is unremarkable. The kidneys enhance appropriately. The aorta is normal in caliber. There is no free fluid or adenopathy. There is a stable gastric diverticulum. There is a focus of abnormal attenuation deep to the umbilicus measuring 23 mm which is stable. This may represent a urachal cyst. Pelvis: The appendix is normal. Note is made of a right ovary corpus luteum cyst. Patient is status post hysterectomy. The urinary bladder is unremarkable. There is a small to mod amount of free fluid in the lower pelvis measuring 6.5 cm which appears to have a wall which demonstrates peripheral enhancement. This is of uncertain etiology but may represent loculated free fluid versus other fluid collection. Abscess not excluded. Follow-up CT may be helpful. IMPRESSION: Abnormal attenuation deep to the umbilicus measuring 23 mm which represent urachal cyst. 6.5 cm area of fluid in the lower pelvis with peripherally enhancing wall of uncertain etiology which may represent loculated fluid collection or other fluid collection. Abscess not excluded. Follow-up CT may be helpful. Reviewed, Interpreted and Dictated by Mauricio Estrella III, MD Transcribed by Suzi Duke Authenticated and [facility]
--- NOTE | 2023-10-08 14:55 | PC.NURSE ---
JOSE RAFAEL PRATT at BS for pt eval
[2023-10-08] MEDS: IOPAMIDOL-370 (76%);100ML BOTTLE 75 ML IV (15:10)
[2023-10-08] MEDS: SODIUM CHLORIDE 0.9% 10ML SYR (RAD ONLY) 10 ML IV (15:11)
[2023-10-08 15:42] LABS: WBC,Urine Occasional #/hpf (0-3)
--- NOTE | 2023-10-08 15:49 | PC.NURSE ---
report was given to ABHISHEK Betancourt in OB.
[2023-10-08] MEDS: LACTATED RINGERS 1000ML 1,000 ML 125 ML IV ×2 (16:06→23:13)
--- NOTE | 2023-10-08 16:56 | PC.NURSE ---
Dr. Emerson at bedside.
--- NOTE | 2023-10-08 17:10 | P.HP_ITS ---
History of Present Illness *Admission Date: 10/08/23 *Reason for visit:: Acute pelvic pain *History of present illness: Mrs Olive Lugo is a very pleasant 38 yo P3013 who presented to [facility] ED with complaint of severe acute pelvic pain. She states pain started yesterday morning after intercourse. Pain is made worse during a BM but improves after BM. She feels like she is sitting on a balloon. She denies bladder complaints. She has had similar pain in the past with Celiac disease but this was more severe. She denies nausea and vomiting. Denies fever/chills, chest pain and shortness of breath. History of Total Abdominal Hysterectomy, bilateral salpingectomy, left oophorectomy 03/22/23. She has felt really well until yesterday after intercourse. She states a few weeks ago she had some light bleeding after intercourse but nothing since and nothing prior. She denies vaginal discharge. Pelvic ultrasound demonstrated The uterus and left ovary have been surgically removed. The vaginal vault is intact. 2. The right ovary is seen and has multiple small follicles. 3. There is normal blood flow to the right ovary. 4. Adjacent to the right ovary is a multi cystic, septated mass measuring up to 7.5 cm in size. 5. It is hard to tell whether this mass arises from the right ovary or whether it is just adjacent to the right ovary. 6. No fluid in the cul-de-sac CT scan abd/pelvis demonstrated Abnormal attenuation deep to the umbilicus measuring 23 mm which represent urachal cyst. 6.5 cm area of fluid in the lower pelvis with peripherally enhancing wall of uncertain etiology which may represent loculated fluid collection or other fluid collection. Absc ess not excluded. Follow-up CT may be helpful. She has surgical history significant for MADALYN, BS, left oophorectomy, x 3 and previous umbilical hernia repair with mesh. [facility] Disclaimer: The information contained in this section may have been updated after the patient was seen, as this information can be updated by other users. Medical History (Updated 10/08/23 @ 17:21 by Trixie Emerson DO) Acute pelvic pain, female Anxiety Depression Snoring Night terrors, adult Vaginitis Chronic pelvic pain in female History of ovarian cyst Dyspareunia in female Umbilical hernia Dysphagia Thyroid Nodule Fractured metatarsal bone Surgical History S/P abdominal hysterectomy and left salpingo-oophorectomy History of foot surgery History of colonoscopy H/O laparoscopy Hx of umbilical hernia repair History of wisdom tooth extraction, class IV edentulism History of section History of endometrial ablation History of tubal ligation Family History (Updated 10/08/23 @ 16:05 by Jessica Pisano RN) Other Coronary artery disease FHx: mental illness Family history of hyperlipidemia Family history of myocardial infarction Family history of thyroid nodule Family hx-breast malignancy Social History (Updated 10/08/23 @ 16:06 by Jessica Pisano RN) Smoking Status: Never smoker second hand exposure: No alcohol intake: never substance use type: denies use current occupational status: unemployed Travel in the last 8 weeks: None household members: spouse and family housing: house lives independently: Yes marital status: number of children: 3 education level: high school 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 current occupational exposures/hazards: No caffeine: Yes special john needs: No agree to transfusion: No do you feel safe at home: Yes victim of physical abuse: No victim of emotional abuse: No victim of sexual abuse: No would you like helpful sources: No Review of Systems Review of Systems Review of systems:: pertinent systems reviewed and negative unless documented below *Gastrointestinal Gastrointestinal: Reports abdominal pain *Genitourinary Genitourinary: Reports pelvic pain Meds Home Medications and Allergies Home Medications ?Medication ?Instructions ?Recorded ?Confirmed ?Type levocetirizine 5 mg tablet 5 mg PO HS Allergy Symptoms 07/22/19 09/21/23 History fluticasone propionate 50 1 spray intranasal DAILY Allergy 08/09/22 09/21/23 History mcg/actuation nasal Symptoms spray,suspension albuterol sulfate 90 mcg/actuation 2 puff inhalation Q4HP PRN 12/28/22 09/21/23 History aerosol inhaler Shortness Of Breath New Prescriptions to Start Prescriptions: Allergies Allergy/AdvReac Type Severity Reaction Status Date / Time almond Allergy Intermediate Wheezing Verified 10/08/23 16:36 [place] And Derivatives Allergy Intermediate Wheezing Verified 10/08/23 16:14 erythromycin base Allergy Intermediate I-HIVES, Verified 09/21/23 08:48 STOMACH UPSET escitalopram Allergy Intermediate Other Verified 09/21/23 08:48 orange Allergy Intermediate Wheezing Verified 10/08/23 16:10 pecan nut Allergy Intermediate Wheezing Verified 10/08/23 16:36 walnut Allergy Intermediate Wheezing Verified 10/08/23 16:36 methylergonovine Allergy Unknown EDEMA Verified 09/21/23 08:48 [From Methergine] codeine AdvReac Severe Heart Races Verified 10/08/23 16:11 [From [employer] with Codeine] Exam Data for Last 24 hours Vital signs and Labs for Last 24 Hours: Temp Pulse Resp BP Pulse Ox O2 Del Method 98.4 F 64 17 126/99 H 99 Room Air 10/08/23 16:29 10/08/23 16:29 10/08/23 16:29 10/08/23 16:29 10/08/23 16:29 10/08/23 16:49 Laboratory Results - last 24 hr 10/08/23 14:16: Urine Color Yellow, Urine Appearance Clear, Urine pH 6.0, Ur Specific [place] <= 1.005, Urine Protein Negative, Urine Glucose (UA) Negative, Urine Ketones Negative, Urine Blood Negative, Urine Nitrate Negative, Urine Bilirubin Negative, Urine Urobilinogen 0.2, Ur Leukocyte Esterase 1+ A, Urine WBC Occasional 10/08/23 14:23: WBC 7.5, RBC 4.69, Hgb 14.1, Hct 43.9, MCV 93.5, MCH 30.1, MCHC 32.2, RDW 13.5, Plt Count 258, MPV 7.6, Neut % (Auto) 70.2, Lymph % (Auto) 22.5, [place] % (Auto) 4.7, Eos % (Auto) 1.8, Baso % (Auto) 0.8, Neut # (Auto) 5.2, Lymph # (Auto) 1.7, [place] # (Auto) 0.4, Eos # (Auto) 0.1, Baso # (Auto) 0.1, Sodium 141, Potassium 3.5, Chloride 112 H, Carbon Dioxide 26, Anion Gap 6.5, BUN 11, Creatinine 0.80, Estimated Creat Clear 118, Estimated GFR 81, Est GFR ( Amer) 98, Glucose 87, Calcium 9.0, Total Bilirubin 0.5, AST 25, ALT 21, Alkaline Phosphatase 55, Total Protein 7.4, Albumin 4.4, Globulin 3.0, Albumin/Globulin Ratio 1.5 I & O for Last 24 hours: Intake & Output 10/05/23 10/06/23 10/07/23 10/08/23 23:59 23:59 23:59 23:59 Weight 164 lb 9.6 oz Constitutional Constitutional: no acute distress and cooperative *Routine HEENT Exam Head: Present normocephalic and atraumatic Eye: Absent conjunctivae pink ENT: Present mucous membranes moist *Routine Neck Exam Neck: Present full ROM *Routine Respiratory Exam Respiratory: Present CTA bilaterally and normal respiratory effort *Routine Cardiovascular Exam Cardiovascular: Present RRR *Routine Abdominal Exam Abdominal: Present soft, normoactive bowel sounds and tenderness (+ suprapubic tenderness to palpation); Absent distended or guarding *Routine Rectal Exam Rectal:: deferred *Routine Genitalia Exam Genitalia:: deferred *Routine Extremities Exam Extremities: Present full ROM; Absent edema or calf tenderness *Routine Neurological Exam Neurological: Present alert, moving all extremities and normal speech Routine Psychiatric Exam Psychiatric: Present normal affect and cooperative Assessment and Plan *Assessment and plan (1) Acute pelvic pain, female: Status: Acute Category: Medical Code(s): R10.2 - Pelvic and perineal pain (2) Ovarian cyst: Status: Acute Qualifiers: Laterality: right Qualified Code(s): N83.201 - Unspecified ovarian cyst, right side Category: Medical Code(s): N83.209 - Unspecified ovarian cyst, unspecified side (3) S/P abdominal hysterectomy and left salpingo-oophorectomy: Problem Comment: with bilateral salpingectomy; surgery on 03/22/23 Status: Acute Category: Surgical Code(s): Z90.710 - Acquired absence of both cervix and uterus; Z90.721 - Acquired absence of ovaries, unilateral; Z90.79 - Acquired absence of other genital organ(s) (4) Hx of umbilical hernia repair: Problem Comment: w/ mesh Status: Acute Category: Surgical Code(s): Z98.890 - Other specified postprocedural states; Z87.19 - Personal history of other diseases of the digestive system (5) Anxiety: Status: Chronic Category: Medical Code(s): F41.9 - Anxiety disorder, unspecified Plan Admit to [facility] Labs and imaging reviewed. Labs all within normal limits Plan to OR tomorrow morning for diagnostic laparoscopy, drainage of right ovarian cyst, possible right oophorectomy, possible laparotomy No food after midnight. Clear liquids okay from midnight to 0300. NPO at 0300 Toradol and Tylenol PRN mild to moderate pain Oxycodone for severe pain IV Fluids Ambulate as tolerated SCDs Discussed surgery in detail. Discussed risks, benefits, alternatives, expectations and possible complications of surgery. Risks include but are not limited to bleeding; infection; damage to adjacent structures (bowel, bladder, nerves, blood vessels, etc) (possibly requiring further intervention and/or longer hospital stay); VTE; risks with anesthesia; and risk of . All questions addressed and answered. Patient voiced understanding of risks and possible complications. Patient desires to proceed with surgery. Consent form signed.
[2023-10-08] MEDS: ACETAMINOPHEN 500MG TAB 1000 MG PO (23:13)
[2023-10-08] MEDS: KETOROLAC 30MG/ML VIAL 30 MG IV (23:13)
[2023-10-09] VITALS (15 sets, daily range): BP systolic 96–164; BP diastolic 44–80; PULSE 62–106; RESP 16–19; TEMP 36.4–37.1; O2SAT 95–100
--- NOTE | 2023-10-09 04:02 | PC.NURSE ---
Patient has rested throughout the night, pt denies pain at this time, lung sounds clear throughout, bowel sounds active in all quadrants, vitals have been stable, pt has ambulated to bathroom multiple times this shift, pt denies needs at this time.
--- NOTE | 2023-10-09 07:17 | HMH.PHAINT1 ---
Pharmacy Intervention Comments: MEDICATION RECONCILIATION COMPLETED ON PATIENT USING EXTERNAL FILL HISTORY FROM PHARMACY AND LIST FROM NEUROLOGY OFFICE. -ARLETH SLOAN, ELKIND
--- NOTE | 2023-10-09 11:15 | PC.NURSE ---
Patient transported down to pre at this time. Report given to Sobeida Ward RN.
--- NOTE | 2023-10-09 11:38 | EXP.ANES.CKL ---
[facility] Disclaimer: The information contained in this section may have been updated after the patient was seen, as this information can be updated by other users. Medical History (Updated 10/08/23 @ 17:21 by Trixie Emerson DO) Acute pelvic pain, female Anxiety Depression Snoring Night terrors, adult Vaginitis Chronic pelvic pain in female History of ovarian cyst Dyspareunia in female Umbilical hernia Dysphagia Thyroid Nodule Fractured metatarsal bone Surgical History S/P abdominal hysterectomy and left salpingo-oophorectomy History of foot surgery History of colonoscopy H/O laparoscopy Hx of umbilical hernia repair History of wisdom tooth extraction, class IV edentulism History of section History of endometrial ablation History of tubal ligation Family History (Updated 10/08/23 @ 16:05 by Jessica Pisano RN) Other Coronary artery disease FHx: mental illness Family history of hyperlipidemia Family history of myocardial infarction Family history of thyroid nodule Family hx-breast malignancy Social History (Updated 10/08/23 @ 16:06 by Jessica Pisano RN) Smoking Status: Never smoker second hand exposure: No alcohol intake: never substance use type: denies use current occupational status: unemployed Travel in the last 8 weeks: None household members: spouse and family housing: house lives independently: Yes marital status: number of children: 3 education level: high school 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 current occupational exposures/hazards: No caffeine: Yes special john needs: No agree to transfusion: No do you feel safe at home: Yes victim of physical abuse: No victim of emotional abuse: No victim of sexual abuse: No would you like helpful sources: No [facility] Anesthesia Checklist Patient Identification Patient Identification: Arm Band and Verbal (Name & ) Structural Data Admitted From: Inpatient Planned Operative Procedure/s: Rm [id number] Consent for Planned Operative Procedure(s) Verified: Yes Verified Documents: Surgical Consent and History and Physical NPO Status Verified Time NPO: 00:00 Chart Verification Results Verified: CBC, BMP, ECG and Chest Xray Additional verifications Patient : No Anesthesia Reactions: Yes (pt reports hard to wake up after anesthesia) Hx Blood Transfusions: No Blood Transfusion Reaction: No Cardiovascular Assessment Heart Sounds: S1 & S2 Pulse Rhythm: Irregular Peripheral Edema: No Airway Assessment Mallampati Score:: Class II C-Spine Mobility Assessed: Yes (FROM) TMJ Mobility Assessed: Yes Dentition: Good Dentition (Nothing loose per pt.) Neurological Assessment Level of Consciousness: Awake, Alert, Appropriate and Follows Commands Hx Seizures: No Numbness or tingling in extremities: No Anesthesia Plan Anesthesia Risk discussed: Yes Anesthesia Plan: Verified ASA Class: II Anesthesia Type: General
[2023-10-09] MEDS: SILVER NITRATE APPLICATOR 1 EACH TP (12:24)
[2023-10-09] MEDS: SODIUM CHLORIDE IRRIG SOLUTION 3,000 ML 999 ML IR (12:55)
[2023-10-09] MEDS: LIDOCAINE 1% W/EPI 1:100,000 20ML VIAL 20 ML IJ (12:56)
--- NOTE | 2023-10-09 13:15 | EXP.ANES.I ---
[facility] Anesthesia Record Part I Anesthesia Record I Intake, IV Amount: 850 Hydration: Adequate Estimated blood loss (mL): 25 Urine output (mL): 25 Blood Products used (#): none Blood Pressure: 125/67 SaO2: 99 Pulse Rate: 106 Airway Patency: Patent Respiratory Rate: 16 Temperature: 98.0 F Patient is:: Awake (Talking) and Stable Stable to PACU at:: 13:15
[2023-10-09] MEDS: ONDANSETRON 4MG/2ML VIAL 4 MG IV (13:22)
--- NOTE | 2023-10-09 13:27 | P.OP_ITS ---
Date of procedure: 10/09/23 Pre-op Diagnosis:: 1. Acute pelvic pain 2. Ovarian cyst 3. History of MADALYN, BS, left oophorectomy 4. History of umbilical hernia repair with mesh 5. Anxiety Post-op Diagnosis:: 1. Acute pelvic pain 2. Ovarian cyst 3. History of MADALYN, BS, left oophorectomy 4. History of umbilical hernia repair with mesh 5. Anxiety 6. Granulation tissue present at vaginal cuff 7. Endometriosis of pelvic peritoneum, stage 2 Procedure performed:: 1. Chemical cauterization of granulation tissue at vaginal cuff 2. Diagnostic laparoscopy, drainage of pelvic cyst 3. Excision of cyst wall 4. Irrigation of the pelvis Surgeon:: Trixie Emerson DO Chief Orthoptist(s):: N/a RN HEART:: Jeanie Guerrero Anesthesia: GETA Estimated blood loss (mL): 5 Clinical Note:: Mrs Olive Lugo is a very pleasant 38 yo P3013 who presented to [facility] ED with complaint of severe acute pelvic pain. She states pain started yesterday morning after intercourse. Pain is made worse during a BM but improves after BM. She feels like she is sitting on a balloon. She denies bladder complaints. She has had similar pain in the past with Celiac disease but this was more severe. She denies nausea and vomiting. Denies fever/chills, chest pain and shortness of breath. History of Total Abdominal Hysterectomy, bilateral salpingectomy, left oophorectomy 03/22/23. She has felt really well until yesterday after intercourse. She states a few weeks ago she had some light bleeding after intercourse but nothing since and nothing prior. She denies vaginal discharge. Pelvic ultrasound demonstrated The uterus and left ovary have been surgically removed. The vaginal vault is intact. 2. The right ovary is seen and has multiple small follicles. 3. There is normal blood flow to the right ovary. 4. Adjacent to the right ovary is a multi cystic, septated mass measuring up to 7.5 cm in size. 5. It is hard to tell whether this mass arises from the right ovary or whether it is just adjacent to the right ovary. 6. No fluid in the c ul-de-sac CT scan abd/pelvis demonstrated Abnormal attenuation deep to the umbilicus measuring 23 mm which represent urachal cyst. 6.5 cm area of fluid in the lower pelvis with peripherally enhancing wall of uncertain etiology which may represent loculated fluid collection or other fluid collection. Abscess not excluded. Follow-up CT may be helpful. She has surgical history significant for MADALYN, BS, left oophorectomy, x 3 and previous umbilical hernia repair with mesh. Operative findings:: 1. Upon vaginal exam, 4 mm granulation tissue along vaginal cuff. Vaginal cuff well healed 2. Upon laparoscopic exam, grossly normal appearing liver, stomach and bowels. Uterus, bilateral fallopian tubes and left ovary surgically absent. Right ovary normal size but with thin filmy adhesions from pelvic side wall covering it. Powder burn endometrial implants present on right ovary, right pelvic side wall, posterior cul-de-sac and small powder burn lesion on left pelvic side wall. Large greene/brown fluid collection in posterior cul-de-sac contained within thin filmy adhesions extending from the right ovary. Operative note:: Risks, benefits and alternatives were discussed with the patient. Risks include but are not limited to bleeding, infection, damage to adjacent structures and VTE. Patient voiced understanding and agreed to proceed with surgery. She was wheeled back to the operating room and placed under general anesthesia without difficulty. She was placed in the dorsal lithotomy position and prepped and draped in normal sterile fashion. A straight catheter was used to drain the bladder. A bimanual exam was performed. A weighted Auvard was placed in the vaginal vault. Vaginal cuff was examined. Granulation tissue measuring 4 mm present at vaginal cuff. Silver nitrate stick x 2 was used to cauterize granulation tissue. Weighted Auvard was removed from the vagina. Sponge stick was inserted into the vagina. Attention was then drawn to the abdomen. Skin at John's point was injectioned with 0.5% marcaine. A 5 mm incision was made at John's point. Veress needle was tested and inserted intraabdominally without difficulty. Opening pressure of 12 mm Hg. Veress needle was removed. 5 mm blunt trocar with laparoscope was inserted into John[place] point incision and entry was obtained with direct visualization of each layer through peritoneum. Abdomen was then insulflated to 15 mm Hg. Trocar was inserted through infraumbilical incision and laparoscope was inserted. Abdomen was viewed in its entirety. See findings above. Pictures were taken. Left lower quadrant was transilluminated. 5 mm incision was made and 5 mm disposable blunt trocar was inserted into the abdomen under direct laparoscopic visualization. Trocar was removed and sleeve was left in place. Right lower quadrant was transilluminated. A 5 mm incision was made and a 5 mm disposable trocar was inserted into the abdomen under direct laparoscopic visualization. Obturator was removed and sleeve was left in place. Cystic structure in the pelvis was drained and pelvis was irrigated. Ligasure was inser georgette into the pelvis and cyst wall was excised and removed from the body. Specimen will be sent to pathology for review. Pelvis was irrigated with clear return of fluid. Right lower quadrant trocar was removed under direct laparoscopic visualization. Left upper quadrant trocar was removed under direct laparoscopic visualization. Pneumoperitoneum was released into the atmosphere. Left lower quadrant trocar was removed under direct laparoscopic visualization to ensure no herniation of bowel or omentum. Skin incisions were closed with 3-0 Vicryl. Dermabond was applied over closed skin incisions. Sponge stick was removed from the vagina. Patient was cleaned and placed into the dorsal supine position. She awoke from anesthesia without difficulty. She was transported to the recovery room in stable condition. She was given instructions for discharge and to follow-up in the office in 2 weeks or sooner if needed. Condition: stable Disposition: same day Specimens:: 1. Cyst wall Complications:: None
--- NOTE | 2023-10-09 13:45 | PC.NURSE ---
1343 Report received from Juan Ward in PACU. Per report, pt has done well in PACU, VSS, no c/o pain. Pt will be en route to OB department room 279. 1369 Report given to Clyde Ruiz RN
--- NOTE | 2023-10-09 13:53 | EXP.DC.SUM ---
General Admission date:: 10/08/23 Discharge date: 10/09/23 HPI HPI HPI: Mrs Olive Lugo is a very pleasant 38 yo [id number] who presented to [facility] with complaint of severe acute pelvic pain. She states pain started yesterday morning after intercourse. Pain is made worse during a BM but improves after BM. She feels like she is sitting on a balloon. She denies bladder complaints. She has had similar pain in the past with Celiac disease but this was more severe. She denies nausea and vomiting. Denies fever/chills, chest pain and shortness of breath. History of Total Abdominal Hysterectomy, bilateral salpingectomy, left oophorectomy 03/22/23. She has felt really well until yesterday after intercourse. She states a few weeks ago she had some light bleeding after intercourse but nothing since and nothing prior. She denies vaginal discharge. Pelvic ultrasound demonstrated The uterus and left ovary have been surgically removed. The vaginal vault is intact. 2. The right ovary is seen and has multiple small follicles. 3. There is normal blood flow to the right ovary. 4. Adjacent to the right ovary is a multi cystic, septated mass measuring up to 7.5 cm in size. 5. It is hard to tell whether this mass arises from the right ovary or whether it is just adjacent to the right ovary. 6. No fluid in the cul-de-sac CT scan abd/pelvis demonstrated Abnormal attenuation deep to the umbilicus measuring 23 mm which represent urachal cyst. 6.5 cm area of fluid in the lower pelvis with peripherally enhancing wall of uncertain etiology which may represent loculated fluid collection or other fluid collection. Abscess not excluded. Follow-up CT may be helpful. She has surgical history significant for MADALYN, BS, left oophorectomy, x 3 and previous umbilical hernia repair with mesh. Hospital Course Hospital Course Hospital Course: Mrs Olive Lugo is a very pleasant 38 yo [id number] who presented to [facility] with complaint of severe acute pelvic pain. She states pain started yesterday morning after intercourse. Pain is made worse during a BM but improves after BM. She feels like she is sitting on a balloon. She denies bladder complaints. She has had similar pain in the past with Celiac disease but this was more severe. She denies nausea and vomiting. Denies fever/chills, chest pain and shortness of breath. History of Total Abdominal Hysterectomy, bilateral salpingectomy, left oophorectomy 03/22/23. She has felt really well until yesterday after intercourse. She states a few weeks ago she had some light bleeding after intercourse but nothing since and nothing prior. She denies vaginal discharge. Pelvic ultrasound demonstrated The uterus and left ovary have been surgically removed. The vaginal vault is intact. 2. The right ovary is seen and has multiple small follicles. 3. There is normal blood flow to the right ovary. 4. Adjacent to the right ovary is a multi cystic, septated mass measuring up to 7.5 cm in size. 5. It is hard to tell whether this mass arises from the right ovary or whether it is just adjacent to the right ovary. 6. No fluid in the cul-de-sac CT scan abd/pelvis demonstrated Abnormal attenuation deep to the umbilicus measuring 23 mm which represent urachal cyst. 6.5 cm area of fluid in the lower pelvis with peripherally enhancing wall of uncertain etiology which may represent loculated fluid collection or other fluid collection. Abscess not excluded. Follow-up CT may be helpful. She has surgical history significant for MADALYN, BS, left oophorectomy, x 3 and previous umbilical hernia repair with mesh. She underwent diagnostic laparoscopy, drainage of pelvic cyst, excision of cyst wall and irrigation of pelvis. Upon vaginal exam, small 4mm area of granulation tissue present on vaginal cuff. Granulation tissue was cauterized with silver nitrate stick x 2. Upon laparoscopic exam, multiple powder burn endometrial lesions present on right ovary, bilateral pelvic side breen and posterior cul-de-sac. She did well postoperatively. We discussed laparoscopic finding of endometriosis. She would like to try medication for endometriosis. Orilissa 150 mg PO daily prescribed. She was discharged home with instructions to follow-up in the office in 2 weeks or sooner if needed. Exam Data for Last 24 hours Vital signs and Labs for Last 24 Hours: Temp Pulse Resp BP Pulse Ox O2 Del Method 98.0 F 84 17 124/63 99 Room Air 10/09/23 13:44 10/09/23 13:44 10/09/23 13:44 10/09/23 13:44 10/09/23 13:44 10/09/23 13:44 Laboratory Results - last 24 hr 10/08/23 14:16: Urine Color Yellow, Urine Appearance Clear, Urine pH 6.0, Ur Specific [place] <= 1.005, Urine Protein Negative, Urine Glucose (UA) Negative, Urine Ketones Negative, Urine Blood Negative, Urine Nitrate Negative, Urine Bilirubin Negative, Urine Urobilinogen 0.2, Ur Leukocyte Esterase 1+ A, Urine WBC Occasional 10/08/23 14:23: WBC 7.5, RBC 4.69, Hgb 14.1, Hct 43.9, MCV 93.5, MCH 30.1, MCHC 32.2, RDW 13.5, Plt Count 258, MPV 7.6, Neut % (Auto) 70.2, Lymph % (Auto) 22.5, [place] % (Auto) 4.7, Eos % (Auto) 1.8, Baso % (Auto) 0.8, Neut # (Auto) 5.2, Lymph # (Auto) 1.7, [place] # (Auto) 0.4, Eos # (Auto) 0.1, Baso # (Auto) 0.1, Sodium 141, Potassium 3.5, Chloride 112 H, Carbon Dioxide 26, Anion Gap 6.5, BUN 11, Creatinine 0.80, Estimated Creat Clear 118, Estimated GFR 81, Est GFR ( Amer) 98, Glucose 87, Calcium 9.0, Total Bilirubin 0.5, AST 25, ALT 21, Alkaline Phosphatase 55, Total Protein 7.4, Albumin 4.4, Globulin 3.0, Albumin/Globulin Ratio 1.5 I & O for Last 24 hours: Intake & Output 10/06/23 10/07/23 10/08/23 10/09/23 23:59 23:59 23:59 23:59 Intake Total 850 / 850 Output Total 1800 / 1800 800 / 800 Balance -1800 / -1800 50 / 50 Weight 164 lb 9.6 oz Constitutional Constitutional: no acute distress and cooperative *Routine HEENT Exam Head: Present normocephalic and atraumatic Eye: Absent conjunctivae pink ENT: Present mucous membranes moist *Routine Neck Exam Neck: Present full ROM *Routine Respiratory Exam Respiratory: Present CTA bilaterally and normal respiratory effort *Routine Cardiovascular Exam Cardiovascular: Present RRR *Routine Abdominal Exam Abdominal: Present soft, normoactive bowel sounds and tenderness; Absent distended *Routine Rectal Exam Patient deferred: visual exam *Routine Exam Patient deferred: external exam *Routine Extremities Exam Extremities: Present full ROM; Absent edema or calf tenderness *Routine Neurological Exam Neurological: Present alert, moving all extremities and normal speech Routine Psychiatric Exam Psychiatric: Present normal affect and cooperative Results Data Completed and Pending Labs on day of discharge: Labs from last 24 hours 10/08/23 10/08/23 14:23 14:16 WBC 7.5 RBC 4.69 Hgb 14.1 Hct 43.9 MCV 93.5 MCH 30.1 MCHC 32.2 RDW 13.5 Plt Count 258 MPV 7.6 Neut % (Auto) 70.2 Lymph % (Auto) 22.5 [place] % (Auto) 4.7 Eos % (Auto) 1.8 Baso % (Auto) 0.8 Neut # (Auto) 5.2 Lymph # (Auto) 1.7 [place] # (Auto) 0.4 Eos # (Auto) 0.1 Baso # (Auto) 0.1 Sodium 141 Potassium 3.5 Chloride 112 H Carbon Dioxide 26 Anion Gap 6.5 BUN 11 Creatinine 0.80 Estimated Creat Clear 118 Estimated GFR 81 Est GFR ( Amer) 98 Glucose 87 Calcium 9.0 Total Bilirubin 0.5 AST 25 ALT 21 Alkaline Phosphatase 55 Total Protein 7.4 Albumin 4.4 Globulin 3.0 Albumin/Globulin Ratio 1.5 Urine Color Yellow Urine Appearance Clear Urine pH 6.0 Ur Specific [place] <= 1.005 Urine Protein Negative Urine Glucose (UA) Negative Urine Ketones Negative Urine Blood Negative Urine Nitrate Negative Urine Bilirubin Negative Urine Urobilinogen 0.2 Ur Leukocyte Esterase 1+ A Urine WBC Occasional DS: Diagnosis Discharge Diagnosis (1) Acute pelvic pain, female: Status: Acute Code(s): R10.2 - Pelvic and perineal pain (2) Ovarian cyst: Status: Acute Code(s): N83.209 - Unspecified ovarian cyst, unspecified side Qualifiers: Laterality: right Qualified Code(s): N83.201 - Unspecified ovarian cyst, right side (3) S/P abdominal hysterectomy and left salpingo-oophorectomy: Status: Acute Code(s): Z90.710 - Acquired absence of both cervix and uterus; Z90.721 - Acquired absence of ovaries, unilateral; Z90.79 - Acquired absence of other genital organ(s) Problem details: with bilateral salpingectomy; surgery on 03/22/23 (4) Hx of umbilical hernia repair: Status: Acute Code(s): Z98.890 - Other specified postprocedural states; Z87.19 - Personal history of other diseases of the digestive system Problem details: w/ mesh (5) Anxiety: Status: Chronic Code(s): F41.9 - Anxiety disorder, unspecified (6) Endometriosis determined by laparoscopy: Status: Acute Code(s): N80.9 - Endometriosis, unspecified Meds Home Medications and Allergies Home Medications ?Medication ?Instructions ?Recorded ?Confirmed ?Type levocetirizine 5 mg tablet 5 mg PO HS Allergy Symptoms 07/22/19 10/09/23 History fluticasone propionate 50 1 spray intranasal DAILY Allergy 08/09/22 10/09/23 History mcg/actuation nasal Symptoms spray,suspension albuterol sulfate 90 mcg/actuation 2 puff inhalation Q4HP PRN 12/28/22 10/09/23 History aerosol inhaler Shortness Of Breath elagolix 150 mg tablet (Orilissa) 150 mg PO DAILY #30 tabs 10/09/23 Rx hydrocodone 5 mg-acetaminophen 325 1 tab PO Q6H PRN pain (scale score 10/09/23 Rx mg tablet 7-10) #15 tabs ibuprofen 800 mg tablet 800 mg PO Q8H PRN pain (scale 10/09/23 Rx score 4-6) #20 tabs New Prescriptions to Start Prescriptions: elagolix [Orilissa] Canan,Trixie hydrocodone-acetaminophen Canan,Trixie ibuprofen Canan,Trixie Allergies Allergy/AdvReac Type Severity Reaction Status Date / Time almond Allergy Intermediate Wheezing Verified 10/08/23 16:36 [place] And Derivatives Allergy Intermediate Wheezing Verified 10/08/23 16:14 erythromycin base Allergy Intermediate I-HIVES, Verified 09/21/23 08:48 STOMACH UPSET escitalopram Allergy Intermediate Other Verified 09/21/23 08:48 orange Allergy Intermediate Wheezing Verified 10/08/23 16:10 pecan nut Allergy Intermediate Wheezing Verified 10/08/23 16:36 walnut Allergy Intermediate Wheezing Verified 10/08/23 16:36 methylergonovine Allergy Unknown EDEMA Verified 09/21/23 08:48 [From Methergine] codeine AdvReac Severe Heart Races Verified 10/08/23 16:11 [From Capital with Codeine] Discharge Plan Disposition Patient Disposition: Home, Self-Care Condition: Good Follow up Plan Follow up with: Trixie Emerson DO [Staff Physician] - 2 weeks Prescriptions/Medication Reconciliation: New ibuprofen 800 mg tablet 800 mg PO Q8H PRN (Reason: pain (scale score 4-6)) Qty: 20 0RF hydrocodone-acetaminophen 5-325 mg tablet 1 tab PO Q6H PRN (Reason: pain (scale score 7-10)) Qty: 15 0RF Orilissa 150 mg tablet 150 mg PO DAILY Qty: 30 11RF Continued fluticasone propionate 50 mcg/actuation spray,suspension 1 spray intranasal DAILY albuterol sulfate 90 mcg/actuation HFA aerosol inhaler 2 puff inhalation Q4HP PRN (Reason: Shortness Of Breath) levocetirizine 5 mg tablet 5 mg PO HS Patient Comments: TAKE 1 TABLET BY MOUTH EVERY EVENING Problem Reconciliation Problems Reviewed?: Yes Patient Discharge Instructions ACTIVITY: Limited activity DIET: continue same diet Additional Instructions: Discharge: 1. Take 800 mg Ibuprofen every 8 hours as needed for pain. You can also take [place] 5-325 mg every 6 hours or longer has needed for severe pain 2. Nothing in the vagina for 2 weeks - no intercourse, douching or tampons. No tub baths/hot tubs or swimming pools for two weeks 3. Reasons to call On-Call doctor - fever (greater than 100.4) Trixie Emerson DO [facility] [phone] Print Language: Belarusian Providers Primary Care Provider: Des Chan Admit Provider: Trixie Emerson Attending Provider: Trixie Emerson
--- NOTE | 2023-10-09 14:00 | PC.NURSE ---
Patient up to room 279 from surgery. Iv infusing without difficulty. 3 lap sites noted with dermabond. Slight bruising and old dried blood. Lungs cta and bowel sounds hypoactive. Reports minimal nausea. SCuds in place. No edema noted. Pulses 2+ and cap refil <3 seconds. POC explained and call light placed within reach. Bed locked in lowest position. Family at bedside.
--- NOTE | 2023-10-10 09:20 | P.PNANES_ITS ---
[facility] Anesthesia Record Part II Anesthesia Record Part II Discharge Time: 13:44 Destination: Obstetric PACU nurse assessment reviewed?: Yes Patient Condition:: Good Anesthesia Complications:: None Swallowing reflex intact?: Yes Airway Patency: Patent Cyanosis?: No Blood Pressure: 124/63 SaO2: 99 Respiratory Rate: 17 Pulse Rate: 84 Temperature: 98.0 F Mental Status: Alert & Oriented Pain level:: 0 Nausea and/or vomitting:: None Intake, IV Amount: 850 Hydration: Adequate
[2023-10-10 09:22] VITALS: BP 124/63; PULSE 84; RESP 17; TEMP 36.7; O2SAT 99
== END 2023-10-09 16:30 | disposition home or self-care (01) ==
LOC: ER 15:34 → OB 15:45
PROVIDERS: Physician Assistant; Admitting Provider Obstetrics & Gynecology; Emergency Provider Student in an Organized Health Care Education/Training Program; PCP Family Medicine; Visit Provider Obstetrics & Gynecology
PROC: (CPT 49320; principal; 2023-10-09 11:30)
DX: N83.201 Unspecified ovarian cyst, right side (principal); N80.111 Superficial endometriosis of right ovary; N80.353 Endometriosis of bilateral pelvic sidewall, unspecified depth; R10.2 Pelvic and perineal pain; N73.6 Female pelvic peritoneal adhesions (postinfective); N89.8 Other specified noninflammatory disorders of vagina; N80.8 Other endometriosis; Z90.710 Acquired absence of both cervix and uterus; Z90.721 Acquired absence of ovaries, unilateral; Z90.79 Acquired absence of other genital organ(s)
CPT/HCPCS: 49322; 17250; 74177; 76830; 80053; 81001; 85025; 87086; J3490; G0378; J1100; J1885; J2250; J2405; J3010; J7120; Q9967

== ENCOUNTER 2023-11-06 13:08 | Outpatient (CLI) | payer BC, SELFPAY ==
--- NOTE | 2023-11-06 | CA_ITS ---
APPROVED REPORT Exam: Exercise Treadmill Technologist: Kenia Nichoel, Ht: 5 ft 2 in Wt: 166 lbs BSA: 1.77 m2 HR: 78 bpm BP: 123/83 mmHg Rhythm: NSR Medical History Medications: Flonase,,,,, Albuterol,,,,, Ibuprofen,,,,, Levocetirizine,,,,, Hydrocodone-Acetaminophen,,,,, ORIlissa,,,,, Stress Test Details Test: Yusef HR Resting HR: 87 bpm Max Heart Rate (APMHR): 184 bpm Max HR Achieved: 163 bpm Target HR (85% APMHR): 156 bpm % of APMHR: 89 Recovery HR: 83 bpm HR response to stress: Normal HR response to stress BP Resting BP: 123.0/86.0 mmHg Max BP: 148.0/93.0 mmHg Recovery BP: 121.0/88.0 mmHg BP response to stress: Normal blood pressure response to stress. ECG Resting ECG: SR Stress EC.[address] depression Arrhythmia: PVCs Recovery ECG: Return to baseline within 3 minutes of recovery Recovery Arrhythmia: PVCs Clinical Exercise duration: 09:00 min Highest Stage Achieved: III Exercise capacity: 10.1 METs Overall Exercise Capacity for Age: Average Stress ECG Conclusion Max HR: 163 % of PM: 89% Max BP: 148/93 METs: 10.1 Test stopped due to: Fatigue Symptoms: Chest tightness, fatigue. Arrhythmias/Ectopy: PVCs (multifocal) ST-T Changes: 0.[address] depression. Conclusion: Average exercise capacity. Normal EKG response to exercise. GXT only, no Myoview Test Summary REST . . . . . . . Sitting REST 02:31 0.0 1.2 87 . 123/ 86 . . Stage 1 01:00 10.0 1.7 97 . . . . Stage 1 02:00 10.0 1.7 106 . . . . Stage 1 03:00 10.0 1.7 110 . 128/ 78 . . Stage 2 01:00 12.0 2.5 120 . . . . Stage 2 02:00 12.0 2.5 123 . . . . Stage 2 03:00 12.0 2.5 128 . 122/ 70 . . Stage 3 01:00 14.0 3.4 142 . . . . Stage 3 02:00 14.0 3.4 155 . . . . Stage 3 03:00 14.0 3.4 162 . . . Stop exercise at 09:00 RECOVERY 01:00 0.0 0.0 131 . . . . RECOVERY 02:00 0.0 0.0 96 . . . . RECOVERY 03:00 0.0 0.0 103 . 148/ 93 . . RECOVERY 04:00 0.0 0.0 96 . 140/100 . . RECOVERY 04:58 0.0 0.0 90 . 121/ 88 . . Electronically signed by : Rhonda Vanessa MD 11/11/2023 23:36:34
== END 2023-11-06 23:59 | disposition home or self-care (01) ==
LOC: RT 13:09
PROVIDERS: PCP Family Medicine; Visit Provider Physician Assistant
DX: R07.9 Chest pain, unspecified (principal); Z82.49 Family history of ischemic heart disease and other diseases of the circulatory system
CPT/HCPCS: 93017; 93018

== ENCOUNTER → 2023-12-05 20:12 | Outpatient (CLI) | payer BC, SELFPAY | LOC: SL 20:14 | PROVIDERS: PCP Family Medicine; Visit Provider Specialist | DX: G47.52 REM sleep behavior disorder (principal); G47.59 Other parasomnia; G47.30 Sleep apnea, unspecified | CPT/HCPCS: 95810 ==

== ENCOUNTER 2024-01-09 10:51 | Emergency (ER) | payer BC, SELFPAY ==
[2024-01-09 11:02] VITALS: BP 135/89; PULSE 69; RESP 18; TEMP 37.2; O2SAT 99; BMI 31.1
--- NOTE | 2024-01-09 11:08 | ED_ITS ---
Discharge Plan Prescriptions Prescriptions: New meclizine 25 mg tablet 25 mg PO TID PRN (Reason: dizziness) Qty: 12 0RF fluticasone propionate [Flonase Allergy Relief] 50 mcg/actuation spray,suspension 2 spray intranasal DAILY Qty: 16 0RF Rx Instructions: administer into each nostril daily methylprednisolone [Medrol (Reynaldo)] 4 mg tablets,dose pack See Rx Instructions .Route .COMPLEX 6 Days Qty: 21 0RF Rx Instructions: taper pack; amoxicillin 875 mg tablet 875 mg PO Q12H 7 Days Qty: 14 0RF No Action levocetirizine 5 mg tablet 5 mg PO HS Patient Comments: TAKE 1 TABLET BY MOUTH EVERY EVENING Referrals Follow up/Referrals: Des Chan MD [Primary Care Provider] - See instructions Activity Restrictions/Add. Instructions Additional Instructions/Restrictions: Take medication as prescribed DO not drive or operate heavy machinery while dizzy Follow up with your Family Doctor if symptoms persist and do not improve Straight to ER if any life threatening symptoms Clinical Impressions Clinical Impression: Ear problem Qualifiers: Laterality: left Qualified Code(s): H93.92 - Unspecified disorder of left ear Instructions Patient Instructions: DI for Vertigo, Amoxicillin, DI for Labyrinthitis Print Language Print Language: Georgian Discharge ED Provider: Ena Htuson [facility] General Stated complaint: left ear pain, dizzy Mode of Arrival: Ambulatory Source of Information: Patient Time Seen by Provider: 01/09/24 11:08 Description of Symptoms (Recalled from Triage Doc. by RN): LEFT EAR PAIN, FEELS LIKE THERE IS FLUID IN IT, VERTIGO X3 DAYS (NOT IMPROVING WITH OTC MEDS) , HEAD PRESSURE HEENT Symptoms (Recalled from RN notes): Yes Resp Symptoms (Recalled from RN notes): No Skin Symptoms (Recalled from RN notes): No MS Symptoms (Recalled from RN notes): No Functional Status (Recalled from RN notes): WNL History of Present Illness Provider Complaint: Patient states that she has been having pressure in her ears and sinuses, pain in left ear and feeling of fullness States she has a hx of vertigo and has been taking OTC motion sickness medication and it hasnt helped so today she came in to get it checked Related Data Home Medications ?Medication ?Instructions ?Recorded ?Confirmed levocetirizine 5 mg tablet 5 mg PO HS Allergy Symptoms 07/22/19 01/09/24 Previous Rx's ?Medication ?Instructions ?Recorded amoxicillin 875 mg tablet 875 mg PO Q12H 7 days #14 tabs 01/09/24 fluticasone propionate 50 2 spray intranasal DAILY #16 grams 01/09/24 mcg/actuation nasal spray,suspension (Flonase Allergy Relief) meclizine 25 mg tablet 25 mg PO TID PRN dizziness #12 tabs 01/09/24 methylprednisolone 4 mg tablets in See Rx Instructions .Route 01/09/24 a dose pack (Medrol (Reynaldo)) .COMPLEX 6 days #21 tabs Allergies Allergy/AdvReac Type Severity Reaction Status Date / Time almond Allergy Intermediate Wheezing Verified 12/25/23 14:31 [place] And Derivatives Allergy Intermediate Wheezing Verified 12/25/23 14:31 erythromycin base Allergy Intermediate I-HIVES, Verified 12/25/23 14:31 STOMACH UPSET escitalopram Allergy Intermediate Other Verified 12/25/23 14:31 orange Allergy Intermediate Wheezing Verified 12/25/23 14:31 pecan nut Allergy Intermediate Wheezing Verified 12/25/23 14:31 walnut Allergy Intermediate Wheezing Verified 12/25/23 14:31 methylergonovine (From Allergy Unknown EDEMA Verified 12/25/23 14:31 Methergine) codeine (From [employer] with AdvReac Severe Heart Races Verified 12/25/23 14:31 Codeine) Worker's Comp Is this a Worker's Comp case?: No [facility] Disclaimer: The information contained in this section may have been updated after the patient was seen, as this information can be updated by other users. Medical History (Updated 01/09/24 @ 11:18 by Ena Hutson APRN) Major depressive disorder Generalized anxiety disorder Vaginal lesion Family history of breast cancer Endometriosis determined by laparoscopy Acute pelvic pain, female Anxiety Depression Snoring Night terrors, adult Vaginitis Chronic pelvic pain in female History of ovarian cyst Dyspareunia in female Umbilical hernia Dysphagia Thyroid Nodule Fractured metatarsal bone Surgical History H/O laparoscopy S/P abdominal hysterectomy and left salpingo-oophorectomy History of foot surgery History of colonoscopy Hx of umbilical hernia repair History of wisdom tooth extraction, class IV edentulism History of section History of endometrial ablation History of tubal ligation Family History Other Coronary artery disease FHx: mental illness Family history of hyperlipidemia Family history of myocardial infarction Family history of thyroid nodule Family hx-breast malignancy Social History Smoking Status: Never smoker second hand exposure: No alcohol intake: current alcohol intake frequency: holidays/special occasions only counseling given: No substance use type: denies use counseling given: No current occupational status: unemployed Travel in the last 8 weeks: None adopted: No caregiver/support person: Yes foster care: No household members: spouse and family housing: house lives independently: Yes marital status: number of children: 3 number of grandchildren: 0 education level: high school 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 current occupational exposures/hazards: No sexually active: Yes caffeine: Yes physical activity: none special john needs: No agree to transfusion: No working smoke detector in home: Yes fire extinguisher in home: No carbon monox detector in home: Yes firearms in home: Yes firearms unloaded and locked: Yes do you feel safe at home: Yes victim of physical abuse: No victim of emotional abuse: No victim of sexual abuse: No would you like helpful sources: No ROS Obtained: Yes All systems reviewed & no additional complaints except as documented and Yes Systems reviewed as appropriate & no additional complaints except as documented Constitutional Constitutional: Reports system reviewed and no additional complaints, except as documented, Reports as per HPI and Reports headache(s) Eyes Eyes: Reports system reviewed and no additional complaints, except as documented and Reports as per HPI ENT Ears, Nose, Mouth, and Throat: Reports system reviewed and no additional complaints, except as documented, Reports as per HPI, Reports otalgia, Reports headache(s), Reports sinus pain and Reports sinus pressure Cardiovascular Cardiovascular: Reports system reviewed and no additional complaints, except as documented and Reports as per HPI Respiratory Respiratory: Reports system reviewed and no additional complaints, except as documented and Reports as per HPI Gastrointestinal Gastrointestingal: Reports system reviewed and no additional complaints, except as documented and as per HPI Genitourinary Female Genitourinary: Reports system reviewed and no additional complaints, except as documented and Reports as per HPI Neurologic Neurologic: Reports headache(s) Physical Exam General General appearance: alert and in no apparent distress ENT ENT exam: Present mucous membranes moist Expanded ENT Exam TM/Canal exam: Left TM: erythema (mild redness noted) and Bilateral TM: bulging Nose exam: Present sinus tenderness Respiratory Respiratory exam: Present normal lung sounds bilaterally; Absent respiratory distress or wheezes Cardiovascular Cardiovascular exam: Present regular rate, normal rhythm and normal heart sounds Abdominal Exam Abdominal exam: Present soft and normal bowel sounds; Absent distention or tenderness Neurological Exam Neurological exam: Present alert, oriented X3 and normal gait Medical Decision Making Medical Records Screening: Per USPSTF and CDC recommendations, given the prevalence of disease in our region, it is our hospital?s policy to screen for HIV and viral Hepatitis for all patients aged 18 and over and those with ongoing risk factors. Dmitriy Inquiry Pt receiving controlled substance: No Dmitriy was queried for this patient: No Vital Signs: 01/09/24 11:02 Temperature 98.9 F Temperature Source Oral Pulse Rate [Left Radial] 69 Respiratory Rate 18 Blood Pressure [Left Arm] 135/89 Blood Pressure Mean [Left Arm] 104 02 Sat by Pulse Oximetry 99
[2024-01-09 11:21] VITALS: BP 135/89; PULSE 69; RESP 18; TEMP 37.2
== END 2024-01-09 11:21 | disposition home or self-care (01) ==
PROVIDERS: Emergency Provider Nurse Practitioner; PCP Family Medicine
DX: H93.92 Unspecified disorder of left ear (principal); H92.02 Otalgia, left ear; H81.4 Vertigo of central origin; R51.9 Headache, unspecified
CPT/HCPCS: 99212; G0381

== ENCOUNTER 2024-01-31 13:54 | Emergency (ER) | payer BC, SELFPAY ==
[2024-01-31 14:30] VITALS: BP 122/78; PULSE 70; RESP 20; TEMP 37.3; O2SAT 99; BMI 28.1
--- NOTE | 2024-01-31 14:46 | EXP.UTC ---
Discharge Plan Disposition Patient Disposition: Home, Self-Care Condition: Good Prescriptions Prescriptions: New methylprednisolone [Medrol (Reynaldo)] 4 mg tablets,dose pack See Rx Instructions .Route .COMPLEX 6 Days Qty: 21 0RF Rx Instructions: taper pack; guaifenesin [Mucinex] 1,200 mg tablet extended release 12hr 1,200 mg PO BID Qty: 60 0RF azithromycin [Zithromax Z-Reynaldo] 250 mg tablet See Rx Instructions .ROUTE .COMPLEX 5 Days Qty: 6 0RF Rx Instructions: For 250 mg dose pack: take 500 mg today (day 1), then 250 mg for 4 days (days 2-5) No Action levocetirizine 5 mg tablet 5 mg PO HS Patient Comments: TAKE 1 TABLET BY MOUTH EVERY EVENING fluticasone propionate [Flonase Allergy Relief] 50 mcg/actuation spray,suspension 2 spray intranasal DAILY Qty: 16 0RF Rx Instructions: administer into each nostril daily Referrals Follow up/Referrals: Des Chan MD [Primary Care Provider] - See instructions Activity Restrictions/Add. Instructions Additional Instructions/Restrictions: Start antibiotic today. Be sure to complete entire prescription even if feeling better Monitor temp. Tylenol every 4 hours as needed and / or ibuprofen every 6 hours as needed ( As long as your primary care physician has told you that it ok to take both. For fever/aches/pains ER if no less than 101 despite Tylenol or Motrin Humidifier/vaporizer or hot steamy shower Inhaler every 4-6 hours as needed like we discussed. If unsure how to use it, ask pharmacist to demonstrate how. Should help open airways and improve cough, wheezing, and shortness of breath Mucinex during the day for your cough and cough suppressant only at night. Be sure to drink lots of water. Insurance may not cover a prescriptions for mucinex. Might be cheaper to get 400mg tablets and take 2 tablet in the morning, mid-day and evening with lots of water. Start steroid today. Helps with inflammation therefore, cough and wheezing. Follow directions on the package. Reviewed side effects. Patient reports taking them before. Follow up IMMEDIATELY for new or worsening of symptoms OR no noticeable improvement over the next 48-72 hours. 911 immediately for any life threatening symptoms such as chest pain or difficulty breathing Clinical Impressions Clinical Impression: Bronchitis Instructions Patient Instructions: Acute Bronchitis, Azithromycin Print Language Print Language: Korean Discharge ED Provider: Ena Hutson [facility] [place] Stated complaint: soa cough Mode of Arrival: Ambulatory Source of Information: Patient Limitations: No Limitations Time Seen by Provider: 01/31/24 14:46 Description of Symptoms (Recalled from Triage Doc. by RN): PATIENT C/O TROUBLE BREATHING, CHEST CONGESTION, AND DRY COUGH SINCE SUNDAY HEENT Symptoms (Recalled from RN notes): No Resp Symptoms (Recalled from RN notes): Yes Skin Symptoms (Recalled from RN notes): No MS Symptoms (Recalled from RN notes): No Functional Status (Recalled from RN notes): WNL History of Present Illness Provider Complaint: Patient states that since Sunday she has been having SOA at times, cough, chest congestion and feels like she has Bronchitis States that she has been using her albuterol but her mucous feels think like it is hard to get up so she came in worried she may have bronchitis Related Data Home Medications ?Medication ?Instructions ?Recorded ?Confirmed levocetirizine 5 mg tablet 5 mg PO HS Allergy Symptoms 07/22/19 01/31/24 Previous Rx's ?Medication ?Instructions ?Recorded fluticasone propionate 50 2 spray intranasal DAILY #16 grams 01/09/24 mcg/actuation nasal spray,suspension (Flonase Allergy Relief) azithromycin 250 mg tablet See Rx Instructions PO .COMPLEX 5 01/31/24 (Zithromax Z-Reynaldo) days #6 tabs guaifenesin 1,200 mg tablet, 1,200 mg PO BID #60 tabs 01/31/24 extended release 12 hr (Mucinex) methylprednisolone 4 mg tablets in See Rx Instructions .Route 01/31/24 a dose pack (Medrol (Reynaldo)) .COMPLEX 6 days #21 tabs Allergies Allergy/AdvReac Type Severity Reaction Status Date / Time almond Allergy Intermediate Wheezing Verified 12/25/23 14:31 [place] And Derivatives Allergy Intermediate Wheezing Verified 12/25/23 14:31 erythromycin base Allergy Intermediate I-HIVES, Verified 12/25/23 14:31 STOMACH UPSET escitalopram Allergy Intermediate Other Verified 12/25/23 14:31 orange Allergy Intermediate Wheezing Verified 12/25/23 14:31 pecan nut Allergy Intermediate Wheezing Verified 12/25/23 14:31 walnut Allergy Intermediate Wheezing Verified 12/25/23 14:31 methylergonovine (From Allergy Unknown EDEMA Verified 12/25/23 14:31 Methergine) codeine (From [employer] with AdvReac Severe Heart Races Verified 12/25/23 14:31 Codeine) Worker's Comp Is this a Worker's Comp case?: No [facility] Disclaimer: The information contained in this section may have been updated after the patient was seen, as this information can be updated by other users. Medical History (Updated 01/31/24 @ 15:05 by Ena Hutson APRN) Major depressive disorder Generalized anxiety disorder Vaginal lesion Family history of breast cancer Endometriosis determined by laparoscopy Acute pelvic pain, female Anxiety Depression Snoring Night terrors, adult Vaginitis Chronic pelvic pain in female History of ovarian cyst Dyspareunia in female Umbilical hernia Dysphagia Thyroid Nodule Fractured metatarsal bone Surgical History H/O laparoscopy S/P abdominal hysterectomy and left salpingo-oophorectomy History of foot surgery History of colonoscopy Hx of umbilical hernia repair History of wisdom tooth extraction, class IV edentulism History of section History of endometrial ablation History of tubal ligation Family History Other Coronary artery disease FHx: mental illness Family history of hyperlipidemia Family history of myocardial infarction Family history of thyroid nodule Family hx-breast malignancy Social History Smoking Status: Never smoker second hand exposure: No alcohol intake: current alcohol intake frequency: holidays/special occasions only counseling given: No substance use type: denies use counseling given: No current occupational status: unemployed Travel in the last 8 weeks: None adopted: No caregiver/support person: Yes foster care: No household members: spouse and family housing: house lives independently: Yes marital status: number of children: 3 number of grandchildren: 0 education level: high school 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 current occupational exposures/hazards: No sexually active: Yes caffeine: Yes physical activity: none special john needs: No agree to transfusion: No working smoke detector in home: Yes fire extinguisher in home: No carbon monox detector in home: Yes firearms in home: Yes firearms unloaded and locked: Yes do you feel safe at home: Yes victim of physical abuse: No victim of emotional abuse: No victim of sexual abuse: No would you like helpful sources: No ROS Obtained: Yes All systems reviewed & no additional complaints except as documented and Yes Systems reviewed as appropriate & no additional complaints except as documented Constitutional Constitutional: Reports system reviewed and no additional complaints, except as documented and Reports as per HPI ENT Ears, Nose, Mouth, and Throat: Reports system reviewed and no additional complaints, except as documented and Reports as per HPI Cardiovascular Cardiovascular: Reports system reviewed and no additional complaints, except as documented and Reports as per HPI Respiratory Respiratory: Reports system reviewed and no additional complaints, except as documented, Reports as per HPI, Reports shortness of breath, Reports chest congestion and Reports cough Gastrointestinal Gastrointestingal: Reports system reviewed and no additional complaints, except as documented and as per HPI Genitourinary Female Genitourinary: Reports system reviewed and no additional complaints, except as documented and Reports as per HPI Integumentary/Breasts Skin/Breast: Reports system reviewed and no additional complaints, except as documented and Reports as per HPI Physical Exam General General appearance: alert and in no apparent distress ENT ENT exam: Present mucous membranes moist Expanded ENT Exam Nose exam: Present sinus tenderness Throat exam: Present other (PND noted) Respiratory Respiratory exam: Present normal lung sounds bilaterally; Absent respiratory distress or wheezes Cardiovascular Cardiovascular exam: Present regular rate, normal rhythm and normal heart sounds Abdominal Exam Abdominal exam: Present soft and normal bowel sounds; Absent distention or tenderness Neurological Exam Neurological exam: Present alert, oriented X3 and normal gait Medical Decision Making Medical Records Screening: Per USPSTF and CDC recommendations, given the prevalence of disease in our region, it is our hospital?s policy to screen for HIV and viral Hepatitis for all patients aged 18 and over and those with ongoing risk factors. Dmitriy Inquiry Pt receiving controlled substance: No Dmitriy was queried for this patient: No Vital Signs: 01/31/24 14:30 Temperature 99.2 F Temperature Source Oral Pulse Rate [Left Brachial] 70 Respiratory Rate 20 Blood Pressure [Left Arm] 122/78 Blood Pressure Mean [Left Arm] 92 Blood Pressure Source [Left Arm] Automatic Cuff Blood Pressure Position [Left Arm] Sitting 02 Sat by Pulse Oximetry 99 Oxygen Delivery Method Room Air Medical Decision Narrative: Patient states that she is allergic to erythromycin but has taken azithromycin in the past (in September of this year) without complication or reactions
[2024-01-31 15:09] VITALS: BP 122/78; PULSE 70; RESP 20; TEMP 37.3; O2SAT 99
== END 2024-01-31 15:15 | disposition home or self-care (01) ==
PROVIDERS: Emergency Provider Nurse Practitioner; PCP Family Medicine
DX: J20.9 Acute bronchitis, unspecified (principal)
CPT/HCPCS: 99213; G0381

== ENCOUNTER 2024-03-11 12:54 | Outpatient (CLI) | payer BC, SELFPAY ==
--- NOTE | 2024-03-11 12:55 | US_ITS ---
PROCEDURE: US TRANSVAGINAL CLINICAL INDICATION: Pelvic Pain COMPARISON: CT ABDWO CT abdomen wo con from 07/16/[address] abdomen pelvis w con from 02/08/2018 US TRANVAG US transvaginal from 02/22/2018 US TRANVAG US transvaginal from 03/18/2018 US US TRANSVAGINAL from 09/09/2020 US US TRANSVAGINAL from 04/22/2021 US US TRANSVAGINAL from 01/20/2022 US US TRANSVAGINAL from 10/08/[address] ABDOMEN PELVIS W CON from 10/08/2023 FINDINGS: Transvaginal sonographic images of the pelvis were obtained. UTERUS surgically absent The vaginal cuff is intact. The previously described 6.5 cm fluid-filled multi-cystic area has now completely resolved. LEFT OVARY: Surgically absent RIGHT OVARY: 4cmx [id number] with a volume of 12ml. There are multiple small follicles on the right ovary. The previously described multi cystic area in the pelvis is no longer present. Right ovary is seen and appears normal. Doppler flow to right ovary is seen. There is no fluid in the cul-de-sac. IMPRESSION: 1. The uterus is surgically absent. The vaginal cuff is intact. 2. The left ovary is surgically absent. The right ovary appears normal. There are multiple small follicles. 3. The previously described multi-cystic mass in the pelvis is no longer present and likely has completely resolved. 4. There is no fluid in the cul-de-sac. Dictated by: Miguel A Nuno MD 03/11/2024 15:00 Miguel A Nuno MD in [place] 03/11/2024 15:00
== END 2024-03-11 23:59 | disposition home or self-care (01) ==
LOC: RAD 12:55
PROVIDERS: PCP Family Medicine; Visit Provider Obstetrics & Gynecology
DX: R10.2 Pelvic and perineal pain (principal); N80.9 Endometriosis, unspecified
CPT/HCPCS: 76830

== ENCOUNTER 2024-03-21 13:20 | Emergency (ER) | payer BC, SELFPAY ==
[2024-03-21 14:19] LABS: Apearance,Urine Clear (Clear); Bilirubin,Urine Negative (Negative); Blood, Urine Negative (Negative); Color,Urine Yellow (Yellow); Glucose,Urine (UA) Negative (Negative); Ketones,Urine Negative (Negative); Protein,Urine Negative (Negative); Specific Gravity, Urine <= 1.005 (1.005-1.030); UTC Leukocyte Esterase,Urine Negative (Negative); UTC Nitrate,Urine Negative (Negative); Urobilinogen,Urine 0.2 EU/dl (0.2)
[2024-03-21 14:30] VITALS: BP 128/93; PULSE 66; RESP 19; TEMP 37; O2SAT 99; BMI 30.9
--- NOTE | 2024-03-21 15:04 | ED_ITS ---
Discharge Plan Disposition Patient Disposition: Still a Patient Condition: Fair Prescriptions Prescriptions: No Action levocetirizine 5 mg tablet 5 mg PO HS Patient Comments: TAKE 1 TABLET BY MOUTH EVERY EVENING azelastine 137 mcg (0.1 %) spray,non-aerosol 1 spray intranasal DAILY Patient Comments: USE 2 SPRAYS IN EACH NOSTRIL TWICE DAILY albuterol sulfate 90 mcg/actuation HFA aerosol inhaler 1 inh inhalation QID Referrals Follow up/Referrals: Des Chan MD [Primary Care Provider] - See instructions Clinical Impressions Clinical Impression: Abdominal pain, right lower quadrant Print Language Print Language: Wolof Discharge ED Provider: Shannon Mendoza [facility] [place] HPI General Stated complaint: severe pelvic pain going into back Mode of Arrival: Ambulatory Source of Information: Patient Limitations: No Limitations Time Seen by Provider: 03/21/24 15:03 Description of Symptoms (Recalled from Triage Doc. by RN): PATIENT C/O CONSTANT, DULL PAIN TO RIGHT PELVIC AREA THAT RADIATES INTO BACK. HEENT Symptoms (Recalled from RN notes): No Resp Symptoms (Recalled from RN notes): No Skin Symptoms (Recalled from RN notes): No MS Symptoms (Recalled from RN notes): No Functional Status (Recalled from RN notes): WNL History of Present Illness Provider Complaint: She states that since this morning she has had severe right lower quadrant pain. She states that over the past several days she has had periods of pain in that area, but her pain worsened and became continuous this morning. Related Data Home Medications ?Medication ?Instructions ?Recorded ?Confirmed levocetirizine 5 mg tablet 5 mg PO HS Allergy Symptoms 07/22/19 03/21/24 albuterol sulfate 90 mcg/actuation 1 inh inhalation QID 02/14/24 03/21/24 aerosol inhaler azelastine 137 mcg (0.1 %) nasal 1 spray intranasal DAILY 02/14/24 03/21/24 spray Allergies Allergy/AdvReac Type Severity Reaction Status Date / Time almond Allergy Intermediate Wheezing Verified 02/14/24 10:37 [place] And Derivatives Allergy Intermediate Wheezing Verified 02/14/24 10:37 erythromycin base Allergy Intermediate I-HIVES, Verified 02/14/24 10:37 STOMACH UPSET escitalopram Allergy Intermediate Other Verified 02/14/24 10:37 orange Allergy Intermediate Wheezing Verified 02/14/24 10:37 pecan nut Allergy Intermediate Wheezing Verified 02/14/24 10:37 walnut Allergy Intermediate Wheezing Verified 02/14/24 10:37 methylergonovine (From Allergy Unknown EDEMA Verified 02/14/24 10:37 Methergine) codeine (From [employer] with AdvReac Severe Heart Races Verified 02/14/24 10:37 Codeine) Worker's Comp Is this a Worker's Comp case?: No PFS PFS Disclaimer: The information contained in this section may have been updated after the patient was seen, as this information can be updated by other users. Medical History (Updated 03/21/24 @ 15:18 by Wilver Castellon APRN) History of ovarian cyst Major depressive disorder Generalized anxiety disorder Vaginal lesion Family history of breast cancer Endometriosis determined by laparoscopy Acute pelvic pain, female Anxiety Depression Snoring Night terrors, adult Vaginitis Chronic pelvic pain in female Dyspareunia in female Umbilical hernia Dysphagia Thyroid Nodule Fractured metatarsal bone Surgical History H/O laparoscopy S/P abdominal hysterectomy and left salpingo-oophorectomy History of foot surgery History of colonoscopy Hx of umbilical hernia repair History of wisdom tooth extraction, class IV edentulism History of section History of endometrial ablation History of tubal ligation Family History Other Coronary artery disease FHx: mental illness Family history of hyperlipidemia Family history of myocardial infarction Family history of thyroid nodule Family hx-breast malignancy Social History Smoking Status: Never smoker second hand exposure: No alcohol intake: current alcohol intake frequency: holidays/special occasions only counseling given: No substance use type: denies use counseling given: No current occupational status: unemployed Travel in the last 8 weeks: None adopted: No caregiver/support person: Yes foster care: No household members: spouse and family housing: house lives independently: Yes marital status: number of children: 3 number of grandchildren: 0 education level: high school 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 current occupational exposures/hazards: No sexually active: Yes caffeine: Yes physical activity: none special john needs: No agree to transfusion: No working smoke detector in home: Yes fire extinguisher in home: No carbon monox detector in home: Yes firearms in home: Yes firearms unloaded and locked: Yes do you feel safe at home: Yes victim of physical abuse: No victim of emotional abuse: No victim of sexual abuse: No would you like helpful sources: No Have you lived/traveled outside [place] in past 30 days?: No Contact w/someone who lives/traveled outside [place] past 30 days?: No Exposure to someone with infectious disease in past 14 days?: No Do you have a fever (greater than 100.4 F or 38 C)?: No Have you tested positive for COVID-19: No Exposed to someone with COVID-19 in past 14 days?: No Do you have a sore throat?: No Do you have a cough?: No Do you have any weakness?: No Do you have any diarrhea?: No Are you experiencing any unusual bleeding?: No Do you have any muscle aches/pain?: No Do you have any abdominal pain?: No Are you experiencing loss of taste or smell?: No ROS Obtained: Yes All systems reviewed & no additional complaints except as documented Constitutional Constitutional: Denies chills, Denies fever(s) and Reports poor appetite ENT Ears, Nose, Mouth, and Throat: Denies dizziness, Denies neck pain and Denies sore throat Cardiovascular Cardiovascular: Denies dyspnea Respiratory Respiratory: Denies chest congestion, Denies cough and Denies dyspnea Gastrointestinal Gastrointestingal: Reports as per HPI and abdominal pain Genitourinary Female Genitourinary: Denies difficulty voiding, Denies dysuria, Denies hematuria, Denies urinary frequency, Denies urinary incontinence, Denies urinary hesitancy and Denies urinary urgency Musculoskeletal Musculoskeletal: Denies arthralgias, Reports back pain and Denies neck pain Integumentary/Breasts Skin/Breast: Denies rash Neurologic Neurologic: Denies dizziness Physical Exam General General appearance: alert and in no apparent distress Head Head exam: atraumatic, normocephalic and normal inspection Eye Eye exam: Present normal appearance, PERRL and EOMI ENT ENT exam: Present normal exam, normal oropharynx, mucous membranes moist, TM's normal bilaterally and normal external ear exam Neck Neck exam: Present normal inspection, full ROM and trachea midline; Absent meningismus or lymphadenopathy Chest Chest inspection: Present normal inspection and symmetric chest wall rise; Abse nt tenderness Respiratory Respiratory exam: Present normal lung sounds bilaterally; Absent respiratory distress Cardiovascular Cardiovascular exam: Present regular rate and normal rhythm; Absent JVD Abdominal Exam Abdominal exam: Present soft, tenderness, rigidity and diminished bowel sounds; Absent distention, guarding or rebound Extremities Exam Extremities exam: Present normal inspection, full ROM and normal capillary refill; Absent calf tenderness Back Exam Back exam: Present normal inspection; Absent tenderness Neurological Exam Neurological exam: Present alert and oriented X3 Psychiatric Psychiatric exam: Present normal affect and normal mood Skin Skin exam: Present warm, dry, intact and normal color Lymphatic Lymphatic Findings: no adenopathy Medical Decision Making Medical Records Medical records reviewed: No I reviewed the patient's medical records. Screening: Per USPSTF and CDC recommendations, given the prevalence of disease in our region, it is our hospital?s policy to screen for HIV and viral Hepatitis for all patients aged 18 and over and those with ongoing risk factors. Dmitriy Inquiry Pt receiving controlled substance: No Vital Signs: 03/21/24 14:30 Temperature 98.6 F Temperature Source Oral Pulse Rate [Left Brachial] 66 Respiratory Rate 19 Blood Pressure [Left Arm] 128/93 H Blood Pressure Mean [Left Arm] 104 Blood Pressure Source [Left Arm] Automatic Cuff Blood Pressure Position [Left Arm] Sitting 02 Sat by Pulse Oximetry 99 Oxygen Delivery Method Room Air Lab Data Lab Results 03/21/24 14:18: Urine Color Yellow, Urine Appearance Clear, Urine pH 5.0, Ur Specific [place] <= 1.005, Urine Protein Negative, Urine Glucose (UA) Negative, Urine Ketones Negative, Urine Blood Negative, Urine Nitrate Negative, Urine Bilirubin Negative, Urine Urobilinogen 0.2, Ur Leukocyte Esterase Negative Medical Decision Narrative: She was transferred to the ER due to her abdominal pain with no clear etiology.
--- NOTE | 2024-03-21 15:19 | ED_ITS ---
<Statement entered by Shannon Mendoza DO - 03/21/24 22:50> I was consulted by the SULEMA, and we discussed the complexity of the problems being addressed. I approved the treatment and management plan for this patient's care in the emergency department, thus performing a substantive portion of the medical decision making. Shannon Mendoza DO Discharge Plan Disposition Patient Disposition: Home, Self-Care Condition: Good Prescriptions Prescriptions: No Action levocetirizine 5 mg tablet 5 mg PO HS Patient Comments: TAKE 1 TABLET BY MOUTH EVERY EVENING azelastine 137 mcg (0.1 %) spray,non-aerosol 1 spray intranasal DAILY Patient Comments: USE 2 SPRAYS IN EACH NOSTRIL TWICE DAILY albuterol sulfate 90 mcg/actuation HFA aerosol inhaler 1 inh inhalation QID Referrals Follow up/Referrals: Des Chan MD [Primary Care Provider] - See instructions Activity Restrictions/Add. Instructions Additional Instructions/Restrictions: Please follow-up with with your BEVERAGE MANAGER on Sunday. If you have any worsening signs or symptoms return to the ER as needed. Clinical Impressions Clinical Impression: Ovarian cyst Qualifiers: Laterality: right Qualified Code(s): N83.201 - Unspecified ovarian cyst, right side Instructions Patient Instructions: DI for Acute Abdominal Pain Print Language Print Language: Bhutanese Discharge ED Provider: Shannon Mendoza General Adult HPI General Chief complaint: Abdominal Pain Stated complaint: severe pelvic pain going into back Time Seen by Provider: 03/21/24 15:03 Mode of Arrival: Ambulatory Source of Information: Patient Limitations: No Limitations Description of Symptoms (Recalled from ER Triage Doc. by RN): PATIENT C/O CONSTANT, DULL PAIN TO RIGHT PELVIC AREA THAT RADIATES INTO BACK. History of Present Illness HPI narrative: Patient presents for evaluation of right lower quadrant abdominal pain. Patient gives a history of 2 to 3 days of constant dull right lower quadrant abdominal pain that radiates to her back. She denies any fever chills hemoptysis hematochezia melena nausea vomiting diarrhea. She denies dysuria or vaginal discharge. Of note patient had a very large left adnexal cystic lesion that was removed in September of last year. Related Data Home Medications ?Medication ?Instructions ?Recorded ?Confirmed levocetirizine 5 mg tablet 5 mg PO HS Allergy Symptoms 07/22/19 03/21/24 albuterol sulfate 90 mcg/actuation 1 inh inhalation QID 12/19/24 01/24/25 aerosol inhaler azelastine 137 mcg (0.1 %) nasal 1 spray intranasal DAILY 02/14/24 03/21/24 spray Allergies Allergy/AdvReac Type Severity Reaction Status Date / Time almond Allergy Intermediate Wheezing Verified 02/14/24 10:37 [place] And Derivatives Allergy Intermediate Wheezing Verified 02/14/24 10:37 erythromycin base Allergy Intermediate I-HIVES, Verified 02/14/24 10:37 STOMACH UPSET escitalopram Allergy Intermediate Other Verified 02/14/24 10:37 orange Allergy Intermediate Wheezing Verified 02/14/24 10:37 pecan nut Allergy Intermediate Wheezing Verified 02/14/24 10:37 walnut Allergy Intermediate Wheezing Verified 02/14/24 10:37 methylergonovine (From Allergy Unknown EDEMA Verified 02/14/24 10:37 Methergine) codeine (From [place] with AdvReac Severe Heart Races Verified 02/14/24 10:37 Codeine) [facility] Disclaimer: The information contained in this section may have been updated after the patient was seen, as this information can be updated by other users. Medical History (Updated 03/21/24 @ 16:33 by INDIANA Hagan) History of ovarian cyst Major depressive disorder Generalized anxiety disorder Vaginal lesion Family history of breast cancer Endometriosis determined by laparoscopy Acute pelvic pain, female Anxiety Depression Snoring Night terrors, adult Vaginitis Chronic pelvic pain in female Dyspareunia in female Umbilical hernia Dysphagia Thyroid Nodule Fractured metatarsal bone Surgical History H/O laparoscopy S/P abdominal hysterectomy and left salpingo-oophorectomy History of foot surgery History of colonoscopy Hx of umbilical hernia repair History of wisdom tooth extraction, class IV edentulism History of section History of endometrial ablation History of tubal ligation Family History Other Coronary artery disease FHx: mental illness Family history of hyperlipidemia Family history of myocardial infarction Family history of thyroid nodule Family hx-breast malignancy Social History Smoking Status: Never smoker second hand exposure: No alcohol intake: current alcohol intake frequency: holidays/special occasions only counseling given: No substance use type: denies use counseling given: No current occupational status: unemployed Travel in the last 8 weeks: None adopted: No caregiver/support person: Yes foster care: No household members: spouse and family housing: house lives independently: Yes marital status: number of children: 3 number of grandchildren: 0 education level: high school 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 current occupational exposures/hazards: No sexually active: Yes caffeine: Yes physical activity: none special john needs: No agree to transfusion: No working smoke detector in home: Yes fire extinguisher in home: No carbon monox detector in home: Yes firearms in home: Yes firearms unloaded and locked: Yes do you feel safe at home: Yes victim of physical abuse: No victim of emotional abuse: No victim of sexual abuse: No would you like helpful sources: No Have you lived/traveled outside US in past 30 days?: No Contact w/someone who lives/traveled outside US past 30 days?: No Exposure to someone with infectious disease in past 14 days?: No Do you have a fever (greater than 100.4 F or 38 C)?: No Have you tested positive for COVID-19: No Exposed to someone with COVID-19 in past 14 days?: No Do you have a sore throat?: No Do you have a cough?: No Do you have any weakness?: No Do you have any diarrhea?: No Are you experiencing any unusual bleeding?: No Do you have any muscle aches/pain?: No Do you have any abdominal pain?: No Are you experiencing loss of taste or smell?: No Other Medical History Have you received the Flu Vaccine for this season: No Have you received the Pneumonia Vaccine: No ROS Obtained: Yes Systems reviewed as appropriate & no additional complaints except as documented Physical Exam General General appearance: alert and in no apparent distress Respiratory Respiratory exam: Present normal lung sounds bilaterally Cardiovascular Cardiovascular exam: Present regular rate Neurological Exam Neurological exam: Present alert Medical Decision Making Medical Records Medical records reviewed: Yes I reviewed the patient's medical records. Screening: Per USPSTF and CDC recommendations, given the prevalence of disease in our region, it is our hospital?s policy to screen for HIV and viral Hepatitis for all patients aged 18 and over and those with ongoing risk factors. Dmitriy Inquiry Pt receiving controlled substance: No Vital Signs: 03/21/24 14:30 03/21/24 15:22 03/21/24 15:24 Temperature 98.6 F 98.5 F Temperature Source Oral Oral Pulse Rate 74 Pulse Rate [Left Brachial] 66 80 Respiratory Rate 19 18 Blood Pressure 136/86 Blood Pressure [Left Arm] 128/93 H 121/82 Blood Pressure Mean [Left Arm] 104 95 Blood Pressure Source [Left Arm] Automatic Cuff Blood Pressure Position [Left Arm] Sitting 02 Sat by Pulse Oximetry 99 99 99 Oxygen Delivery Method Room Air Room Air Room Air 03/21/24 15:30 03/21/24 16:00 03/21/24 16:43 Temperature 98.5 F Temperature Source Pulse Rate 75 75 75 Pulse Rate [Left Brachial] Respiratory Rate 19 Blood Pressure 121/82 106/58 L 106/58 L Blood Pressure [Left Arm] Blood Pressure Mean [Left Arm] Blood Pressure Source [Left Arm] Blood Pressure Position [Left Arm] 02 Sat by Pulse Oximetry 99 97 Oxygen Delivery Method Room Air Room Air Lab Data Lab results reviewed: Yes I reviewed the patient's lab results. Lab Results 03/21/24 14:18: Urine Color Yellow, Urine Appearance Clear, Urine pH 5.0, Ur Specific Mineral <= 1.005, Urine Protein Negative, Urine Glucose (UA) Negative, Urine Ketones Negative, Urine Blood Negative, Urine Nitrate Negative, Urine Bilirubin Negative, Urine Urobilinogen 0.2, Ur Leukocyte Esterase Negative 03/21/24 15:26: WBC 7.9, RBC 4.67, Hgb 14.1, Hct 40.6, MCV 86.9, MCH 30.2, MCHC 34.7, RDW 12.0, Plt Count 246, MPV 9.4, Neut % (Auto) 67.5, Lymph % (Auto) 23.8, Bandera % (Auto) 6.1, Eos % (Auto) 1.6, Baso % (Auto) 0.6, Neut # (Auto) 5.4, Lymph # (Auto) 1.9, Bandera # (Auto) 0.5, Eos # (Auto) 0.1, Baso # (Auto) 0.1, PT 10.2, INR 0.92, Sodium 138, Potassium 3.7, Chloride 105, Carbon Dioxide 23, Anion Gap 13.7, BUN 8, Creatinine 0.70, Estimated Creat Clear 134, Estimated GFR 95, Est GFR ( Amer) 115, Glucose 94, Calcium 9.3, Magnesium 1.6, Total Bilirubin 0.5, AST 29, ALT 27, Alkaline Phosphatase 53, Total Protein 7.2, Albumin 4.7, Globulin 2.5, Albumin/Globulin Ratio 1.9 H, Lipase 88, HCV Ab CHEY w/Rflx PCR Qn Negative, HIV Ag/Ab Combo Qual Negative 03/21/24 15:26 03/21/24 15:26 Orders (Tests/Meds): ED MEDICATIONS Discontinued Medications Generic Name Dose Route Start Last Admin Trade Name Freq PRN Reason Stop Dose Admin Acetaminophen 1,000 mg 03/21/24 15:21 03/21/24 15:53 Acetaminophen 1,000mg/100ml Vial IV 03/21/24 15:22 1,000 mg ONCE ONE Administration Lactated Ringer's 1,000 mls @ 999 mls/hr 03/21/24 15:21 03/21/24 15:53 Lactated Ringer's 1000 Ml Bag IV 03/21/24 16:21 999 mls/hr .Q1H1M ONE Administration Iopamidol 75 ml 03/21/24 15:58 03/21/24 15:59 Iopamidol-370 (76%);100ml Bottle IV 03/21/24 15:59 75 ml ONCE ONE Administration Ketorolac Tromethamine 15 mg 03/21/24 15:21 03/21/24 15:52 Ketorolac 30mg/Ml Vial IV 03/21/24 15:22 15 mg ONCE ONE Administration Ondansetron HCl 4 mg 03/21/24 15:21 03/21/24 15:52 Ondansetron 4mg/2ml Vial IV 03/21/24 15:22 4 mg ONCE ONE Administration Sodium Chloride 10 ml 03/21/24 15:58 03/21/24 15:59 Sodium Chloride 0.9% 10ml Syr (Rad Only) IV 03/21/24 15:59 10 ml ONCE ONE Administration ORDERS Category Date Time Status CT abdomen pelvis w con Stat Cat Scan 03/21/24 15:21 Completed CBC w/Auto Diff [Complete Blood Count Auto Diff] Stat Lab 03/21/24 15:26 Completed CMP [Comprehensive Metabolic Panel] Stat Lab 03/21/24 15:26 Completed HIV Combo Stat Lab 03/21/24 15:26 Completed Hepatitis C Ab Qual. W/ RFX Stat Lab 03/21/24 15:26 Completed INR [Prothrombin Time INR] Stat Lab 03/21/24 15:26 Completed Lipase Stat Lab 03/21/24 15:26 Completed Magnesium Stat Lab 03/21/24 15:26 Completed Medical Decision Narrative: In summary patient is a 38-year-old female who presents to the emergency department for evaluation of right lower quadrant abdominal pain. Patient is hemodynamically stable with a blood pressure 120/93 pulse 66 normal sinus rhythm on the bedside monitor breathing 19 times a minute with a O2 sat of 99% upon arrival, afebrile at 98.6. Zickel exam is remarkable for mild right lower quadrant abdominal tenderness without rebound or guarding or rigidity. Bowel sounds normal active.. Differential diagnosis includes adnexal cyst on the right acute appendicitis urinary tract infection versus kidney stone versus gastroenteritis etc. Initial workup will be conducted with urinalysis hematologic labs CT scan abdomen pelvis. Initial interventions include Tylenol Toradol crystalloid bolus Zofran. Initial workup reviewed by me and her hematologic labs are reassuring and nonactionable including normal white count no shift lipase of 88 normal transaminases and bilirubin bland urinalysis and my informal interpretation of her CT scan abdomen pelvis actually reveals a proximately 2-1/2 x 2-1/2 cm right adnexal cyst.. Upon repeat evaluation patient did have improvement after initial intervention.. Given this patient is appropriate for discharge with follow-up in 48 hours with BEVERAGE MANAGER and strict return precautions. Patient verbalized understanding and agreement. Critical Care Critical Care Time Critical Care Time: No
--- NOTE | 2024-03-21 15:20 | PC.NURSE ---
PT ARRIVED TO ED FROM [facility]
--- NOTE | 2024-03-21 15:21 | CT_ITS ---
FINAL REPORT TECHNIQUE: After the administration of intravenous contrast, axial images were obtained through the abdomen and pelvis by computed tomography. The study was performed with techniques to keep radiation dose as low as reasonably achievable, (ALARA). Individual dose reduction techniques using automated exposure control or adjustment of mA and/or kV according to the patient's size were employed. CLINICAL HISTORY: Abdominal pain COMPARISON: 10/08/2023 FINDINGS: Abdomen: The lung bases are clear. The liver parenchyma is homogeneous. The gallbladder is present. The spleen, pancreas, adrenals and kidneys appear unremarkable. The aorta is normal in caliber. There is no free fluid or adenopathy. Again identified is a small gastric diverticulum, unchanged. There is a retroaortic left renal vein. Pelvis: The appendix is not identified. There is cysts are follicles in the right ovary measuring up to 2.3 cm. The uterus is surgically absent. Again identified is a density deep to the umbilicus measuring 2.2 cm consistent with known urachal cyst. Findings are stable since previous. The previously identified fluid collection in the pelvis is no longer seen. The urinary bladder is unremarkable. There is no free fluid or adenopathy. IMPRESSION: Small stable gastric diverticulum. Right ovarian cysts are follicles. Stable urachal cyst. New surgical clips in the pelvis consistent with interval surgery. Reviewed, Interpreted and Dictated by Jorge Mcknight MD Transcribed by Caterina Draper Authenticated and [facility]
[2024-03-21 15:22] VITALS: BP 121/82; PULSE 80; RESP 18; TEMP 36.9; O2SAT 99; BMI 31.1
[2024-03-21 15:24] VITALS: BP 136/86; PULSE 74; O2SAT 99
[2024-03-21 15:30] VITALS: BP 121/82; PULSE 75; O2SAT 99
[2024-03-21 15:33] LABS: Basophils # 0.1 K/mm3 (0-0.2); Basophils % 0.6 % (0.1-2.0); Eosinophils # 0.1 K/mm3 (0.0-0.4); Eosinophils % 1.6 % (0.1-12.0); Hematocrit 40.6 % (37.0-47.0); Hemoglobin 14.1 g/dL (12.2-16.2); Lymphocytes # 1.9 K/mm3 (0.7-4.5); Lymphocytes % 23.8 % (10-50); Mean Corpuscular HGB Conc 34.7 g/dL (31.8-35.4); Mean Corpuscular Hemoglobin 30.2 pg (27.0-31.2); Mean Corpuscular Volume 86.9 fl (81-99); Mean Platelet Volume 9.4 fl (7.4-10.4); Monocytes # 0.5 K/mm3 (0.1-1.0); Monocytes % 6.1 % (1.7-9.3); Neutrophils # 5.4 K/mm3 (1.8-7.8); Neutrophils % 67.5 % (37.0-80.0); Platelet Count 246 K/mm3 (142-424); Red Blood Count 4.67 M/mm3 (4.20-5.40); White Blood Count 7.9 K/mm3 (4.8-10.8)
[2024-03-21 15:43] LABS: Alanine Aminotransferase 27 U/L (12-78); Albumin Level 4.7 g/dl (3.5-5.0); Albumin/Globulin Ratio 1.9 (1.1-1.8); Alkaline Phosphatase 53 U/L (38-126); Anion Gap 13.7 mEq/L (5-15); Aspartate Amino Transferase 29 U/L (14-36); Bilirubin,Total 0.5 mg/dl (0.2-1.3); Blood Urea Nitrogen 8 mg/dl (7-17); Calcium 9.3 mg/dl (8.4-10.2); Carbon Dioxide 23 mmol/L (22.0-30.0); Chloride 105 mmol/L (98-107); Creatinine Clearance Estimated 134 mL/min (50-200); Estimated Glomerular Filt Rate 95 ml/min (>60); GFR (African American) 115 ML/MIN (>60); Globulin 2.5 g/dL (1.3-3.2); Glucose 94 mg/dl (74-100); Lipase 88 U/L (23-300); Potassium 3.7 mmoL/L (3.5-5.1); Sodium 138 mmol/L (136-145); Total Protein,Serum 7.2 g/dl (6.3-8.2)
[2024-03-21 15:50] LABS: INR 0.92 (0.9-1.1); Prothrombin Time 10.2 seconds (9.2-12.1)
[2024-03-21] MEDS: ONDANSETRON 4MG/2ML VIAL 4 MG IV (15:52)
[2024-03-21] MEDS: KETOROLAC 30MG/ML VIAL 15 MG IV (15:52)
[2024-03-21] MEDS: LACTATED RINGERS 1000ML 1,000 ML 999 ML IV (15:53)
[2024-03-21] MEDS: ACETAMINOPHEN 1,000MG/100ML VIAL 1000 MG IV (15:53)
[2024-03-21 15:57] LABS: Magnesium 1.6 mg/dl (1.6-2.3)
[2024-03-21] MEDS: IOPAMIDOL-370 (76%);100ML BOTTLE 75 ML IV (15:59)
[2024-03-21] MEDS: SODIUM CHLORIDE 0.9% 10ML SYR (RAD ONLY) 10 ML IV (15:59)
[2024-03-21 16:00] VITALS: BP 106/58; PULSE 75; O2SAT 97
[2024-03-21 16:43] VITALS: BP 106/58; PULSE 75; RESP 19; TEMP 36.9
[2024-03-21 17:31] LABS: HIV Combo NEGATIVE (Negative)
[2024-03-21 17:38] LABS: Hepatitis C Ab Qual. W/ RFX NEGATIVE (Negative)
== END 2024-03-21 16:48 | disposition home or self-care (01) ==
LOC: UTC 13:23 → ER 15:14
PROVIDERS: Nurse Practitioner Family; Physician Assistant; Emergency Provider Emergency Medicine; PCP Family Medicine
DX: N83.201 Unspecified ovarian cyst, right side (principal); R10.31 Right lower quadrant pain; M54.9 Dorsalgia, unspecified
CPT/HCPCS: 74177; 80053; 81003; 83690; 83735; 85025; 85610; 86803; 87389; 96361; 96374; 96375; 99285; J0131; J1885; J2405; J7120; Q9967

== ENCOUNTER 2024-04-16 16:27 | Outpatient (CLI) | payer BC, SELFPAY ==
--- NOTE | 2024-04-16 | XR_ITS ---
PROCEDURE INFORMATION: Exam: XR Left Knee Exam date and time: 04/16/2024 4:46 PM Age: 38 years old Clinical indication: Pain; Knee; Left TECHNIQUE: Imaging protocol: Radiologic exam of the left knee. Views: 3 views. COMPARISON: No relevant prior studies available. FINDINGS: Bones/joints: No acute fracture. No dislocation. No significant joint effusion. Soft tissues: Unremarkable. IMPRESSION: No fracture. If pain persists, consider MRI to evaluate for occult fracture/internal derangement.
--- NOTE | 2024-04-16 | XR_ITS ---
PROCEDURE INFORMATION: Exam: XR Right Knee Exam date and time: 04/16/2024 4:46 PM Age: 38 years old Clinical indication: Pain; Knee; Right TECHNIQUE: Imaging protocol: Radiologic exam of the right knee. Views: 3 views. COMPARISON: No relevant prior studies available. FINDINGS: Bones/joints: No acute fracture. No dislocation. No significant joint effusion. Soft tissues: Unremarkable. IMPRESSION: No fracture. If pain persists, consider MRI to evaluate for occult fracture/internal derangement.
== END 2024-04-16 23:59 | disposition home or self-care (01) ==
LOC: RAD 16:28
PROVIDERS: PCP Physician Assistant; Visit Provider Physician Assistant
DX: M25.561 Pain in right knee (principal); M25.562 Pain in left knee
CPT/HCPCS: 73562

== ENCOUNTER 2024-04-21 12:56 | Outpatient (CLI) | payer BC, SELFPAY ==
--- NOTE | 2024-04-21 12:56 | US_ITS ---
PROCEDURE: US TRANSVAGINAL CLINICAL INDICATION: Ovarian Cyst COMPARISON: US US TRANSVAGINAL from 01/08/2023 US US TRANSVAGINAL from 10/08/[address] ABDOMEN PELVIS W CON from 10/08/2023 US US TRANSVAGINAL from 03/11/[address] ABDOMEN PELVIS W CON from 03/21/2024 FINDINGS: Transvaginal sonographic images of the pelvis were obtained. UTERUS: The uterus is surgically absent. The vaginal cuff is intact. LEFT OVARY: The left ovary is surgically absent. RIGHT OVARY: 5cmx [id number] with a volume of 29.7ml. There is a dominant follicle in the right ovary measuring 2.1 cm x 1.8 cm x 2.4 cm. There are multiple small peripheral follicles giving the ovary a polycystic appearance. There appears to be a corpus luteum in the right ovary measuring 2.1 cm x 1.1 cm x 1.9 cm. Right ovary is seen and appears normal. Doppler flow to right ovary is seen. There is no fluid in the cul-de-sac. IMPRESSION: 1. The uterus is surgically absent. The vaginal cuff appears intact. 2. The left ovary is surgically absent. 3. The right ovary is seen and appears polycystic. It has a dominant follicle measuring 2.4 cm. There is a corpus luteum measuring 2.1 cm. 4. No fluid in the cul-de-sac. Dictated by: Miguel A Nuno MD 04/21/2024 15:52 Miguel A Nuno MD in OV 04/21/2024 15:52
== END 2024-04-21 23:59 | disposition home or self-care (01) ==
LOC: RAD 12:56
PROVIDERS: PCP Family Medicine; Visit Provider Obstetrics & Gynecology
DX: N83.201 Unspecified ovarian cyst, right side (principal); Z87.42 Personal history of other diseases of the female genital tract
CPT/HCPCS: 76830

== ENCOUNTER 2024-05-23 11:00 | Outpatient (RCR) | payer BC, SELFPAY ==
--- NOTE | 2024-04-29 12:44 | HMH.PTOPEV ---
PT Outpatient Evaluation Rehab PT Outpatient Evaluation Start: 04/29/24 11:03 Freq: Status: Active Protocol: Document 04/29/24 11:53 CHAI (Rec: 04/29/24 12:44 CHAI [id number]) E-signed By Merlin Liao, PT Outpatient Therapy Subjective History Subjective History Pt is a 38 yof who is referred to [facility] outpatient PT with complaints of bilateral knee pain. The pt reports that she has dealt with knee pain for years, but she has noticed it significantly worsening in the past year. She reports that she has a lot of difficulty with squatting, cleaning, playing with kids, going up/ down stairs, and walking on an incline/decline. She reports that continuous activity of nearly any kind seems to worsen her pain. She reports that her doctor prescribed her an anti-inflammatory medication which has improved her symptoms in the interim. 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 Chief Complaint Pain,Clicks Symptom Type Ache,Throb Symptoms Relieved By Ice,Prescription Meds Symptoms Aggravated By Standing,Bending/Stooping, Physical Activity,Twisting, Walking,Lifting Prior Functional Limitations None Current Functional Limitations Lifting,Housework,Squatting, Stairs Symptom Description Intermittent,Activity Dependent Level of pain today (0-10) 3 Pain scale - at its best (0-10) 0 Pain scale - at its worst (0-10) 7 Hip/Knee Eval Gait Observation General Gait Pattern Observation No Deviations/Normal Assistive Device Assistive Devices None / NA Palpation Tenderness bilateral Knee Palpation Finding Tenderness Knee Palpation Overall Comment TTP 2/4 to Patellar Tendon B MMT Hip Flexion Strength Grade 4- Good- Hip Abduction Strength Grade 4- Good- Hip Extension Strength Grade 4- Good- Knee Extension Strength Grade 4 Good Knee Flexion Strength Grade 4 Good ROM Knee Extension Active Range of Motion ( 7 (past 0) degrees) Knee Flexion Active Range of Motion ( 134 degrees) Special Tests Hip Keiry's Test Negative Left,Negative Right Hip Dionna Test Positive Left,Positive Right Manjinder Test Positive Knee Valgus Stress Test Negative Left,Negative Right Knee Varus Stress Test Negative Left,Negative Right Knee Bruce Test Negative Left,Negative Right Patella Apprehension Test Negative Left,Negative Right Lower Extremity Functional Index Activities Today, do you or would you have any difficulty at all with: a.Any of your usual work, housework or A little bit of difficulty school activities b. Your usual hobbies, recreational or Moderate difficulty sporting activities c. Getting into or out of the bath No difficulty d. Walking between rooms No difficulty e. Putting on your shoes or socks No difficulty f. Squatting Quite a bit of difficulty g. Lifting an object, like a bag of A little bit of difficulty groceries from the floor h. Performing light activities around No difficulty your home i. Performing heavy activities around Moderate difficulty your home j. Getting into or out of a car No difficulty k. Walking 2 blocks No difficulty l. Walking a mile No difficulty m. Going up or down 10 stairs (about 1 Moderate difficulty flight of stairs) n. Standing for 1 hour No difficulty o. Sitting for 1 hour No difficulty p. Running on even ground No difficulty q. Running on uneven ground Moderate difficulty r. Making sharp turns while running fast Moderate difficulty s. Hopping A little bit of difficulty t. Rolling over in bed No difficulty LEFI Score Lower Extremity Functional Index Score 64 Miscellaneous Dx PT Eval Objective Objective Eccentric Step Down: + Squat Observation: Dynamic Knee Valgus during descent of squat bilaterally. Outpatient Therapy Assessment Impairments Problems/Impairmments Palpation Tenderness,Impaired Strength,Impaired Walking, Impaired Standing,Impaired Sitting,Impaired Household Care,Impaired Stair Climbing, Impaired Recreational Activities,Subjective C/O Pain Prognosis Rehab Potential Good Comment w HEP Compliance Clinical Impression Consistent with Diagnosis Yes Consistent with Bilateral Patellar Tendinitis Additional details: Pt presents with signs and symptoms consistent with bilateral patellar tendonitis. The pt would benefit from skilled PT to address her above impairments, prevent further injury and to return to her PLOF. 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 Goals Number of Weeks 8 Decreased Palpation Tenderness Yes: 0/4 to TTP Assessment Above Increase Strength Yes: 5/5 to B hips/knees Increase Ability to Walk Yes: 10' on 3 degree incline without increasing pain Improve Ability For Household Care Yes: normal cleaning duties without increasing pain Improve Ability to Climb Stairs Yes: ascend/descend stairs with step over step pattern without increasing pain Improve Ability to Squat Yes: Squat with proper mechanics and without increasing pain Improve LEFI Score Yes: to 75 Decrease Subjective C/O Pain Yes: 04/07 with above assessment Patient to be Ind w/ Advanced HEP Yes Outpatient Therapy Plan of Care Treatment Plan May Include Therapeutic Exercise Including Home Yes Exercise Program Manual Therapy Techniques Yes Neuromuscular Re-education Yes Therapeutic Activities to Return to Yes Previous Functional/Work Level Gait Training Yes ADL/Self Care Education Yes Dry Needling Yes Thermal Modalities Yes Electrical Stimulation Yes Ultrasound/Phonophoresis Yes Iontophoresis Yes Manual Lymphatic Drainage Yes Eval/Re-Eval Yes Frequency Times per week 2 Duration Number of Weeks 8 Addendums This patient is a candidate for social No or vocational rehab? Patient/Guardian verbally acknowledges Yes understanding of treatment program and consents to further treatment? Patient/Guardian verbally acknowledges Yes understanding of diagnosis, prognosis and goals for treatment? Eval Complexity PT Charges 00497 - Low Complexity Shoulder/Elbow Eval Shoulder Objective Measurements Elbow Objective Measurements PHYSICIAN CERTIFICATION: I certify the specified therapy services for Olive Lugo are required, authorized, and reviewed every 30 days.
== END 2024-05-23 23:59 | disposition home or self-care (01) ==
LOC: PT 11:00
PROVIDERS: PCP Physician Assistant; Visit Provider Physician Assistant
DX: M25.561 Pain in right knee (principal); M25.562 Pain in left knee
CPT/HCPCS: 97010; 97110; 97163; 97530

== ENCOUNTER 2024-06-12 13:00 | Outpatient (RCR) | payer BC, SELFPAY ==
--- NOTE | 2024-05-29 16:16 | HMH.RHREAS ---
Rehab Reassessment Rehab OP Re-assessment Start: 05/29/24 14:46 Freq: Status: Active Protocol: Document 05/29/24 14:46 CHAI (Rec: 05/29/24 16:14 NADIRPAOLA [id number]) E-signed By Merlin Liao PT Lower Extremity Functional Index Activities Today, do you or would you have any difficulty at all with: a.Any of your usual work, housework or No difficulty school activities b. Your usual hobbies, recreational or A little bit of difficulty sporting activities c. Getting into or out of the bath A little bit of difficulty d. Walking between rooms No difficulty e. Putting on your shoes or socks No difficulty f. Squatting A little bit of difficulty g. Lifting an object, like a bag of A little bit of difficulty groceries from the floor h. Performing light activities around No difficulty your home i. Performing heavy activities around A little bit of difficulty your home j. Getting into or out of a car No difficulty k. Walking 2 blocks No difficulty l. Walking a mile No difficulty m. Going up or down 10 stairs (about 1 A little bit of difficulty flight of stairs) n. Standing for 1 hour No difficulty o. Sitting for 1 hour No difficulty p. Running on even ground Moderate difficulty q. Running on uneven ground Moderate difficulty r. Making sharp turns while running fast A little bit of difficulty s. Hopping No difficulty t. Rolling over in bed No difficulty LEFI Score Lower Extremity Functional Index Score 69 Rehab Re-assessment Subjective Subjective Pt reports that she is approximately 50% improved. Pt reports that she is able to jog now. It hurts a little afterwards, but before, she was completely unable to do it . She reports that squatting is something that still gives her a lot of trouble. She reports that she was able to go up/down the stairs quickly yesterday but had a decent amount of pain when descending the stairs. Pt continues to report an increase in pain with incline walking. She reports a maximum pain of 5/10 with exercises. Objective Objective Notes LEFS: 69 (64 on IE) Strength: - B Hip Flexion: 5/5 - B Hip ABD: 4/5 - B hip ADD: 4/5 - B knee Ext: 4/5 - B Knee Flexion: 5/5 Squat: Bilateral dynamic knee valgus with squat and anterior knee pain TTP: 0/4 to Bilateral knees Assessment Progress Assessment Progressing as Expected Assessment Notes Pt is progressing as expected. Beginning to implement eccentric quad exercises, which pt tolerates well. Pt with significant improvements in LE Strength. Pt continues to present below baseline in dynamic mobility and pain tolerance. Skilled PT remains indicated. Patient goals met ST,2,4,6 LT Plan Plan Continue as per initial POC. Frequency of Therapy 2 Duration of therapy 4 Time and Billing Re-Eval Time 9 Re-Eval Billing Units 1 Charge for PT reassessment? Yes PHYSICIAN CERTIFICATION: I certify the specified therapy services for Olive Lugo are required, authorized, and reviewed every 30 days.
== END 2024-06-12 23:59 | disposition home or self-care (01) ==
LOC: PT 13:00
PROVIDERS: PCP Physician Assistant; Visit Provider Physician Assistant
DX: M25.561 Pain in right knee (principal); M25.562 Pain in left knee
CPT/HCPCS: 97110; 97164; 97530

== ENCOUNTER 2024-07-23 16:00 | Emergency (ER) | payer BC, SELFPAY ==
--- NOTE | 2024-07-23 | XR_ITS ---
PROCEDURE INFORMATION: Exam: XR Chest Exam date and time: 07/23/2024 4:31 PM Age: 38 years old Clinical indication: Cough; Burning substernal sensation TECHNIQUE: Imaging protocol: Radiologic exam of the chest. Views: 2 views. COMPARISON: No relevant prior studies available. FINDINGS: Lungs: Unremarkable. No consolidation. Pleural spaces: Unremarkable. No pleural effusion. No pneumothorax. Heart/Mediastinum: Unremarkable. No cardiomegaly. Bones/joints: Unremarkable. IMPRESSION: No acute findings.
[2024-07-23] MEDS: ACETAMINOPHEN 500MG TAB 1000 MG PO (16:00)
[2024-07-23] MEDS: DEXAMETHASONE 4MG/ML 5ML MDV 10 MG IV (16:00)
[2024-07-23] MEDS: PANTOPRAZOLE 40MG TABLET 40 MG PO (16:00)
[2024-07-23] MEDS: KETOROLAC 30MG/ML VIAL 15 MG IV (16:00)
--- NOTE | 2024-07-23 16:11 | ECG_ITS ---
APPROVED REPORT Exam: Resting ECG HR:77 bpm ECG Measurements Heart Rate 77 AXES NH 149 P 44 QRSd 93 QRS 74 QT 383 T 53 QTc 415 Conclusion SINUS RHYTHM NONSPECIFIC T-WAVE ABNORMALITY No STEMI Electronically signed by : EVAN DUNCAN, 07/23/2024 23:35:54
[2024-07-23 16:30] VITALS: BP 114/69; BP 118/70; PULSE 70; PULSE 96; RESP 20; TEMP 36.7; TEMP 36.8; O2SAT 96; O2SAT 97; BMI 32.9
[2024-07-23 18:44] VITALS: BP 102/70; PULSE 71; RESP 21; O2SAT 99
--- OUTSIDE RECORDS SUMMARY | 2024-07-23 18:44 | XMS_ITS | Data Portability ---
Author Organization MD - [facility] - [place] & RORO Pfeiffer ADMIN Address [address] [place] [id number] Care Team Providers Care Wool Carder Name Role Phone JORY THOMAS Primary Care Provider Assessment No assessment recorded. Plan of Treatment Reminders Order Date Submit Date Provider Last Modified By Organization Details Last Modified Time Details Appointments None record ed. Lab None record ed. Referral None record ed. Procedures None record ed. Surgeries None record ed. Imaging None record ed. Medication Orders None record ed. Patient TargetsNo targets recorded. Patient Instructions Encounter Date Encounter Id Patient Instructions Last Modified By Organization Details Last Modified Time 06/14/2022 [id number] Advised Olive that her nodule is a TiRADS 4 and 1.1cm. This does not require an FNA and I recommend a repeat thyroid U/S in 12 months. [email or web address] Not available 06/20/2022 16:19:41 Reason for Referral None Reported. Results Created Date Observation Date Name Description Value Unit Range Abnormal Flag Note LastModifiedBy Organization Detail LastModifiedTime 06/15/19 US, thyro id No observ ation record ed. [email or web address] Not Available 2022 14:54:00 06/15/19 23 01/11/2022 US, thyro id No observ ation record ed. BARCODE Not Available 2022 15:49:08 Result Notes None recorded. Medical Equipment None Reported. Allergies No known drug allergies Medications Name Sig Start Date Stop Date Status Note LastModified by Organization Details LastModified Time albuterol sulfate 1.25 mg/3 mL solution for nebulizatio n USE 1 VIAL VIA NEBULIZER EVERY 4 TO 6 HOURS NEEDED FOR COUGH OR WHEEZING OR SHORTNESS OF BREATH active Not Available Not Available No t Available paroxetine 20 mg tablet TAKE 1 TABLET BY MOUTH DAILY 06/14 completed Not Available Not Available Not Available montelukast 10 mg tablet TAKE 1 TABLET BY MOUTH ONCE DAILY 2 HOURS BEFORE ALLERGY SHOT VISITS active Not Available Not Available No t Available albuterol sulfate HFA 90 mcg/actuati on aerosol inhaler active Not Available Not Available Not Available fluticasone propionate 50 mcg/actuati on nasal spray,suspe nsion SHAKE LIQUID AND USE 2 SPRAYS IN EACH NOSTRIL EVERY DAY active Not Available Not Available No t Available Flovent HFA 110 mcg/actuati on aerosol inhaler INHALE 1 PUFF VIA SPACER TWICE DAILY. RINSE MOUTH AFTER USE active Not Available Not Available No t Available levocetiriz ine 5 mg tablet TAKE 1 TABLET BY MOUTH EVERY DAY active Not Available Not Available No t Available Vitals Date Recorded Body height Body mass index (BMI) Body weight Body temperature Heart rate Systolic blood pressure Diastolic blood pressure Provider Name and Address Organization Details Last Updated DateTime 3 157.48 cm 32.3 kg/m2 45176.4 1 g 98.4 [degF] 85 /min 152 mm[Hg] 97 mm[Hg] [facility] 3 14:58:47 Social History None recorded. Functional Status None recorded. Mental Status None recorded. Family History Nothing Reported. Medical History Condition Response Allergies/Hayfever N Heart Problems N None N Heart Conditions N Emphysema N Migraines N Thyroid Problems N Glaucoma N Depression N Developmental Delay N Anemia N Immune System Disorder N Anesthesia Complications N Heart Attack ([place]) N Anxiety Disorder N Diabetes N Bleeding Disorder N Arthritis N Hearing Loss N Tuberculosis N Acid Reflux (GERD) N Hyperlipidemia N Cancer N Stroke N Asthma N Sleep Disorder N GERD/Reflux N Heart Disease N Headaches N Fibromyalgia N Hypertension N Speech Delay N Kidney Disease N Gynecological HistoryNo gynecological history recorded. Obstetrics History GPAL:G 0 P 0 0 0 0 Past Encounters Encounter ID Performer Location Encounter Start Date Encounter Closed Date Diagnosis/Indication Diagnosis SNOMED-CT Code Diagnosis ICD10 Code Diagnosis Note [id number] Court Florence MD [facility] [place] [address], [facility] [address] 06/14/2022 14:46:15 06/14/2022 15:36:48 Thyroid nodule 260116040 E04.1 Health Concerns Section Related Observation LastModified by Organization Detai ls LastModified Time None Recorded Concern Status LastModified by Organization Details LastModified Time None Recorded Advance Directives Directive None Recorded Payers Insurance Date Sequence Insurance Name Policy Number Policy Herron Covered Member ID Herron Member ID Guarantor Name 06/21/2022 1 [place] [id number] Louie Lugo [id number] Olive Lugo Notes Date Note Type Note Provider Name and Address Organization Details Recorded Time 06/14/2022 text/html Ann Marie is here t stefanie for a 2nd opinion regarding a recent thyroid ultrasound and biopsy. Her initial complaints to Dr. Loredo included dysphagia and feeling as if some things were getting stuck in her throat and causing significant hiccups. She had a swallow study which was normal as well as nasopharyngoscopy in the office which was also normal. Thyroid ultrasound was ordered and she had a 1.1 cm nodule that was then sent for fine-needle aspiration. At that procedure she developed a small hematoma due to the nodule being adjacent to the carotid artery and the procedure was terminated. The fine-needle aspiration was never performed. It is her impression that Dr. Loredo wanted her to have the FNA repeated in July and she is here for a 2nd opinion regarding that. Patient also reports that she was told that she has cryptic tonsils with tonsil stones and would like to have that evaluated as well. Court Florence MD [address], [place], [address], [facility] [place] - [place] & [place] 06/20/2022 16:20:05 OBGyn Episode No OBEpisode recorded.
[2024-07-23 18:45] VITALS: BP 114/69; PULSE 74; RESP 17; O2SAT 100
--- NOTE | 2024-07-23 18:54 | HMH.EDGENADL ---
Discharge Plan Disposition Patient Disposition: Home, Self-Care Condition: Good Prescriptions Prescriptions: No Action levocetirizine 5 mg tablet 5 mg PO HS Patient Comments: TAKE 1 TABLET BY MOUTH EVERY EVENING azelastine 137 mcg (0.1 %) spray,non-aerosol 1 spray intranasal DAILY Patient Comments: USE 2 SPRAYS IN EACH NOSTRIL TWICE DAILY albuterol sulfate 90 mcg/actuation HFA aerosol inhaler 1 inh inhalation QID Referrals Follow up/Referrals: Provider,Referral, MD [Primary Care Provider, Medical] - See instructions Clinical Impressions Clinical Impression: Viral URI with cough, Chest pain Instructions Patient Instructions: DI for Atypical Chest Pain Print Language Print Language: Slovenian Discharge ED Provider: Shannon Mendoza General Adult HPI General Stated complaint: CP Time Seen by Provider: 07/23/24 16:49 History of Present Illness HPI narrative: This patient is a 38-year-old female with a history of asthma, celiac disease, thyroid nodules, prior hysterectomy presenting to the emergency department for evaluation with concern for 1 week of cough, chest pains, mild shortness of breath, and generally feeling unwell.? She notes that she thinks is bronchitis but went to [facility] and told him she was having chest pain, so they sent her here for evaluation.? No history of cardiac issues.? She denies any fevers, vomiting, changes in bowel movements.? On review of systems she does admit to some mild abdominal discomfort that is nonspecific as well as mild nausea.? She states that she has issues like this with her celiac disease when she eats or drinks things that she should not.? She has been using her inhaler at home with some improvement, but she still continues to have pain.? Given this, she came in for further evaluation.? No history of blood clots, clotting disorders, or unilateral calf pain/swelling. Related Data Home Medications ?Medication ?Instructions ?Recorded ?Confirmed levocetirizine 5 mg tablet 5 mg PO HS Allergy Symptoms 07/22/19 05/19/24 albuterol sulfate 90 mcg/actuation 1 inh inhalation QID 02/14/24 05/19/24 aerosol inhaler azelastine 137 mcg (0.1 %) nasal 1 spray intranasal DAILY 02/14/24 05/19/24 spray Allergies Allergy/AdvReac Type Severity Reaction Status Date / Time almond Allergy Intermediate Wheezing Verified 05/19/24 09:08 Bourbon And Derivatives Allergy Intermediate Wheezing Verified 05/19/24 09:08 erythromycin base Allergy Intermediate I-HIVES, Verified 05/19/24 09:08 STOMACH UPSET escitalopram Allergy Intermediate Other Verified 05/19/24 09:08 orange Allergy Intermediate Wheezing Verified 05/19/24 09:08 pecan nut Allergy Intermediate Wheezing Verified 05/19/24 09:08 walnut Allergy Intermediate Wheezing Verified 05/19/24 09:08 methylergonovine (From Allergy Unknown EDEMA Verified 05/19/24 09:08 Methergine) codeine (From [employer] with AdvReac Severe Heart Races Verified 05/19/24 09:08 Codeine) [facility] Disclaimer: The information contained in this section may have been updated after the patient was seen, as this information can be updated by other users. Medical History Vaginal Discharge Vaginal itching History of ovarian cyst Major depressive disorder Generalized anxiety disorder Vaginal lesion Family history of breast cancer Endometriosis determined by laparoscopy Acute pelvic pain, female Anxiety Depression Snoring Night terrors, adult Vaginitis Chronic pelvic pain in female Dyspareunia in female Umbilical hernia Dysphagia Thyroid Nodule Fractured metatarsal bone Surgical History H/O laparoscopy S/P abdominal hysterectomy and left salpingo-oophorectomy History of foot surgery History of colonoscopy Hx of umbilical hernia repair History of wisdom tooth extraction, class IV edentulism History of section History of endometrial ablation History of tubal ligation Family History Other Coronary artery disease FHx: mental illness Family history of hyperlipidemia Family history of myocardial infarction Family history of thyroid nodule Family hx-breast malignancy Social History Smoking Status: Never smoker second hand exposure: No alcohol intake: current alcohol intake frequency: holidays/special occasions only counseling given: No substance use type: denies use counseling given: No current occupational status: unemployed Travel in the last 8 weeks?: None adopted: No caregiver/support person: Yes foster care: No household members: spouse and family housing: house lives independently: Yes marital status: number of children: 3 number of grandchildren: 0 education level: high school 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 current occupational exposures/hazards: No sexually active: Yes caffeine: Yes physical activity: none special john needs: No agree to transfusion: No working smoke detector in home: Yes fire extinguisher in home: No carbon monox detector in home: Yes firearms in home: Yes firearms unloaded and locked: Yes do you feel safe at home: Yes victim of physical abuse: No victim of emotional abuse: No victim of sexual abuse: No would you like helpful sources: No Other Medical History Have you received the Flu Vaccine for this season: No Have you received the Pneumonia Vaccine: No ROS Obtained: Yes All systems reviewed & no additional complaints except as documented Physical Exam General General appearance: alert and in no apparent distress Head Head exam: atraumatic and normocephalic Eye Eye exam: Present normal appearance, PERRL and EOMI ENT ENT exam: Present normal exam, normal oropharynx, mucous membranes moist and normal external ear exam Neck Neck exam: Present normal inspection, full ROM and trachea midline; Absent tenderness Chest Chest inspection: Present normal inspection and symmetric chest wall rise; Absent tenderness Respiratory Respiratory exam: Present normal lung sounds bilaterally; Absent respiratory distress, wheezes, stridor or accessory muscle use Cardiovascular Cardiovascular exam: Present regular rate and normal rhythm Abdominal Exam Abdominal exam: Present soft; Absent distention, tenderness or guarding Extremities Exam Extremities exam: Present normal inspection, full ROM and normal capillary refill; Absent tenderness or edema Back Exam Back exam: Present normal inspection and full ROM; Absent tenderness Neurological Exam Neurological exam: Present alert, oriented X3, CN II-XII intact and normal gait; Absent motor sensory deficit Psychiatric Psychiatric exam: Present normal affect and normal mood Skin Skin exam: Present warm and dry Medical Decision Making Medical Records Medical records reviewed: Yes I reviewed the patient's medical records. Screening: Per USPSTF and CDC recommendations, given the prevalence of disease in our region, it is our hospital?s policy to screen for HIV and viral Hepatitis for all patients aged 18 and over and those with ongoing risk factors. Dmitriy Inquiry Pt receiving controlled substance: No Vital Signs: 07/23/24 18:44 07/23/24 18:45 Pulse Rate 71 74 Respiratory Rate 21 17 Blood Pressure 102/70 L 114/69 02 Sat by Pulse Oximetry 99 100 Oxygen Delivery Method Room Air Room Air Lab Data Lab results reviewed: Yes I reviewed the patient's lab results. Orders (Tests/Meds): ORDERS Category Date Time Status XR chest 2V Routine Exams 07/23/24 Taken Medical Decision Narrative: In summary, this patient is a 38-year-old female presenting to the Emergency Department for evaluation of chest pain, cough, nausea, generally feeling unwell for 1 week. Differential diagnoses considered include but are not limited to viral syndrome, pneumonia, bronchitis, PE, ACS, dysrhythmia, GERD, gastritis. Ruling out the most morbid conditions drove assessment. It should be noted patient's history includes celiac disease, thyroid nodules, asthma which may or may not be at goal therapy. This complicates all aspects of care by increasing patient's risk for morbidity. Unfortunately I was unable to review patient's past medical records, as our entire computer system is down at this time.? On exam, the patient is sitting upright no acute distress with normal cardiopulmonary exam, no murmurs, adventitious lung sounds, or other concerns noted.? Vitals are normal on cardiac telemetry.? Abdominal exam is benign with no localizable tenderness.? No calf pain or swelling noted on exam.? EKG obtained and independently interpreted myself at 1612 demonstrates normal sinus rhythm with a ventricular rate of 77 bpm.? No acute ST changes concerning for ischemia.? Normal intervals.? Workup included CBC, CMP, troponin, D-dimer, lipase, chest x-ray, EKG, and viral swab.? Patient was given IV Toradol, oral Tylenol, oral pantoprazole, and IV dexamethasone for symptomatic improvement.? I elected to administer steroids given her history of asthma and reported URI. XR shows no large focal consolidation or pneumothorax. Please see their read for final interpretation. On reassessment, the patient is resting comfortably.? She states she still feels about the same.? Vitals are all within normal limit on cardiac telemetry.? Cardiopulmonary exam remains normal.? Labs were obtained that demonstrated normal CBC.? Chemistry is reassuring with normal thyroid studies, normal liver enzymes, normal lipase, normal creatinine, no significant electrolyte abnormalities.? Troponin is undetectable.? D-dimer is negative per years criteria.? I considered obtaining second troponin, however symptoms been ongoing for a week so if troponin was going to be elevated, I feel it should have already been elevated.? Given that lab workup, x-ray, and EKG are all reassuring, I feel the patient is appropriate for discharge home.? Given her cough in setting of asthma, it is possible she has URI triggering asthma exacerbation.? Symptoms been ongoing for a week, so will treat with short course of Augmentin as well as prednisone.? She has inhalers at home.? Advised that she follow-up very closely with her primary care provider for reassessment to ensure that she still doing well.? I also gave her strict return precautions should her symptoms worsen, and she expressed understanding and agreement.? She was discharged with prescriptions for Augmentin and prednisone. Critical Care Critical Care Time Critical Care Time: No
[2024-07-23 19:29] LABS: Basophils % 0.4 % (0.1-2.0); Eosinophils # 0.1 Kmm3 (0.0-0.4); Eosinophils % 1.2 % (0.1-12.0); Hematocrit 38.6 % (37.0-47.0); Hemoglobin 13.6 g/dL (12.2-16.2); Immature Granulocytes # 0.02 10^3uL; Immature Granulocytes % 0.3 %; Lymphocytes # 1.6 K/mm3 (0.7-4.5); Lymphocytes % 22.1 % (10-50); Mean Corpuscular HGB Conc 35.2 g/dL (31.8-35.4); Mean Corpuscular Hemoglobin 30.8 pg (27.0-31.2); Mean Corpuscular Volume 87.3 fl (81-99); Mean Platelet Volume 9.9 fl (7.4-10.4); Monocytes # 0.5 K/mm3 (0.1-1.0); Monocytes % 6.2 % (1.7-9.3); Neutrophils # 5.2 K/mm3 (1.8-7.8); Neutrophils % 69.8 % (37.0-80.0); Nucleated Red Blood Cells # 0 10^3/uL; Nucleated Red Blood Cells % 0 %; Platelet Count 223 K/mm3 (142-424); Red Blood Count 4.42 M/mm3 (4.20-5.40); Red Cell Distribution Width 11.9 % (11.5-17.5); Red Cell Distribution Width-SD 38.4 fL; White Blood Count 7.4 K/mm3 (4.8-10.8)
[2024-07-23 19:40] LABS: Coronavirus 19, PCR Not Detected (NotDetected); Influenza A, PCR Not Detected (NotDetected); Influenza B, PCR Not Detected (NotDetected)
[2024-07-23 20:01] LABS: Anion Gap 7.3 mEq/L (5-15); Bilirubin,Total 0.4 mg/dl (0.2-1.3); Blood Urea Nitrogen 10 mg/dl (7-17); Calcium 8.9 mg/dl (8.4-10.2); Carbon Dioxide 26 mmol/L (22.0-30.0); Chloride 110 mmol/L (98-107); Creatinine Clearance Estimated 143 mL/min (50-200); Estimated Glomerular Filt Rate 95 ml/min (>60); GFR (African American) 115 ML/MIN (>60); Glucose 120 mg/dl (74-100); Potassium 3.3 mmoL/L (3.5-5.1); Sodium 140 mmol/L (136-145); Troponin I < 0.01 ng/ml (0.00-0.034)
[2024-07-23 20:02] LABS: Alanine Aminotransferase 20 U/L (12-78); Albumin Level 4.3 g/dl (3.5-5.0); Albumin/Globulin Ratio 1.7 (1.1-1.8); Alkaline Phosphatase 52 U/L (38-126); Aspartate Amino Transferase 27 U/L (14-36); Globulin 2.5 g/dL (1.3-3.2); Lipase 94 U/L (23-300); T4 (Thyroxine) 7.9 ug/dl (5.53-11.0); Thyroid Stimulating Hormone 1.17 uIU/mL (0.465-4.68); Total Protein,Serum 6.8 g/dl (6.3-8.2)
[2024-07-23 20:03] LABS: Thyroid Stimulating Hormone 1.17 uIU/mL (0.465-4.68)
[2024-07-23 20:29] LABS: Free Thyroxine Index 2.8 ug/dL (5.93-13.13); Triiodothryronine (T3) Uptake 35 % (23.5-40.5)
[2024-07-23 20:43] LABS: D-Dimer 0.59 ug/mL (0.0-0.5)
== END 2024-07-23 18:41 | disposition home or self-care (01) ==
PROVIDERS: Emergency Provider Emergency Medicine
DX: R07.9 Chest pain, unspecified (principal); J06.9 Acute upper respiratory infection, unspecified; R05.9 Cough, unspecified; B34.9 Viral infection, unspecified
CPT/HCPCS: 71046; 80053; 83690; 84436; 84443; 84479; 84484; 85025; 85378; 87636; 93005; 96374; 96375; 99284; J1100; J1885

== ENCOUNTER 2024-08-06 12:58 | Outpatient (CLI) | payer BC, SELFPAY ==
--- OUTSIDE RECORDS SUMMARY | 2024-05-15 03:00 | XMS_ITS ---
Author Organization [facility] Address [address] [facility] [address] [place] [id number] Care Team Providers Care Plug Saw Operator Name Role Phone Curly Carlton Primary Care Provider [phone] Daily Canales [phone] REASON FOR VISIT celiac disease and PCOS Encounters Encounter Location Date Provider Diagnosis Fredy [address] [facility] [address] [place] [id number] 05/15/2024 Daily Eubanks Plan Of Treatment No Information Progress Notes * NIKI LUGOB:1985 (38 yo F)Acc No.[id number]:05/15/2024 Progress Notes Patient: OMER DALTON Provider: INDIA[place] Sutton :1985 A ge:38 Y S ex:Female Date:05/15/2024 Address:[address] [place] [address] [place], [id number] Pcp:Curly Carlton Subjective: * Chief Complaints: * 1 . celiac disease and PCOS. * Medical History: Objective: * Vitals: Assessment: Plan: * Treatment: * Billing Information: * Visit Code: * Procedure Codes: * Electronic signature of INDIANA Skinner on 08/06/2024 at 01:02 PM EDT Sign off status: Pending * Provider: INDIANA Sutton Date: 05/15/2024 Generated for Printi ng/Fagretta/eTransmitting on: 08/06/2024 01:02 PM EDT
--- OUTSIDE RECORDS SUMMARY | 2024-05-15 09:15 | XMS_ITS ---
Author Organization [facility] Address [address] [facility] [address] [place] [phone] Care Team Providers Care Establishment Guide Name Role Phone Curly Carlton Primary Care Provider Daily Eubanks Unavailable [phone] Allergies Allergen (clinical drug ingredient) Drug/Non Drug [...] Interpretation:30 Performing Lab: Notes/Report: Test performed by [employer] [facility] [place] , [address], [place] [address] Dl Garduno MD, Casino Banker CLIA: [id number] Amylase 30 28-100 U/L P-Vitamin B12 Reviewed date:05/19/2024 09:55:22 AM Interpretation:Normal Performing Lab: Notes/Report: Test performed by [employer] [address] , [address], [place] [address] Dl Garduno MD, Casino Banker CLIA: [id number] Vitamin B12 060 084-1986 pg/mL P-Comprehensive Metabolic Pa joann (CMP) Reviewed date:05/19/2024 09:55:22 AM Interpretation:Normal Performing Lab: Notes/Report: Test performed by [employer] [address] [place] [address] , [address], [place] [address] Dl Garduno MD, Casino Banker CLIA: [id number] Sodium 139 135-145 mmol/L Potassium 4.0 3.5-5.3 [...] Interpretation:Normal Performing Lab: Notes/Report: Test performed by [employer] [address] , [place] [address] Dl Garduno MD, Casino Banker CLIA: [id number] Thyroxine Free (free T4) 1.21 0.86-1.76 ng/dL P-Lipase Reviewed date:05/19/2024 09:55:22 AM Interpretation:Normal Performing Lab: Notes/Report: Test performed by [employer] [address] [place] [address] , [place] [address] Dl Garduno MD, Casino Banker CLIA: [id number] Lipase 30.1 13.0-60.0 u/L P-Magnesium Reviewed date:05/19/2024 09:55:22 AM Interpretation:Normal Performing Lab: Notes/Report: Test performed by [employer] , [place] [address] Dl Garduno MD, Casino Banker CLIA: [id number] Magnesium 2.1 1.6-2.4 mg/dL P-Thyroid Antibody Panel (TA BS) Reviewed date:05/19/2024 09:55:22 AM Interpretation:Thyroid Peroxidase Antibody <9 Performing Lab: Notes/Report: Test performed by [employer] [address] , [place] [address] Dl Garduno MD, Casino Banker CLIA: [id number] Thyroid Peroxidase Antibody <9 <9-34 IU/mL An [...] Interpretation:Normal Performing Lab: Notes/Report: Test performed by [employer] [address] , [place] [address] Dl Garduno MD, Casino Banker CLIA: [id number] TSH 1.17 0.43-5.25 mU/L P-Vitamin D 25-Hydroxy Reviewed date:05/19/2024 09:55:22 AM Interpretation:25.9 Performing Lab: Notes/Report: Test performed by [employer] [address] , [place] [address] Dl Garduno MD, Casino Banker CLIA: [id number] Vitamin D 25-Hydroxy 25.9 30.0-100.0 ng/mL Interpretation [...] Problem Status W/U Status Risk Notes Problem 69733813 Restless leg (G25.81) Active confirmed Vital Signs Blood pressure systolic 112 mm Hg 05/16/19 25 Blood pressure diastolic 60 mm Hg 025 Heart Rate 63 /min 05/15/2024 Height 63 in 05/15/2024 Weight 166 lbs 05/15/2024 BMI 29.40 kg/m2 05/15/2024 Encounters Encounter Location Date Provider Diagnosis [facility] [address] [phone] 05/15/2024 Daily Eubanks Epigastric pain R10. 13 [...] Notes * NIKI LUGOB:1985 (38 yo F)Acc No.[id number]:05/15/2024 Progress Notes Patient: OMER DALTON Provider: [place] Sutton :1985 A ge:38 Y S ex:Female Date:05/15/2024 Address:[address] [place] [address], [facility], [id number] Pcp:Curly Carlton Subjective: * Chief Complaints: * [...] Hospitalization/Major Diagno stic Procedure: n one , [facility] ER-Abdominal Pain 07/15/2009, [facility] ER- Chest Pains 07/19/2011, [facility] ER- UTI 07/2014, [facility] - Fractured Foot 03/02/2020. * Family [...] PM)?Normal* Value Reference Range V itamin B12 044 890-3862 - pg/mL * Laura Rangel 05/19/2024 09: [...] 3036 GLYCATED HEMOGLOBIN TEST, Modifiers: QW , 22067 CBC WITH AUTO DIFF, 3074F SYST BP LT 130 MM HG, 3078F DIAST BP < 80 MM HG, 3044F HG A1C LEVEL LT 7.0% * Follow Up: v ia phone to report test results * Billing Information: * Visit Code: 60918 Office Visit, Est Pt., Level 4. * Procedure Codes: 33933 GLYCATED HEMOGLOBIN TEST. Modifiers: QW 40771 CBC WITH AUTO DIFF. 3074F SYST BP LT 130 MM HG. 3078F DIAST BP < 80 MM HG. 3044F HG A1C LEVEL LT 7.0%. * Electronic signature of IND[place]NA Skinner on 08/06/2024 at 01:02 PM EDT Sign off status: Pending * Provider: IND[place] Sutton Date: 0 05/15/2024 Generated for Elisabeth ryan/Raissa/Robertoitting on: 0 08/06/2024 01:02 PM EDT History and Physical Notes * [...]
--- OUTSIDE RECORDS SUMMARY | 2024-07-16 05:45 | XMS_ITS ---
Author Organization [facility] Address [address] [facility] [address] [place] [phone] Care Team Providers Care Parts Specialist Name Role Phone Curly Carlton Primary Care Provider Allergies Allergen (clinical drug ingredient) Drug/Non Drug Allergy documented on EMR Reaction Allergy Type Onset Date Status erythromycin Erythromycin Unknown Drug Allergy A ctive Results Component Value Reference Range Notes P-Vitamin D 25-Hydroxy Reviewed date:07/18/2024 09:55:16 AM Interpretation:31.5 Performing Lab: Notes/Report: Test performed by [employer] [address] [place] [address] , [address], [place] [address] Dl Garduno MD, In Home Sales Consultant CLIA: [id number] Vitamin D 25-Hydroxy 31.5 30.0-100.0 ng/mL Interpretation of Vitamin D 25 OH: < 20 ng/mL - Deficiency 20 - 29 ng/mL - Insufficiency 30 - 100 ng/mL - Sufficiency > 100 ng/mL - Super-therapeutic- toxicity may occur above this level. Clinical correlation required. REASON FOR VISIT 2 Month Follow Up Medications Medication SIG (Take, Route, Frequency, Duration) Notes Start Date End Date Status Vitamin D 50 MCG (1999) 1 capsule Ora lly Once a day Active Levocetirizine Dihydrochloride 5 MG 1 tab(s) orally once a day (in the evening) for 30 Active PROBIOTICS P.O. DAILY Active Flonase Allergy Relief 50 MCG/ACT 1 spray(s) in each nostril once a day 10/21/2021 Active Vital Signs Blood pressure systolic 102 mm Hg 07/17/19 25 Blood pressure diastolic 70 mm Hg 025 Heart Rate 64 /min 07/16/2024 Height 63 in 07/16/2024 Weight 163.4 lbs 07/16/2024 BMI 28.94 kg/m2 07/16/2024 Encounters Encounter Location Date Provider Diagnosis [facility] [address] [place] [phone] 07/16/2024 Curly Carlton Vitamin D deficiency E55.9 Assessments Encounter Date Diagnosis (ICD Code) Assessment Notes Treatment Notes Treatment Clinical Notes Section Notes 07/16/2024 Vitamin D deficiency (ICD-10 - E55.9) Plan Of Treatment Next Appt Details Follow Up: via phone to repo rt test results, Reason: Progress Notes * CATRACHITANIKIB:1985 (38 yo F)Acc No.[id number]:07/16/2024 Progress Notes Patient: OMER DALTON Provider: Jonny Carlton M.D. :1985 A ge:38 Y S ex:Female Date:07/16/2024 Address:[address] [place] [id number] Subjective: * Chief Complaints: * 1 . 2 Month Follow Up. * HPI: E ndocrinology: 38 year old female presents with c/o Recent Blood Sugars T he pt is here for a follow up on Hyperglycemia. Pt states she has been checking her glucose at home and it is running high in the mornings. Pt states it is running in the 106-125. Pt states is fasting today. * ROS: D ERMATOLOGY: no R fortino. [...] Hospitalization/Major Diagno stic Procedure: n one , [facility] ER-Abdominal Pain 07/15/2009, [facility] ER- Chest Pains 07/19/2011, [facility] ER- UTI 07/2014, [facility] - Fractured Foot 03/02/2020. * Family [...] Sexually active: yes. * Medications: T aking Vitamin D 50 MCG (2000 UT) Capsule 1 capsule Orally Once a day , Taking PROBIOTICS P.O. DAILY , Taking Levocetirizine Dihydrochloride 5 MG Tablet 1 tab(s) orally once a day (in the evening) , Taking Flonase Allergy Relief 50 MCG/ACT Suspension 1 spray(s) in each nostril once a day , Discontinued MAXIMUM VITAMIN D3 325 MCG (13,000 IU) TABLET 1 TAB(S) ORALLY 3 TIMES A WEEK , Medication List reviewed and reconciled with the patient * Allergies: E rythromycin. Objective: * Vitals: W t: 163.4, Temp: 98.4, BP: 102/70, HR: 64, Nurse: LLUVIA, Ht: 63, BMI:28.94. * Examination: G eneral Examination: General Appearance: N AD. Heart: R SR. Lungs: c lear to auscultation. Assessment: * Assessment: 1. V itamin D deficiency - E55.9 (Primary) Plan: * Treatment: Value Reference Range V itamin D 25-Hydroxy 31.5 30.0-100.0 - ng/mL * Nandini Dias 07/18/2024 09:5 5:08 AM > See phone encounter * Follow Up: v ia phone to report test results * Billing Information: * Visit Code: 68893 Office Visit, Est Pt., Level 3. * Procedure Codes: * Electronic signature of Beverley Carlton MD on 08/06/2024 at 01:01 PM EDT Sign off status: Pending * Provider: Jonny Carlton M.D. Date: 0 07/16/2024 Generated for Parki shelby/Hansag/eTransmitting on: 0 08/06/2024 01:01 PM EDT History and Physical Notes * HPI (History of Present Illness) Category Sub-Category Detail Notes Category Not es Endocrinology Recent Blood Sugars The pt is he re for a follow up on Hyperglycemia. Pt states she has been checking her glucose at home and it is running high in the mornings. Pt states it is running in the 106-125. Pt states is fasting today Examination Category Sub-Category Detail Notes Category Not es General Examination Heart: RSR Lungs: clear to auscultatio n General Appearance: NAD
--- NOTE | 2024-08-06 13:00 | US_ITS ---
FINAL REPORT TECHNIQUE: Real-time grayscale and color ultrasound of the thyroid was performed. CLINICAL HISTORY: yearly screening for thyroid COMPARISON: 08/13/2023 FINDINGS: The thyroid gland measures 48 x 11 x 14 mm on the right and 42 x 12 x 15 mm on the left. The isthmus measures 2 mm. The parenchyma is unremarkable . Nodules: The previously noted dominant left thyroid nodule is no longer seen. The previously seen cystic focus in the posterior aspect of the left thyroid lobe measuring 9 mm in greatest dimension measures 7 mm on today's exam, consistent with a TR 1 nodule. IMPRESSION: Resolution of complex dominant nodule in the left. Follow-up as clinically indicated. Reviewed, Interpreted and Dictated by Jorge Mcknight MD Transcribed by Debbi Chavez Authenticated and [facility]
--- OUTSIDE RECORDS SUMMARY | 2024-08-06 13:02 | XMS_ITS | Data Portability ---
Author Organization [place] - [facility] - [place] & RORO Pfeiffer ADMIN Address [address] [place] [id number] Care Team Providers Care Record Filing Clerk Name Role Phone JORY THOMAS Primary Care Provider [phone] Assessment No assessment recorded. Plan of Treatment [...] By Organization Details Last Modified Time 06/14/2022 [id number] Advised Olive that her nodule is a [...] Updated DateTime 3 157.48 cm 32.3 kg/m2 25158.4 1 g 98.4 [degF] 85 /min 152 mm[Hg] 97 mm[Hg] [facility] 3 14:58:47 Social History None recorded. Functional Status None recorded. Mental Status None recorded. Family History Nothing Reported. Medical History Condition Response Allergies/Hayfever N Heart Problems N None N Heart Conditions N Emphysema N Migraines N Thyroid Problems N Developmental Delay N Depression N Glaucoma N Anemia N Immune System Disorder N Anesthesia Complications N Heart Attack ([place]) N Anxiety Disorder N Diabetes N Bleeding Disorder N Arthritis N Hearing Loss N Tuberculosis N Acid Reflux (GERD) N Hyperlipidemia N Cancer N Stroke N Asthma N Sleep Disorder N GERD/Reflux N Heart Disease N Fibromyalgia N Headaches N Hypertension N Speech Delay N Kidney Disease N Gynecological HistoryNo gynecological history recorded. Obstetrics History GPAL:G 0 P 0 0 0 0 Past Encounters Encounter ID Performer Location Encounter Start Date Encounter Closed Date Diagnosis/Indication Diagnosis SNOMED-CT Code Diagnosis ICD10 Code Diagnosis Note [id number] Court Florence MD [facility] [place] [address], [facility] [place] [address] 06/14/2022 14:46:15 06/14/2022 15:36:48 Thyroid nodule 506455215 E04.1 Health Concerns Section Related Observation LastModified by Organization Detai ls LastModified Time None Recorded Concern Status LastModified by Organization Details LastModified Time None Recorded Advance Directives Directive None Recorded Payers Insurance Date Sequence Insurance Name Policy Number Policy Herron Covered Member ID Herron Member ID Guarantor Name 06/21/2022 1 [place] [id number] Louie Lugo [id number] Olive Lugo Notes Date Note Type [...] that evaluated as well. Court Florence MD [address], [place], [address], [facility] [place] [facility] [place] & [place] 06/20/2022 16:20:05 OBGyn Episode No OBEpisode recorded.
--- OUTSIDE RECORDS SUMMARY | 2024-08-06 13:02 | XMS_ITS | Patient Health Record ---
Author Organization [facility] Address [address] [facility] [address] [place] [id number] Care Team Providers Care Roof Panel Hanger Name Role Phone Curly Carlton Primary Care Provider Daily Eubanks Unavailable [phone] Allergies Allergen (clinical drug ingredient) Drug/Non Drug Allergy documented on EMR Reaction Allergy Type Onset Date Status erythromycin Erythromycin Unknown Drug Allergy A ctive Results Component Value Reference Range Notes P-Vitamin D 25-Hydroxy Reviewed date:07/18/2024 09:55:16 AM Interpretation:31.5 Performing Lab: Notes/Report: Test performed by [facility] [address] [place] [address] , [address], [place] [address] Dl Garduno MD, Furniture Technician CLIA: [id number] Vitamin D 25-Hydroxy 31.5 30.0-100.0 ng/mL Interpretation of Vitamin D 25 OH: < 20 ng/mL - Deficiency 20 - 29 ng/mL - Insufficiency 30 - 100 ng/mL - Sufficiency > 100 ng/mL - Super-therapeutic- toxicity may occur above this level. Clinical correlation required. X ray : Knee, right Reviewed date:04/17/2024 08:47:11 AM Interpretation: Performing Lab: Notes/Report: X ray : Knee, left Reviewed date:04/17/2024 08:47:27 AM Interpretation: Performing Lab: Notes/Report: CBC Venipuncture (in house) Reviewed date:09/19/2023 01:13:41 PM Interpretation: Performing Lab: Notes/Report: wbc 5.7 3.5 - 10 lymph 29.1% 15 - 50 mid 6.2% 2 - 15 gran 64.7% 35 - 80 rbc 4.66 3.5 - 5.5 hgb 14.0 11.5 - 16.5 hct 41.5 35 - 55 mcv 89.0 75 - 100 mch 30.0 25 - 35 mchc 33.7 31 - 38 platlet 247 100 - 400 P-Vitamin B12 Reviewed date:09/20/2023 08:54:03 AM Interpretation: Performing Lab: Notes/Report: Test performed by [facility] [address] [place] [address] , [address], [place] [address] Dl Garduno MD, Furniture Technician CLIA: [id number] Vitamin B12 449 765-8433 pg/mL P-Comprehensive Metabolic Pa joann (CMP) Reviewed date:09/20/2023 08:54:03 AM Interpretation: Performing Lab: Notes/Report: Test performed by [facility] [address] [place] [address] , [address], [place] [address] Dl Garduno MD, Furniture Technician CLIA: [id number] Sodium 140 135-145 mmol/L Potassium 4.4 3.5-5.3 mmol/L Chloride 108 97-108 mmol/L CO2 25 22-32 mmol/L Glucose 89 65-99 mg/dL BUN 11 6-20 mg/dL Creatinine 0.79 0.50-1.00 mg/dL Calcium 9.5 8.6-10.4 mg/dL eGFR by Creatinine 99 >59 mL/min/1.73m2 Protein 6.5 6.0-8.3 g/dL Albumin 4.3 3.5-5.3 g/dL Alkaline Phosphatase 55 35-121 IU/L ALT (SGPT) 21 <5-47 IU/L AST (SGOT) 13 <5-40 IU/L Bilirubin, Total 0.4 <0.2-1.2 mg/dL A/G Ratio 2.0 1.1-2.5 mg/dL P-Lipid Panel Reviewed date:09/20/2023 08:54:03 AM Interpretation: Performing Lab: Notes/Report: Test performed by [facility] [address] [place] [address] , [address], [place] [address] Dl Garduno MD, Furniture Technician CLIA: [id number] Cholesterol 179 <200 mg/dL Triglycerides 116 <150 mg/dL HDL Cholesterol 57 >39 mg/dL Cholesterol / HDL Ratio 3.14 0.00-4.44 Ratio Non-HDL Cholesterol 122 <130 mg/dL LDL Cholesterol (Calculation) 99 <130 mg/dL LDL Cholesterol Levels* Less than 100 mg/dL Optimal 100 to 129 mg/dL Near Optimal/ Above Optimal 130 to 159 mg/dL Borderline High 160 to 189 mg/dL High 190 mg/dL and above Very High * Categories as recommended by the 2004 ATPIII guidelines LDL/HDL Ratio 1.7 <3.3 Ratio LDL Cholesterol Patient History Test Date: 09/19/2023 LDL Results: 99 Units: mg/dL % Change: - P-TSH reflex to FT4 Reviewed date:09/20/2023 08:54:03 AM Interpretation: Performing Lab: Notes/Report: Test performed by [facility], [address] , [address] , [place] [address] Dl Garduno MD, Furniture Technician CLIA: [id number] TSH reflex to FT4 1.13 0.43-5.25 mU/L P-Vitamin D 25-Hydroxy Reviewed date:09/20/2023 08:53:50 AM Interpretation: Performing Lab: Notes/Report: Test performed by [facility] [address] [place] [address] , [address], [place] [address] Dl Garduno MD, Furniture Technician CLIA: [id number] Vitamin D 25-Hydroxy 25.6 30.0-100.0 ng/mL Interpretation of Vitamin D 25 OH: < 20 ng/mL - Deficiency 20 - 29 ng/mL - Insufficiency 30 - 100 ng/mL - Sufficiency > 100 ng/mL - Super-therapeutic- toxicity may occur above this level. Clinical correlation required. Echocardiogram Reviewed date:10/05/2023 05:18:48 PM Interpretation:mild MR Performing Lab: Notes/Report: mild MR CBC Venipuncture (in house) Reviewed date:05/15/2024 04:35:35 [...] Interpretation:30 Performing Lab: Notes/Report: Test performed by [facility] [address] [place] [address] , [address], [place] [address] Dl Garduno MD, Furniture Technician CLIA: [id number] Amylase 30 28-100 U/L P-Vitamin B12 Reviewed date:05/19/2024 09:55:22 AM Interpretation:Normal Performing Lab: Notes/Report: Test performed by [facility] [address] [place] [address] , [address], [place] [address] Dl Garduno MD, Furniture Technician CLIA: [id number] Vitamin B12 567 871-7378 pg/mL P-Comprehensive Metabolic Pa joann (CMP) Reviewed date:05/19/2024 09:55:22 AM Interpretation:Normal Performing Lab: Notes/Report: Test performed by [facility] [address] [place] [address] , [place] [address] Dl Garduno MD, Furniture Technician CLIA: [id number] Sodium 139 135-145 mmol/L Potassium 4.0 3.5-5.3 [...] Interpretation:Normal Performing Lab: Notes/Report: Test performed by [facility] [address] [place] [address] , [place] [address] Dl Garduno MD, Furniture Technician CLIA: [id number] Thyroxine Free (free T4) 1.21 0.86-1.76 ng/dL P-Lipase Reviewed date:05/19/2024 09:55:22 AM Interpretation:Normal Performing Lab: Notes/Report: Test performed by [facility] [address] [place] [address] , [place] [address] Dl Garduno MD, Furniture Technician CLIA: [id number] Lipase 30.1 13.0-60.0 u/L P-Magnesium Reviewed date:05/19/2024 09:55:22 AM Interpretation:Normal Performing Lab: Notes/Report: Test performed by [facility] [address] [place] [address] Shaista Contreras, [place] [address] Dl Garduno MD, Furniture Technician CLIA: [id number] Magnesium 2.1 1.6-2.4 mg/dL P-Thyroid Antibody Panel (TA BS) Reviewed date:05/19/2024 09:55:22 AM Interpretation:Thyroid Peroxidase Antibody <9 Performing Lab: Notes/Report: Test performed by [facility] [address] [place] [address] , [facility] [place] [place] [address] Dl Garduno MD, Furniture Technician CLIA: [id number] Thyroid Peroxidase Antibody <9 <9-34 IU/mL An elevated Thyroid Peroxidase Antibody should not be used alone to make the diagnosis of autoimmune thyroid disease. A result of <34 IU/mL does not definitively rule out the possibility of autoimmune thyroid disease. Thyroglobulin Antibody 16.9 <10-115.0 IU/mL The test is performed by the [employer] ECLIA methodology. Values obtained with different assay methods or kits cannot be directly compared. P-TSH Reviewed date:05/19/2024 09:55:22 AM Interpretation:Normal Performing Lab: Notes/Report: Test performed by [facility] [address] [place] [address] , [place] [address] Dl Garduno MD, Furniture Technician CLIA: [id number] TSH 1.17 0.43-5.25 mU/L P-Vitamin D 25-Hydroxy Reviewed date:05/19/2024 09:55:22 AM Interpretation:25.9 Performing Lab: Notes/Report: Test performed by [facility] [address] [place] [address] , [place] [address] Dl Garduno MD, Furniture Technician CLIA: [id number] Vitamin D 25-Hydroxy 25.9 30.0-100.0 ng/mL Interpretation of Vitamin D 25 OH: < 20 ng/mL - Deficiency 20 - 29 ng/mL - Insufficiency 30 - 100 ng/mL - Sufficiency > 100 ng/mL - Super-therapeutic- toxicity may occur above this level. Clinical correlation required. Medications Medication SIG (Take, Route, Frequency, Duration) Notes Start Date End Date Status Vitamin D 50 MCG (1999) 2 capsule Ora lly Once a day Active Levocetirizine Dihydrochloride 5 MG 1 tab(s) orally once a day (in the evening) for 30 Active PROBIOTICS P.O. DAILY Active Flonase Allergy Relief 50 MCG/ACT 1 spray(s) in each nostril once a day 10/21/2021 Active Immunizations Vaccine Route Administration Date Status Comme nts tuberculin (ppd) ID Intradermal 07/08/2009 Administered Tetanus-DT IM Intramuscular 11/30/2005 Administered HEPB VACC PED/ADOL DOSE IM IM Intramuscular 11/30/2005 Adm inistered Fluzone Quad (6months&older) IM Intramuscular 12/28/2017 Administered Problems Problem Type SNOMED Code ICD Code Onset Dates Problem Status W/U Status Risk Notes Problem Migraine (49925522) Migraine, unspecified, without mention of intractable migraine (346.90) Active confirmed Problem Vitamin D deficiency (00547668) Vitamin D deficiency (E55.9) Active confirmed Problem 66144080 Anxiety (F41.9) Active confirmed Problem 737182231 Seasonal allergi es (J30.2) Active confirmed Problem 44789452 Irregular period s (N92.6) Active confirmed Problem 72797270 Amenorrhea (N91.2) Active confirmed Problem 28067558 Restless leg (G25.81) Active confirmed Problem 70805134 Acute URI (J06.9) Active confirmed Problem 63457933 Paresthesias (R20.2) Active confirmed Problem 495477414 Psychophysiologi richar insomnia (F51.04) Active confirmed Problem 3329387 Migraine with au ra and without status migrainosus, not intractable (G43.109) Active confirmed Problem 518549793 Dyslipidemia (E78.5) Active confirmed Problem 598410199 Respiratory trac t congestion with cough (R05) Active confirmed Problem 588919918 Seasonal allergi c rhinitis, unspecified trigger (J30.2) Active confirmed Problem 49342669 Allergic rhiniti s, unspecified seasonality, unspecified trigger (J30.9) Active confirmed Vital Signs Heart Rate 64 /min 07/16/2024 Blood pressure diastolic 70 mm Hg 07/16/2024 Height 63 in 07/16/2024 Blood pressure systolic 102 mm Hg 07/16/2024 Weight 163.4 lbs 07/16/2024 BMI 28.94 kg/m2 07/16/2024 Encounters Encounter Location Date Provider Diagnosis [facility] [address] [place] [id number] 09/19/2023 Daily Crowdy Psychophysiological insomnia F51.04 ; Routine physical examination Z00.00 ; Vitamin D deficiency E55.9 ; Dyslipidemia E78.5 ; Fatigue, unspecified type R53.83 ; Chest pressure R07.89 and Seasonal allergies J30.2 [facility] [address] [place], [place] [id number] 04/16/2024 Daily Crowdy Pain in right knee M 25.561 and Pain in left knee M25.562 [facility] [address] [place], [place] [id number] 05/15/2024 Daily Crowdy Epigastric pain R10. 13 ; Elevated glucose R73.09 ; Vitamin D deficiency E55.9 ; Vitamin B12 deficiency E53.8 ; Restless leg G25.81 and Fatigue, unspecified type R53.83 [facility] [address] [place], [place] [id number] 07/16/2024 Curly [place] Vitamin D deficiency E55.9 [facility] [address] [place], [place] [id number] 09/20/2023 Daily Crowdy [facility] [address] [place] [id number] 10/05/2023 Daily Crowdy Chest pressure R07.8 9 [facility] [address] [place], [place] [id number] 04/17/2024 Daily Crowdy [facility] [address] [place], [place] [id number] 05/19/2024 Curly [place] [facility] [address] [place], [place] [id number] 07/18/2024 Curly [place] Assessments Encounter Date Diagnosis (ICD Code) Assessment Notes Treatment Notes Treatment Clinical Notes Section Notes 09/19/2023 Routine physical examination (ICD-10 - Z00.00) Will check labs today. 09/19/2023 Psychophysiological insomnia (ICD-10 - F51.04) 10/05/2023 Chest pressure (ICD- 10 - R07.89) 04/16/2024 Pain in right knee (ICD-10 - M25.561) Will get x-rays and make an ortho appt. She may benefit from injections. 04/16/2024 Pain in left knee (ICD-10 - M25.562) 05/15/2024 Elevated glucose (ICD-10 - R73.09) 05/15/2024 Epigastric pain (ICD -10 - R10.13) 07/16/2024 Vitamin D deficiency (ICD-10 - E55.9) 05/15/2024 Vitamin D deficiency (ICD-10 - E55.9) 09/19/2023 Vitamin D deficiency (ICD-10 - E55.9) 09/19/2023 Dyslipidemia (ICD-10 - E78.5) 05/15/2024 Vitamin B12 deficien cy (ICD-10 - E53.8) 05/15/2024 Restless leg (ICD-10 - G25.81) 09/19/2023 Fatigue, unspecified type (ICD-10 - R53.83) 05/15/2024 Fatigue, unspecified type (ICD-10 - R53.83) 09/19/2023 Chest pressure (ICD- 10 - R07.89) Has chest presure off and on and her mother just had stents placed. She would like an echo. 09/19/2023 Seasonal allergies (ICD-10 - J30.2) Will stop the xyzal and try some sun. She has been on xyzal for years. Plan Of Treatment Pending Test Test Name Order Date H-DIARRHEA PANEL 04/28/2021 Insurance Providers Payer Name Payer Address Payer Phone Subscriber Number Group Number Insured Name Patient Relationship to Insured Coverage Start Date Coverage End Date [facility] [employer] [address] [place] [address] [id number] [id number] HYDE Self - patient is the insured Medical (General) History Medical History History ICD Code migraine headache polycystic ovary syndrome celiac disease Gastric diverticulum, Dx: 2009 Seasonal allergies -follows with Dr. Cliff ross Surgical History Surgery Date(Month/Year) wisdom teeth 2008 [facility] 12/2010 Tumor Removal - L Ovary 2016 03/2017 Colonoscopy R Foot Surgery - Repair - Fracutred 5th Digit Partial hysterectomy 2023 Uterine ablation Hospitalization History Reason Date(Month/Year) [facility] Fract[facility] Foot 03/02/2020 [facility] ER- UTI 07/2014 [facility] ER- Chest Pains 07/19/2011 [facility] ER-Abdominal Pain 07/15/2009 none
== END 2024-08-06 23:59 | disposition home or self-care (01) ==
LOC: RAD 12:58
PROVIDERS: PCP Physician Assistant; Visit Provider Nurse Practitioner
DX: Z13.29 Encounter for screening for other suspected endocrine disorder (principal)
CPT/HCPCS: 76536

== ENCOUNTER 2024-08-10 21:29 | Emergency (ER) | payer BC, SELFPAY ==
--- OUTSIDE RECORDS SUMMARY | 2024-05-15 03:00 | XMS_ITS ---
Author Organization [facility] Address [address] [facility] [address] [place] [id number] Care Team Providers Care Landman Name Role Phone Curly Carlton Primary Care Provider [phone] Daily Canales [phone] REASON FOR VISIT celiac disease and PCOS Encounters Encounter Location Date Provider Diagnosis Fredy [address] [facility] [address] [place] [id number] 05/15/2024 Daily Eubanks Plan Of Treatment No Information Progress Notes * NIKI LUGOB:1985 (38 yo F)Acc No.[id number]:05/15/2024 Progress Notes Patient: OMER DALTON Provider: INDIANA Sutton :1985 A ge:38 Y S ex:Female Date:05/15/2024 Address:[address] [place] [address] [place], [id number] Pcp:Curly Carlton Subjective: * Chief Complaints: * 1 . celiac disease and PCOS. * Medical History: Objective: * Vitals: Assessment: Plan: * Treatment: * Billing Information: * Visit Code: * Procedure Codes: * Electronic signature of INDIANA Skinner on 08/10/2024 at 10:21 PM EDT Sign off status: Pending * Provider: INDIANA Sutton Date: 05/15/2024 Generated for Printi ng/Fagretta/eTransmitting on: 08/10/2024 10:21 PM EDT
--- OUTSIDE RECORDS SUMMARY | 2024-05-15 09:15 | XMS_ITS ---
Author Organization [facility] Address [address] [facility] [address] [place] [id number] Care Team Providers Care Rn Urology Name Role Phone Curly Carlton Primary Care Provider [phone] Daily Eubanks Unavailable [phone] Allergies Allergen (clinical drug ingredient) Drug/Non Drug Allergy documented on EMR Reaction Allergy Type Onset Date Status erythromycin Erythromycin Unknown Drug Allergy A ctive Results Component Value Reference Range Notes CBC Venipuncture (in house) Reviewed date:05/15/2024 04:35:35 PM Interpretation: Performing Lab: Notes/Report: wbc 7.6 3.5 - 10 lymph 25.5% 15 - 50 mid 7.2% 2 - 15 gran 67.3% 35 - 80 rbc 4.64 3.5 - 5.5 hgb 14.0 11.5 - 16.5 hct 40.7 35 - 55 mcv 87.9 75 - 100 mch 30.3 25 - 35 mchc 34.4 31 - 38 platlet 253 100 - 400 Glycohemoglobin A1c (in hous e) Reviewed date:05/15/2024 04:35:50 PM Interpretation:5.1% Performing Lab: Notes/Report: 5.1% glycohemoglobin 5.1% 5 - 6.5 % P-Amylase Reviewed date:05/19/2024 09:55:22 AM Interpretation:30 Performing Lab: Notes/Report: Test performed by [facility] , [address], [place] [address] Dl Garduno MD, Sofa Cover Inspector CLIA: [id number] Amylase 30 28-100 U/L P-Vitamin B12 Reviewed date:05/19/2024 09:55:22 AM Interpretation:Normal Performing Lab: Notes/Report: Test performed by [facility] [address] , [address], [place] [address] Dl Garduno MD, Sofa Cover Inspector CLIA: [id number] Vitamin B12 699 045-1405 pg/mL P-Comprehensive Metabolic Pa joann (CMP) Reviewed date:05/19/2024 09:55:22 AM Interpretation:Normal Performing Lab: Notes/Report: Test performed by [facility] [address] [place] [address] , [address], [place] [address] Dl Garduno MD, Sofa Cover Inspector CLIA: [id number] Sodium 139 135-145 mmol/L Potassium 4.0 3.5-5.3 mmol/L Chloride 105 97-108 mmol/L CO2 24 22-32 mmol/L Glucose 87 65-99 mg/dL BUN 10 6-20 mg/dL Creatinine 0.80 0.50-1.00 mg/dL Calcium 9.7 8.6-10.4 mg/dL eGFR by Creatinine 97 >59 mL/min/1.73m2 Protein 7.1 6.0-8.3 g/dL Albumin 4.5 3.5-5.3 g/dL Alkaline Phosphatase 56 35-121 IU/L ALT (SGPT) 16 <5-47 IU/L AST (SGOT) 17 <5-40 IU/L Bilirubin, Total 0.3 <0.2-1.2 mg/dL A/G Ratio 1.7 1.1-2.5 P-T4 Free (thyroxine) Reviewed date:05/19/2024 09:55:22 AM Interpretation:Normal Performing Lab: Notes/Report: Test performed by [facility] [address] , [place] [address] Dl Garduno MD, Sofa Cover Inspector CLIA: [id number] Thyroxine Free (free T4) 1.21 0.86-1.76 ng/dL P-Lipase Reviewed date:05/19/2024 09:55:22 AM Interpretation:Normal Performing Lab: Notes/Report: Test performed by [facility] [address] [place] [address] , [place] [address] Dl Garduno MD, Sofa Cover Inspector CLIA: [id number] Lipase 30.1 13.0-60.0 u/L P-Magnesium Reviewed date:05/19/2024 09:55:22 AM Interpretation:Normal Performing Lab: Notes/Report: Test performed by [facility] , [place] [address] Dl Garduno MD, Sofa Cover Inspector CLIA: [id number] Magnesium 2.1 1.6-2.4 mg/dL P-Thyroid Antibody Panel (TA BS) Reviewed date:05/19/2024 09:55:22 AM Interpretation:Thyroid Peroxidase Antibody <9 Performing Lab: Notes/Report: Test performed by [facility] [address] , [place] [address] Dl Garduno MD, Sofa Cover Inspector CLIA: [id number] Thyroid Peroxidase Antibody <9 <9-34 IU/mL An elevated Thyroid Peroxidase Antibody should not be used alone to make the diagnosis of autoimmune thyroid disease. A result of <34 IU/mL does not definitively rule out the possibility of autoimmune thyroid disease. Thyroglobulin Antibody 16.9 <10-115.0 IU/mL The test is performed by the Jennifer ECLIA methodology. Values obtained with different assay methods or kits cannot be directly compared. P-TSH Reviewed date:05/19/2024 09:55:22 AM Interpretation:Normal Performing Lab: Notes/Report: Test performed by [facility] [address] , [place] [address] Dl Garduno MD, Sofa Cover Inspector CLIA: [id number] TSH 1.17 0.43-5.25 mU/L P-Vitamin D 25-Hydroxy Reviewed date:05/19/2024 09:55:22 AM Interpretation:25.9 Performing Lab: Notes/Report: Test performed by [facility] [address] , [place] [address] Dl Garduno MD, Sofa Cover Inspector CLIA: [id number] Vitamin D 25-Hydroxy 25.9 30.0-100.0 ng/mL Interpretation of Vitamin D 25 [place]: < 20 ng/mL - Deficiency 20 - 29 ng/mL - Insufficiency 30 - 100 ng/mL - Sufficiency > 100 ng/mL - Super-therapeutic- toxicity may occur above this level. Clinical correlation required. REASON FOR VISIT blood sugar issues; thyroid nodules Medications Medication SIG (Take, Route, Frequency, Duration) Notes Start Date End Date Status PROBIOTICS P.O. DAILY *Please review f or potential replacement for e-prescription and drug interaction check* Active Flonase Allergy Relief 50 MCG/ACT 1 spray(s) in each nostril once a day 10/21/2021 Active Levocetirizine Dihydrochloride 5 MG 1 tab(s) orally once a day (in the evening) for 30 Active MAXIMUM VITAMIN D3 325 MCG (13,000 IU) 1 TAB(S) ORALLY 3 TIMES A WEEK *Please review for potential replacement for e-prescription and drug interaction check* 10/27/2021 Active Problems Problem Type SNOMED Code ICD Code Onset Dates Problem Status W/U Status Risk Notes Problem 23116195 Restless leg (G25.81) Active confirmed Vital Signs Blood pressure systolic 112 mm Hg 05/16/19 25 Blood pressure diastolic 60 mm Hg 025 Heart Rate 63 /min 05/15/2024 Height 63 in 05/15/2024 Weight 166 lbs 05/15/2024 BMI 29.40 kg/m2 05/15/2024 Encounters Encounter Location Date Provider Diagnosis [facility] [address] [place] [address] [id number] 05/15/2024 Daily Eubanks Epigastric pain R10. 13 ; Elevated glucose R73.09 ; Vitamin D deficiency E55.9 ; Vitamin B12 deficiency E53.8 ; Restless leg G25.81 and Fatigue, unspecified type R53.83 Assessments Encounter Date Diagnosis (ICD Code) Assessment Notes Treatment Notes Treatment Clinical Notes Section Notes 05/15/2024 Epigastric pain (ICD-10 - R10.13) 05/15/2024 Elevated glucose (ICD-10 - R73.09) 05/15/2024 Vitamin D deficiency (ICD-10 - E55.9) 05/15/2024 Vitamin B12 deficiency (ICD-10 - E53.8) 05/15/2024 Restless leg (ICD-10 - G25.81) 05/15/2024 Fatigue, unspecified type (ICD-10 - R53.83) Plan Of Treatment Next Appt Details Follow Up: via phone to repo rt test results, Reason: Progress Notes * NIKI LUGOB:1985 (38 yo F)Acc No.[id number]:05/15/2024 Progress Notes Patient: OMER DALTON Provider: INDIA[place] Sutton :1985 A ge:38 Y S ex:Female Date:05/15/2024 Address:[address] [place] [address], [facility], [id number] Pcp:Curly Carlton Subjective: * Chief Complaints: * 1 . Blood sugar issues; thyroid nodules. * HPI: E ndocrinology: 38 year old female presents with c/o Recent Blood Sugars P t states that she has been checking fasting blood sugar the last few days and it has been 120-112. Pt states she has tweaked her diet a little bit to try to be healthier but is not sure if that is helping. She has had some epigastric pain off and on.. * ROS: D ERMATOLOGY: no R fortino. n o H glen. G ASTROENTEROLOGY: no N ausea. n o V omiting. U ROLOGY: no D ifficulty urinating. n o B lood in urine. * Medical History: M igraine headache, Polycystic ovary syndrome, Celiac disease, Gastric diverticulum, Dx: 2009, Seasonal allergies -follows with Dr. Jiménez. * Surgical History: w isdom teeth 2008, D&C-Harpel 12/2010, Tumor Removal - L Ovary 2015, 03/2017, Colonoscopy , R Foot Surgery - Repair - Fracutred 5th Digit , Partial hysterectomy 2023, Uterine ablation . * Hospitalization/Major Diagno stic Procedure: n one , [facility]-Abdominal Pain 07/15/2009, [facility]- Chest Pains 07/19/2011, [facility] ER- UTI 07/2014, [facility] - Fractured Foot 03/02/2020. * Family History: F ather: alive. M other: alive. P aternal Grand Father: alive. P aternal Grand Mother: . M aternal Grand Father: alive. M ateyair Grand Mother: alive. 1 brother(s) . 1 [...] Allergies: E rythromycin. Objective: * Vitals: W t:166, Temp:98.1, BP:112/60, HR:63, Nurse:david, Ht: 63, BMI:29.40. * Examination: G eneral Examination: General Appearance: N AD. HEENT: u nremarkable. Oral cavity: n o lesions, mucosa moist and WNL, no erythema. Neck: s upple, no lymphadenopathy. Chest: n ormal shape and expansion. Heart: R SR. Lungs: c lear to auscultation. Abdomen: bowel sounds present, soft and nontender, no organomegaly or masses, no guarding or rigidity. Neurologic Exam: I ntact, gait normal. Skin: n ormal, no rash. Peripheral pulses: n ormal (2+) bilaterally. Extremities: n o leg edema. Assessment: * Assessment: 1. E levated glucose - R73.09 (Primary) 2 . E pigastric pain - R10.13 ? 3 . V itamin D deficiency - E55.9 4 . V itamin B12 deficiency - E53.8 5 . R estless leg - G25.81 6 . F atigue, unspecified type - R53.83 Plan: * Treatment: Value Reference Range A /G Ratio 1.7 1.1-2.5 - * A lbumin 4.5 3.5-5.3 - g/dL * A lkaline Phosphatase 56 35-121 - IU/L * A LT (SGPT) 16 <5-47 - IU/L * A ST (SGOT) 17 <5-40 - IU/L * B ilirubin, Total 0.3 <0.2-1.2 - mg/dL * B UN 10 6-20 - mg/dL * C alcium 9.7 8.6-10.4 - mg/dL * C hloride 105 97-108 - mmol/L * C O2 24 22-32 - mmol/L * C reatinine 0.80 0.50-1.00 - mg/dL * G lucose 87 65-99 - mg/dL * P otassium 4.0 3.5-5.3 - mmol/L * S odium 139 135-145 - mmol/L * P rotein 7.1 6.0-8.3 - g/dL * e GFR by Creatinine 97 >59 - mL/min/1.73m2 * Laura Rangel 05/19/2024 09: 55:12 AM > see phone encounter ?LAB: Glycohemoglobin A1c (in house) (Collection Date & Time - 05/15/2024)? 5.1%* Value Reference Range g lycohemoglobin 5.1% 5 - 6.5 % * Yissel Ward 05/15/2024 2:24:00 PM > , Provider reviewed results while patient in office. 2.?Epigastric pain?LAB: P-Amylase (Collection Date & Time - 05/15/2024 01:04 PM)?30* Value Reference Range A mylase 30 28-100 - U/L * Laura Rangel 05/19/2024 09: 55:12 AM > see phone encounter ?LAB: P-Lipase (Collection Date & Time - 05/15/2024 01:04 PM)?Normal* Value Reference Range L ipase 30.1 13.0-60.0 - u/L * Laura Rangel 05/19/2024 09: 55:12 AM > see phone encounter 3.?Vitamin D deficiency?LAB: P-Vitamin D 25-Hydroxy (Collection Date & Time - 05/15/2024 01:04 PM)? 25.9* Value Reference Range V itamin D 25-Hydroxy 25.9 L 30.0-100.0 - ng/mL * Laura Rangel 05/19/2024 09: 55:12 AM > see phone encounter 4.?Vitamin B12 deficiency?LAB: P-Vitamin B12 (Collection Date & Time - 05/15/2024 01:04 PM)?Normal* Value Reference Range V itamin B12 751 267-1334 - pg/mL * Laura Rangel 05/19/2024 09: 55:12 AM > see phone encounter 5.?Restless leg?LAB: P-Magnesium (Collection Date & Time - 05/15/2024 01:04 PM)?Normal* Value Reference Range M agnesium 2.1 1.6-2.4 - mg/dL * Laura Rangel 05/19/2024 09: 55:12 AM > see phone encounter 6.?Fatigue, unspecified type?LAB: P-T4 Free (thyroxine) (Collection Date & Time - 05/15/2024 01:04 PM)? Normal* Value Reference Range T hyroxine Free (free T4) 1.21 0.86-1.76 - ng/d L * Juan CarlosLaura ross 05/19/2024 09: 55:12 AM > see phone encounter ?LAB: P-Thyroid Antibody Panel (TABS) (Collection Date & Time - 05/15/2024 01:04 PM)?Thyroid Peroxidase Antibody <9* Value Reference Range T hyroid Peroxidase Antibody <9 <9-34 - IU/mL * T hyroglobulin Antibody 16.9 <10-115.0 - IU/mL * Laura Rangel 05/19/2024 09: 55:12 AM > see phone encounter ?LAB: P-TSH (Collection Date & Time - 05/15/2024 01:04 PM)?Normal* Value Reference Range T SH 1.17 0.43-5.25 - mU/L * Laura Rangel 05/19/2024 09: 55:12 AM > see phone encounter ?LAB: CBC Venipuncture (in house) (Collection Date & Time - 05/15/2024)* Value Reference Range w bc 7.6 3.5 - 10 * l ymph 25.5% 15 - 50 * m id 7.2% 2 - 15 * g ran 67.3% 35 - 80 * r bc 4.64 3.5 - 5.5 * h gb 14.0 11.5 - 16.5 * h ct 40.7 35 - 55 * m cv 87.9 75 - 100 * m ch 30.3 25 - 35 * m chc 34.4 31 - 38 * p latlet 253 100 - 400 * Yissel 05/15/2024 2:31:01 PM > , Provider reviewed results while patient in office. * Procedure Codes: 8 3036 GLYCATED HEMOGLOBIN TEST, Modifiers: QW , 78250 CBC WITH AUTO DIFF, 3074F SYST BP LT 130 MM HG, 3078F DIAST BP < 80 MM HG, 3044F HG A1C LEVEL LT 7.0% * Follow Up: v ia phone to report test results * Billing Information: * Visit Code: 22195 Office Visit, Est Pt., Level 4. * Procedure Codes: 35593 GLYCATED HEMOGLOBIN TEST. Modifiers: QW 53944 CBC WITH AUTO DIFF. 3074F SYST BP LT 130 MM HG. 3078F DIAST BP < 80 MM HG. 3044F HG A1C LEVEL LT 7.0%. * Electronic signature of INDIANA Skinner on 08/10/2024 at 10:20 PM EDT Sign off status: Pending * Provider: INDIANA Sutton Date: 0 05/15/2024 Generated for Elisabeth ryan/Raissa/Mirthasmitting on: 0 08/10/2024 10:20 PM EDT History and Physical Notes * HPI (History of Present Illness) Category Sub-Category Detail Notes Category Not es Endocrinology Recent Blood Sugars Pt states th at she has been checking fasting blood sugar the last few days and it has been 120-112. Pt states she has tweaked her diet a little bit to try to be healthier but is not sure if that is helping. She has had some epigastric pain off and on. Examination Category Sub-Category Detail Notes Category Not es General Examination HEENT: unremarkable Heart: RSR Lungs: clear to auscultatio n Abdomen: bowel sounds present , soft and nontender, no organomegaly or masses, no guarding or rigidity Extremities: no leg edema General Appearance: NAD Skin: normal, no rash Neurologic Exam: Intact, gait normal Neck: supple, no lymphaden opathy Oral cavity: no lesions, mucosa m oist and WNL, no erythema Peripheral pulses: normal (2+) bilatera lly Chest: normal shape and exp ansion
--- OUTSIDE RECORDS SUMMARY | 2024-07-16 05:45 | XMS_ITS ---
Author Organization [facility] Address [address] [facility] [address] [place] [phone] Care Team Providers Care Slasher Operator Name Role Phone Curly Carlton Primary Care Provider Allergies Allergen (clinical drug ingredient) Drug/Non Drug Allergy documented on EMR Reaction Allergy Type Onset Date Status erythromycin Erythromycin Unknown Drug Allergy A ctive Results Component Value Reference Range Notes P-Vitamin D 25-Hydroxy Reviewed date:07/18/2024 09:55:16 AM Interpretation:31.5 Performing Lab: Notes/Report: Test performed by [employer] [address] [place] [address] , [address], [place] [address] Dl Garduno MD, Vp Cardiovascular CLIA: [id number] Vitamin D 25-Hydroxy 31.5 30.0-100.0 ng/mL Interpretation [...] [address] [place] [phone] 07/16/2024 Curly Carlton Vitamin D deficiency E55.9 Assessments Encounter Date Diagnosis (ICD Code) Assessment Notes Treatment Notes Treatment Clinical Notes Section Notes 07/16/2024 Vitamin D deficiency (ICD-10 - E55.9) Plan Of Treatment Next Appt Details Follow Up: via phone to repo rt test results, Reason: Progress Notes * CATRACHITANIKIB:1985 (38 yo F)Acc No.[id number]:07/16/2024 Progress Notes Patient: OMER DALTON Provider: Jonny Carlton M.D. :1985 A ge:38 Y S ex:Female Date:07/16/2024 Address:[address] [place] [phone] Subjective: * Chief Complaints: * 1 . [...] Hospitalization/Major Diagno stic Procedure: n one , [facility] ER-Abdominal Pain 07/15/2009, [facility] ER- Chest Pains 07/19/2011, [facility] ER- UTI 07/2014, [facility] - Fractured Foot 03/02/2020. * [...] results * Billing Information: * Visit Code: 19075 Office Visit, Est Pt., Level 3. * Procedure Codes: * Electronic signature of Beverley Carlton MD on 08/10/2024 at 10:20 PM EDT Sign off status: Pending * Provider: Jonny Carlton M.D. Date: 0 07/16/2024 Generated for Parki ng/Fastefanyg/eTransmitting on: 0 08/10/2024 10:20 PM EDT History [...]
--- OUTSIDE RECORDS SUMMARY | 2024-08-10 22:21 | XMS_ITS | Data Portability ---
Author Organization [place] [facility] [place] [facility] [place] Pfe[facility] ADMIN Address [address] [place] [id number] Care Team Providers Care Internet Sales Representative Name Role Phone JORY THOMAS Primary Care [...] By Organization Details Last Modified Time 06/14/2022 [id number] Advised Olive that her nodule is a [...] Updated DateTime 3 157.48 cm 32.3 kg/m2 31499.4 1 g 98.4 [degF] 85 /min 152 mm[Hg] 97 mm[Hg] [facility] 3 14:58:47 Social History None recorded. Functional Status None recorded. Mental Status None recorded. Family History Nothing Reported. Medical History Condition Response None N Emphysema N Depression N Anxiety Disorder N Arthritis N Acid Reflux (GERD) N Cancer N Stroke N Headaches N Fibromyalgia N Kidney Disease N Heart Problems N Heart Conditions N Migraines N Bleeding Disorder N Tuberculosis N Asthma N Sleep Disorder N GERD/Reflux N Glaucoma N Anesthesia Complications N Hearing Loss N Speech Delay N Allergies/Hayfever N Thyroid Problems N Developmental Delay N Anemia N Immune System Disorder N Heart Attack (ND) N Diabetes N Hyperlipidemia N Heart Disease N Hypertension N Gynecological HistoryNo gynecological history recorded. Obstetrics History GPAL:G 0 P 0 0 0 0 Past Encounters Encounter ID Performer Location Encounter Start Date Encounter Closed Date Diagnosis/Indication Diagnosis SNOMED-CT Code Diagnosis ICD10 Code Diagnosis Note [id number] Court Florence MD [facility] [place] [address], [facility] [place] [address] 06/14/2022 14:46:15 06/14/2022 15:36:48 Thyroid nodule 591674624 E04.1 Health Concerns Section Related Observation LastModified by Organization Detai ls LastModified Time None Recorded Concern Status LastModified by Organization Details LastModified Time None Recorded Advance Directives Directive None Recorded Payers Insurance Date Sequence Insurance Name Policy Number Policy Herron Covered Member ID Herron Member ID Guarantor Name 06/21/2022 1 [place] [id number] Louie Lugo [id number] Olive Lugo Notes Date Note Type [...] that evaluated as well. Court Florence MD [address], [place], [address], [facility] [place] [facility] [place] 06/20/2022 16:20:05 OBGyn Episode No OBEpisode recorded.
--- OUTSIDE RECORDS SUMMARY | 2024-08-10 22:21 | XMS_ITS | Patient Health Record ---
Author Organization [facility] Address [address] [place] [id number] Care Team Providers Care Negative Assembler Name Role Phone Curly Carlton Primary Care Provider Daily Eubanks Unavailable [phone] Allergies Allergen (clinical drug ingredient) Drug/Non Drug Allergy documented on EMR Reaction Allergy Type Onset Date Status erythromycin Erythromycin Unknown Drug Allergy A ctive Results Component Value Reference Range Notes P-Vitamin D 25-Hydroxy Reviewed date:07/18/2024 09:55:16 AM Interpretation:31.5 Performing Lab: Notes/Report: Test performed by [facility] [address] [place] [address] , [address], [place] [address] Dl Garduno MD, Search Marketing Coordinator CLIA: [id number] Vitamin D 25-Hydroxy 31.5 30.0-100.0 ng/mL Interpretation of Vitamin D 25 OH: < 20 ng/mL - Deficiency 20 - 29 ng/mL - Insufficiency 30 - 100 ng/mL - Sufficiency > 100 ng/mL - Super-therapeutic- toxicity may occur above this level. Clinical correlation required. CBC Venipuncture (in house) Reviewed date:09/19/2023 01:13:41 [...] Interpretation: Performing Lab: Notes/Report: Test performed by [facility] [address] [place] [address] [address], [place] [address] Dl Garduno MD, Search Marketing Coordinator CLIA: [id number] Vitamin B12 418 055-2133 pg/mL P-Comprehensive Metabolic Pa joann (CMP) Reviewed date:09/20/2023 08:54:03 AM Interpretation: Performing Lab: Notes/Report: Test performed by [facility] [address] [place] [address] [address], [place] [address] Dl Garduno MD, Search Marketing Coordinator CLIA: [id number] Sodium 140 135-145 mmol/L Potassium 4.4 3.5-5.3 [...] Interpretation: Performing Lab: Notes/Report: Test performed by [facility] [address] [place] [address] [address], [place] [address] Dl Garduno MD, Search Marketing Coordinator CLIA: [id number] Cholesterol 179 <200 mg/dL Triglycerides 116 <150 [...] Interpretation: Performing Lab: Notes/Report: Test performed by [facility] [address] [place] [address] [place] [address] Dl Garduno MD, Search Marketing Coordinator CLIA: [id number] TSH reflex to FT4 1.13 0.43-5.25 mU/L P-Vitamin D 25-Hydroxy Reviewed date:09/20/2023 08:53:50 AM Interpretation: Performing Lab: Notes/Report: Test performed by [facility] [address] [place] [address] [place] [address] Dl Garduno MD, Search Marketing Coordinator CLIA: [id number] Vitamin D 25-Hydroxy 25.6 30.0-100.0 ng/mL Interpretation of Vitamin D 25 OH: < 20 ng/mL - Deficiency 20 - 29 ng/mL - Insufficiency 30 - 100 ng/mL - Sufficiency > 100 ng/mL - Super-therapeutic- toxicity may occur above this level. Clinical correlation required. Echocardiogram Reviewed date:10/05/2023 05:18:48 PM Interpretation:mild MR Performing Lab: Notes/Report: mild MR X ray : Knee, left Reviewed date:04/17/2024 08:47:27 AM Interpretation: Performing Lab: Notes/Report: X ray : Knee, right Reviewed date:04/17/2024 08:47:11 AM Interpretation: Performing Lab: Notes/Report: CBC Venipuncture (in house) Reviewed date:05/15/2024 04:35:35 [...] Interpretation:30 Performing Lab: Notes/Report: Test performed by [facility] [address] [place], [place] [address] [place] , [address], [place] [address] Dl Garduno MD, Search Marketing Coordinator CLIA: [id number] Amylase 30 28-100 U/L P-Vitamin B12 Reviewed date:05/19/2024 09:55:22 AM Interpretation:Normal Performing Lab: Notes/Report: Test performed by [facility] [address] [place], [place] [address] [address] , [address], [place] [address] Dl Garduno MD, Search Marketing Coordinator CLIA: [id number] Vitamin B12 815 390-5129 pg/mL P-Comprehensive Metabolic Pa joann (CMP) Reviewed date:05/19/2024 09:55:22 AM Interpretation:Normal Performing Lab: Notes/Report: Test performed by [facility] [address] [place] [address] , [place] [address] Dl Garduno MD, Search Marketing Coordinator CLIA: [id number] Sodium 139 135-145 mmol/L Potassium 4.0 3.5-5.3 [...] Interpretation:Normal Performing Lab: Notes/Report: Test performed by [facility] [address] [place] [address] , [place] [address] Dl Garduno MD, Search Marketing Coordinator CLIA: [id number] Thyroxine Free (free T4) 1.21 0.86-1.76 ng/dL P-Lipase Reviewed date:05/19/2024 09:55:22 AM Interpretation:Normal Performing Lab: Notes/Report: Test performed by [facility] [address] [place] [address] , [place] [address] Dl Garduno MD, Search Marketing Coordinator CLIA: [id number] Lipase 30.1 13.0-60.0 u/L P-Magnesium Reviewed date:05/19/2024 09:55:22 AM Interpretation:Normal Performing Lab: Notes/Report: Test performed by [facility] [address] [place] [address] Sha[address], [place] [address] Dl Garduno MD, Search Marketing Coordinator CLIA: [id number] Magnesium 2.1 1.6-2.4 mg/dL P-Thyroid Antibody Panel (TA BS) Reviewed date:05/19/2024 09:55:22 AM Interpretation:Thyroid Peroxidase Antibody <9 Performing Lab: Notes/Report: Test performed by [facility] [address] [place] [address] , [facility] [place] [address] Dl Garduno MD, Search Marketing Coordinator CLIA: [id number] Thyroid Peroxidase Antibody <9 <9-34 IU/mL An elevated Thyroid Peroxidase Antibody should not be used alone to make the diagnosis of autoimmune thyroid disease. A result of <34 IU/mL does not definitively rule out the possibility of autoimmune thyroid disease. Thyroglobulin Antibody 16.9 <10-115.0 IU/mL The test is performed by the [employer] ECLIA methodology. Values obtained with different assay methods or kits cannot be directly compared. P-TSH Reviewed date:05/19/2024 09:55:22 AM Interpretation:Normal Performing Lab: Notes/Report: Test performed by [facility] [address] [place] [address] , [place] [address] Dl Garduno MD, Search Marketing Coordinator CLIA: [id number] TSH 1.17 0.43-5.25 mU/L P-Vitamin D 25-Hydroxy Reviewed date:05/19/2024 09:55:22 AM Interpretation:25.9 Performing Lab: Notes/Report: Test performed by [facility] [address] [place] [address] , [place] [address] Dl Garduno MD, Search Marketing Coordinator CLIA: [id number] Vitamin D 25-Hydroxy 25.9 30.0-100.0 ng/mL Interpretation [...] Vaccine Route Administration Date Status Comme nts Fluzone Quad (6months&older) IM Intramuscular 12/28/2017 Administered HEPB VACC PED/ADOL DOSE IM IM Intramuscular 11/30/2005 Adm inistered Tetanus-DT IM Intramuscular 11/30/2005 Administered tuberculin (ppd) ID Intradermal 07/08/2009 Administered Problems Problem Type SNOMED Code ICD Code Onset Dates Problem Status W/U Status Risk Notes Problem Migraine (96744660) Migraine, unspecified, without mention of intractable migraine (346.90) Active confirmed Problem Vitamin D defici ency (E55.9) Active confirmed Problem 67511278 Anxiety (F41.9) Active confirmed Problem 384089170 Seasonal allergi es (J30.2) Active confirmed Problem 83046491 Irregular period s (N92.6) Active confirmed Problem 18649985 Amenorrhea (N91.2) Active confirmed Problem 47647797 Restless leg (G25.81) Active confirmed Problem 79568271 Acute URI (J06.9) Active confirmed Problem 87828489 Paresthesias (R20.2) Active confirmed Problem 555409475 Psychophysiologi richar insomnia (F51.04) Active confirmed Problem 1659471 Migraine with au ra and without status migrainosus, not intractable (G43.109) Active confirmed Problem 846334079 Dyslipidemia (E78.5) Active confirmed Problem 434403079 Respiratory trac t congestion with cough (R05) Active confirmed Problem 842836178 Seasonal allergi c rhinitis, unspecified trigger (J30.2) Active confirmed Problem 68232116 Allergic rhiniti s, unspecified seasonality, unspecified trigger (J30.9) Active confirmed Vital Signs Heart Rate 64 /min 07/16/2024 Blood pressure diastolic 70 mm Hg 07/16/2024 Height 63 in 07/16/2024 Blood pressure systolic 102 mm Hg 07/16/2024 Weight 163.4 lbs 07/16/2024 BMI 28.94 kg/m2 07/16/2024 Encounters Encounter Location Date Provider Diagnosis [facility] [address] [place] [id number] 09/19/2023 Daily Eubanks Psychophysiological insomnia F51.04 ; Routine physical examination Z00.00 ; Vitamin D deficiency E55.9 ; Dyslipidemia E78.5 ; Fatigue, unspecified type R53.83 ; Chest pressure R07.89 and Seasonal allergies J30.2 [facility] [address] [place] [id number] 04/16/2024 Daily Crowdy Pain in right knee M 25.561 and Pain in left knee M25.562 [facility] [address] [place], [place] [id number] 05/15/2024 Daily Crowdy Epigastric pain R10. 13 ; Elevated glucose R73.09 ; Vitamin D deficiency E55.9 ; Vitamin B12 deficiency E53.8 ; Restless leg G25.81 and Fatigue, unspecified type R53.83 [facility] [address] [facility] [address] [place] [id number] 07/16/2024 Curly Brightwood Vitamin D deficiency E55.9 [facility] [address] [place], [place] [id number] 09/20/2023 Daily Crowdy [facility] [address] [place] [id number] 10/05/2023 Daily Masondy Chest pressure R07.8 9 [facility] [address] [place] [id number] 04/17/2024 Daily Crowdy [facility] [address] [place] [id number] 05/19/2024 Curly Brightwood [facility] [address] [place], [place] [id number] 07/18/2024 Curly Brightwood Assessments Encounter Date Diagnosis (ICD Code) Assessment Notes Treatment Notes Treatment Clinical Notes Section Notes 09/19/2023 Routine physical examination (ICD-10 - Z00.00) Will check labs today. 10/05/2023 Chest pressure (ICD- 10 - R07.89) 04/16/2024 Pain in right knee (ICD-10 - M25.561) Will get x-rays and make an ortho appt. She may benefit from injections. 04/16/2024 Pain in left knee (ICD-10 - M25.562) 05/15/2024 Elevated glucose (ICD-10 - R73.09) 05/15/2024 Epigastric pain (ICD -10 - R10.13) 07/16/2024 Vitamin D deficiency (ICD-10 - E55.9) 09/19/2023 Psychophysiological insomnia (ICD-10 - F51.04) 05/15/2024 Vitamin D deficiency (ICD-10 - E55.9) 09/19/2023 Vitamin D deficiency (ICD-10 - E55.9) 05/15/2024 Vitamin B12 deficien cy (ICD-10 - E53.8) 09/19/2023 Dyslipidemia (ICD-10 - E78.5) 05/15/2024 Restless leg (ICD-10 - G25.81) 09/19/2023 Fatigue, unspecified type (ICD-10 - R53.83) 09/19/2023 Chest pressure (ICD- 10 - R07.89) Has chest presure off and on and her mother just had stents placed. She would like an echo. 05/15/2024 Fatigue, unspecified type (ICD-10 - R53.83) 09/19/2023 Seasonal allergies (ICD-10 - J30.2) Will stop the xyzal and try some sun. She has been on xyzal for years. Plan Of Treatment Pending Test Test Name Order Date H-DIARRHEA PANEL 04/28/2021 Insurance Providers Payer Name Payer Address Payer Phone Subscriber Number Group Number Insured Name Patient Relationship to Insured Coverage Start Date Coverage End Date [facility] [address] [place] [address] [id number] Self - patient is the insured Medical (General) History Medical History History ICD Code migraine headache polycystic ovary syndrome celiac disease Gastric diverticulum, Dx: 2009 Seasonal allergies -follows with Dr. Cliff ross Surgical History Surgery Date(Month/Year) wisdom teeth 2009 [facility] 12/2010 Tumor Removal - L Ovary 2016 03/2017 Colonoscopy R Foot Surgery - Repair - Fracutred 5th Digit Partial hysterectomy 2023 Uterine ablation Hospitalization History Reason Date(Month/Year) [facility] - Fractured Foot 03/02/2020 [facility]- UTI 07/2014 [facility]- Chest Pains 07/19/2011 [facility]-Abdominal Pain 07/15/2009 none
[2024-08-10 22:24] VITALS: BP 131/88; PULSE 73; RESP 14; TEMP 36.9; O2SAT 99; BMI 29.9
[2024-08-10 22:36] LABS: Microscopic, Urine URINE MICROSCOPIC (MICROSCOPIC)
--- NOTE | 2024-08-10 22:48 | CT_ITS ---
PROCEDURE INFORMATION: Exam: CT Abdomen And Pelvis With Contrast Exam date and time: 08/10/2024 11:12 PM Age: 38 years old Clinical indication: Abdominal pain; Additional info: Rlq pain radiating to flank TECHNIQUE: Imaging protocol: Computed tomography of the abdomen and pelvis with contrast. Total images: 296 Radiation optimization: All CT scans at this facility use at least one of these dose optimization techniques: automated exposure control; mA and/or kV adjustment per patient size (includes targeted exams where dose is matched to clinical indication); or iterative reconstruction. Contrast material: ISOVUE; Contrast volume: 75 ml; Contrast route: IV; COMPARISON: CT ABDOMEN PELVIS W CON 03/21/2024 3:54 PM FINDINGS: Lungs: Lung bases are clear. Heart: Normal heart size. Liver: Focal fatty infiltration near the falciform ligament. Otherwise, unremarkable liver. Gallbladder and biliary ducts: Normal. No calcified stones. No ductal dilation. Pancreas: Normal. No ductal dilation. Spleen: Normal. No splenomegaly. Adrenal glands: Normal. No mass. Kidneys and ureters: No hydronephrosis, nephrolithiasis, or renal mass. No perinephric fluid. No ureteral stones. Stomach and bowel: Collapsed stomach. Unremarkable duodenum. No ileus or bowel obstruction. Unremarkable small bowel and terminal ileum. Mild diverticulosis versus prominent haustration is at the splenic flexure. Otherwise, unremarkable colon and rectum. Appendix: Normal appendix. Intraperitoneal space: Unremarkable. No free air. No significant fluid collection. Vasculature: Nonaneurysmal abdominal aorta. Major abdominal vessels enhance appropriately. Retroaortic left renal vein is a normal variant. Pelvic phleboliths. Lymph nodes: Unremarkable. No enlarged lymph nodes. 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 Reproductive: Status post hysterectomy. 3.2 cm right ovarian cyst. Bones/joints: Unremarkable. No acute fracture. Soft tissues: Unremarkable. IMPRESSION: 1. 3.2 cm right ovarian cyst. 2. Normal appendix. 3. Additional chronic and incidental findings.
[2024-08-10 22:56] VITALS: BP 117/84; PULSE 66; O2SAT 100
--- NOTE | 2024-08-10 22:58 | HMH.EDGENADL ---
Discharge Plan Disposition Patient Disposition: Home, Self-Care Condition: Good Prescriptions Prescriptions: No Action levocetirizine 5 mg tablet 5 mg PO HS Patient Comments: TAKE 1 TABLET BY MOUTH EVERY EVENING azelastine 137 mcg (0.1 %) spray,non-aerosol 1 spray intranasal DAILY Patient Comments: USE 2 SPRAYS IN EACH NOSTRIL TWICE DAILY albuterol sulfate 90 mcg/actuation HFA aerosol inhaler 1 inh inhalation QID Referrals Follow up/Referrals: Des Chan MD [Primary Care Provider, Medical] - See instructions Activity Restrictions/Add. Instructions Additional Instructions/Restrictions: ContinueYou were evaluated in the ER and are believed to be appropriate for discharge at this time. Continue taking home medications as previously prescribed. Take Tylenol and ibuprofen if needed for pain, do not exceed the recommended dose on the bottle. Drink water and eat a small snack each time you take these medications to avoid side effects. Make an appointment with your primary care doctor for reevaluation in 2 to 3 days. Return to the ER with any new, worsening, or otherwise concerning symptoms. Clinical Impressions Clinical Impression: Abdominal pain, right lower quadrant, Cyst of right ovary Instructions Patient Instructions: DI for Acute Abdominal Pain Print Language Print Language: [place] Citizen Discharge ED Provider: Marquez Davey General Adult HPI <Marquez Davey MD - Last Filed: 08/10/24 23:14> General Chief complaint: Abdominal Pain Stated complaint: abdominal and back pain Time Seen by Provider: 08/10/24 22:28 Mode of Arrival: Family Vehicle Source of Information: Patient Description of Symptoms (Recalled from ER Triage Doc. by RN): Abd pain Pt presents to the ED with c/o RLQ abd pain and nausea. Pt reports nausea and discomfort X 3 days and reports worsening abd pain X 4 hrs ago. History of Present Illness HPI narrative: Please note that above description of symptoms, in this electronic medical record under categorization of recalled from ER triage doctor by RN are reflective of an initial nursing assessment, however, is not reflective of my full history and physical exam that was personally taken and clarified. Consequentially, this preceding description of symptoms, which may include the patient's categorized chief complaint in the EMR, do not reflect my personal clinical impression, and the ultimate description of history of present illness and patient stated complaints should be deferred to this section of the note. Unless stated otherwise or congruent with this section of the note, additional signs, symptoms, or incongruence should be interpreted as inaccurate with my clinical impression. Related Data Home Medications ?Medication ?Instructions ?Recorded ?Confirmed levocetirizine 5 mg tablet 5 mg PO HS Allergy Symptoms 07/22/19 05/19/24 albuterol sulfate 90 mcg/actuation 1 inh inhalation QID 02/14/24 05/19/24 aerosol inhaler azelastine 137 mcg (0.1 %) nasal 1 spray intranasal DAILY 02/14/24 05/19/24 spray Allergies Allergy/AdvReac Type Severity Reaction Status Date / Time almond Allergy Intermediate Wheezing Verified 08/10/24 22:31 [place]alli And Derivatives Allergy Intermediate Wheezing Verified 08/10/24 22:31 erythromycin base Allergy Intermediate I-HIVES, Verified 08/10/24 22:31 STOMACH UPSET escitalopram Allergy Intermediate Other Verified 08/10/24 22:31 orange Allergy Intermediate Wheezing Verified 08/10/24 22:31 pecan nut Allergy Intermediate Wheezing Verified 08/10/24 22:31 walnut Allergy Intermediate Wheezing Verified 08/10/24 22:31 methylergonovine (From Allergy Unknown EDEMA Verified 08/10/24 22:31 Methergine) codeine (From [place] with AdvReac Severe Heart Races Verified 08/10/24 22:31 Codeine) [facility] <Marquez Davey MD - Last Filed: 08/10/24 23:14> [facility] Disclaimer: The information contained in this section may have been updated after the patient was seen, as this information can be updated by other users. Medical History Vaginal Discharge Vaginal itching History of ovarian cyst Major depressive disorder Generalized anxiety disorder Vaginal lesion Family history of breast cancer Endometriosis determined by laparoscopy Acute pelvic pain, female Anxiety Depression Snoring Night terrors, adult Vaginitis Chronic pelvic pain in female Dyspareunia in female Umbilical hernia Dysphagia Thyroid Nodule Fractured metatarsal bone Surgical History H/O laparoscopy S/P abdominal hysterectomy and left salpingo-oophorectomy History of foot surgery History of colonoscopy Hx of umbilical hernia repair History of wisdom tooth extraction, class IV edentulism History of section History of endometrial ablation History of tubal ligation Family History Other Coronary artery disease FHx: mental illness Family history of hyperlipidemia Family history of myocardial infarction Family history of thyroid nodule Family hx-breast malignancy Social History Smoking Status: Never smoker second hand exposure: No alcohol intake: current alcohol intake frequency: holidays/special occasions only counseling given: No substance use type: denies use counseling given: No current occupational status: unemployed Travel in the last 8 weeks?: None adopted: No caregiver/support person: Yes foster care: No household members: spouse and family housing: house lives independently: Yes marital status: number of children: 3 number of grandchildren: 0 education level: high school 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 current occupational exposures/hazards: No sexually active: Yes caffeine: Yes physical activity: none special john needs: No agree to transfusion: No working smoke detector in home: Yes fire extinguisher in home: No carbon monox detector in home: Yes firearms in home: Yes firearms unloaded and locked: Yes do you feel safe at home: Yes victim of physical abuse: No victim of emotional abuse: No victim of sexual abuse: No would you like helpful sources: No Have you lived/traveled outside [place] in past 30 days?: No Contact w/someone who lives/traveled outside US past 30 days?: No Exposure to someone with infectious disease in past 14 days?: No Do you have a fever (greater than 100.4 F or 38 C)?: No Have you tested positive for COVID-19?: No Exposed to someone with COVID-19 in past 14 days?: No Do you have a sore throat?: No Do you have a cough?: No Do you have any weakness?: No Do you have any diarrhea?: No Are you experiencing any unusual bleeding?: No Do you have any muscle aches/pain?: No Do you have any abdominal pain?: No Are you experiencing loss of taste or smell?: No Other Medical History Have you received the Flu Vaccine for this season: No Have you received the Pneumonia Vaccine: No <Marquez Davey MD - Last Filed: 08/10/24 23:14> ROS Obtained: Yes All systems reviewed & no additional complaints except as documented Physical Exam <Marquez Davey MD - Last Filed: 08/10/24 23:14> General General appearance: alert and in no apparent distress Head Head exam: atraumatic and normocephalic Eye Eye exam: Present normal appearance, PERRL and EOMI Neck Neck exam: Present normal inspection, full ROM and trachea midline Respiratory Respiratory exam: Absent respiratory distress, wheezes, stridor, accessory muscle use or prolonged expiratory phase Cardiovascular Cardiovascular exam: Present other (Pulses equal symmetric in upper and lower extremities) Abdominal Exam Abdominal exam: Present soft and tenderness; Absent distention, guarding, rebound, rigidity or pulsatile mass Abdominal tenderness: Present RLQ and mild Extremities Exam Extremities exam: Absent edema Neurological Exam Neurological exam: Present alert, oriented X3 and CN II-XII intact; Absent motor sensory deficit Skin Skin exam: Present warm and dry; Absent diaphoresis or erythema Medical Decision Making <Marquez Davey MD - Last Filed: 08/10/24 23:14> Medical Records Medical records reviewed: Yes I reviewed the patient's medical records. Screening: Per USPSTF and CDC recommendations, given the prevalence of disease in our region, it is our hospital?s policy to screen for HIV and viral Hepatitis for all patients aged 18 and over and those with ongoing risk factors. Dmitriy Inquiry Pt receiving controlled substance: No Dmitriy was queried for this patient: No Vital Signs: 08/10/24 22:24 08/10/24 22:56 08/10/24 23:00 Temperature 98.4 F Temperature Source Oral Pulse Rate 66 75 Pulse Rate [Left] 73 Respiratory Rate 14 Blood Pressure 117/84 122/86 Blood Pressure [Right Arm] 131/88 Blood Pressure Mean Blood Pressure Mean [Right Arm] 102 Blood Pressure Source [Right Arm] Automatic Cuff Blood Pressure Position [Right Arm] Sitting 02 Sat by Pulse Oximetry 99 100 99 Oxygen Delivery Method Room Air 08/10/24 23:30 08/11/24 00:00 08/11/24 00:30 Temperature Temperature Source Pulse Rate 58 L 60 62 Pulse Rate [Left] Respiratory Rate Blood Pressure 130/71 115/80 138/86 Blood Pressure [Right Arm] Blood Pressure Mean 87 94 Blood Pressure Mean [Right Arm] Blood Pressure Source [Right Arm] Blood Pressure Position [Right Arm] 02 Sat by Pulse Oximetry 100 100 100 Oxygen Delivery Method Lab Data Lab Results 08/10/24 22:32: Urine Color Yellow, Urine Appearance Clear, Urine pH 6.0, Ur Specific [place] 1.010, Urine Protein Negative, Urine Glucose (UA) Negative, Urine Ketones Negative, Urine Blood Negative, Urine Nitrate Negative, Urine Bilirubin Negative, Urine Urobilinogen 0.2, Ur Leukocyte Esterase Negative, Urine RBC None, Urine WBC Occasional, Ur Squamous Epith Cells 3-5, Urine Bacteria None 08/10/24 22:45: WBC 9.1, RBC 4.33, Hgb 13.3, Hct 38.2, MCV 88.2, MCH 30.7, MCHC 34.8, RDW 12.0, Plt Count 235, MPV 9.8, Neut % (Auto) 61.2, Lymph % (Auto) 27.3, [place] % (Auto) 8.3, Eos % (Auto) 2.2, Baso % (Auto) 0.7, Neut # (Auto) 5.6, Lymph # (Auto) 2.5, [place] # (Auto) 0.8, Eos # (Auto) 0.2, Baso # (Auto) 0.1, Sodium 136, Potassium 3.7, Chloride 108 H, Carbon Dioxide 25, Anion Gap 6.7, BUN 13, Creatinine 0.80, Estimated Creat Clear 114, Estimated GFR 81, Est GFR ( Amer) 98, Glucose 99, Calcium 9.6, Total Bilirubin 0.5, AST 27, ALT 16, Alkaline Phosphatase 54, C-Reactive Protein 0.6, Total Protein 6.8, Albumin 4.1, Globulin 2.7, Albumin/Globulin Ratio 1.5, Lipase 96 08/10/24 22:45 08/10/24 22:45 Orders (Tests/Meds): ED MEDICATIONS Generic Name Dose Route Start Last Admin Trade Name Freq PRN Reason Stop Dose Admin Sodium Chloride 10 ml 08/10/24 23:21 08/10/24 23:22 Sodium Chloride 0.9% 10ml Syr (Rad Only) IV 09/09/24 23:20 10 ml NEEDED PRN Administration Maintain IV Site Discontinued Medications Generic Name Dose Route Start Last Admin Trade Name Freq PRN Reason Stop Dose Admin Iopamidol 75 ml 08/10/24 23:21 08/10/24 23:22 Iopamidol-370 (76%);100ml Bottle IV 08/10/24 23:22 75 ml ONCE ONE Administration Ketorolac Tromethamine 15 mg 08/10/24 22:48 08/10/24 23:05 Ketorolac 30mg/Ml Vial IV 08/10/24 22:49 15 mg ONCE ONE Administration ORDERS Category Date Time Status CT abdomen pelvis w con Stat Cat Scan 08/10/24 22:48 Completed US transvaginal Stat Exams 08/11/24 00:30 Completed CBC w/Auto Diff [Complete Blood Count Auto Diff] Stat Lab 08/10/24 22:45 Completed CMP [Comprehensive Metabolic Panel] Stat Lab 08/10/24 22:45 Completed CRP [C-Reactive Protein] Stat Lab 08/10/24 22:45 Completed Lipase Stat Lab 08/10/24 22:45 Completed UA [Urinalysis and Microscopic] Stat Lab 08/10/24 22:32 Completed Medical Decision Narrative: 38-year-old female history of endometriosis, hysterectomy, left-sided oophorectomy presenting with right lower quadrant pain. Patient states that she started having pain earlier today, 08/10. Right lower quadrant, radiates to the right flank. No urinary symptoms, systemic signs or symptoms, vomiting, or other concerns. Has not taken anything for the pain because she was afraid that she may be masking appendicitis. Patient states that its mild to moderate in intensity, intermittently flares up. Nothing in particular makes it better or worse, it just kind of comes and goes on its own. Came in for further evaluation. On arrival, very clinically well. Speaking full sentences, normotensive, nontachycardic. Abdomen is soft, nondistended, nonperitoneal, but she states that pressure makes the pain worse, but does not appear to be reacting. Differential includes cyst, torsion, appendicitis, scar tissue, gastritis, enteritis, typhlitis, among others. Patient was given Toradol. Labs and imaging were ordered. Pending at time of handoff to oncoming provider Ret[employer]er disclaimer Much of this encounter note is an electronic topographic computator spoken language to printed text. Electronic topographic computator of the spoken language may permit errors. Although I have reviewed the note, some errors may still exist. <Collin Bernal MD - Last Filed: 08/11/24 01:49> Vital Signs: 08/10/24 22:24 08/10/24 22:56 08/10/24 23:00 Temperature 98.4 F Temperature Source Oral Pulse Rate 66 75 Pulse Rate [Left] 73 Respiratory Rate 14 Blood Pressure 117/84 122/86 Blood Pressure [Right Arm] 131/88 Blood Pressure Mean Blood Pressure Mean [Right Arm] 102 Blood Pressure Source [Right Arm] Automatic Cuff Blood Pressure Position [Right Arm] Sitting 02 Sat by Pulse Oximetry 99 100 99 Oxygen Delivery Method Room Air 08/10/24 23:30 08/11/24 00:00 08/11/24 00:30 Temperature Temperature Source Pulse Rate 58 L 60 62 Pulse Rate [Left] Respiratory Rate Blood Pressure 130/71 115/80 138/86 Blood Pressure [Right Arm] Blood Pressure Mean 87 94 Blood Pressure Mean [Right Arm] Blood Pressure Source [Right Arm] Blood Pressure Position [Right Arm] 02 Sat by Pulse Oximetry 100 100 100 Oxygen Delivery Method Lab Data Lab Results 08/10/24 22:32: Urine Color Yellow, Urine Appearance Clear, Urine pH 6.0, Ur Specific [place] 1.010, Urine Protein Negative, Urine Glucose (UA) Negative, Urine Ketones Negative, Urine Blood Negative, Urine Nitrate Negative, Urine Bilirubin Negative, Urine Urobilinogen 0.2, Ur Leukocyte Esterase Negative, Urine RBC None, Urine WBC Occasional, Ur Squamous Epith Cells 3-5, Urine Bacteria None 08/10/24 22:45: WBC 9.1, RBC 4.33, Hgb 13.3, Hct 38.2, MCV 88.2, MCH 30.7, MCHC 34.8, RDW 12.0, Plt Count 235, MPV 9.8, Neut % (Auto) 61.2, Lymph % (Auto) 27.3, [place] % (Auto) 8.3, Eos % (Auto) 2.2, Baso % (Auto) 0.7, Neut # (Auto) 5.6, Lymph # (Auto) 2.5, [place] # (Auto) 0.8, Eos # (Auto) 0.2, Baso # (Auto) 0.1, Sodium 136, Potassium 3.7, Chloride 108 H, Carbon Dioxide 25, Anion Gap 6.7, BUN 13, Creatinine 0.80, Estimated Creat Clear 114, Estimated GFR 81, Est GFR ( Amer) 98, Glucose 99, Calcium 9.6, Total Bilirubin 0.5, AST 27, ALT 16, Alkaline Phosphatase 54, C-Reactive Protein 0.6, Total Protein 6.8, Albumin 4.1, Globulin 2.7, Albumin/Globulin Ratio 1.5, Lipase 96 Orders (Tests/Meds): ED MEDICATIONS Generic Name Dose Route Start Last Admin Trade Name [place] PRN Reason Stop Dose Admin Sodium Chloride 10 ml 08/10/24 23:21 08/10/24 23:22 Sodium Chloride 0.9% 10ml Syr (Rad Only) IV 09/09/24 23:20 10 ml NEEDED PRN Administration Maintain IV Site Discontinued Medications Generic Name Dose Route Start Last Admin Trade Name Freq PRN Reason Stop Dose Admin Iopamidol 75 ml 08/10/24 23:21 08/10/24 23:22 Iopamidol-370 (76%);100ml Bottle IV 08/10/24 23:22 75 ml ONCE ONE Administration Ketorolac Tromethamine 15 mg 08/10/24 22:48 08/10/24 23:05 Ketorolac 30mg/Ml Vial IV 08/10/24 22:49 15 mg ONCE ONE Administration ORDERS Category Date Time Status CT abdomen pelvis w con Stat Cat Scan 08/10/24 22:48 Completed US transvaginal Stat Exams 08/11/24 00:30 Completed CBC w/Auto Diff [Complete Blood Count Auto Diff] Stat Lab 08/10/24 22:45 Completed CMP [Comprehensive Metabolic Panel] Stat Lab 08/10/24 22:45 Completed CRP [C-Reactive Protein] Stat Lab 08/10/24 22:45 Completed Lipase Stat Lab 08/10/24 22:45 Completed UA [Urinalysis and Microscopic] Stat Lab 08/10/24 22:32 Completed Medical Decision Narrative: 38-year-old female history of endometriosis, hysterectomy, left-sided oophorectomy presenting with right lower quadrant pain. Patient states that she started having pain earlier today, 08/10. Right lower quadrant, radiates to the right flank. No urinary symptoms, systemic signs or symptoms, vomiting, or other concerns. Has not taken anything for the pain because she was afraid that she may be masking appendicitis. Patient states that its mild to moderate in intensity, intermittently flares up. Nothing in particular makes it better or worse, it just kind of comes and goes on its own. Came in for further evaluation. On arrival, very clinically well. Speaking full sentences, normotensive, nontachycardic. Abdomen is soft, nondistended, nonperitoneal, but she states that pressure makes the pain worse, but does not appear to be reacting. Differential includes cyst, torsion, appendicitis, scar tissue, gastritis, enteritis, typhlitis, among others. Patient was given Toradol. Labs and imaging were ordered. Pending at time of handoff to oncoming provider [employer] disclaimer Much of this encounter note is an electronic topographic computator spoken language to printed text. Electronic topographic computator of the spoken language may permit errors. Although I have reviewed the note, some errors may still exist. Bernal: Upon my assumption of care patient is stable and pain is improved with the initial interventions. I agree with the assessment and plan from Dr. Davey. Labs personally reviewed demonstrate normal CBC, nonactionable CMP, UA negative for findings of infection. CT abdomen pelvis personally interpreted does not demonstrate obvious surgical pathology though there is a moderate-sized right ovarian cyst. Patient has had large ovarian cysts in the past and while this cyst does not greater than 5 cm so it is less likely to cause torsion, without other obvious etiology for her pain, I will send her for transvaginal ultrasound to ensure there is no torsion or bleeding from the cyst that could be causing her pain. Transvaginal ultrasound does not demonstrate torsion. She has a simple cyst on the right ovary. See radiology read for final interpretation. On reassessment patient continues to rest comfortably and is appropriate for discharge at this time. She is reassured by the workup that has been performed and is comfortable with going home. Patient was given instructions on symptomatic management, follow up instructions, and return precautions for the emergency department. Patient indicated understanding and was discharged in stable condition. Critical Care <Marquez Davey MD - Last Filed: 08/10/24 23:14> Critical Care Time Critical Care Time: No
[2024-08-10 23:00] VITALS: BP 122/86; PULSE 75; O2SAT 99
[2024-08-10 23:00] LABS: Appearance,Urine CLEAR (Clear); Bilirubin,Urine Negative (Negative); Blood, Urine Negative (Negative); Color,Urine YELLOW (Yellow); Glucose,Urine (UA) Negative (Negative); Ketones,Urine Negative (Negative); Leukocyte Esterase,Urine Negative (Negative); Nitrate,Urine Negative (Negative); Protein,Urine Negative (Negative); Urobilinogen,Urine 0.2 EU/dl (0.2)
[2024-08-10 23:01] LABS: Basophils # 0.1 K/mm3 (0-0.2); Basophils % 0.7 % (0.1-2.0); Eosinophils # 0.2 Kmm3 (0.0-0.4); Eosinophils % 2.2 % (0.1-12.0); Hematocrit 38.2 % (37.0-47.0); Hemoglobin 13.3 g/dL (12.2-16.2); Immature Granulocytes # 0.03 10^3uL; Immature Granulocytes % 0.3 %; Lymphocytes # 2.5 K/mm3 (0.7-4.5); Lymphocytes % 27.3 % (10-50); Mean Corpuscular HGB Conc 34.8 g/dL (31.8-35.4); Mean Corpuscular Hemoglobin 30.7 pg (27.0-31.2); Mean Corpuscular Volume 88.2 fl (81-99); Mean Platelet Volume 9.8 fl (7.4-10.4); Monocytes # 0.8 K/mm3 (0.1-1.0); Monocytes % 8.3 % (1.7-9.3); Neutrophils # 5.6 K/mm3 (1.8-7.8); Neutrophils % 61.2 % (37.0-80.0); Nucleated Red Blood Cells # 0 10^3/uL; Nucleated Red Blood Cells % 0 %; Platelet Count 235 K/mm3 (142-424); Red Blood Count 4.33 M/mm3 (4.20-5.40); Red Cell Distribution Width-SD 38.7 fL; White Blood Count 9.1 K/mm3 (4.8-10.8)
[2024-08-10 23:05] LABS: Alanine Aminotransferase 16 U/L (12-78); Albumin Level 4.1 g/dl (3.5-5.0); Albumin/Globulin Ratio 1.5 (1.1-1.8); Alkaline Phosphatase 54 U/L (38-126); Anion Gap 6.7 mEq/L (5-15); Aspartate Amino Transferase 27 U/L (14-36); Bilirubin,Total 0.5 mg/dl (0.2-1.3); Blood Urea Nitrogen 13 mg/dl (7-17); Calcium 9.6 mg/dl (8.4-10.2); Carbon Dioxide 25 mmol/L (22.0-30.0); Chloride 108 mmol/L (98-107); Creatinine Clearance Estimated 114 mL/min (50-200); Estimated Glomerular Filt Rate 81 ml/min (>60); GFR (African American) 98 ML/MIN (>60); Globulin 2.7 g/dL (1.3-3.2); Glucose 99 mg/dl (74-100); Lipase 96 U/L (23-300); Potassium 3.7 mmoL/L (3.5-5.1); Sodium 136 mmol/L (136-145); Total Protein,Serum 6.8 g/dl (6.3-8.2)
[2024-08-10] MEDS: KETOROLAC 30MG/ML VIAL 15 MG IV (23:05)
[2024-08-10 23:10] LABS: C-Reactive Protein 0.6 mg/L (0-4)
[2024-08-10] MEDS: IOPAMIDOL-370 (76%);100ML BOTTLE 75 ML IV (23:22)
[2024-08-10] MEDS: SODIUM CHLORIDE 0.9% 10ML SYR (RAD ONLY) 10 ML IV (23:22)
[2024-08-10 23:30] VITALS: BP 130/71; PULSE 58; O2SAT 100
[2024-08-10 23:58] LABS: WBC,Urine Occasional #/hpf (0-3)
[2024-08-11] VITALS: BP 115/80; PULSE 60; O2SAT 100
[2024-08-11 00:30] VITALS: BP 138/86; PULSE 62; O2SAT 100
--- NOTE | 2024-08-11 00:30 | US_ITS ---
PROCEDURE INFORMATION: Exam: US Duplex Artery or Vein of the Abdominal and/or Reproductive Organs, Limited Ovaries Exam date and time: 08/11/2024 12:35 AM Age: 38 years old Clinical indication: Pelvic pain; Prior surgery; Surgery date: 6+ months; Surgery type: Uterus and left ovary removed 02/2023; Additional info: Rlq pain w/ moderate size R ovarian cyst TECHNIQUE: Imaging protocol: Real-time duplex ultrasound scan of the arterial or venous flow with richard scale, color Doppler flow and spectral waveform analysis with image documentation. Limited duplex exam focused on the ovaries. Duplex exam was performed to evaluate for torsion and other vascular conditions. Total images: 645 COMPARISON: CT ABDOMEN PELVIS W CON 08/10/2024 11:12 PM FINDINGS: Right ovary/adnexa: Normal arterial or venous Doppler waveforms in the ovary. No ovarian torsion. Left ovary/adnexa: Surgically absent left ovary. IMPRESSION: Normal duplex of the right ovary. No evidence of ovarian torsion. PROCEDURE INFORMATION: Exam: US Pelvis, Transvaginal, Non-Obstetric Exam date and time: 08/11/2024 12:35 AM Age: 38 years old Clinical indication: Pelvic pain; Prior surgery; Surgery date: 6+ months; Surgery type: Uterus and left ovary removed 02/2023; Additional info: Rlq pain w/ moderate size R ovarian cyst TECHNIQUE: Imaging protocol: Real-time transvaginal pelvic (non-obstetric) ultrasound with image documentation. Transvaginal imaging was used for better evaluation of the endometrium, adnexa, and/or cervix. COMPARISON: US TRANSVAGINAL 04/21/2024 1:07 PM FINDINGS: Uterus: Status post hysterectomy. Right ovary/adnexa: Right ovary measuring 4.7 x 4.3 x 2.7 cm with volume of 28.5 cc. 3.2 x 2.1 x 2.7 cm unilocular right ovarian cyst. Additional ovarian follicles. Left ovary/adnexa: Status post left oophorectomy. Intraperitoneal space: No free pelvic fluid. No adnexal mass. IMPRESSION: 1. 3.2 cm simple right ovarian cyst. No follow-up required. 2. Status post hysterectomy. 3. Status post left oophorectomy.
[2024-08-11 01:37] VITALS: BP 138/88; PULSE 68; TEMP 37; O2SAT 99
[2024-08-11 01:49] VITALS: BP 138/88; PULSE 68; RESP 16; TEMP 37; O2SAT 99
== END 2024-08-11 01:52 | disposition home or self-care (01) ==
PROVIDERS: Emergency Provider Emergency Medicine; PCP Family Medicine
DX: R10.31 Right lower quadrant pain (principal); N83.201 Unspecified ovarian cyst, right side
CPT/HCPCS: 74177; 76830; 80053; 81001; 83690; 85025; 86140; 96374; 99285; J1885; Q9967

== ENCOUNTER 2024-11-10 15:11 | Outpatient (CLI) | payer BC, SELFPAY ==
[2024-11-10 17:51] LABS: Iron 110 ug/dL (37-170)
[2024-11-10 18:00] LABS: Total Iron Binding Capacity 328 ug/dL (265-497)
[2024-11-10 18:25] LABS: 25-OH Vitamin D, Total 34.2 ng/mL (30-100)
[2024-11-10 18:27] LABS: Ferritin 39.5 ng/ml (6.24-137)
[2024-11-10 18:51] LABS: Vitamin B12 341 pg/mL (239-931)
[2024-11-11 16:59] LABS: Deamidated Gliadin Abs, IgA 6 units (0-19); Deamidated Gliadin Abs, IgG 2 units (0-19)
== END 2024-11-10 23:59 | disposition home or self-care (01) ==
LOC: LAB 15:12
PROVIDERS: PCP Physician Assistant; Visit Provider Nurse Practitioner Family
DX: K90.0 Celiac disease (principal)
CPT/HCPCS: 36415; 82306; 82607; 82728; 83540; 83550; 86231; 86256; 86258; 86364

== ENCOUNTER 2024-11-11 08:00 | Outpatient (CLI) | payer BC, SELFPAY ==
--- OUTSIDE RECORDS SUMMARY | 2024-04-16 12:00 | XMS_ITS ---
[facility] Address [address] [facility] [address] [place] [id number] Care Team Providers Care Jewel Bearing Turner Name Role Phone Curly Carlton Primary Care Provider Daily Eubanks Unavailable [phone] Allergies Allergen (clinical drug ingredient) Drug/Non Drug Allergy documented on EMR Reaction Allergy Type Onset Date Status erythromycin Erythromycin Unknown Drug Allergy A ctive Results Component Value Reference Range Notes X ray : Knee, left Reviewed date:04/17/2024 08:47:27 AM Interpretation: Performing Lab: Notes/Report: X ray : Knee, right Reviewed date:04/17/2024 08:47:11 AM Interpretation: Performing Lab: Notes/Report: Reason For Referral Diagnosis 1 Pain in right knee ( M25.561) [facility] Referring Provider First Name Daily Referring Provider Last Name Cha Referring Provider 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 Referred Provider Specialty Orthopedic S urgery General Notes Daily Eubanks 04/16 4:55:50 PM > Pt needs an appt with Dr. Weir., Jenni Isaac 04/17/2024 9:53:10 AM > 04/21/2024 at 10:30am Referral Priority Routine REASON FOR VISIT Bilateral Knee Issues Medications Medication SIG (Take, Route, Frequency, Duration) Notes Start Date End Date Status MAXIMUM VITAMIN D3 325 MCG (13,000 IU) 1 TAB(S) ORALLY 3 TIMES A WEEK *Please review for potential replacement for e-prescription and drug interaction check* 10/27/2021 Active Flonase Allergy Relief 50 MCG/ACT 1 spray(s) in each nostril once a day 10/21/2021 Active Levocetirizine Dihydrochloride 5 MG 1 tab(s) orally once a day (in the evening); Duration: 30 Active PROBIOTICS P.O. DAILY *Please review f or potential replacement for e-prescription and drug interaction check* Active Vital Signs Blood pressure systolic 100 mm Hg 04/16/19 25 Blood pressure diastolic 60 mm Hg 025 Heart Rate 63 /min 04/16/2024 Height 63 in 04/16/2024 Weight 170.8 lbs 04/16/2024 BMI 30.25 kg/m2 04/16/2024 Encounters Encounter Location Date Provider Diagnosis [facility] [address] [facility] [address] [place] [id number] 04/16/2024 Daily Cuevasjovita Pain in right knee M25.561 and Pain in left knee M25.562 Assessments Encounter Date Diagnosis (ICD Code) Assessment Notes Treatment Notes Treatment Clinical Notes Section Notes 04/16/2024 Pain in right knee (ICD-10 - M25.561) Will get x-rays and make an ortho appt. She may benefit from injections. 04/16/2024 Pain in left knee (ICD-10 - M25.562) Plan Of Treatment Treatment Notes Assessment Notes Pain in right knee Will get x-rays and make an ortho appt. She may benefit from injections. Referrals Referral Date Details 04/16/2024 04/16/2024, . Orthop edics Next Appt Details Follow Up: via phone to repo rt test results, Reason: Progress Notes * CAROL LUGO:1985 (39 yo F)Acc No.[id number]:04/16/2024 Progress Notes Patient: OMER DALTON Provider: IND[place] Sutton :1985 A ge:38 Y S ex:Female Date:04/16/2024 Address:[address] [place] [id number] Pcp:Curly Carlton Subjective: * Chief Complaints: * 1 . Bilateral Knee Issues. * HPI: K nee/Mena: 38 year old female presents with c/o knee pain P t is here today for knee issues in both of the knees. Pt sts her knees are crunchy, and sts that i f she does a lot of exercise they become inflamed and sts that they have been popping a lot. Pt sts they are painful and sts this has been going on since her late 20s. * ROS: D ERMATOLOGY: no R fortino. n o H glen. G ASTROENTEROLOGY: no N ausea. n o V omiting. n o D iarrhea.? U ROLOGY: no D ifficulty urinating. n o B lood in urine. * Medical History: M igraine headache, Polycystic ovary syndrome, Celiac disease, Gastric diverticulum, Dx: 2009, Seasonal allergies -follows with Dr. Jiménez. * Surgical History: w isdom teeth 2008, D&C-Harpel 12/2010, Tumor Removal - L Ovary 2015, 03/2017, Colonoscopy , R Foot Surgery - Repair - Fracutred 5th Digit Mar 05 2020. * Hospitalization/Major Diagno stic Procedure: n one , [facility] ER-Abdominal Pain 07/15/09, [facility] ER- Chest Pains 07/19/11, [facility] ER- UTI 07/2014, [facility] - Fractured Foot Mar 02 2020. * Family History: F ather: alive. M other: alive. P aternal Grand Father: alive. P aternal Grand Mother: . M aternal Grand Father: alive. M aternal Grand Mother: alive. 1 brother(s) . 1 daughter(s) . . * Social History: C URRENT TOBACCO USE S moking Status: Patient does NOT smoke. C affeine: yes, frequency:. Exercise: yes. Home smoke detector use: yes. Marital Status: . Past smoking status: no, Smoking status: Does not smoke. Recreational drug use: no. Alcohol: no. Sexually active: yes. * Medications: T aking PROBIOTICS P.O. DAILY , Notes to Pharmacist: *Please review for potential replacement for e-prescription and drug interaction check*, Taking Levocetirizine Dihydrochloride 5 MG Tablet 1 tab(s) orally once a day (in the evening) , Taking Flonase Allergy Relief 50 MCG/ACT Suspension 1 spray(s) in each nostril once a day , Taking MAXIMUM VITAMIN D3 325 MCG (13,000 IU) TABLET 1 TAB(S) ORALLY 3 TIMES A WEEK , Notes to Pharmacist: *Please review for potential replacement for e-prescription and drug interaction check*, Medication List reviewed and reconciled with the patient * Allergies: E rythromycin. Objective: * Vitals: W t:170.8, Temp:97.9, BP:100/60, HR:63, O2 Sat:96% on RA, Nurse:clover, Ht: 63, BMI:30.25. * Examination: K nee / Mena: Knee: bilateral. I nspection: no deformity, no swelling or redness. P alpation: tenderness on lateral jointline bilaterally and along patellar tendon. C ollateral ligaments: intact medially and laterally. R luke of motion: normal flexion and extension. M cmurray: n egative. D rawer test: n egative.?Patellofemoral joint: crepitations with movement. Assessment: * Assessment: 1. P ain in right knee - M25.561 (Primary) 2 . P ain in left knee - M25.562? Plan: * Treatment: Notes: Will get x-rays and make an ortho appt. She may benefit from injections.? Referral To:. Orthopedics??Orthopedic Surgery ?Reason: 2.?Pain in left knee?Imaging: X ray : Knee, left (Performed Date - 04/16/2024)* Daily Eubanks 04/17/2024 8: 47:22 AM > see TE * Procedure Codes: 3 074F SYST BP LT 130 MM HG, 3078F DIAST BP < 80 MM HG * Follow Up: v ia phone to report test results * Images: Billing Information: * Visit Code: 34228 Office Visit, Est Pt., Level 3. * Procedure Codes: 3074F SYST BP LT 130 MM HG. 3078F DIAST BP < 80 MM HG. * Electronic signature of INDIANA Skinner on 11/11/2024 at 08:02 AM EDT Sign off status: Pending * Provider: IND[place]NA Sutton Date: 0 04/16/2024 Generated for Elisabeth ryan/Raissa/Darrionransmitting on: 0 11/11/2024 08:02 AM EDT History and Physical Notes * HPI (History of Present Illness) Category Sub-Category Detail Notes Category Not es Knee/Mena knee pain Pt is here today for knee issues in both of the knees. Pt sts her knees are crunchy, and sts that if she does a lot of exercise they become inflamed and sts that they have been popping a lot. Pt sts they are painful and sts this has been going on since her late 20s Examination Category Sub-Category Detail Notes Category Not es Knee / Mena [facility]: negative Drawer test: negative Patellofemoral joint: crepitations with movement Palpation: tenderness on latera l jointline bilaterally and along patellar tendon Knee: bilateral Inspection: no deformity, no swe lling or redness Range of motion: normal flexion and e xtension Collateral ligaments: intact medially an d laterally Consultation Request Notes Referral Date Referring Provider Referred Provider Not es 04/16/2024 Daily [facility], .
--- OUTSIDE RECORDS SUMMARY | 2024-05-15 03:00 | XMS_ITS ---
Author Organization [facility] Address [address] [facility] [address] [place] [id number] Care Team Providers Care Orchestra Musician Name Role Phone Curly Carlton Primary Care Provider [phone] Daily Canales [phone] REASON FOR VISIT celiac disease and PCOS Encounters Encounter Location Date Provider Diagnosis Fredy [address] [facility] [address] [place] [id number] 05/15/2024 Daily Eubanks Plan Of Treatment No Information Progress Notes * NIKI LUGOB:1985 (39 yo F)Acc No.[id number]:05/15/2024 Progress Notes Patient: OMER DALTON Provider: INDIANA Sutton :1985 A ge:38 Y S ex:Female Date:05/15/2024 Address:[address] [place] [address] [place], [id number] Pcp:Curly Carlton Subjective: * Chief Complaints: * 1 . celiac disease and PCOS. * Medical History: Objective: * Vitals: Assessment: Plan: * Treatment: * Images: Billing Information: * Visit Code: * Procedure Codes: * Electronic signature of INDIANA Skinner on 11/11/2024 at 08:03 AM EDT Sign off status: Pending * Provider: INDIANA Sutton Date: 0 05/15/2024 Generated for Printi ng/Raissa/eTransmitting on: 0 11/11/2024 08:03 AM EDT
--- OUTSIDE RECORDS SUMMARY | 2024-05-15 09:15 | XMS_ITS ---
Author Organization [facility] Address [address] [facility] [address] [place] [id number] Care Team Providers Care Wind Energy Mechanic Name Role Phone Curly Carlton Primary Care Provider Daily Eubanks Unavailable [phone] Allergies Allergen (clinical drug ingredient) Drug/Non Drug [...] Interpretation:30 Performing Lab: Notes/Report: Test performed by [employer] [facility] , [address], [place] [address] Dl Garduno MD, Oven Tender Bagels CLIA: [id number] Amylase 30 28-100 U/L P-Vitamin B12 Reviewed date:05/19/2024 09:55:22 AM Interpretation:Normal Performing Lab: Notes/Report: Test performed by [employer] [address] , [address], [place] [address] Dl Garduno MD, [employer] CLIA: [id number] Vitamin B12 865 804-4278 pg/mL P-Comprehensive Metabolic Pa joann (CMP) Reviewed date:05/19/2024 09:55:22 AM Interpretation:Normal Performing Lab: Notes/Report: Test performed by [employer] [address] [place] [address] , [address], [place] [address] Dl Garduno MD, [employer] CLIA: [id number] Sodium 139 135-145 mmol/L Potassium 4.0 3.5-5.3 [...] Interpretation:Normal Performing Lab: Notes/Report: Test performed by [employer] [address] , [place] [address] Dl Garduno MD, [employer] CLIA: [id number] Thyroxine Free (free T4) 1.21 0.86-1.76 ng/dL P-Lipase Reviewed date:05/19/2024 09:55:22 AM Interpretation:Normal Performing Lab: Notes/Report: Test performed by [employer] [address] [place] [address] , [place] [address] Dl Garduno MD, [employer] CLIA: [id number] Lipase 30.1 13.0-60.0 u/L P-Magnesium Reviewed date:05/19/2024 09:55:22 AM Interpretation:Normal Performing Lab: Notes/Report: Test performed by [employer] , [place] [address] Dl Garduno MD, [employer] CLIA: [id number] Magnesium 2.1 1.6-2.4 mg/dL P-Thyroid Antibody Panel (TA BS) Reviewed date:05/19/2024 09:55:22 AM Interpretation:Thyroid Peroxidase Antibody <9 Performing Lab: Notes/Report: Test performed by [employer] [address] , [place] [address] Dl Garduno MD, [employer] CLIA: [id number] Thyroid Peroxidase Antibody <9 <9-34 IU/mL An [...] Interpretation:Normal Performing Lab: Notes/Report: Test performed by [employer] [address] , [place] [address] Dl Garduno MD, [employer] CLIA: [id number] TSH 1.17 0.43-5.25 mU/L P-Vitamin D 25-Hydroxy Reviewed date:05/19/2024 09:55:22 AM Interpretation:25.9 Performing Lab: Notes/Report: Test performed by [employer] [address] , [place] [address] Dl Garduno MD, [employer] CLIA: [id number] Vitamin D 25-Hydroxy 25.9 30.0-100.0 ng/mL Interpretation [...] day (in the evening); Duration: 30 Active MAXIMUM VITAMIN D3 325 MCG (13,000 IU) 1 TAB(S) ORALLY 3 TIMES A WEEK *Please review for potential replacement for e-prescription and drug interaction check* 10/27/2021 Active Problems Problem Type SNOMED Code ICD Code Onset Dates Problem Status W/U Status Risk Notes Problem Restless legs (53630812) Restless leg (G25.81) Active confirmed Vital Signs Blood pressure systolic 112 mm Hg 05/16/19 25 Blood pressure diastolic 60 mm Hg 025 Heart Rate 63 /min 05/15/2024 Height 63 in 05/15/2024 Weight 166 lbs 05/15/2024 BMI 29.40 kg/m2 05/15/2024 Encounters Encounter Location Date Provider Diagnosis [facility] [address] [facility] [address] [place] [address], [place] [phone] 05/15/2024 Dailyjessica Eubanks Epigastric pain R10. 13 ; Elevated [...] Notes * CAROL LUGO:1985 (39 yo F)Acc No.[id number]:05/15/2024 Progress Notes Patient: OMER DALTON Provider: [place] Sutton :1985 A ge:38 Y S ex:Female Date:05/15/2024 Address:[address] [place] [address], [facility] [id number] Pcp:Curly Carlton Subjective: * Chief Complaints: * [...] Hospitalization/Major Diagno stic Procedure: n one , [facility] ER-Abdominal Pain 07/15/2009, [facility] ER- Chest Pains 07/19/2011, [facility] ER- UTI 07/2014, UTC [facility] - Fractured Foot 03/02/2020. * Family History: [...] G eneral Examination: General Appearance: N AD. H EENT: u nremarkable.?Oral cavity: n o lesions, mucosa moist and WNL, no erythema. N boris: s upple, no lymphadenopathy. C hest: n ormal shape and expansion. H eart: R SR. L ungs: c lear to auscultation. A bdomen: bowel sounds present, soft and nontender, no organomegaly or masses, no guarding or rigidity. N eurologic Exam: I ntact, gait normal. S kin: n ormal, no rash. P eripheral pulses: n ormal (2+) bilaterally. E xtremities: n o leg edema. Assessment: * Assessment: [...] PM)?Normal* Value Reference Range V itamin B12 434 317-0490 - pg/mL * Laura Rangel 05/19/2024 09: [...] T4) 1.21 0.86-1.76 - ng/d L * Laura Rangel 05/19/2024 09: 55:12 AM [...] latlet 253 100 - 400 * Yissel Ward 05/15/2024 2:31:01 PM > , Provider reviewed results while patient in office. * Procedure Codes: 8 3036 GLYCATED HEMOGLOBIN TEST, Modifiers: QW , 93892 CBC WITH AUTO DIFF, 3074F SYST BP LT 130 MM HG, 3078F DIAST BP < 80 MM HG, 3044F HG A1C LEVEL LT 7.0% * Follow Up: v ia phone to report test results * Images: Billing Information: * Visit Code: 86037 Office Visit, Est Pt., Level 4. * Procedure Codes: 79064 GLYCATED HEMOGLOBIN TEST. Modifiers: QW 62925 CBC WITH AUTO DIFF. 3074F SYST BP LT 130 MM HG. 3078F DIAST BP < 80 MM HG. 3044F HG A1C LEVEL LT 7.0%. * Electronic signature of IND[place]NA Skinner on 11/11/2024 at 08:03 AM EDT Sign off status: Pending * Provider: IND[place]NA Sutton Date: 0 05/15/2024 Generated for Elisabeth ryan/Raissa/Robertoitting on: 0 11/11/2024 08:03 AM EDT History and Physical Notes * [...]
--- OUTSIDE RECORDS SUMMARY | 2024-07-16 05:45 | XMS_ITS ---
Author Organization [facility] Address [address] [facility] [address] [place] [phone] Care Team Providers Care Powder Line Repairer Name Role Phone Curly Carlton Primary Care Provider Allergies Allergen (clinical drug ingredient) Drug/Non Drug Allergy documented on EMR Reaction Allergy Type Onset Date Status erythromycin Erythromycin Unknown Drug Allergy A ctive Results Component Value Reference Range Notes P-Vitamin D 25-Hydroxy Reviewed date:07/18/2024 09:55:16 AM Interpretation:31.5 Performing Lab: Notes/Report: Test performed by [employer] [employer] [address] [place] [address] , [address], [place] [address] Dl Garduno MD, Information And Referral Director CLIA: [id number] Vitamin D 25-Hydroxy 31.5 30.0-100.0 ng/mL Interpretation [...] evening); Duration: 30 Active PROBIOTICS P.O. DAILY Active Flonase [...] [facility] [address] [place] [phone] 07/16/2024 Curly Carlton Vitamin D deficiency E55.9 Assessments Encounter Date Diagnosis (ICD Code) Assessment Notes Treatment Notes Treatment Clinical Notes Section Notes 07/16/2024 Vitamin D deficiency (ICD-10 - E55.9) Plan Of Treatment Next Appt Details Follow Up: via phone to repo rt test results, Reason: Progress Notes * NIKI LUGOB:1985 (39 yo F)Acc No.[id number]:07/16/2024 Progress Notes Patient: OMER DALTON Provider: Jonny Carlton M.D. :1985 A ge:38 Y S ex:Female Date:07/16/2024 Address:[address] [place] [phone] Subjective: * Chief Complaints: * 1 . [...] Hospitalization/Major Diagno stic Procedure: n one , [facility] ER-Abdominal Pain 07/15/2009, [facility] ER- Chest Pains 07/19/2011, [facility] ER- UTI 07/2014, UTC [facility] - Fractured Foot 03/02/2020. * [...] eneral Examination: General Appearance: N AD. H eart: R SR. L ungs:?clear to auscultation. Assessment: * Assessment: 1. V itamin D deficiency - E55.9 (Primary) Plan: * Treatment: Value Reference Range V itamin D 25-Hydroxy 31.5 30.0-100.0 - ng/mL * Nandini Dias 07/18/2024 09:5 5:08 AM > See phone encounter * Follow Up: v ia phone to report test results * Images: Billing Information: * Visit Code: 20039 Office Visit, Est Pt., Level 3. * Procedure Codes: * Electronic signature of Beverley Carlton MD on 11/11/2024 at 08:02 AM EDT Sign off status: Pending * Provider: Jonny Carlton M.D. Date: 0 07/16/2024 Generated for Elisabeth ryan/Raissa/eTransmitting on: 0 11/11/2024 08:02 AM EDT History [...]
--- OUTSIDE RECORDS SUMMARY | 2024-11-11 08:03 | XMS_ITS | Patient Health Record ---
[facility] [address] [facility] [address] [place] [id number] Care Team Providers Care Or Assistant Name Role Phone Curly aCrlton Primary Care Provider [phone] Daily Eubanks Unavailable [phone] Allergies Allergen (clinical drug ingredient) Drug/Non Drug Allergy documented on EMR Reaction Allergy Type Onset Date Status erythromycin Erythromycin Unknown Drug Allergy A ctive Results Component Value Reference Range Notes X ray : Knee, left Reviewed date:04/17/2024 08:47:27 AM Interpretation: Performing Lab: Notes/Report: X ray : Knee, right Reviewed date:04/17/2024 08:47:11 AM Interpretation: Performing Lab: Notes/Report: P-Vitamin D 25-Hydroxy Reviewed date:07/18/2024 09:55:16 AM Interpretation:31.5 Performing Lab: Notes/Report: Test performed by [facility] [address] [place], [place] [address], [place] [address] Dl Garduno MD, Manager House CLIA: [id number] Vitamin D 25-Hydroxy 31.5 30.0-100.0 ng/mL Interpretation of Vitamin D 25 OH: < 20 ng/mL - Deficiency 20 - 29 ng/mL - Insufficiency 30 - 100 ng/mL - Sufficiency > 100 ng/mL - Super-therapeutic- toxicity may occur above this level. Clinical correlation required. P-Amylase Reviewed date:05/19/2024 09:55:22 AM Interpretation:30 Performing Lab: Notes/Report: Test performed by [facility] [address] [place], [place] [address] , [place] [address] Dl Garduno MD, Manager House CLIA: [id number] Amylase 30 28-100 U/L P-Vitamin D 25-Hydroxy Reviewed date:05/19/2024 09:55:22 AM Interpretation:25.9 Performing Lab: Notes/Report: Test performed by [facility] [address] , [place] [address] Dl Garduno MD, Manager House CLIA: [id number] Vitamin D 25-Hydroxy 25.9 30.0-100.0 ng/mL Interpretation of Vitamin D 25 OH: < 20 ng/mL - Deficiency 20 - 29 ng/mL - Insufficiency 30 - 100 ng/mL - Sufficiency > 100 ng/mL - Super-therapeutic- toxicity may occur above this level. Clinical correlation required. P-TSH Reviewed date:05/19/2024 09:55:22 AM Interpretation:Normal Performing Lab: Notes/Report: Test performed by [facility] [address] , [place] [address] Dl Garduno MD, Manager House CLIA: [id number] TSH 1.17 0.43-5.25 mU/L P-Thyroid Antibody Panel (TA BS) Reviewed date:05/19/2024 09:55:22 AM Interpretation:Thyroid Peroxidase Antibody <9 Performing Lab: Notes/Report: Test performed by [facility] [address] , [place] [address] Dl Garduno MD, Manager House CLIA: [id number] Thyroid Peroxidase Antibody <9 <9-34 IU/mL An [...] methods or kits cannot be directly compared. P-Magnesium Reviewed date:05/19/2024 09:55:22 AM Interpretation:Normal Performing Lab: Notes/Report: Test performed by [facility] [address] , [facility] [place] [address] Dl Garduno MD, Manager House CLIA: [id number] Magnesium 2.1 1.6-2.4 mg/dL P-Lipase Reviewed date:05/19/2024 09:55:22 AM Interpretation:Normal Performing Lab: Notes/Report: Test performed by [facility] [address] , [address], [place] [address] Dl Garduno MD, Manager House CLIA: [id number] Lipase 30.1 13.0-60.0 u/L P-T4 Free (thyroxine) Reviewed date:05/19/2024 09:55:22 AM Interpretation:Normal Performing Lab: Notes/Report: [facility] , [address], [place] [id number] Dl Garduno MD, Manager House CLIA: [id number] Thyroxine Free (free T4) 1.21 0.86-1.76 ng/dL P-Comprehensive Metabolic Pa joann (CMP) Reviewed date:05/19/2024 09:55:22 AM Interpretation:Normal Performing Lab: Notes/Report: Test performed by [facility] [address] , [address], [place] [address] Dl Garduno MD, Manager House CLIA: [id number] Sodium 139 135-145 mmol/L Potassium 4.0 3.5-5.3 [...] 0.3 <0.2-1.2 mg/dL A/G Ratio 1.7 1.1-2.5 P-Vitamin B12 Reviewed date:05/19/2024 09:55:22 AM Interpretation:Normal Performing Lab: Notes/Report: Test performed by [facility] , [address], [place] [address] Dl Garduno MD, Manager House CLIA: [id number] Vitamin B12 417 194-9394 pg/mL Glycohemoglobin A1c (in hous e) Reviewed date:05/15/2024 04:35:50 PM Interpretation:5.1% Performing Lab: Notes/Report: 5.1% glycohemoglobin 5.1% 5 - 6.5 % CBC Venipuncture (in house) Reviewed date:05/15/2024 04:35:35 [...] - 38 platlet 253 100 - 400 Medications Medication SIG (Take, Route, Frequency, Duration) Notes Start Date End Date Status Vitamin D 50 MCG (1999 UT) 2 capsule Ora lly Once a day Active acetaZOLAMIDE 125 MG 1 tablet Orally Twi ce a day; Duration: 15 days 09/29/2024 Active Levocetirizine Dihydrochloride 5 MG 1 tab(s) [...] Status W/U Status Risk Notes Problem Migraine (81973581) Migraine, unspecified, without mention of intractable migraine (346.90) Active confirmed Problem Vitamin D deficiency (11509500) Vitamin D deficiency (E55.9) Active confirmed Problem Anxiety (18246157) Anxiety (F41.9) Active confirmed Problem Seasonal allergy (960365694) Seasonal allergies (J30.2) Active confirmed Problem Irregular periods (48119649) Irregular periods (N92.6) Active confirmed Problem Amenorrhea (84092840) Amenorrhea (N91.2) Active confirmed Problem Restless legs (89735894) Restless leg (G25.81) Active confirmed Problem Acute upper respiratory infection (58893523) Acute URI (J06.9) Active confirmed Problem Paresthesia (finding) (89159068) Paresthesias (R20.2) Active confirmed Problem Insomnia disorder related to another mental disorder (21102283) Psychophysiological insomnia (F51.04) Active confirmed Problem Migraine with aura (8898239) Migraine with aura and without status migrainosus, not intractable (G43.109) Active confirmed Problem Dyslipidemia (906950095) Dyslipidemia (E78.5) Active confirmed Problem Respiratory tract congestion and cough (disorder) (001769276) Respiratory tract congestion with cough (R05) Active confirmed Problem Seasonal allergic rhinitis (747077493) Seasonal allergic rhinitis, unspecified trigger (J30.2) Active confirmed Problem Allergic rhinitis (40110347) Allergic rhinitis, unspecified seasonality, unspecified trigger (J30.9) Active confirmed Vital Signs Heart Rate 64 /min 07/16/2024 Blood pressure diastolic 70 mm Hg 07/16/2024 Height 63 in 07/16/2024 Blood pressure systolic 102 mm Hg 07/16/2024 Weight 163.4 lbs 07/16/2024 BMI 28.94 kg/m2 07/16/2024 Encounters Encounter Location Date Provider Diagnosis Fredy [address] [facility] 36 [facility] [address] [place], [place] [id number] 04/16/2024 Daily Crowdy Pain in right knee M25.561 and Pain in left knee M25.562 [facility] [address] [facility] [address] [place] [id number] 05/15/2024 Daily Crowdy Epigastric pain R10. 13 ; Elevated glucose R73.09 ; Vitamin D deficiency E55.9 ; Vitamin B12 deficiency E53.8 ; Restless leg G25.81 and Fatigue, unspecified type R53.83 [facility] [address] [place], [place] [id number] 07/16/2024 Curly [place] Vitamin D deficiency E55.9 [facility] [address] [place], [place] [id number] 04/17/2024 Daily Eubanks [facility] [address] [place], [place] [id number] 05/19/2024 Curly [place] [facility] [address] [place], [place] [id number] 07/18/2024 Curly [place] [facility] [address] [place], [place] [id number] 09/29/2024 Curly [place] Assessments Encounter Date Diagnosis (ICD Code) Assessment Notes Treatment Notes Treatment Clinical Notes Section Notes 05/15/2024 Elevated glucose (ICD-10 - R73.09) 05/15/2024 Epigastric pain (ICD-10 - R10.13) 04/16/2024 Pain in right knee (ICD-10 - M25.561) Will get x-rays and make an ortho appt. She may benefit from injections. 04/16/2024 Pain in left knee (ICD-10 - M25.562) 07/16/2024 Vitamin D deficiency (ICD-10 - E55.9) 05/15/2024 Vitamin D deficiency (ICD-10 - E55.9) 05/15/2024 Vitamin B12 deficiency (ICD-10 - E53.8) 05/15/2024 Restless leg (ICD-10 - G25.81) 05/15/2024 Fatigue, unspecified type (ICD-10 - R53.83) Plan Of Treatment Pending Test Test Name Order Date H-DIARRHEA PANEL 04/28/2021 Insurance Providers Payer Name Payer Address Payer Phone Subscriber Number Group Number Insured Name Patient Relationship to Insured Coverage Start Date Coverage End Date [employer] [address] [place] [address] [id number] Self - patient is the insured Medical (General) History Medical History History ICD Code migraine headache polycystic ovary syndrome celiac disease Gastric diverticulum, Dx: 2009 Seasonal allergies -follows with Dr. Cliff ross Surgical History Surgery Date(Month/Year) wisdom teeth 2008 D&C-Harpel 12/2010 Tumor Removal - L Ovary 2015 03/2017 Colonoscopy R Foot Surgery - Repair - Fracutred 5th Digit Partial hysterectomy 2023 Uterine ablation Hospitalization History Reason Date(Month/Year) [facility] - Fractured Foot 03/02/[facility]- UTI 07/2014 [facility]- Chest Pains 07/19/2011 [facility] ER-Abdominal Pain 07/15/2009 none
[2024-11-13 10:14] LABS: Pancreatic Elastase, Fecal 718 (>200)
== END 2024-11-11 23:59 | disposition home or self-care (01) ==
LOC: LAB 08:00
PROVIDERS: PCP Physician Assistant; Visit Provider Nurse Practitioner Family
DX: K90.9 Intestinal malabsorption, unspecified (principal)
CPT/HCPCS: 82653

== ENCOUNTER → 2024-12-22 12:59 | Day surgery (SDC) | payer BC, SELFPAY ==
--- NOTE | 2024-12-18 11:33 | SUR.PREOP ---
left message with callback number. will reattempt closer to procedure
[2024-12-18 12:08] VITALS: BMI 29.9
--- NOTE | 2024-12-18 15:34 | EXP.HP ---
History of Present Illness *Admission Date: 12/22/24 *History of present illness: Mrs. Lugo is a 39-year-old female who is here for diagnostic colonoscopy. The patient has been having bowel frequency with formed bowel movements. She also has abdominal pain. She does have a history of polycystic ovaries and endometriosis. She reports bloating, gassiness and some belching. Her great uncle was diagnosed with colon cancer later in life. She did have EGD and colonoscopy more than 10 years ago at [facility]. The patient had improved previously with gluten-free diet but is not completely gluten-free presently and her recent celiac panel (11/10/2024) was normal indicating no celiac disease. The examination is deemed medically necessary for diagnostic colonoscopy. The patient has been seen, interviewed and examined prior to the procedure by both myself and the anesthesia provider. [facility] Disclaimer: The information contained in this section may have been updated after the patient was seen, as this information can be updated by other users. Medical History Vaginal Discharge Vaginal itching History of ovarian cyst Major depressive disorder Generalized anxiety disorder Vaginal lesion Family history of breast cancer Endometriosis determined by laparoscopy Acute pelvic pain, female Anxiety Depression Snoring Night terrors, adult Vaginitis Chronic pelvic pain in female Dyspareunia in female Umbilical hernia Dysphagia Thyroid Nodule Fractured metatarsal bone left w/ metal graham Surgical History History of removal of ovarian cyst H/O laparoscopy S/P abdominal hysterectomy and left salpingo-oophorectomy with bilateral salpingectomy; surgery on 03/22/23 History of foot surgery screw in left foot History of colonoscopy Hx of umbilical hernia repair w/ mesh History of wisdom tooth extraction, class IV edentulism History of section x 3 History of endometrial ablation History of tubal ligation Family History Other Coronary artery disease FHx: mental illness Family history of hyperlipidemia Family history of myocardial infarction Family history of thyroid nodule Family hx-breast malignancy Social History Smoking Status: Never smoker second hand exposure: No alcohol intake: current alcohol intake frequency: holidays/special occasions only counseling given: No substance use type: denies use counseling given: No current occupational status: unemployed Travel in the last 8 weeks?: None adopted: No caregiver/support person: Yes foster care: No household members: spouse and family housing: house lives independently: Yes marital status: number of children: 3 number of grandchildren: 0 education level: high school 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 current occupational exposures/hazards: No sexually active: Yes caffeine: Yes physical activity: none special john needs: No agree to transfusion: No working smoke detector in home: Yes fire extinguisher in home: No carbon monox detector in home: Yes firearms in home: Yes firearms unloaded and locked: Yes do you feel safe at home: Yes victim of physical abuse: No victim of emotional abuse: No victim of sexual abuse: No would you like helpful sources: No Have you lived/traveled outside [place] in past 30 days?: No Contact w/someone who lives/traveled outside US past 30 days?: No Exposure to someone with infectious disease in past 14 days?: No Do you have a fever (greater than 100.4 F or 38 C)?: No Have you tested positive for COVID-19?: No Exposed to someone with COVID-19 in past 14 days?: No Do you have a sore throat?: No Do you have a cough?: No Do you have any weakness?: No Do you have any diarrhea?: No Are you experiencing any unusual bleeding?: No Do you have any muscle aches/pain?: No Do you have any abdominal pain?: No Are you experiencing loss of taste or smell?: No Other Medical History Have you received the Flu Vaccine for this season: No Have you received the Pneumonia Vaccine: No Review of Systems Review of Systems Review of systems (narrative): Negative *Cardiovascular Comments: Negative *Gastrointestinal Comments: Negative *Genitourinary Comments: Negative *Musculoskeletal Comments: Negative *Neurologic Comments: Negative Meds Home Medications and Allergies Home Medications ?Medication ?Instructions ?Recorded ?Confirmed ?Type levocetirizine 5 mg tablet 5 mg PO HS Allergy Symptoms 07/22/19 12/18/24 History albuterol sulfate 90 mcg/actuation 1 inh inhalation QID 02/14/24 12/18/24 History aerosol inhaler albuterol 90 mcg-budesonide 80 1 puff inhalation DAILY 08/13/24 12/18/24 History mcg/actuation HFA aerosol inhaler (Airsupra) epinephrine 0.3 mg/0.3 mL 0.3 mg IM ONCE PRN Anaphylaxis 08/13/24 12/18/24 History injection, auto-injector (EpiPen) fluticasone propionate 50 1 spray intranasal DAILY 08/13/24 12/18/24 History mcg/actuation nasal spray,suspension (Flonase Allergy Relief) omeprazole 40 mg capsule,delayed 40 mg PO DAILY #30 caps 08/13/24 12/18/24 Rx release ashwagandha extract 62.5 mg 62.5 mg PO DAILY 11/10/24 12/18/24 History chewable tablet cholecalciferol (vitamin D3) 50 50 mcg PO DAILY 11/10/24 12/18/24 History mcg (2,000 unit) capsule glutamine 500 mg capsule 500 mg PO DAILY 11/10/24 12/18/24 History magnesium 200 mg tablet 200 mg PO DAILY 11/10/24 12/18/24 History potassium citrate 99 mg capsule 99 mg PO DAILY 11/10/24 12/18/24 History theanine 15 mg-magnesium cit,la 1 tab PO DAILY 11/10/24 12/18/24 History 100 mg-pass flw-jana-B6 chewable tablet New Prescriptions to Start Prescriptions: Allergies Allergy/AdvReac Type Severity Reaction Status Date / Time almond Allergy Intermediate Wheezing Verified 12/22/24 13:15 Summit And Derivatives Allergy Intermediate Wheezing Verified 12/22/24 13:15 erythromycin base Allergy Intermediate I-HIVES, Verified 12/22/24 13:15 STOMACH UPSET escitalopram Allergy Intermediate Other Verified 12/22/24 13:15 orange Allergy Intermediate Wheezing Verified 12/22/24 13:15 pecan nut Allergy Intermediate Wheezing Verified 12/22/24 13:15 walnut Allergy Intermediate Wheezing Verified 12/22/24 13:15 methylergonovine (From Allergy Unknown EDEMA Verified 12/22/24 13:15 Methergine) codeine (From [employer] with AdvReac Severe Heart Races Verified 12/22/24 13:15 Codeine) Exam Data for Last 24 hours I & O for Last 24 hours: Intake & Output 12/15/24 12/16/24 12/17/24 12/18/24 23:59 23:59 23:59 23:59 Weight 164 lb *Routine HEENT Exam Head: Present normocephalic Eye: Present EOMI and PERRL ENT: Present mucous membranes moist *Routine Neck Exam Neck: Present supple *Routine Respiratory Exam Respiratory: Present CTA bilaterally *Routine Cardiovascular Exam Cardiovascular: Present RRR *Routine Abdominal Exam Abdominal: Present soft and normoactive bowel sounds; Absent tenderness *Routine Rectal Exam Rectal:: deferred *Routine Genitalia Exam Genitalia:: deferred *Routine Extremities Exam Extremities: Absent cyanosis, clubbing or edema *Routine Skin Exam Skin: Present warm; Absent rash *Routine Neurological Exam Neurological: Present alert and oriented X3 Assessment and Plan *Assessment and plan (1) Flatulence: Status: Acute Category: Medical Code(s): R14.3 - Flatulence (2) Generalized abdominal pain: Status: Acute Category: Medical Code(s): R10.84 - Generalized abdominal pain (3) Bloating: Status: Acute Category: Medical Code(s): R14.0 - Abdominal distension (gaseous) (4) Fatty stool: Status: Acute Category: Medical Code(s): K90.9 - Intestinal malabsorption, unspecified (5) Increased bowel frequency: Status: Acute Category: Medical Code(s): R19.4 - Change in bowel habit Plan A/P: 1. Bloating, gassiness, generalized abdominal pain and increased bowel frequency is the preprocedural diagnosis. The patient will be anesthetized/sedated using MAC sedation. The patient has been seen and examined. Cardiac and lung assessment prior to the examination is stable. Proceed with planned diagnostic colonoscopy.
--- NOTE | 2024-12-22 07:12 | P.PCN_ITS ---
[facility] Procedure Note Date: 12/22/24 Time: 14:42 Procedure Note:: Colonoscopy Procedure Report: Colonoscopy with cold biopsies Endoscopist: Gregorio Galdamez II, MD Referring physician: Birgit Eubanks PA-C Date of Procedure: December 22, 2024 Equipment: Olympus [id number] adult colonoscope Sedation: MAC sedation Indication: Mrs. Lugo is a 39-year-old female who is here for diagnostic colonoscopy. The patient has been having bowel frequency with formed bowel movements. She also has abdominal pain. She reports the pain originally in the lower abdomen but also has had right sided abdominal pain and states that things are backed up into the right colon and then when this passes she has relief. She does have a history of polycystic ovaries and endometriosis. She reports bloating, gassiness and some belching. Her great uncle was diagnosed with colon cancer later in life. She did have EGD and colonoscopy more than 10 years ago at [facility]. The patient had improved previously with gluten-free diet but is not completely gluten-free presently and her recent celiac panel (11/10/2024) was normal indicating no celiac disease. The examination is deemed medically necessary for diagnostic colonoscopy. Procedure: Prior to the procedure, a history and physical exam was performed, and patient's medications and allergies were reviewed. The risks, benefits and alternatives of the sedation and procedure were discussed with the patient. All questions were answered and informed consent was obtained. The patient was brought to the procedure room. Patient identification and proposed procedure were verified by the physician and the nurse. The patient was placed in a left lateral decubitus position and the scope was passed under direct vision. Throughout the procedure, the patient's blood pressure, pulse, and oxygen saturations were monitored continuously. The colonoscopy was accomplished without difficulty. The patient tolerated the procedure well. Findings: On digital rectal examination there was normal rectal tone. There were no external hemorrhoids. The colonoscope was introduced through the anal canal to the rectum and advanced to the cecum. The ileocecal valve and appendiceal orifice were identified. The scope was advanced a short distance into the ileum which appeared normal except for 3 very small punctate erosions and the ileum was biopsied. The scope was then withdrawn into the colon. The cecum, ascending, transverse, descending, sigmoid and rectum were grossly normal. There were no mucosal abnormalities identified. Cold biopsies were taken randomly to rule out microscopic colitis. Upon retroflexion within the rectum there were grade 1-2 internal hemorrhoids. The preparation was excellent throughout with [place] Preparation Score of 9. The cecal time was 12 minutes. Impression: 1. Very mild ileitis (rule out NSAID erosions) 2. Normal colonoscopy Plan: I will discuss the findings with the patient and family. 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 I would also consider neuromodulation treatment for functional abdominal pain/hepatic flexure syndrome.
[2024-12-22 13:16] VITALS: BP 117/74; PULSE 71; RESP 18; TEMP 36.6; O2SAT 97
[2024-12-22] MEDS: LACTATED RINGERS 1000ML 1,000 ML 50 ML IV (13:21)
--- NOTE | 2024-12-22 13:51 | EXP.ANES.CKL ---
[facility] Disclaimer: The information contained in this section may have been updated after the patient was seen, as this information can be updated by other users. Medical History Vaginal Discharge Vaginal itching History of ovarian cyst Major depressive disorder Generalized anxiety disorder Vaginal lesion Family history of breast cancer Endometriosis determined by laparoscopy Acute pelvic pain, female Anxiety Depression Snoring Night terrors, adult Vaginitis Chronic pelvic pain in female Dyspareunia in female Umbilical hernia Dysphagia Thyroid Nodule Fractured metatarsal bone left w/ metal graham Surgical History History of removal of ovarian cyst H/O laparoscopy S/P abdominal hysterectomy and left salpingo-oophorectomy with bilateral salpingectomy; surgery on 03/22/23 History of foot surgery screw in left foot History of colonoscopy Hx of umbilical hernia repair w/ mesh History of wisdom tooth extraction, class IV edentulism History of section x 3 History of endometrial ablation History of tubal ligation Family History Other Coronary artery disease FHx: mental illness Family history of hyperlipidemia Family history of myocardial infarction Family history of thyroid nodule Family hx-breast malignancy Social History Smoking Status: Never smoker second hand exposure: No alcohol intake: current alcohol intake frequency: holidays/special occasions only counseling given: No substance use type: denies use counseling given: No current occupational status: unemployed Travel in the last 8 weeks?: None adopted: No caregiver/support person: Yes foster care: No household members: spouse and family housing: house lives independently: Yes marital status: number of children: 3 number of grandchildren: 0 education level: high school 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 current occupational exposures/hazards: No sexually active: Yes caffeine: Yes physical activity: none special john needs: No agree to transfusion: No working smoke detector in home: Yes fire extinguisher in home: No carbon monox detector in home: Yes firearms in home: Yes firearms unloaded and locked: Yes do you feel safe at home: Yes victim of physical abuse: No victim of emotional abuse: No victim of sexual abuse: No would you like helpful sources: No Have you lived/traveled outside [place] in past 30 days?: No Contact w/someone who lives/traveled outside [place] past 30 days?: No Exposure to someone with infectious disease in past 14 days?: No Do you have a fever (greater than 100.4 F or 38 C)?: No Have you tested positive for COVID-19?: No Exposed to someone with COVID-19 in past 14 days?: No Do you have a sore throat?: No Do you have a cough?: No Do you have any weakness?: No Do you have any diarrhea?: No Are you experiencing any unusual bleeding?: No Do you have any muscle aches/pain?: No Do you have any abdominal pain?: No Are you experiencing loss of taste or smell?: No [facility] Anesthesia Checklist Patient Identification Patient Identification: Family Structural Data Admitted From: Home Planned Operative Procedure/s: Colonoscopy Verified Documents: Surgical Consent and History and Physical NPO Status Verified Time NPO: 00:00 Additional verifications Patient : No Anesthesia Reactions: Yes (pt reports hard to wake up after anesthesia) Hx Blood Transfusions: No Blood Transfusion Reaction: No Cephalosporin Allergy: No Previous Colonoscopy: Yes Cardiovascular Assessment Peripheral Edema: No Airway Assessment Mallampati Score:: Class I C-Spine Mobility Assessed: Yes TMJ Mobility Assessed: Yes Dentition: Good Dentition Neurological Assessment Level of Consciousness: Awake, Alert, Appropriate and Follows Commands Hx Seizures: No Numbness or tingling in extremities: No Anesthesia Plan Anesthesia Risk discussed: Yes ASA Class: II Anesthesia Type: MAC Preoperative Comments Pre-Operative Comments: History of Asthma. Transcient thyroid nodules.
[2024-12-22 14:44] VITALS: BP 100/64; PULSE 72; RESP 16; TEMP 36.3; O2SAT 98
[2024-12-22 14:54] VITALS: BP 109/65; PULSE 67; RESP 17; TEMP 36.3; O2SAT 100
[2024-12-22 15:04] VITALS: BP 114/72; PULSE 66; RESP 18; TEMP 36.3; O2SAT 100
[2024-12-22 15:14] VITALS: BP 116/74; PULSE 66; RESP 18; TEMP 36.3; O2SAT 100
== END | disposition home or self-care (01) ==
PROVIDERS: PCP Physician Assistant; Visit Provider Internal Medicine Gastroenterology
PROC: 0DJD8ZZ Inspection of Lower Intestinal Tract, Via Natural or Artificial Opening Endoscopic (ICD-10-PCS; CPT 45378; principal; 2024-12-22 14:30)
DX: K52.9 Noninfective gastroenteritis and colitis, unspecified (principal); K64.0 First degree hemorrhoids; K64.1 Second degree hemorrhoids; K90.9 Intestinal malabsorption, unspecified; Z90.710 Acquired absence of both cervix and uterus; Z90.79 Acquired absence of other genital organ(s); Z90.721 Acquired absence of ovaries, unilateral; Z88.6 Allergy status to analgesic agent; Z88.8 Allergy status to other drugs, medicaments and biological substances; Z80.0 Family history of malignant neoplasm of digestive organs
CPT/HCPCS: 45380; J2003; J2704; J7120